=== PATIENT | male | born 1965 | race Caucasian/White ===

== ENCOUNTER 2017-03-18 20:14 | Inpatient (IN) | payer OTHER ==
[~2017-03-18] VITALS: Ht 182.9 cm; Wt 214.4 kg
[~2017-03-18 20:14] MED LIST: ADVAI500I PO; ASPI325T PO; DUONI INH; LEVO.05 PO; LORTA5 PO; METO25 PO; TRAM100T19 PO
[2017-03-18 20:15] VITALS: BP 150/90; PULSE 110; RESP 24; TEMP 98; O2SAT 96
--- NOTE | 2017-03-18 20:36 | PD ---
Physical Exam Time Seen by Provider: 20:34 Narrative 51 y/o male hx asthma here with SOB, cough. He also has venous stasis ulcers, wound culture performed last week grew out pseudomonas. He was sent here by PCP reportedly with the purpose of admission. Vital signs reviewed. Seen at triage desk. Awaiting bed placement. Data Data Last Documented VS Vital Signs Date Time Temp Pulse Resp B/P Pulse Ox O2 Delivery O2 Flow Rate FiO2 03/18/17 20:15 98.0 110 24 150/90 96 Room Air [facility] Medical Record Reviewed: Yes Supervised Visit with BILLY: Wil Boone Mar 18, 2017 20:36
[2017-03-19] VITALS (9 sets, daily range): BP systolic 103–144; BP diastolic 63–80; PULSE 60–124; RESP 16–22; TEMP 97.8–98.7; O2SAT 93–100
[2017-03-19 00:42] LABS: MEAN CORPUSCULAR HGB CONC 28.7 % (32.0-36.0)
[2017-03-19] MEDS ORDERED: RESP: ALBUTEROL 2.5 MG/IPRATROPIUM 0.5 MG NEB (SCH) INH ONE (00:45)
[2017-03-19 01:16] LABS: AUTOMATED NEUTROPHIL # 5.7 TH/MM3 (1.8-7.7); BASOPHIL % 0.6 % (0.0-2.0); EOSINOPHIL # 0.3 TH/MM3 (0-0.4); EOSINOPHIL % 3.1 % (0.0-4.0); HEMATOCRIT 28.5 % (39.0-51.0); HEMO FLAGS DIFF FINAL; LYMPH % 17.1 % (9.0-44.0); LYMPHOCYTE # 1.4 TH/MM3 (1.0-4.8); MEAN CORPUSCULAR HEMOGLOBIN 20.6 PG (27.0-34.0); MONO % 8.7 % (0.0-8.0); NEUT % 70.5 % (16.0-70.0); PLATELET COUNT 314 TH/MM3 (150-450); RED BLOOD COUNT 3.97 MIL/MM3 (4.50-5.90); RED CELL DISTRIBUTION WIDTH 19.4 % (11.6-17.2); WHITE BLOOD COUNT 8.1 TH/MM3 (4.0-11.0)
[2017-03-19 01:23] LABS: BICARBONATE 30.9 MEQ/L (21.0-32.0); POTASSIUM 4.5 MEQ/L (3.5-5.1)
--- NOTE | 2017-03-19 02:12 | RADRPT ---
EXAM DATE/TIME: 03/19/2017 01:51 [place] COMPARISON: CHEST SINGLE AP, June 06, 2016, 21:43. INDICATIONS : History of bronchitis- patient short of breath MEDICAL HISTORY : Hypertension. Gastroesophageal reflux disease. A-fib, Asthma,Thyroid disease SURGICAL HISTORY : Appendectomy. AICD ENCOUNTER: Initial ACUITY: 1 day PAIN SCORE: 8/10 LOCATION: Bilateral chest FINDINGS: The cardiac silhouette is enlarged in transverse diameter. There is right basilar atelectasis versus pneumonia. The left lung is free of acute parenchymal opacity. No pleural effusions are identified. CONCLUSION: 1. Cardiomegaly. 2. Right basilar atelectasis versus pneumonia Angel Browning MD on March 19, 2017 at 2:09 Board Certified Radiologist. This report was verified electronically.
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
[2017-03-19] MEDS ORDERED: PIPERACIL-TAZO 3.375 GM PREMIX 50 ML IV ONE (03:15)
[2017-03-19] MEDS ORDERED: ACETAMINOPHEN/HYDROcodone 325 MG/5 MG TAB PO ONE (03:30)
[2017-03-19] MEDS ORDERED: SODIUM CHLORIDE 0.9% FLUSH 10 ML FLUSH IVF PRN (03:45)
[2017-03-19] MEDS ORDERED: ONDANSETRON HCL 4 MG/2 ML VIAL IV PRN (03:45)
[2017-03-19] MEDS ORDERED: ACETAMINOPHEN 325 MG TAB PO PRN (03:45)
[2017-03-19] MEDS ORDERED: ASPI325T PO (04:16)
[2017-03-19] MEDS ORDERED: VENTAER INH (04:16)
[2017-03-19] MEDS ORDERED: METO25TA3 PO ×2 (04:16)
[2017-03-19] MEDS ORDERED: HYDR-3516 PO (04:16)
[2017-03-19] MEDS ORDERED: ASPI81TA81 (04:16)
[2017-03-19] MEDS ORDERED: ADVA100A INH (04:16)
[2017-03-19] MEDS ORDERED: TRIAM.1%T TOPICAL (04:17)
[2017-03-19] MEDS: SODIUM CHLORIDE 0.9% FLUSH 10 ML FLUSH IV FLUSH SCH ×2 (08:29→20:34)
[2017-03-19] MEDS ORDERED: INFLUENZA VIRUS VACCINE (QUADRIVALENT) 0.5 ML SYR IM ONE (09:15)
[2017-03-19] MEDS ORDERED: ALBUTEROL SULFATE 90 MCG/ACT HFA 8 GM INHALER INH PRN (11:45)
[2017-03-19] MEDS: METOPROLOL TARTRATE 25 MG TAB PO SCH ×2 (12:06→20:34)
[2017-03-19] MEDS: ACETAMINOPHEN/HYDROcodone 325 MG/5 MG TAB PO PRN ×2 (12:06→20:34)
[2017-03-19] MEDS: BUDESONIDE-FORMOTEROL 80/4.5 MCG INHALER INH SCH ×2 (12:40→20:35)
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
--- NOTE | 2017-03-19 18:17 | HHI.HP ---
HPI Service [facility] Hospitalists Primary Care Physician Lizette Bashir MD Admission Diagnosis Infection of Chronic Wounds; Poss R Lung PNA Chief Complaint: LE wound Travel History International Travel<30 Days: No Contact w/Intl Traveler <30 Da: No Traveled to Known Affected Are: No History of Present Illness Pt is a pleasant 51 y/o M with Morbid obesity, chronic anemia, atrial fibrillation, chronic lymphedema, asthma, bilateral nonhealing venous stasis ulcers. Patient states that these chronic b/l, nonhealing venous stasis ulcers have been an ongoing problem for the last 5 years. Patient's wounds have cultured out Pseudomonas in the past, this is mentioned in Vascular Surgery's, Dr. Wagner, consultation note from 07/08/2016. Patient has been following with [facility] wound care clinic, 3 visits documented for 2017. Pt had been recommended to the lymphedema clinic. Patient had previously been recommended to elevate his legs, but apparently has not been compliant with this. Patient had also been recommended for SNF for bed rest, but had declined due to financial considerations. Outpatient wound cultures (03/16/17) grew out Klebsiella pneumoniae and Pseudomonas anginosa. Ultimately patient was referred to the [place] ER and subsequently admitted for further evaluation and treatment of his nonhealing bilateral lower extremity venous stasis ulcers. Patient denies fever or chills. Review of Systems Constitutional: DENIES: Diaphoretic episodes, Fatigue, Fever, Weight gain, Weight loss, Chills, Dizziness, Change in appetite, Night Sweats Endocrine: DENIES: Heat/cold intolerance, Polydipsia, Polyuria, Polyphagia Eyes: DENIES: Blurred vision, Diplopia, Eye inflammation, Eye pain, Vision loss , Photosensitivity, Double Vision Ears, nose, mouth, throat: DENIES: Tinnitus, Hearing loss, Vertigo, Nasal discharge, Oral lesions, Throat pain, Hoarseness, Ear Pain, Running Nose, Epistaxis, Sinus Pain, Toothache, Odynophagia Respiratory: DENIES: Apneas, Cough, Snoring, Wheezing, Hemoptysis, Sputum production, Shortness of breath Cardiovascular: DENIES: Chest pain, Palpitations, Syncope, Dyspnea on Exertion , PND, Lower Extremity Edema, Orthopnea, Claudication Gastrointestinal: DENIES: Abdominal pain, Black stools, Bloody stools, BRB per rectum, Constipation, Diarrhea, GERD, Nausea, Reflux, Vomiting, Difficulty Swallowing, Anorexia, See HPI Genitourinary: DENIES: Urinary frequency, Urinary incontinence, Urgency, Hematuria, Dysuria, Nocturia Musculoskeletal: DENIES: Joint pain, Muscle aches, Stiffness, Joint Swelling, Back pain, Neck pain Integumentary: DENIES: Abnormal pigmentation, Nail changes, Pruritus, Rash Hematologic/lymphatic: DENIES: Bruising, Lymphadenopathy Immunologic/allergic: DENIES: Eczema, Urticaria Neurologic: DENIES: Abnormal gait, Headache, Localized weakness, Paresthesias, Seizures, Speech Problems, Tremor, Poor Balance Psychiatric: DENIES: Anxiety, Confusion, Mood changes, Depression, Hallucinations, Agitation, Suicidal Ideation, Homicidal Ideation, Delusions, History of Bipolar, History of Schizophrenia Past Family Social History Past Medical History 1) bilateral nonhealing lower extremity venous stasis ulcers 2) lower extremity venous stasis 3) morbid obesity 4) atrial fibrillation, chronic 5) asthma 6) h/o gastric ulcer Past Surgical History 05/07/2014-laparoscopy with gram patch repair of gsric ulcer perforation an drainage of multiple intraabdominal abscesssee hosp notes on 05/07/14 Allergies: Uncoded Allergies: Unna boots (Adverse Reaction, Unknown, 03/19/17) Physical Exam Vital Signs Vital Signs Date Time Temp Pulse Resp B/P Pulse Ox O2 Delivery O2 Flow Rate FiO2 03/19/17 16:39 97.8 92 20 103/63 93 03/19/17 15:46 78 03/19/17 12:16 97.9 60 16 107/65 95 03/19/17 12:01 91 03/19/17 09:46 124 03/19/17 08:57 98.0 94 20 116/80 94 03/19/17 04:00 98.7 78 18 144/78 98 03/19/17 00:57 18 03/18/17 20:15 98.0 110 24 150/90 96 Room Air Physical Exam GENERAL: This is a well-nourished, well-developed patient, in no apparent distress. SKIN: No rashes, ecchymoses or lesions. Cool and dry. HEAD: Atraumatic. Normocephalic. No temporal or scalp tenderness. EYES: Pupils equal round and reactive. Extraocular motions intact. No scleral icterus. No injection or drainage. ENT: Nose without bleeding, purulent drainage or septal hematoma. Throat without erythema, tonsillar hypertrophy or exudate. Uvula midline. Airway patent. NECK: Trachea midline. No JVD or lymphadenopathy. Supple, nontender, no meningeal signs. CARDIOVASCULAR: Regular rate and rhythm without murmurs, gallops, or rubs. RESPIRATORY: Clear to auscultation. Breath sounds equal bilaterally. No wheezes , rales, or rhonchi. GASTROINTESTINAL: Abdomen soft, non-tender, nondistended. No hepato-splenomegaly , or palpable masses. No guarding. MUSCULOSKELETAL: Extremities without clubbing, cyanosis, or edema. No joint tenderness, effusion, or edema noted. No calf tenderness. Negative Homans sign bilaterally. NEUROLOGICAL: Awake and alert. Cranial nerves II through XII intact. Motor and sensory grossly within normal limits. Five out of 5 muscle strength in all muscle groups. Normal speech. skin: Bilateral circumferential lower extremity venous stasis ulcers below the level of the knee. Wounds are large but do not appear infected. There is no drainage. There is no erythema. Laboratory Laboratory Tests Test 03/19/17 00:50 White Blood Count 8.1 Red Blood Count 3.97 Hemoglobin 8.2 Hematocrit 28.5 Mean Corpuscular Volume 72.0 Mean Corpuscular Hemoglobin 20.6 Mean Corpuscular Hemoglobin 28.7 Concent Red Cell Distribution Width 19.4 Platelet Count 314 Mean Platelet Volume 8.2 Neutrophils (%) (Auto) 70.5 Lymphocytes (%) (Auto) 17.1 Monocytes (%) (Auto) 8.7 Eosinophils (%) (Auto) 3.1 Basophils (%) (Auto) 0.6 Neutrophils # (Auto) 5.7 Lymphocytes # (Auto) 1.4 Monocytes # (Auto) 0.7 Eosinophils # (Auto) 0.3 Basophils # (Auto) 0.0 CBC Comment DIFF FINAL Differential Comment Sodium Level 140 Potassium Level 4.5 Chloride Level 104 Carbon Dioxide Level 30.9 Anion Gap 5 Blood Urea Nitrogen 22 Creatinine 1.09 Estimat Glomerular Filtration 72 Rate Random Glucose 89 Calcium Level 8.3 Date/Time Procedure Status Source Growth 03/19/17 03:45 Aerobic Blood Culture Received Blood Peripheral Pending 03/19/17 03:45 Anaerobic Blood Culture Received Blood Peripheral Pending 03/19/17 00:50 Gram Stain - Final Resulted Wound Leg 03/19/17 00:50 Wound Culture Resulted Wound Leg Pending Result Diagram: 03/19/17 0050 03/19/17 0050 Septic Shock Reassessment Heart: Regular rate and rhythm Lungs: Clear Skin: Warm Peripheral Pulses: Bounding Right Radial Bounding Left Radial Bounding Right Popliteal Bounding Left Popliteal Bounding Right Dorsalis Pedis Bounding Left Dorsalis Pedis Bounding Right Posterior Tibial Bounding Left Posterior Tibial Capillary Refill: Brisk Assessment and Plan Problem List: (1) Venous stasis ulcers of both lower extremities Status: Chronic Plan: - outpt wound cultures (03/16/17) show pseudomonas - case d/w ID, Dr. Rollins - michael - follow culture results - observe clinical response (2) Anemia Status: Acute Plan: - obtain iron indicies - repeat CBC in AM (3) COPD (chronic obstructive pulmonary disease) Status: Acute Plan: - symbicort - duonebs prn (4) Obesity Status: Chronic Problem Qualifiers (1) Anemia: Qualified Code: D64.9 - Anemia, unspecified type (2) Obesity: Sean Hurtado DO Mar 19, 2017 18:17
[2017-03-19] MEDS: PIPERACIL-TAZO 4.5 GM PREMIX 100 ML IV SCH (18:36)
[2017-03-19 19:53] LABS: LDH SERUM 258 U/L (87-241)
[2017-03-19 19:55] LABS: REVIEW FLAG FINAL
[2017-03-19 19:56] LABS: FERRITIN 14 NG/ML (26-388); TRANSFERRIN IRON PROFILE 352 MG/DL (200-360)
[2017-03-19 21:08] LABS: MEAN CORPUSCULAR HGB CONC 28.9 % (32.0-36.0)
[2017-03-20] VITALS (8 sets, daily range): BP systolic 99–132; BP diastolic 60–89; PULSE 84–93; RESP 18–24; TEMP 97.8–98.5; O2SAT 92–96
[2017-03-20] MEDS: PIPERACIL-TAZO 4.5 GM PREMIX 100 ML IV SCH ×4 (00:18→19:14)
[2017-03-20 06:03] LABS: AUTOMATED NEUTROPHIL # 5.1 TH/MM3 (1.8-7.7); BASOPHIL % 0.5 % (0.0-2.0); EOSINOPHIL # 0.3 TH/MM3 (0-0.4); EOSINOPHIL % 3.3 % (0.0-4.0); HEMATOCRIT 27.1 % (39.0-51.0); HEMO FLAGS DIFF FINAL; LYMPHOCYTE # 1.3 TH/MM3 (1.0-4.8); MEAN CELL VOLUME 71.9 FL (80.0-100.0); MEAN CORPUSCULAR HEMOGLOBIN 20.8 PG (27.0-34.0); MONO % 11.5 % (0.0-8.0); NEUT % 67.7 % (16.0-70.0); PLATELET COUNT 297 TH/MM3 (150-450); RED BLOOD COUNT 3.77 MIL/MM3 (4.50-5.90); RED CELL DISTRIBUTION WIDTH 19.2 % (11.6-17.2); WHITE BLOOD COUNT 7.5 TH/MM3 (4.0-11.0)
[2017-03-20 06:07] LABS: MAGNESIUM 2.2 MG/DL (1.5-2.5); POTASSIUM 4.5 MEQ/L (3.5-5.1)
[2017-03-20] MEDS: ACETAMINOPHEN/HYDROcodone 325 MG/5 MG TAB PO PRN ×2 (07:36→19:14)
[2017-03-20] MEDS: SODIUM CHLORIDE 0.9% FLUSH 10 ML FLUSH IV FLUSH SCH ×2 (09:17→22:40)
[2017-03-20] MEDS: ASPIRIN 325 MG TAB PO SCH (09:17)
[2017-03-20] MEDS: METOPROLOL TARTRATE 25 MG TAB PO SCH ×2 (09:17→22:40)
[2017-03-20] MEDS: BUDESONIDE-FORMOTEROL 80/4.5 MCG INHALER INH SCH ×2 (09:18→21:00)
--- NOTE | 2017-03-20 09:56 | HHI.PR ---
Addendum to Inpatient Note Additional Information fu P wound cultures cont zosyn previously R to fortaz, S cefepime MARY GRACE s not available if wound clx show S to cefepime will dc on cefepime if wound clx shows S to cipro will dc on oral cipro Starla Rollins MD Mar 20, 2017 09:56
--- NOTE | 2017-03-20 18:28 | HHI.PR ---
Subjective Remarks No new complaints. Objective Vitals Vital Signs Date Time Temp Pulse Resp B/P Pulse Ox O2 Delivery O2 Flow Rate FiO2 03/20/17 16:00 97.8 91 24 99/60 92 03/20/17 11:36 98.2 86 20 109/65 94 03/20/17 08:00 97.8 90 20 119/74 94 03/20/17 04:08 84 03/20/17 03:36 98.4 92 20 126/73 95 03/20/17 00:16 84 03/20/17 00:11 98.5 86 18 132/89 92 03/19/17 21:35 16 03/19/17 20:08 98.7 68 22 129/69 100 03/19/17 20:00 93 03/19/17 03/19/17 03/20/17 15:00 23:00 07:00 Intake Total 480 ml 500 ml Balance 480 ml 500 ml Intake Oral 480 ml 300 ml IV Total 200 ml # Voids 1 2 Result Diagram: 03/20/17 0450 03/20/17 0450 Imaging GENERAL: This is a well-nourished, well-developed patient, in no apparent distress. CARDIOVASCULAR: Regular rate and rhythm without murmurs, gallops, or rubs. RESPIRATORY: Clear to auscultation. Breath sounds equal bilaterally. No wheezes , rales, or rhonchi. GASTROINTESTINAL: Abdomen soft, non-tender, nondistended. Normal active bowel sounds MUSCULOSKELETAL: Extremities without clubbing, cyanosis, or edema. NEURO: Alert & Oriented x4 to person, place, time, situation. Moves all ext x4 Ext: b/l venous stasis ulcers without sighs of infection A/P Problem List: (1) Venous stasis ulcers of both lower extremities Status: Chronic Plan: - outpt wound cultures (03/16/17) show pseudomonas - case d/w ID, Dr. Rollins (03/20/17) - zosyn - follow wound culture (03/19/17) --> gram negative rods - anticipate d/c to home 03/21 (2) Anemia Status: Acute Plan: - iron indicies --> low serum iron - start iron upon discharge - f/u with GI outpt (3) COPD (chronic obstructive pulmonary disease) Status: Acute Plan: - symbicort - duonebs prn (4) Obesity Status: Chronic Problem Qualifiers (1) Anemia: Qualified Code: D64.9 - Anemia, unspecified type (2) Obesity: Sean Hurtado DO Mar 20, 2017 18:28
[2017-03-21] MEDS: PIPERACIL-TAZO 4.5 GM PREMIX 100 ML IV SCH ×4 (01:54→19:53)
[2017-03-21 05:29] VITALS: BP 118/67; PULSE 89; RESP 18; TEMP 98.4; O2SAT 97
[2017-03-21] MEDS: RESP: ALBUTEROL 2.5 MG/IPRATROPIUM 0.5 MG NEB (PRN) NEB ×2 (06:19→23:30)
[2017-03-21] MEDS: ACETAMINOPHEN/HYDROcodone 325 MG/5 MG TAB PO PRN ×2 (07:09→19:59)
[2017-03-21 07:25] VITALS: BP 112/69; PULSE 87; RESP 15; TEMP 98.2; O2SAT 94
[2017-03-21] MEDS: ASPIRIN 325 MG TAB PO SCH (09:23)
[2017-03-21] MEDS: SODIUM CHLORIDE 0.9% FLUSH 10 ML FLUSH IV FLUSH SCH ×2 (09:23→21:00)
[2017-03-21] MEDS: METOPROLOL TARTRATE 25 MG TAB PO SCH ×2 (09:23→22:02)
[2017-03-21] MEDS: BUDESONIDE-FORMOTEROL 80/4.5 MCG INHALER INH SCH ×2 (09:24→21:00)
--- NOTE | 2017-03-21 10:36 | HHI.PR ---
Subjective Remarks No new complaints. Objective Vitals Vital Signs Date Time Temp Pulse Resp B/P Pulse Ox O2 Delivery O2 Flow Rate FiO2 03/21/17 07:25 98.2 87 15 112/69 94 03/21/17 05:29 98.4 89 18 118/67 97 03/20/17 22:36 98.2 93 18 132/74 96 03/20/17 20:14 18 03/20/17 16:00 97.8 91 24 99/60 92 03/20/17 11:36 98.2 86 20 109/65 94 Result Diagram: 03/20/17 0450 03/20/17 0450 Imaging GENERAL: This is a well-nourished, well-developed patient, in no apparent distress. CARDIOVASCULAR: Regular rate and rhythm without murmurs, gallops, or rubs. RESPIRATORY: Clear to auscultation. Breath sounds equal bilaterally. No wheezes , rales, or rhonchi. GASTROINTESTINAL: Abdomen soft, non-tender, nondistended. Normal active bowel sounds MUSCULOSKELETAL: Extremities without clubbing, cyanosis, or edema. NEURO: Alert & Oriented x4 to person, place, time, situation. Moves all ext x4 Ext: b/l venous stasis ulcers without sighs of infection A/P Problem List: (1) Venous stasis ulcers of both lower extremities Status: Chronic Plan: - outpt wound cultures (03/16/17) show pseudomonas - case d/w ID, Dr. Rollins (03/20/17) - Case d/w microbiology lab (03/21/17) - (1) pseudomonas, sensitive to zosyn, resistant to levaquin, intermediate to cefepime - (2) Klebsiella, sensitivities should be available 03/22 - (3) MSSA sensitivities should be available 03/22 - continue zosyn for now - Pt would benefit from SNF at the end of this hospitalization for strict bedrest with elevation of his legs - IF he would be compliant - case d/w Dr. Sajan Wright. Pt to f/u with Dr. Pickard outpt. (2) Anemia Status: Acute Plan: - obtain iron indicies - repeat CBC in AM - Pt should have outpt evaluation by GI - start iron 325mg daily (3) COPD (chronic obstructive pulmonary disease) Status: Acute Plan: - symbicort - duonebs prn (4) Obesity Status: Chronic Problem Qualifiers (1) Anemia: Qualified Code: D64.9 - Anemia, unspecified type (2) Obesity: Sean Hurtado DO Mar 21, 2017 10:36 Sean Hurtado DO Mar 21, 2017 10:36
[2017-03-21 11:31] VITALS: BP 105/67; PULSE 97; RESP 16; TEMP 98.4; O2SAT 95
[2017-03-21] MEDS: PANTOPRAZOLE SOD 40 MG DELAYED RELEASE TAB PO SCH (13:51)
[2017-03-21] MEDS: FERROUS SULFATE 325 MG (65 MG ELEMENTAL IRON) TAB PO SCH (13:51)
[2017-03-21 15:07] VITALS: BP 150/78; PULSE 92; RESP 15; TEMP 98.5; O2SAT 94
[2017-03-21 19:52] VITALS: BP 159/78; PULSE 125; RESP 18; TEMP 97.7; O2SAT 97
[2017-03-22] MEDS: PIPERACIL-TAZO 4.5 GM PREMIX 100 ML IV SCH ×4 (01:35→17:41)
[2017-03-22 04:04] VITALS: BP 148/78; PULSE 74; RESP 18; TEMP 98.8; O2SAT 97
[2017-03-22 04:58] VITALS: BP 141/74; PULSE 74; RESP 18; TEMP 98.7; O2SAT 97
[2017-03-22 08:05] VITALS: BP 138/81; PULSE 90; RESP 16; TEMP 98; O2SAT 95
[2017-03-22] MEDS: PANTOPRAZOLE SOD 40 MG DELAYED RELEASE TAB PO SCH (08:22)
[2017-03-22] MEDS: METOPROLOL TARTRATE 25 MG TAB PO SCH ×2 (08:22→22:09)
[2017-03-22] MEDS: FERROUS SULFATE 325 MG (65 MG ELEMENTAL IRON) TAB PO SCH (08:22)
[2017-03-22] MEDS: BUDESONIDE-FORMOTEROL 80/4.5 MCG INHALER INH SCH ×2 (08:22→22:09)
[2017-03-22] MEDS: ASPIRIN 325 MG TAB PO SCH (08:22)
[2017-03-22] MEDS: SODIUM CHLORIDE 0.9% FLUSH 10 ML FLUSH IV FLUSH SCH ×2 (08:23→22:10)
[2017-03-22] MEDS ORDERED: BENZONATATE 100 MG CAP PO ONE (09:15)
[2017-03-22] MEDS ORDERED: BENZONATATE 100 MG CAP PO PRN (09:15)
[2017-03-22] MEDS: RESP: ALBUTEROL 2.5 MG/IPRATROPIUM 0.5 MG NEB (SCH) NEB ×4 (09:15→20:00)
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
[2017-03-22] MEDS ORDERED: LORATADINE 10 MG TAB PO ONE (09:30)
[2017-03-22] MEDS: ACETAMINOPHEN/HYDROcodone 325 MG/5 MG TAB PO PRN ×3 (10:49→22:09)
[2017-03-22 10:53] VITALS: BP 120/75; PULSE 83; RESP 14; TEMP 98; O2SAT 95
[2017-03-22] MEDS ORDERED: RESP: ALBUTEROL 2.5 MG/IPRATROPIUM 0.5 MG NEB (PRN) NEB (12:00)
[2017-03-22 15:30] VITALS: BP 119/69; PULSE 82; RESP 15; TEMP 98.2; O2SAT 95
[2017-03-22 21:12] LABS: MEAN CORPUSCULAR HGB CONC 28.3 % (32.0-36.0)
[2017-03-23] VITALS (8 sets, daily range): BP systolic 109–145; BP diastolic 67–89; PULSE 67–90; RESP 15–18; TEMP 97.8–98.9; O2SAT 94–98
[2017-03-23] MEDS: PIPERACIL-TAZO 4.5 GM PREMIX 100 ML IV SCH ×4 (00:24→19:20)
[2017-03-23 07:21] LABS: AUTOMATED NEUTROPHIL # 4.1 TH/MM3 (1.8-7.7); BASOPHIL % 0.7 % (0.0-2.0); EOSINOPHIL # 0.2 TH/MM3 (0-0.4); EOSINOPHIL % 3.1 % (0.0-4.0); HEMATOCRIT 27.1 % (39.0-51.0); HEMO FLAGS DIFF FINAL; LYMPH % 18.5 % (9.0-44.0); LYMPHOCYTE # 1.1 TH/MM3 (1.0-4.8); MEAN CELL VOLUME 73.2 FL (80.0-100.0); MEAN CORPUSCULAR HEMOGLOBIN 20.7 PG (27.0-34.0); NEUT % 68.7 % (16.0-70.0); PLATELET COUNT 284 TH/MM3 (150-450); RED CELL DISTRIBUTION WIDTH 19.6 % (11.6-17.2)
[2017-03-23] MEDS: RESP: ALBUTEROL 2.5 MG/IPRATROPIUM 0.5 MG NEB (SCH) NEB ×4 (07:26→20:29)
[2017-03-23] MEDS: ACETAMINOPHEN/HYDROcodone 325 MG/5 MG TAB PO PRN ×3 (07:43→19:17)
[2017-03-23 07:46] LABS: BICARBONATE 28.4 MEQ/L (21.0-32.0); MAGNESIUM 2.2 MG/DL (1.5-2.5); POTASSIUM 4.1 MEQ/L (3.5-5.1)
[2017-03-23] MEDS: BUDESONIDE-FORMOTEROL 80/4.5 MCG INHALER INH SCH ×2 (09:00→22:43)
[2017-03-23] MEDS: METOPROLOL TARTRATE 25 MG TAB PO SCH ×2 (10:27→22:42)
[2017-03-23] MEDS: ASPIRIN 325 MG TAB PO SCH (10:27)
[2017-03-23] MEDS: FERROUS SULFATE 325 MG (65 MG ELEMENTAL IRON) TAB PO SCH (10:28)
[2017-03-23] MEDS: LORATADINE 10 MG TAB PO SCH (10:28)
[2017-03-23] MEDS: PANTOPRAZOLE SOD 40 MG DELAYED RELEASE TAB PO SCH (10:28)
--- NOTE | 2017-03-23 10:44 | HHI.PR ---
Subjective Remarks Patient frustrated as he has not been seen by wound care yet. Discussed with him that I reconsulted them yesterday so they have 24 hours to respond. Pt now no longer has [facility] insurance coverage. Will discuss with CM about getting patient assistance for him. Pt had coughing fit last night with some wheezing Objective Vitals Vital Signs Date Time Temp Pulse Resp B/P Pulse Ox O2 Delivery O2 Flow Rate FiO2 03/23/17 08:44 20 03/23/17 07:28 98.0 77 15 120/73 96 03/23/17 00:00 98.0 67 18 128/68 97 03/22/17 15:30 98.2 82 15 119/69 95 03/22/17 10:53 98.0 83 14 120/75 95 03/22/17 03/22/17 03/23/17 15:00 23:00 07:00 Intake Total 100 ml Output Total 625 ml Balance -525 ml IV Total 100 ml Output Urine Total 625 ml Result Diagram: 03/23/17 0555 03/23/17 0555 Other Results Laboratory Tests Test 03/23/17 05:55 White Blood Count 6.0 TH/MM3 Red Blood Count 3.70 MIL/MM3 Hemoglobin 7.7 GM/DL Hematocrit 27.1 % Mean Corpuscular Volume 73.2 FL Mean Corpuscular Hemoglobin 20.7 PG Mean Corpuscular Hemoglobin 28.3 % Concent Red Cell Distribution Width 19.6 % Platelet Count 284 TH/MM3 Mean Platelet Volume 7.9 FL Neutrophils (%) (Auto) 68.7 % Lymphocytes (%) (Auto) 18.5 % Monocytes (%) (Auto) 9.0 % Eosinophils (%) (Auto) 3.1 % Basophils (%) (Auto) 0.7 % Neutrophils # (Auto) 4.1 TH/MM3 Lymphocytes # (Auto) 1.1 TH/MM3 Monocytes # (Auto) 0.5 TH/MM3 Eosinophils # (Auto) 0.2 TH/MM3 Basophils # (Auto) 0.0 TH/MM3 CBC Comment DIFF FINAL Differential Comment Sodium Level 136 MEQ/L Potassium Level 4.1 MEQ/L Chloride Level 101 MEQ/L Carbon Dioxide Level 28.4 MEQ/L Anion Gap 7 MEQ/L Blood Urea Nitrogen 19 MG/DL Creatinine 1.21 MG/DL Estimat Glomerular Filtration 63 ML/MIN Rate Random Glucose 75 MG/DL Calcium Level 8.0 MG/DL Magnesium Level 2.2 MG/DL Imaging Last Impressions Chest X-Ray 03/19/17 0040 Signed Impressions: Service Date/Time: Sunday, March 19, 2017 01:51 - CONCLUSION: 1. Cardiomegaly. 2. Right basilar atelectasis versus pneumonia Angel Browning MD Objective Remarks General: NAD, AAOx3 Chest: CTA Cardiac: Regular Abd: +BS, soft, obese, non-tender, nondistended. Ext: b/l venous stasis ulcers, RLE majority of the circumference of the LE with ulcerated tissue. A/P Problem List: (1) Venous stasis ulcers of both lower extremities Status: Chronic Plan: - Pt with chronic venous stasis ulcers to bilateral LE and has been receiving outpt wound care with [facility] for dressing changes 3 days a week and once monthly seeing [facility] wound care. - outpt wound cultures (03/16/17) show pseudomonas - ID following. - Case d/w microbiology lab (03/21/17) - (1) pseudomonas, sensitive to Zosyn, resistant to Levaquin, intermediate to cefepime - (2) Klebsiella, - (3) MSSA - Await Wound care consultation - continue Zosyn for now - Await ID re-evaluation. - Pt to f/u with Dr. Pickard outpt. - Pt now no longer has [facility] insurance coverage. Will discuss with CM about getting patient assistance for him. (2) Anemia Status: Acute Plan: - Pt noted to be iron deficient - Monitor H/H - Cont. FeSo4 325mg daily - Pt with hx of perforated peptic ulcer, no signs of GIB - PPI - Pt should have outpt evaluation by GI (3) Asthma Status: Chronic Plan: - Cont. Symbicort and Proair PRN - Schedule Duonebs Q4H WA - Claritin - Tessalon pearls PRN - Add Solumedrol 125mg x 1 dose then 60mg Q6H - Add Budesonide nebulizer Q12H (4) Afib Status: Chronic Plan: - Pt is not on any rate controlling medicine and is in NSR - ASA 325mg po daily - Had been on Coumadin previously but had bleeding issues. (5) Obesity Status: Chronic Assessment and Plan Patient examined. Assessment and plan formulated with Fior Edwards PA-C. I agree with the above. pt lost his fhcp. cm working on post hospital resources for wound care. chronic lower ext venous stasis ulcers. polymicrobial on abx per ID. await d/c plans. nebs/solumedrol/mucolytics. pt with bronchospasm/cough/congestion. hx of asthma. Problem Qualifiers (1) Anemia: Qualified Code: D64.9 - Anemia, unspecified type (2) Afib: Qualified Code: I48.0 - Paroxysmal atrial fibrillation (3) Obesity: Fior Edwards Mar 23, 2017 10:43 Eleuterio Quinonez MD Mar 23, 2017 15:24
--- NOTE | 2017-03-23 13:07 | PD.WCN.NOT ---
Wound Consult Description: Bilateral lower legs chronic venous stasis ulcer Communicated with: Pema Gu RN charge and Call placed to Doctor underwood regarding orders Recommendation: Please irrigate wounds to bilateral lower extremities with 30 ml of Normal saline and pat dry.Apply Maxorb (Calcium alginate) over wound beds and cover with ABD pads secure with rolled gauze and elastic wrap change every other day or PRN if saturated or dislodged. Please vocera interior decorator painting for wound deterioration Additional Information: Patient seen in F pod for evaluation of chronic venous stasis ulcers to bilateral lower legs. Removed dressing in place to L leg to reveal a large shallow ulcer. Wound measures 11.4cm x 17cm x ~0.1 cm.Wound margins are irregular. Periwound is noted with maceration between 12 and 3 o'clock, but is other matthews unremarkable. Wound presents with 80% clean red non granulation tissue and ~20% yellow tissue. Wound noted with minimal active serous drainage without odor. Serous drainage noted to old dressing is moderate to heavy. with musty odor. Removed dressings to R lower leg to reveal large shallow venous stasis ulcer. Wound measures 16.5 cm x 30 cm x~ 0.1 cm. Wound margins are irregular.Wound bed noted with ~70% red clean non granulation tissue and ~30% yellow tissue. Wound is noted with minimal active serous drainage that is without odor. Old dressing is noted with musty odor and moderate to heavy drainage. Periwound presents with maceration from 12 to 6 o'clock and scar tissue from 7 to 11 o'clock. Irrigated wounds with 30 ml of normal saline and patted dry.Applied Maxorb ( Calcium Alginate). Covered wound with ABD pads. Secured dressings with rolled gauze and tape.Wound cultures taken 03/19 are positive for PSEUDOMONAS Aeruginosa , KLEBSIELLA PNEUMONIAE, STAPHYLOCOCCUS AUREUS. Patient currently being treated with Piperacillin/ Tazobactam, with infectious disease consult. Patient states, "I was using regular maxorb in home care, I am sensitive to dressings with silver in them." Alina Barboza [facility] Mar 23, 2017 13:07
[2017-03-23] MEDS ORDERED: methylPREDNISolone SOD SUCC 125 MG/2 ML VIAL IV PUSH ONE (15:00)
[2017-03-23] MEDS: SODIUM CHLORIDE 0.9% FLUSH 10 ML FLUSH IV FLUSH SCH ×2 (15:23→22:43)
--- NOTE | 2017-03-23 15:45 | HHI.IDPN ---
Subjective Subjective Remarks co cough with expectoration , wheezinf and fdifficulty breathuing clx noted no fever Antibiotics zosyn Allergies: Uncoded Allergies: Unna boots (Adverse Reaction, Unknown, 03/19/17) Objective . Vital Signs Date Time Temp Pulse Resp B/P Pulse Ox O2 Delivery O2 Flow Rate FiO2 03/23/17 15:39 98.9 90 16 119/67 95 03/23/17 11:23 98.0 81 15 109/73 95 03/23/17 08:44 20 03/23/17 07:28 98.0 77 15 120/73 96 03/23/17 00:00 98.0 67 18 128/68 97 03/22/17 03/22/17 03/23/17 14:59 22:59 06:59 Intake Total 100 ml Output Total 625 ml Balance -525 ml IV Total 100 ml Output Urine Total 625 ml . Laboratory Tests Test 03/23/17 05:55 White Blood Count 6.0 TH/MM3 Red Blood Count 3.70 MIL/MM3 Hemoglobin 7.7 GM/DL Hematocrit 27.1 % Mean Corpuscular Volume 73.2 FL Mean Corpuscular Hemoglobin 20.7 PG Mean Corpuscular Hemoglobin 28.3 % Concent Red Cell Distribution Width 19.6 % Platelet Count 284 TH/MM3 Mean Platelet Volume 7.9 FL Neutrophils (%) (Auto) 68.7 % Lymphocytes (%) (Auto) 18.5 % Monocytes (%) (Auto) 9.0 % Eosinophils (%) (Auto) 3.1 % Basophils (%) (Auto) 0.7 % Neutrophils # (Auto) 4.1 TH/MM3 Lymphocytes # (Auto) 1.1 TH/MM3 Monocytes # (Auto) 0.5 TH/MM3 Eosinophils # (Auto) 0.2 TH/MM3 Basophils # (Auto) 0.0 TH/MM3 CBC Comment DIFF FINAL Differential Comment Laboratory Tests Test 03/23/17 05:55 Sodium Level 136 MEQ/L Potassium Level 4.1 MEQ/L Chloride Level 101 MEQ/L Carbon Dioxide Level 28.4 MEQ/L Anion Gap 7 MEQ/L Blood Urea Nitrogen 19 MG/DL Creatinine 1.21 MG/DL Estimat Glomerular Filtration 63 ML/MIN Rate Random Glucose 75 MG/DL Calcium Level 8.0 MG/DL Magnesium Level 2.2 MG/DL Imaging Last Impressions Chest X-Ray 03/19/17 0040 Signed Impressions: Service Date/Time: Sunday, March 19, 2017 01:51 - CONCLUSION: 1. Cardiomegaly. 2. Right basilar atelectasis versus pneumonia Angel Browning MD Physical Exam CONSTITUTIONAL/GENERAL: This is a morbidly obese niddle aged patient, in no apparent distress. TUBES/LINES/DRAINS: SKIN: No jaundice, rashes, or lesions. Skin temperature appropriate. Not diaphoretic. EYES: Pupils equal and round and reactive. Extraocular motions intact. No scleral icterus. No injection or drainage. Fundi not examined. ENT: Hearing grossly normal. Nose without bleeding or purulent drainage. Oral mucosae without visible erythema, exudates, masses, or lesions. POor dentition CARDIOVASCULAR: Regular rate and rhythm without murmurs, gallops, or rubs. No JVD. Peripheral pulses symmetric. RESPIRATORY/CHEST: Symmetric, unlabored respirations. Clear to auscultation. Breath sounds equally doiminished b/b bilaterally. No wheezes, rales, or rhonchi. GASTROINTESTINAL: Abdomen soft, markedly oebese non-tender, distended. No hepato-splenomegaly, or palpable masses. No guarding. Bowel sounds present. MUSCULOSKELETAL: Extremities without clubbing, cyanosis, Severe BLE edema more prominent of the RLE, tight on the RLE chronic hyperpigmentation wounds are dressed, no erythema around No cellulitis no purulence no odor no lymphangitis . No joint tenderness or effusion noted. No mottling or clubbing. NEUROLOGICAL: Awake and alert. Motor and sensory grossly within normal limits. Follows commands. Clear speech. Moves all extremities. PSYCHIATRIC: No obvious anxiety/depression. no apparent hallucinations or other psychotic thought process. Assessment & Plan Remarks chronic venostasis in the setting s of morbid obesity - those wounds unlikely to heal if pt is non compliant with BLE elevation, weight reduction Superficially infected vs colonised wounds of BLE ? PNA Asthma exacerabtion REC'S:cont zosyn up to 7 days chk sputum clx add azithro Discussed Condition With Starla Whitaker RN, MD Mar 23, 2017 15:45
[2017-03-23] MEDS: guaiFENesin E.R. 600 MG TAB PO SCH ×2 (16:10→22:42)
[2017-03-23] MEDS ORDERED: AZITHROMYCIN 250 MG TAB PO ONE (16:30)
[2017-03-23] MEDS: methylPREDNISolone SOD SUCC 125 MG/2 ML VIAL IV PUSH SCH (18:39)
[2017-03-23] MEDS: RESP: BUDESONIDE 0.5 MG/2 ML NEB NEB SCH (20:00)
[2017-03-24] VITALS (8 sets, daily range): BP systolic 121–150; BP diastolic 60–86; PULSE 76–100; RESP 18; TEMP 97.3–98.7; O2SAT 92–97
[2017-03-24] MEDS: methylPREDNISolone SOD SUCC 125 MG/2 ML VIAL IV PUSH SCH ×5 (00:38→23:25)
[2017-03-24] MEDS: PIPERACIL-TAZO 4.5 GM PREMIX 100 ML IV SCH ×3 (00:38→12:12)
[2017-03-24] MEDS: ACETAMINOPHEN/HYDROcodone 325 MG/5 MG TAB PO PRN ×5 (00:38→23:25)
[2017-03-24] MEDS: RESP: ALBUTEROL 2.5 MG/IPRATROPIUM 0.5 MG NEB (SCH) NEB ×4 (08:08→20:45)
--- NOTE | 2017-03-24 08:31 | HHI.PR ---
Subjective Remarks breathing is better. Objective Vitals heart reg lung improved air entry. less wheeze abd s/nt ext chronic lower ext ulcerations/bandaged. Vital Signs Date Time Temp Pulse Resp B/P Pulse Ox O2 Delivery O2 Flow Rate FiO2 03/24/17 08:11 94 21 03/24/17 04:00 98.7 77 18 150/70 93 03/24/17 00:00 98.1 76 18 135/86 94 03/23/17 21:06 81 03/23/17 20:33 98 03/23/17 20:00 98.3 79 18 145/89 94 03/23/17 17:00 97.8 90 18 130/85 95 03/23/17 16:20 20 03/23/17 15:39 98.9 90 16 119/67 95 03/23/17 11:23 98.0 81 15 109/73 95 03/23/17 03/23/17 03/24/17 14:59 22:59 06:59 # Voids 2 Result Diagram: 03/23/17 0555 03/23/17 0555 Imaging Last Impressions Chest X-Ray 03/19/17 0040 Signed Impressions: Service Date/Time: Sunday, March 19, 2017 01:51 - CONCLUSION: 1. Cardiomegaly. 2. Right basilar atelectasis versus pneumonia Angel Browning MD A/P Problem List: (1) Venous stasis ulcers of both lower extremities Status: Chronic Plan: - Pt with chronic venous stasis ulcers to bilateral LE and has been receiving outpt wound care with [facility] for dressing changes 3 days a week and once monthly seeing [facility] wound care. - outpt wound cultures (03/16/17) show pseudomonas - ID following. - Case d/w microbiology lab (03/21/17) - (1) pseudomonas, sensitive to Zosyn, resistant to Levaquin, intermediate to cefepime - (2) Klebsiella, - (3) MSSA - wound care following - continue Zosyn 7 days rx per ID - Pt to f/u with Dr. Pickard outpt. - Pt now no longer has [facility] insurance coverage. await CM to assist with finding wound care after d/c .....will plan to d/c this pt once appropriate post hospital care arranged. (2) Asthma Status: Acute Plan: asthma exac with bronchitis - Cont. Symbicort and Proair PRN - Schedule Duonebs Q4H WA - Claritin - Tessalon pearls PRN - solumedrol - abx broadened to get atypicals with azithro (3) Anemia Status: Acute Plan: - Pt noted to be iron deficient - Monitor H/H - Cont. FeSo4 325mg daily - venofer infusions. - Pt with hx of perforated peptic ulcer, no signs of GIB - PPI - Pt should have outpt evaluation by GI (4) Afib Status: Chronic Plan: - Pt is not on any rate controlling medicine and is in NSR - ASA 325mg po daily - Had been on Coumadin previously but had bleeding issues. (5) Obesity Status: Chronic Problem Qualifiers (1) Anemia: Qualified Code: D64.9 - Anemia, unspecified type (2) Afib: Qualified Code: I48.0 - Paroxysmal atrial fibrillation (3) Obesity: Eleuterio Quinonez MD Mar 24, 2017 08:31
[2017-03-24] MEDS: PANTOPRAZOLE SOD 40 MG DELAYED RELEASE TAB PO SCH (09:34)
[2017-03-24] MEDS: BUDESONIDE-FORMOTEROL 80/4.5 MCG INHALER INH SCH ×2 (09:34→20:08)
[2017-03-24] MEDS: AZITHROMYCIN 250 MG TAB PO SCH (09:34)
[2017-03-24] MEDS: ASPIRIN 325 MG TAB PO SCH (09:34)
[2017-03-24] MEDS: LORATADINE 10 MG TAB PO SCH (09:34)
[2017-03-24] MEDS: METOPROLOL TARTRATE 25 MG TAB PO SCH ×2 (09:35→20:07)
[2017-03-24] MEDS: guaiFENesin E.R. 600 MG TAB PO SCH ×2 (09:35→20:07)
[2017-03-24] MEDS: FERROUS SULFATE 325 MG (65 MG ELEMENTAL IRON) TAB PO SCH (09:35)
[2017-03-24] MEDS: SODIUM CHLORIDE 0.9% FLUSH 10 ML FLUSH IV FLUSH SCH ×2 (09:35→20:07)
[2017-03-24] MEDS: RESP: BUDESONIDE 0.5 MG/2 ML NEB NEB SCH ×2 (11:05→20:00)
[2017-03-24] MEDS: IRON SUCROSE INJ 100 MG in SODIUM CHLORIDE 0.9% INJ 100 ML IV SCH (12:12)
--- NOTE | 2017-03-24 16:10 | HHI.IDPN ---
Subjective Subjective Remarks co not feeling good endorses cough no fever Antibiotics azithro zosyn Allergies: Uncoded Allergies: Unna boots (Adverse Reaction, Unknown, 03/19/17) Objective . Vital Signs Date Time Temp Pulse Resp B/P Pulse Ox O2 Delivery O2 Flow Rate FiO2 03/24/17 12:00 97.8 100 18 129/78 93 03/24/17 08:11 94 21 03/24/17 08:00 94 03/24/17 08:00 97.3 84 18 121/78 94 03/24/17 04:00 98.7 77 18 150/70 93 03/24/17 00:00 98.1 76 18 135/86 94 03/23/17 21:06 81 03/23/17 20:33 98 03/23/17 20:00 98.3 79 18 145/89 94 03/23/17 17:00 97.8 90 18 130/85 95 03/23/17 16:20 20 03/23/17 03/23/17 03/24/17 15:00 23:00 07:00 # Voids 2 . Laboratory Tests Test 03/23/17 05:55 White Blood Count 6.0 TH/MM3 Red Blood Count 3.70 MIL/MM3 Hemoglobin 7.7 GM/DL Hematocrit 27.1 % Mean Corpuscular Volume 73.2 FL Mean Corpuscular Hemoglobin 20.7 PG Mean Corpuscular Hemoglobin 28.3 % Concent Red Cell Distribution Width 19.6 % Platelet Count 284 TH/MM3 Mean Platelet Volume 7.9 FL Neutrophils (%) (Auto) 68.7 % Lymphocytes (%) (Auto) 18.5 % Monocytes (%) (Auto) 9.0 % Eosinophils (%) (Auto) 3.1 % Basophils (%) (Auto) 0.7 % Neutrophils # (Auto) 4.1 TH/MM3 Lymphocytes # (Auto) 1.1 TH/MM3 Monocytes # (Auto) 0.5 TH/MM3 Eosinophils # (Auto) 0.2 TH/MM3 Basophils # (Auto) 0.0 TH/MM3 CBC Comment DIFF FINAL Differential Comment Laboratory Tests Test 03/23/17 05:55 Sodium Level 136 MEQ/L Potassium Level 4.1 MEQ/L Chloride Level 101 MEQ/L Carbon Dioxide Level 28.4 MEQ/L Anion Gap 7 MEQ/L Blood Urea Nitrogen 19 MG/DL Creatinine 1.21 MG/DL Estimat Glomerular Filtration 63 ML/MIN Rate Random Glucose 75 MG/DL Calcium Level 8.0 MG/DL Magnesium Level 2.2 MG/DL Imaging Last Impressions Chest X-Ray 03/19/17 0040 Signed Impressions: Service Date/Time: Sunday, March 19, 2017 01:51 - CONCLUSION: 1. Cardiomegaly. 2. Right basilar atelectasis versus pneumonia Angel Browning MD Physical Exam CONSTITUTIONAL/GENERAL: This is a morbidly obese middle aged patient, in no apparent distress. Sitting on his bed with the legs down TUBES/LINES/DRAINS: SKIN: No jaundice, rashes, or lesions. Skin temperature appropriate. Not diaphoretic. CARDIOVASCULAR: Regular rate and rhythm without murmurs, gallops, or rubs. No JVD. Peripheral pulses symmetric. RESPIRATORY/CHEST: Symmetric, unlabored respirations. Clear to auscultation. No wheezes, rales, or rhonchi. GASTROINTESTINAL: Abdomen soft, markedly oebese non-tender, distended. MUSCULOSKELETAL: Extremities without clubbing, cyanosis, Severe BLE edema more prominent of the RLE, tight on the RLE stage 3-4+ chronic hyperpigmentation wounds are dressed, no erythema around NEUROLOGICAL: Awake and alert. Motor and sensory grossly within normal limits. PSYCHIATRIC: No obvious anxiety/depression. no apparent hallucinations or other psychotic thought process. Assessment & Plan Remarks chronic venostasis in the setting s of morbid obesity - uncontrolled edema - those wounds unlikely to heal if pt is non compliant with BLE elevation, weight reduction - explained to pt that his wounds will stay colonised and there fore he will have + clx regardless of treatmetn Superficially infected vs colonised wounds of BLE ? PNA Asthma exacerabtion: no active whhezing REC'S: dc zosyn up to 7 days chk sputum clx cont azithro x 5 days pt needs to control his BLE edema and weight reduction; abx courses will not work unless temporarily cub superinfection. The wounds will only heal if edema is controlled which is not currently achieved yet. - I would not recommend to culture clean based wounds with no e/o infection ( purulence, erythema) - edelmira sign off; feel free to reconsult if needed OK to dc from [place] [facility] Discussed Condition With Starla Sloan MD Mar 24, 2017 16:10
[2017-03-25] VITALS (8 sets, daily range): BP systolic 129–140; BP diastolic 70–89; PULSE 72–106; RESP 18–22; TEMP 96.6–98.4; O2SAT 94–97
[2017-03-25] MEDS: methylPREDNISolone SOD SUCC 125 MG/2 ML VIAL IV PUSH SCH ×3 (06:23→17:38)
[2017-03-25] MEDS: ACETAMINOPHEN/HYDROcodone 325 MG/5 MG TAB PO PRN ×2 (06:23→17:41)
[2017-03-25] MEDS: RESP: ALBUTEROL 2.5 MG/IPRATROPIUM 0.5 MG NEB (SCH) NEB ×4 (08:46→19:49)
[2017-03-25] MEDS: RESP: BUDESONIDE 0.5 MG/2 ML NEB NEB SCH ×2 (08:57→19:49)
--- NOTE | 2017-03-25 09:00 | HHI.PR ---
Subjective Remarks breathing better. Objective Vitals heart reg lung improved air entry abd s/nt ext chronic lower ext lymphedema and venous stasis ulcers. wrapped. Vital Signs Date Time Temp Pulse Resp B/P Pulse Ox O2 Delivery O2 Flow Rate FiO2 03/25/17 08:47 95 03/25/17 04:00 98.4 85 18 131/70 97 03/25/17 00:00 98.1 93 18 134/87 96 03/24/17 20:45 96 21 03/24/17 20:00 88 03/24/17 20:00 88 03/24/17 20:00 98.4 95 18 123/65 97 03/24/17 16:00 98.0 99 18 121/60 92 03/24/17 12:00 97.8 100 18 129/78 93 03/24/17 03/24/17 03/25/17 15:00 23:00 07:00 Intake Total 960 ml 720 ml 480 ml Output Total 800 ml 600 ml Balance 960 ml -80 ml -120 ml Intake Oral 960 ml 720 ml 480 ml Output Urine Total 800 ml 600 ml # Voids 4 # Bowel Movements 3 2 1 Result Diagram: 03/23/17 0555 03/23/17 0555 Imaging Last Impressions Chest X-Ray 03/19/17 0040 Signed Impressions: Service Date/Time: Sunday, March 19, 2017 01:51 - CONCLUSION: 1. Cardiomegaly. 2. Right basilar atelectasis versus pneumonia Angel Browning MD A/P Problem List: (1) Venous stasis ulcers of both lower extremities Status: Chronic Plan: - Pt with chronic venous stasis ulcers to bilateral LE and has been receiving outpt wound care with [facility] for dressing changes 3 days a week and once monthly seeing [facility] wound care. - outpt wound cultures (03/16/17) show pseudomonas - ID following. - Case d/w microbiology lab (03/21/17) - (1) pseudomonas, sensitive to Zosyn, resistant to Levaquin, intermediate to cefepime - (2) Klebsiella, - (3) MSSA - wound care following - continue Zosyn 7 days rx per ID - Pt to f/u with Dr. Pickard outpt. - Pt now no longer has [facility] insurance coverage. await CM to assist with finding wound care after d/c .....will plan to d/c this pt once appropriate post hospital care arranged. Trying to contact the [facility]. (2) Asthma Status: Acute Plan: asthma exac with bronchitis..improved - Cont. Symbicort and Proair PRN - Schedule Duonebs Q4H WA - Claritin - Tessalon pearls PRN - solumedrol - abx broadened to get atypicals with azithro (3) Anemia Status: Acute Plan: - Pt noted to be iron deficient - Monitor H/H - Cont. FeSo4 325mg daily - venofer infusions. - Pt with hx of perforated peptic ulcer, no signs of GIB - PPI - Pt should have outpt evaluation by GI (4) Afib Status: Chronic Plan: - Pt is not on any rate controlling medicine and is in NSR - ASA 325mg po daily - Had been on Coumadin previously but had bleeding issues. (5) Obesity Status: Chronic Problem Qualifiers (1) Anemia: Qualified Code: D64.9 - Anemia, unspecified type (2) Afib: Qualified Code: I48.0 - Paroxysmal atrial fibrillation (3) Obesity: Eleuterio Quinonez MD Mar 25, 2017 09:00
[2017-03-25] MEDS: SODIUM CHLORIDE 0.9% FLUSH 10 ML FLUSH IV FLUSH SCH ×2 (09:22→20:49)
[2017-03-25] MEDS: BUDESONIDE-FORMOTEROL 80/4.5 MCG INHALER INH SCH ×2 (09:22→20:49)
[2017-03-25] MEDS: AZITHROMYCIN 250 MG TAB PO SCH (09:22)
[2017-03-25] MEDS: LORATADINE 10 MG TAB PO SCH (09:22)
[2017-03-25] MEDS: ASPIRIN 325 MG TAB PO SCH (09:23)
[2017-03-25] MEDS: guaiFENesin E.R. 600 MG TAB PO SCH ×2 (09:23→20:49)
[2017-03-25] MEDS: FERROUS SULFATE 325 MG (65 MG ELEMENTAL IRON) TAB PO SCH (09:23)
[2017-03-25] MEDS: PANTOPRAZOLE SOD 40 MG DELAYED RELEASE TAB PO SCH (09:25)
[2017-03-25] MEDS: METOPROLOL TARTRATE 25 MG TAB PO SCH ×2 (09:26→20:49)
[2017-03-25] MEDS: IRON SUCROSE INJ 100 MG in SODIUM CHLORIDE 0.9% INJ 100 ML IV SCH (12:16)
[2017-03-26] VITALS: BP 154/85; PULSE 83; RESP 20; TEMP 98.3; O2SAT 96
[2017-03-26] MEDS: methylPREDNISolone SOD SUCC 125 MG/2 ML VIAL IV PUSH SCH ×2 (00:18→06:09)
[2017-03-26] MEDS: ACETAMINOPHEN/HYDROcodone 325 MG/5 MG TAB PO PRN ×4 (00:18→21:33)
[2017-03-26] MEDS ORDERED: ACETAMINOPHEN/HYDROcodone 325 MG/5 MG TAB PO ONE (03:45)
[2017-03-26 04:00] VITALS: BP 140/95; PULSE 88; RESP 20; TEMP 97.5; O2SAT 95
[2017-03-26 08:00] VITALS: BP 163/98; PULSE 78; PULSE 86; RESP 20; TEMP 98.4; O2SAT 93
[2017-03-26] MEDS: guaiFENesin E.R. 600 MG TAB PO SCH ×2 (08:24→21:33)
[2017-03-26] MEDS: LORATADINE 10 MG TAB PO SCH (08:24)
[2017-03-26] MEDS: FERROUS SULFATE 325 MG (65 MG ELEMENTAL IRON) TAB PO SCH (08:24)
[2017-03-26] MEDS: METOPROLOL TARTRATE 25 MG TAB PO SCH ×2 (08:24→21:33)
[2017-03-26] MEDS: PANTOPRAZOLE SOD 40 MG DELAYED RELEASE TAB PO SCH (08:24)
[2017-03-26] MEDS: ASPIRIN 325 MG TAB PO SCH (08:24)
[2017-03-26] MEDS: AZITHROMYCIN 250 MG TAB PO SCH (08:24)
[2017-03-26] MEDS: SODIUM CHLORIDE 0.9% FLUSH 10 ML FLUSH IV FLUSH SCH ×2 (08:25→21:33)
[2017-03-26] MEDS: RESP: BUDESONIDE 0.5 MG/2 ML NEB NEB SCH ×2 (09:26→19:24)
--- NOTE | 2017-03-26 10:26 | HHI.PR ---
Subjective Remarks pt says his asthma is getting better. Objective Vitals heart reg lung good air entry abd s/nt ext lower ext wraps Vital Signs Date Time Temp Pulse Resp B/P Pulse Ox O2 Delivery O2 Flow Rate FiO2 03/26/17 08:00 98.4 86 20 163/98 93 03/26/17 07:08 16 03/26/17 04:00 Room Air 03/26/17 04:00 97.5 88 20 140/95 95 03/26/17 00:00 Room Air 03/26/17 00:00 98.3 83 20 154/85 96 03/25/17 20:05 96.6 72 22 131/79 95 03/25/17 19:54 97 03/25/17 16:00 98.0 106 20 129/75 95 03/25/17 12:00 98.1 83 18 139/89 97 03/25/17 03/25/17 03/26/17 15:00 23:00 07:00 Intake Total 586 ml 320 ml 580 ml Output Total 300 ml Balance 586 ml 320 ml 280 ml Intake Oral 480 ml 320 ml 580 ml IV Total 106 ml Output Urine Total 300 ml # Voids 3 # Bowel Movements 0 1 Result Diagram: 03/23/17 0555 03/23/17 0555 Imaging Last Impressions Chest X-Ray 03/19/17 0040 Signed Impressions: Service Date/Time: Sunday, March 19, 2017 01:51 - CONCLUSION: 1. Cardiomegaly. 2. Right basilar atelectasis versus pneumonia Angel Browning MD A/P Problem List: (1) Venous stasis ulcers of both lower extremities Status: Chronic Plan: - Pt with chronic venous stasis ulcers to bilateral LE and has been receiving outpt wound care with [facility] for dressing changes 3 days a week and once monthly seeing [facility] wound care. - outpt wound cultures (03/16/17) show pseudomonas - ID following. - Case d/w microbiology lab (03/21/17) - (1) pseudomonas, sensitive to Zosyn, resistant to Levaquin, intermediate to cefepime - (2) Klebsiella, - (3) MSSA - wound care following - complete the 7 days course per ID - Pt to f/u with Dr. Pickard outpt. - Pt now no longer has [facility] insurance coverage. await CM to assist with finding wound care after d/c .....will plan to d/c this pt once appropriate post hospital care arranged. CM have given him many options including self pay of doctors choice for wound care 3x per week. He can buy a nebulizer at the pharmacy and his medications are reasonable cost. He will be establishing a new insurance company over the next 30d days and pcp. (2) Asthma Status: Acute Plan: asthma exac with bronchitis..improved - Cont. Symbicort and Proair PRN - Schedule Duonebs Q4H [place] - Claritin - Tessalon pearls PRN - solumedrol to prednisone - abx broadened to get atypicals with azithro (3) Anemia Status: Acute Plan: - Pt noted to be iron deficient - Monitor H/H - Cont. FeSo4 325mg daily - venofer infusions. - Pt with hx of perforated peptic ulcer, no signs of GIB - PPI - f/u with pcp cristin once a new one is obtained. (4) Afib Status: Chronic Plan: - Pt is not on any rate controlling medicine and is in NSR - ASA 325mg po daily - Had been on Coumadin previously but had bleeding issues. (5) Obesity Status: Chronic Problem Qualifiers (1) Anemia: Qualified Code: D64.9 - Anemia, unspecified type (2) Afib: Qualified Code: I48.0 - Paroxysmal atrial fibrillation (3) Obesity: Eleuterio Quinonez MD Mar 26, 2017 10:26
[2017-03-26] MEDS ORDERED: IPRA0.02 NEB (10:31)
[2017-03-26] MEDS ORDERED: PRED10 PO (10:31)
[2017-03-26] MEDS ORDERED: FERR325T20 PO (10:31)
[2017-03-26] MEDS ORDERED: HYDR-3516 PO (10:31)
[2017-03-26] MEDS ORDERED: ALBU.5I NEB (10:31)
[2017-03-26] MEDS ORDERED: guaiFENesin ER PO (10:31)
--- NOTE | 2017-03-26 10:37 | HHI.DCPOC ---
Discharge Care Plan Diagnosis: (1) Venous stasis ulcers of both lower extremities (2) Asthma (3) Microcytic anemia Goals to Promote Your Health * To prevent worsening of your condition and complications * To maintain your health at the optimal level Directions to Meet Your Goals Take your medications as prescribed Follow your dietary instruction Follow activity as directed Keep your appointments as scheduled Take your immunizations and boosters as scheduled If your symptoms worsen call your PCP, if no PCP go to Urgent Care Center or Emergency Room Smoking is Dangerous to Your Health. Avoid second hand smoke Call the 24-hour hour crisis hotline for domestic abuse at Eleuterio Quinonez MD Mar 26, 2017 10:37
--- NOTE | 2017-03-26 10:39 | HHI.FF ---
Face to Face Verification Diagnosis: (1) Asthma (2) Venous stasis ulcers of both lower extremities Home Health Nursing Order: Medical education Signs/symptoms of disease process Wound care and dressing changes Nursing assessment with vital signs Instructions: Seen by [facility] wound care: Here are there reccs: Please irrigate wounds to bilateral lower extremities with 30 ml of Normal saline and pat dry.Apply Maxorb (Calcium alginate) over wound beds and cover with ABD pads secure with rolled gauze and elastic wrap change every other day or PRN if saturated or dislodged. Additional Information: Patient seen in F pod for evaluation of chronic venous stasis ulcers to bilateral lower legs. Removed dressing in place to L leg to reveal a large shallow ulcer. Wound measures 11.4cm x 17cm x ~0.1 cm.Wound margins are irregular. Periwound is noted with maceration between 12 and 3 o'clock, but is other matthews unremarkable. Wound presents with 80% clean red non granulation tissue and ~20% yellow tissue. Wound noted with minimal active serous drainage without odor. Serous drainage noted to old dressing is moderate to heavy. with musty odor. Removed dressings to R lower leg to reveal large shallow venous stasis ulcer. Wound measures 16.5 cm x 30 cm x~ 0.1 cm. Wound margins are irregular.Wound bed noted with ~70% red clean non granulation tissue and ~30% yellow tissue. Wound is noted with minimal active serous drainage that is without odor. Old dressing is noted with musty odor and moderate to heavy drainage. Periwound presents with maceration from 12 to 6 o'clock and scar tissue from 7 to 11 o'clock. Irrigated wounds with 30 ml of normal saline and patted dry.Applied Maxorb ( Calcium Alginate). Covered wound with ABD pads. Secured dressings with rolled gauze and tape.Wound cultures taken 03/19 are positive for PSEUDOMONAS Aeruginosa , KLEBSIELLA PNEUMONIAE, STAPHYLOCOCCUS AUREUS. Patient currently being treated with Piperacillin/ Tazobactam, with infectious disease consult. Patient states, "I was using regular maxorb in home care, I am sensitive to dressings with silver in them." Alina Barboza Mar 23, 2017 13:07 <Electronically signed by Alina Barboza> 03/23/17 1341 I have seen patient Zhang Joseph on 03/26/17. My clinical findings support the need for the requested home health care services because: Deconditioned w/ increased weakness Limited ability to care for self I certify that my clinical findings support that this patient is homebound because: Need for psychosocial assistance Eleuterio Quinonez MD Mar 26, 2017 10:39
[2017-03-26 12:00] VITALS: BP 153/94; PULSE 78; RESP 18; TEMP 98.4; O2SAT 93
[2017-03-26] MEDS: predniSONE 10 MG TAB PO SCH ×2 (12:17→21:33)
[2017-03-26] MEDS: BUDESONIDE-FORMOTEROL 80/4.5 MCG INHALER INH SCH ×2 (12:17→21:32)
[2017-03-26] MEDS: IRON SUCROSE INJ 100 MG in SODIUM CHLORIDE 0.9% INJ 100 ML IV SCH (12:17)
[2017-03-26] MEDS: RESP: ALBUTEROL 2.5 MG/IPRATROPIUM 0.5 MG NEB (SCH) NEB ×3 (13:59→19:24)
[2017-03-26 16:00] VITALS: BP 123/60; PULSE 80; RESP 18; TEMP 98.5; O2SAT 96
[2017-03-26 20:00] VITALS: BP 124/80; PULSE 107; PULSE 91; RESP 18; TEMP 97.3; O2SAT 95
[2017-03-27] VITALS (10 sets, daily range): BP systolic 100–147; BP diastolic 58–89; PULSE 74–97; RESP 18–22; TEMP 97.4–98.9; O2SAT 94–97
[2017-03-27] MEDS: ACETAMINOPHEN/HYDROcodone 325 MG/5 MG TAB PO PRN ×4 (04:03→22:42)
[2017-03-27] MEDS: RESP: BUDESONIDE 0.5 MG/2 ML NEB NEB SCH ×2 (07:54→21:12)
[2017-03-27] MEDS: RESP: ALBUTEROL 2.5 MG/IPRATROPIUM 0.5 MG NEB (SCH) NEB ×4 (07:54→21:12)
[2017-03-27] MEDS: guaiFENesin E.R. 600 MG TAB PO SCH ×2 (09:02→22:42)
[2017-03-27] MEDS: AZITHROMYCIN 250 MG TAB PO SCH (09:02)
[2017-03-27] MEDS: METOPROLOL TARTRATE 25 MG TAB PO SCH ×2 (09:02→22:42)
[2017-03-27] MEDS: PANTOPRAZOLE SOD 40 MG DELAYED RELEASE TAB PO SCH (09:02)
[2017-03-27] MEDS: SODIUM CHLORIDE 0.9% FLUSH 10 ML FLUSH IV FLUSH SCH ×2 (09:02→21:00)
[2017-03-27] MEDS: LORATADINE 10 MG TAB PO SCH (09:02)
[2017-03-27] MEDS: predniSONE 10 MG TAB PO SCH ×2 (09:02→22:42)
[2017-03-27] MEDS: FERROUS SULFATE 325 MG (65 MG ELEMENTAL IRON) TAB PO SCH (09:02)
[2017-03-27] MEDS: ASPIRIN 325 MG TAB PO SCH (09:02)
[2017-03-27] MEDS: BUDESONIDE-FORMOTEROL 80/4.5 MCG INHALER INH SCH ×2 (09:03→22:43)
--- NOTE | 2017-03-27 09:59 | HHI.PR ---
Subjective Remarks pt says he is worried to be discharged until a plan for wound care. He says unable to get plan solidified through dr Viera and that CM mentioned [facility] Objective Vitals nad heart reg lung cta abd s/nt ext lower ext wraps Vital Signs Date Time Temp Pulse Resp B/P Pulse Ox O2 Delivery O2 Flow Rate FiO2 03/27/17 08:00 98.9 92 22 147/78 97 03/27/17 07:59 95 03/27/17 04:00 97.6 84 18 128/70 94 03/27/17 04:00 Room Air 03/27/17 00:00 Room Air 03/27/17 00:00 98.3 74 18 118/72 97 03/26/17 20:00 97.3 91 18 124/80 95 03/26/17 20:00 Room Air 03/26/17 20:00 107 03/26/17 16:00 98.5 80 18 123/60 96 03/26/17 12:00 98.4 78 18 153/94 93 03/26/17 10:00 Room Air 03/26/17 03/26/17 03/27/17 15:00 23:00 07:00 Intake Total 580 ml Output Total 400 ml Balance 580 ml -400 ml Intake Oral 480 ml IV Total 100 ml Output Urine Total 400 ml # Voids 3 Result Diagram: 03/23/17 0555 03/23/17 0555 Imaging Last Impressions Chest X-Ray 03/19/17 0040 Signed Impressions: Service Date/Time: Sunday, March 19, 2017 01:51 - CONCLUSION: 1. Cardiomegaly. 2. Right basilar atelectasis versus pneumonia Angel Browning MD A/P Problem List: (1) Venous stasis ulcers of both lower extremities Status: Chronic Plan: - Pt with chronic venous stasis ulcers to bilateral LE and has been receiving outpt wound care with [facility] for dressing changes 3 days a week and once monthly seeing [facility] wound care. - outpt wound cultures (03/16/17) show pseudomonas - ID following. - Case d/w microbiology lab (03/21/17) - (1) pseudomonas, sensitive to Zosyn, resistant to Levaquin, intermediate to cefepime - (2) Klebsiella, - (3) MSSA - wound care following - complete the 7 days course per ID - Pt to f/u with Dr. Pickard outpt. - Pt now no longer has [facility] insurance coverage. await CM to assist with finding wound care after d/c .....will plan to d/c this pt once appropriate post hospital care arranged. CM have given him many options including self pay of doctors choice for wound care 3x per week. He can buy a nebulizer at the pharmacy and his medications are reasonable cost. He will be establishing a new insurance company over the next 30d days and pcp. Pt has been medically clear for d/c. scripts written. He is working with CM to find a solution for wound care. d/c order written. (2) Asthma Status: Acute Plan: asthma exac with bronchitis..improved - Cont. Symbicort and Proair PRN - Schedule Duonebs Q4H [place] - Claritin - Tessalon pearls PRN - solumedrol to prednisone - abx broadened to get atypicals with azithro (3) Anemia Status: Acute Plan: - Pt noted to be iron deficient - Monitor H/H - Cont. FeSo4 325mg daily - venofer infusions. - Pt with hx of perforated peptic ulcer, no signs of GIB - PPI - f/u with pcp cristin once a new one is obtained. (4) Afib Status: Chronic Plan: - Pt is not on any rate controlling medicine and is in NSR - ASA 325mg po daily - Had been on Coumadin previously but had bleeding issues. (5) Obesity Status: Chronic Problem Qualifiers (1) Anemia: Qualified Code: D64.9 - Anemia, unspecified type (2) Afib: Qualified Code: I48.0 - Paroxysmal atrial fibrillation (3) Obesity: Eleuterio Quinonez MD Mar 27, 2017 09:59
[2017-03-28] VITALS (7 sets, daily range): BP systolic 123–152; BP diastolic 73–102; PULSE 74–103; RESP 18–21; TEMP 97.4–99.6; O2SAT 94–96
[2017-03-28] MEDS: ACETAMINOPHEN/HYDROcodone 325 MG/5 MG TAB PO PRN ×3 (05:30→22:25)
[2017-03-28] MEDS: RESP: BUDESONIDE 0.5 MG/2 ML NEB NEB SCH ×2 (07:49→20:37)
[2017-03-28] MEDS: RESP: ALBUTEROL 2.5 MG/IPRATROPIUM 0.5 MG NEB (SCH) NEB ×4 (07:49→20:37)
[2017-03-28] MEDS: guaiFENesin E.R. 600 MG TAB PO SCH ×2 (09:48→22:24)
[2017-03-28] MEDS: AZITHROMYCIN 250 MG TAB PO SCH (09:48)
[2017-03-28] MEDS: METOPROLOL TARTRATE 25 MG TAB PO SCH ×2 (09:48→22:25)
[2017-03-28] MEDS: ASPIRIN 325 MG TAB PO SCH (09:48)
[2017-03-28] MEDS: PANTOPRAZOLE SOD 40 MG DELAYED RELEASE TAB PO SCH (09:48)
[2017-03-28] MEDS: LORATADINE 10 MG TAB PO SCH (09:48)
[2017-03-28] MEDS: FERROUS SULFATE 325 MG (65 MG ELEMENTAL IRON) TAB PO SCH (09:48)
[2017-03-28] MEDS: predniSONE 10 MG TAB PO SCH ×2 (09:48→22:25)
[2017-03-28] MEDS: BUDESONIDE-FORMOTEROL 80/4.5 MCG INHALER INH SCH ×2 (09:49→22:24)
[2017-03-28] MEDS: SODIUM CHLORIDE 0.9% FLUSH 10 ML FLUSH IV FLUSH SCH ×2 (09:49→22:25)
--- NOTE | 2017-03-28 09:51 | HHI.PR ---
Subjective Remarks still awaiting outpt wound care arrangements Objective Vitals heart reg lung cta abd s/nt ext lower ext wrapped. Vital Signs Date Time Temp Pulse Resp B/P Pulse Ox O2 Delivery O2 Flow Rate FiO2 03/28/17 07:51 95 21 03/28/17 04:00 Room Air 03/28/17 04:00 97.7 74 20 128/86 95 03/28/17 00:53 99.1 74 20 147/101 94 03/28/17 00:53 Room Air 03/27/17 21:14 96 03/27/17 20:06 97 03/27/17 20:00 Room Air 03/27/17 20:00 97.4 82 20 147/83 97 03/27/17 16:00 97.5 93 20 137/89 96 03/27/17 12:00 97.5 76 20 100/58 96 03/27/17 03/27/17 03/28/17 15:00 23:00 07:00 Intake Total 480 ml Balance 480 ml Intake Oral 480 ml # Voids 3 2 1 # Bowel Movements 1 1 0 Imaging Last Impressions Chest X-Ray 03/19/17 0040 Signed Impressions: Service Date/Time: Sunday, March 19, 2017 01:51 - CONCLUSION: 1. Cardiomegaly. 2. Right basilar atelectasis versus pneumonia Angel Bronwing MD A/P Problem List: (1) Venous stasis ulcers of both lower extremities Status: Chronic Plan: - Pt with chronic venous stasis ulcers to bilateral LE and has been receiving outpt wound care with [facility] for dressing changes 3 days a week and once monthly seeing [facility] wound care. - outpt wound cultures (03/16/17) show pseudomonas - ID following. - Case d/w microbiology lab (03/21/17) - (1) pseudomonas, sensitive to Zosyn, resistant to Levaquin, intermediate to cefepime - (2) Klebsiella, - (3) MSSA - wound care following - completed the 7 days course zosyn per ID - Pt to f/u with Dr. Pickard outpt. - Pt now no longer has [facility] insurance coverage. await CM to assist with finding wound care after d/c .....will plan to d/c this pt once appropriate post hospital care arranged. CM have given him many options including self pay of doctors choice for wound care 3x per week. He can buy a nebulizer at the pharmacy and his medications are reasonable cost. He will be establishing a new insurance company over the next 30d days and pcp. Pt has been medically clear for d/c. scripts written. He is working with CM to find a solution for wound care. d/c order written for 03/27 (2) Asthma Status: Acute Plan: asthma exac with bronchitis..improved - Cont. Symbicort and Proair PRN - Schedule Duonebs Q4H [place] - Claritin - Tessalon pearls PRN - solumedrol to prednisone - abx broadened to get atypicals with azithro (3) Anemia Status: Acute Plan: - Pt noted to be iron deficient - Monitor H/H - Cont. FeSo4 325mg daily - venofer infusions. - Pt with hx of perforated peptic ulcer, no signs of GIB - PPI - f/u with pcp cristin once a new one is obtained. (4) Afib Status: Chronic Plan: - Pt is not on any rate controlling medicine and is in NSR - ASA 325mg po daily - Had been on Coumadin previously but had bleeding issues. (5) Obesity Status: Chronic Problem Qualifiers (1) Anemia: Qualified Code: D64.9 - Anemia, unspecified type (2) Afib: Qualified Code: I48.0 - Paroxysmal atrial fibrillation (3) Obesity: Eleuterio Quinonez MD Mar 28, 2017 09:51
[2017-03-28] MEDS: ENOXAPARIN SODIUM 40 MG/0.4 ML SYRINGE SQ SCH (15:01)
[2017-03-29] VITALS: BP 114/76; PULSE 82; RESP 18; TEMP 98.3; O2SAT 97
[2017-03-29] MEDS: ACETAMINOPHEN/HYDROcodone 325 MG/5 MG TAB PO PRN ×2 (02:47→08:47)
[2017-03-29 04:00] VITALS: BP 154/93; PULSE 84; RESP 22; TEMP 98.3; O2SAT 98
[2017-03-29 08:00] VITALS: BP 167/105; PULSE 100; RESP 20; TEMP 97.2; O2SAT 93
[2017-03-29] MEDS: BUDESONIDE-FORMOTEROL 80/4.5 MCG INHALER INH SCH (08:41)
[2017-03-29] MEDS: SODIUM CHLORIDE 0.9% FLUSH 10 ML FLUSH IV FLUSH SCH (08:42)
[2017-03-29] MEDS: ASPIRIN 325 MG TAB PO SCH (08:44)
[2017-03-29] MEDS: predniSONE 10 MG TAB PO SCH (08:44)
[2017-03-29] MEDS: LORATADINE 10 MG TAB PO SCH (08:44)
[2017-03-29] MEDS: FERROUS SULFATE 325 MG (65 MG ELEMENTAL IRON) TAB PO SCH (08:45)
[2017-03-29] MEDS: PANTOPRAZOLE SOD 40 MG DELAYED RELEASE TAB PO SCH (08:46)
[2017-03-29] MEDS: METOPROLOL TARTRATE 25 MG TAB PO SCH (08:46)
[2017-03-29] MEDS: guaiFENesin E.R. 600 MG TAB PO SCH (08:46)
[2017-03-29] MEDS: AZITHROMYCIN 250 MG TAB PO SCH (08:46)
[2017-03-29] MEDS: ENOXAPARIN SODIUM 40 MG/0.4 ML SYRINGE SQ SCH (08:47)
[2017-03-29] MEDS: RESP: BUDESONIDE 0.5 MG/2 ML NEB NEB SCH (08:52)
[2017-03-29] MEDS: RESP: ALBUTEROL 2.5 MG/IPRATROPIUM 0.5 MG NEB (SCH) NEB ×2 (08:52→11:40)
[2017-03-29 08:56] VITALS: O2SAT 97
--- NOTE | 2017-03-29 09:20 | HHI.PR ---
Subjective Remarks no new complaints Objective Vitals heart reg lung cta abd s/nt ext lower ext wraps Vital Signs Date Time Temp Pulse Resp B/P Pulse Ox O2 Delivery O2 Flow Rate FiO2 03/29/17 08:56 97 03/29/17 04:00 98.3 84 22 154/93 98 03/29/17 04:00 Room Air 03/29/17 00:00 Room Air 03/29/17 00:00 98.3 82 18 114/76 97 03/28/17 20:00 97.5 90 20 146/102 96 03/28/17 20:00 103 03/28/17 20:00 Room Air 03/28/17 16:00 Room Air 03/28/17 16:00 97.5 84 18 152/99 96 03/28/17 12:00 97.4 88 21 123/73 95 03/28/17 12:00 Room Air 03/28/17 03/28/17 03/29/17 15:00 23:00 07:00 Intake Total 722 ml 920 ml Output Total 800 ml Balance -78 ml 920 ml Intake Oral 720 ml 920 ml IV Total 2 ml Output Urine Total 800 ml # Voids 3 4 # Bowel Movements 1 1 Imaging Last Impressions Chest X-Ray 03/19/17 0040 Signed Impressions: Service Date/Time: Sunday, March 19, 2017 01:51 - CONCLUSION: 1. Cardiomegaly. 2. Right basilar atelectasis versus pneumonia Angel Browning MD A/P Problem List: (1) Venous stasis ulcers of both lower extremities Status: Chronic Plan: - Pt with chronic venous stasis ulcers to bilateral LE and has been receiving outpt wound care with [facility] for dressing changes 3 days a week and once monthly seeing [facility] wound care. - outpt wound cultures (03/16/17) show pseudomonas - ID following. - Case d/w microbiology lab (03/21/17) - (1) pseudomonas, sensitive to Zosyn, resistant to Levaquin, intermediate to cefepime - (2) Klebsiella, - (3) MSSA - wound care following - completed the 7 days course zosyn per ID - Pt now no longer has [facility] insurance coverage. await CM to assist with finding wound care after d/c .....will plan to d/c this pt once appropriate post hospital care arranged. CM have given him many options including self pay of doctors choice for wound care 3x per week. He can buy a nebulizer at the pharmacy and his medications are reasonable cost. He will be establishing a new insurance company over the next 30d days and pcp. Pt has been medically clear for d/c. scripts written. He is working with CM to find a solution for wound care. d/c order written for 03/27 (2) Asthma Status: Acute Plan: asthma exac with bronchitis..improved - Cont. Symbicort and Proair PRN - Schedule Duonebs Q4H [place] - Claritin - Tessalon pearls PRN - solumedrol to prednisone - abx broadened to get atypicals with azithro (3) Anemia Status: Acute Plan: - Pt noted to be iron deficient - Monitor H/H - Cont. FeSo4 325mg daily - venofer infusions. - Pt with hx of perforated peptic ulcer, no signs of GIB - PPI - f/u with pcp cristin once a new one is obtained. (4) Afib Status: Chronic Plan: - Pt is not on any rate controlling medicine and is in NSR - ASA 325mg po daily - Had been on Coumadin previously but had bleeding issues. (5) Obesity Status: Chronic Problem Qualifiers (1) Anemia: Qualified Code: D64.9 - Anemia, unspecified type (2) Afib: Qualified Code: I48.0 - Paroxysmal atrial fibrillation (3) Obesity: Eleuterio Quinonez MD Mar 29, 2017 09:20
[2017-03-29 10:09] VITALS: PULSE 86
[2017-03-29 12:00] VITALS: BP 148/95; PULSE 85; RESP 20; TEMP 98; O2SAT 96
== END 2017-03-29 17:52 | disposition home health service (06) | DRG 300 ==
LOC: NEPE 20:14 → NEDA 03-19 03:39 → NEPFCDU 03-19 04:45 → OBSVTOIN 03-21 10:23 → N04A 03-23 17:00
PROVIDERS: ADMIT Hospitalist; ATTEND Hospitalist
DX: I83.019 Varicose veins of right lower extremity with ulcer of unspecified site (principal); I83.029 Varicose veins of left lower extremity with ulcer of unspecified site; L97.919 Non-pressure chronic ulcer of unspecified part of right lower leg with unspecified severity; I10 Essential (primary) hypertension; L97.929 Non-pressure chronic ulcer of unspecified part of left lower leg with unspecified severity; E66.01 Morbid (severe) obesity due to excess calories; I48.0 Paroxysmal atrial fibrillation; B96.5 Pseudomonas (aeruginosa) (mallei) (pseudomallei) as the cause of diseases classified elsewhere; I89.0 Lymphedema, not elsewhere classified; I48.2 Chronic atrial fibrillation; D50.9 Iron deficiency anemia, unspecified; Z91.19 Patient's noncompliance with other medical treatment and regimen; Z87.11 Personal history of peptic ulcer disease; J44.9 Chronic obstructive pulmonary disease, unspecified; Z95.810 Presence of automatic (implantable) cardiac defibrillator
CPT/HCPCS: 71010; 76937; 80048; 82728; 83540; 83550; 83615; 83735; 85025; 85044; 86403; 87040; 87070; 87077; 87147; 87186; 87205; 94640; 94664; G0378; J1650; J1756; J2543; J2930; J7512; J7626

== ENCOUNTER 2017-04-19 10:43 | Observation (INO) | payer SELFPAY ==
[~2017-04-19] VITALS: Ht 182.9 cm; Wt 169.8 kg
[~2017-04-19 10:43] MED LIST changes: +ADVA100A INH; -ADVAI500I PO; +ALBU.5I NEB; -DUONI INH; +FERR325T20 PO; +HYDR-3516 PO; +IPRA0.02 NEB; -LEVO.05 PO; -LORTA5 PO; -METO25 PO; +METO25TA3 PO; +PRED10 PO; -TRAM100T19 PO; +VENTAER INH; +guaiFENesin ER PO
[2017-04-19 10:51] VITALS: BP 149/88; PULSE 99; RESP 20; TEMP 98.4; O2SAT 97
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
[2017-04-19] MEDS ORDERED: cefTAZidime INJ 2,000 MG in SODIUM CHLORIDE 0.9% INJ 100 ML IV ONE (12:00)
[2017-04-19 12:16] LABS: AUTOMATED NEUTROPHIL # 5.4 TH/MM3 (1.8-7.7); BASOPHIL # 0.2 TH/MM3 (0-0.2); BASOPHIL % 3.1 % (0.0-2.0); EOSINOPHIL % 0.5 % (0.0-4.0); HEMATOCRIT 29.8 % (39.0-51.0); LYMPH % 10.2 % (9.0-44.0); LYMPHOCYTE # 0.7 TH/MM3 (1.0-4.8); MEAN CELL VOLUME 74.5 FL (80.0-100.0); MEAN CORPUSCULAR HEMOGLOBIN 21.2 PG (27.0-34.0); MONO % 12.6 % (0.0-8.0); NEUT % 73.6 % (16.0-70.0); PLATELET COUNT 542 TH/MM3 (150-450); RED BLOOD COUNT 4.01 MIL/MM3 (4.50-5.90); RED CELL DISTRIBUTION WIDTH 22.8 % (11.6-17.2); WHITE BLOOD COUNT 7.2 TH/MM3 (4.0-11.0)
[2017-04-19 12:25] LABS: HEMO FLAGS DIFF FINAL; MEAN CORPUSCULAR HGB CONC 28.5 % (32.0-36.0)
[2017-04-19 12:31] LABS: POTASSIUM 5.4 MEQ/L (3.5-5.1)
[2017-04-19 12:32] LABS: BICARBONATE 29.3 MEQ/L (21.0-32.0)
[2017-04-19 12:51] LABS: OVALOCYTES 2+ (NORMAL); PLATELET ESTIMATE SMEAR HIGH (NORMAL); PLATELET MORPHOLOGY NORMAL (NORMAL); SCAN/DIFF AUTO DIFF CONFIRMED
[2017-04-19] MEDS ORDERED: ONDANSETRON HCL 4 MG/2 ML VIAL IVP PRN (13:45)
[2017-04-19] MEDS ORDERED: ACETAMINOPHEN 325 MG TAB PO PRN (13:45)
[2017-04-19] MEDS ORDERED: ALBUTEROL SULFATE 90 MCG/ACT HFA 8 GM INHALER INH PRN (13:45)
[2017-04-19] MEDS ORDERED: NALOXONE HCL 0.4 MG/ML AMP IV PRN (13:45)
[2017-04-19] MEDS ORDERED: SODIUM CHLORIDE 0.9% FLUSH 10 ML FLUSH IV FLUSH PRN (13:45)
--- NOTE | 2017-04-19 14:00 | HHI.HP ---
[facility] Physician Lizette Bashir MD Admission Diagnosis leg cellulitis Diagnoses: (1) Cellulitis, leg Diagnosis: Principal (2) Lipodermatosclerosis Diagnosis: Principal (3) Hyperkalemia Diagnosis: Principal Chief Complaint: Pus and odor coming from his wounds Travel History International Travel<30 Days: No Contact w/Intl Traveler <30 Da: No Traveled to Known Affected Are: No History of Present Illness Written by Timothy Maria, acting as scribe for Dr. Kumar on 04/19/17 at 13: 47. 51-year-old male with known history of chronic stasis ulceration to the bilateral lower extremities, atrial fibrillation who presented to hospital because of increased pain, drainage, odor from his wounds. Patient is well- known to the hospital for previous admissions, recent admission approximately one month ago for same problem. At that time patient was followed by [facility] physicians, infectious disease who recommended management. At that time patient had multiple organisms growing from the clean based ulcerations. It was indicated by infectious disease that patient undergo completed treatment of 7 days of Zosyn, no culturing of clean based ulcerations and patient needs to control edema, have weight loss in order for ulcerations to heal and improve. Patient was discharged home and does have home care come by at least twice a week. On Wednesday was last time the patient had wound care done at that time started developing some drainage. Patient states that he thinks he had a fever, however he did not take his temperature. He has some nausea and when he stood up today he got very lightheaded so he came to the hospital for evaluation. Patient no longer has insurance at this time so he is paying out of his pocket for the wound care nurses. The patient believes that he has another Pseudomonas infection because of the green drainage and foul smell. Patient had workup done emergency department, there was no fever, leukocytosis, signs of sepsis at this time. Due to the worsening of his wounds and drainage is recommended by the ER physician the patient be observed in the hospital for further recommendations Review of Systems Constitutional: COMPLAINS OF: Weight gain (70 pounds in 2 months), Dizziness Gastrointestinal: COMPLAINS OF: Nausea Except as stated in HPI: all other systems reviewed are Neg Past Family Social History Past Medical History Chronic atrial fibrillation with rate control Chronic stasis ulcerations of bilateral lower extremities with history of Pseudomonas, Klebsiella, staph Morbid obesity Gastroesophageal reflux Past Surgical History Laparotomy for surgery for Stomach ulcers Appendectomy Reported Medications Reported Meds & Active Scripts Active Prednisone 10 Mg Tab 10 Mg PO DIRECTED 10 Days 30mg po bid x 1 day, 20mg po bid x 3 days, 10mg po bid x 3 days, 10mg po daily 3 days Reported Ventolin Hfa 18 GM Inh (Albuterol Sulfate) 90 Mcg/Act Aer 1 Puff INH Q4H PRN Allergies: Uncoded Allergies: Unna boots (Adverse Reaction, Unknown, 03/19/17) Family History Reviewed and mother is alive, however he does not know father or father's history. No indication of any heart disease, lung disease, diabetes, cancer Social History Patient denies any tobacco, alcohol or illicit drugs Physical Exam Vital Signs Vital Signs Date Time Temp Pulse Resp B/P (MAP) Pulse Ox O2 Delivery O2 Flow Rate FiO2 04/19/17 10:51 98.4 99 20 149/88 (108) 97 Physical Exam GENERAL: This is a well-nourished, well-developed patient, in no apparent distress. SKIN: No rashes, ecchymoses or lesions. Cool and dry. HEAD: Atraumatic. Normocephalic. No temporal or scalp tenderness. EYES: Pupils equal round and reactive. Extraocular motions intact. No scleral icterus. No injection or drainage. ENT: Nose without bleeding, purulent drainage or septal hematoma. Throat without erythema, tonsillar hypertrophy or exudate. Uvula midline. Airway patent. NECK: Trachea midline. No JVD or lymphadenopathy. Supple, nontender, no meningeal signs. CARDIOVASCULAR: Regular rate and rhythm without murmurs, gallops, or rubs. RESPIRATORY: Clear to auscultation. Breath sounds equal bilaterally. No wheezes , rales, or rhonchi. GASTROINTESTINAL: Abdomen soft, non-tender, nondistended. No hepato-splenomegaly , or palpable masses. No guarding. MUSCULOSKELETAL: Extremities without clubbing, cyanosis, or edema. No joint tenderness, effusion, or edema noted. No calf tenderness. Negative Homans sign bilaterally. NEUROLOGICAL: Awake and alert. Cranial nerves II through XII intact. Motor and sensory grossly within normal limits. Five out of 5 muscle strength in all muscle groups. Normal speech. Laboratory Laboratory Tests Test 04/19/17 11:58 White Blood Count 7.2 Red Blood Count 4.01 Hemoglobin 8.5 Hematocrit 29.8 Mean Corpuscular Volume 74.5 Mean Corpuscular Hemoglobin 21.2 Mean Corpuscular Hemoglobin Concent 28.5 Red Cell Distribution Width 22.8 Platelet Count 542 Mean Platelet Volume 7.7 Neutrophils (%) (Auto) 73.6 Lymphocytes (%) (Auto) 10.2 Monocytes (%) (Auto) 12.6 Eosinophils (%) (Auto) 0.5 Basophils (%) (Auto) 3.1 Neutrophils # (Auto) 5.4 Lymphocytes # (Auto) 0.7 Monocytes # (Auto) 0.9 Eosinophils # (Auto) 0.0 Basophils # (Auto) 0.2 CBC Comment DIFF FINAL Differential Comment AUTO DIFF CONFIRMED Platelet Estimate HIGH Platelet Morphology Comment NORMAL Ovalocytes 2+ Blood Urea Nitrogen 20 Creatinine 1.00 Random Glucose 110 Calcium Level 8.4 Sodium Level 141 Potassium Level 5.4 Chloride Level 107 Carbon Dioxide Level 29.3 Anion Gap 5 Estimat Glomerular Filtration Rate 79 Result Diagram: 04/20/1760204/20/17602 Caprini VTE Risk Assessment Caprini VTE Risk Assessment: Mod/High Risk (score >= 2) Caprini Risk Assessment Model Point Value = 1 Point Value = 2 Point Value = 3 Point Value = 5 Age 41-60 Minor surgery BMI > 25 kg/m2 Swollen legs Varicose veins or History of unexplained or recurrent spontaneous Oral contraceptives or hormone replacement Sepsis (< 1 month) Serious lung disease, including pneumonia (< 1 month) Abnormal pulmonary function Acute myocardial infarction Congestive heart failure (< 1 month) History of inflammatory bowel disease Medical patient at bed rest Age 61-74 Arthroscopic surgery Major open surgery (> 45 min) Laparoscopic surgery (> 45 min) Malignancy Confined to bed (> 72 hours) Immobilizing plaster cast Central venous access Age >= 75 History of VTE Family history of VTE Factor V Leiden Prothrombin [id number] Lupus anticoagulant Anticardiolipin antibodies Elevated serum homocysteine Heparin-induced thrombocytopenia Other congenital or acquired thrombophilia Stroke (< 1 month) Elective arthroplasty Hip, pelvis, or leg fracture Acute spinal cord injury (< 1 month) Prophylaxis Regimen Total Risk Factor Score Risk Level Prophylaxis Regimen 0-1 Low Early ambulation 2 Moderate Order ONE of the following: *Sequential Compression Device (SCD) *Heparin 5000 units SQ BID 3-4 Higher Order ONE of the following medications: *Heparin 5000 units SQ TID *Enoxaparin/Lovenox 40 mg SQ daily (WT < 150 kg, CrCl > 30 mL/min) *Enoxaparin/Lovenox 30 mg SQ daily (WT < 150 kg, CrCl > 10-29 mL/min) *Enoxaparin/Lovenox 30 mg SQ BID (WT < 150 kg, CrCl > 30 mL/min) AND/OR *Sequential Compression Device (SCD) 5 or more Highest Order ONE of the following medications: *Heparin 5000 units SQ TID (Preferred with Epidurals) *Enoxaparin/Lovenox 40 mg SQ daily (WT < 150 kg, CrCl > 30 mL/min) *Enoxaparin/Lovenox 30 mg SQ daily (WT < 150 kg, CrCl > 10-29 mL/min) *Enoxaparin/Lovenox 30 mg SQ BID (WT < 150 kg, CrCl > 30 mL/min) AND *Sequential Compression Device (SCD) Assessment and Plan Assessment and Plan Bilateral lower extremity chronic stasis ulcerations with increased drainage and foul smell Consult infectious disease for further recommendations Start Zosyn ER physician ordered wound culture Consult wound care nurse Pain control, patient agreed with Tylenol Lipodermatosclerosis Start chlorhexidine washes Chronic atrial fibrillation, rate controlled Patient is not on any treatment at this time, monitor vital signs Chronic asthma Albuterol inhaler continued Chronic iron deficient anemia/microcytic anemia No further workup needed inpatient, continue outpatient management DVT prevention Subcutaneous Lovenox Medical Decision Making Impression and Plan The exam, history, and the medical decision-making described in the above note were completed with the assistance of maico maria. I reviewed and agree with the findings presented. I attest that I had a [id number] encounter with the patient at the same time, and personally performed and documented my assessment and findings in the medical record. Problem Qualifiers (1) Cellulitis, leg: Qualified Codes: L03.119 - Cellulitis of unspecified part of limb Timothy Maria Apr 19, 2017 14:00 Nohemy Kumar MD Apr 21, 2017 12:55
[2017-04-19] MEDS: ENOXAPARIN SODIUM 40 MG/0.4 ML SYRINGE SQ SCH (14:56)
[2017-04-19] MEDS: PIPERACIL-TAZO 4.5 GM PREMIX 100 ML IV SCH ×2 (14:56→20:55)
[2017-04-19 17:56] VITALS: BP 135/92
[2017-04-19 18:20] VITALS: BP 121/87; PULSE 94; RESP 20; TEMP 97.2; O2SAT 94
[2017-04-19] MEDS ORDERED: ACETAMINOPHEN/HYDROcodone 325 MG/5 MG TAB PO PRN (19:45)
[2017-04-19 20:00] VITALS: BP 104/70; PULSE 75; RESP 22; TEMP 95.7; O2SAT 98
[2017-04-19] MEDS: POLYSACCHARIDE IRON COMPLEX 150 MG CAP PO SCH (20:56)
[2017-04-19] MEDS: SODIUM CHLORIDE 0.9% FLUSH 10 ML FLUSH IV FLUSH SCH (20:57)
[2017-04-20] VITALS: BP 129/80; PULSE 75; RESP 20; TEMP 96.8; O2SAT 92
[2017-04-20] MEDS: PIPERACIL-TAZO 4.5 GM PREMIX 100 ML IV SCH ×3 (05:42→18:32)
[2017-04-20 06:30] LABS: AUTOMATED NEUTROPHIL # 4.1 TH/MM3 (1.8-7.7); BASOPHIL % 0.4 % (0.0-2.0); EOSINOPHIL # 0.3 TH/MM3 (0-0.4); EOSINOPHIL % 4.8 % (0.0-4.0); HEMATOCRIT 30.1 % (39.0-51.0); LYMPHOCYTE # 1.2 TH/MM3 (1.0-4.8); MEAN CELL VOLUME 74.6 FL (80.0-100.0); MEAN CORPUSCULAR HEMOGLOBIN 20.9 PG (27.0-34.0); MONO % 10.8 % (0.0-8.0); PLATELET COUNT 524 TH/MM3 (150-450); RED BLOOD COUNT 4.04 MIL/MM3 (4.50-5.90); RED CELL DISTRIBUTION WIDTH 22.8 % (11.6-17.2); WHITE BLOOD COUNT 6.4 TH/MM3 (4.0-11.0)
[2017-04-20 06:33] LABS: HEMO FLAGS AUTO DIFF
[2017-04-20 06:56] LABS: SCAN/DIFF AUTO DIFF CONFIRMED
[2017-04-20 06:59] LABS: BICARBONATE 28.9 MEQ/L (21.0-32.0)
[2017-04-20 08:00] VITALS: BP 100/68; PULSE 95; RESP 21; TEMP 98.4; O2SAT 92
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
[2017-04-20] MEDS: POLYSACCHARIDE IRON COMPLEX 150 MG CAP PO SCH ×2 (08:38→20:08)
[2017-04-20] MEDS: ACETAMINOPHEN/HYDROcodone 325 MG/5 MG TAB PO PRN ×3 (08:38→20:08)
[2017-04-20] MEDS: SODIUM CHLORIDE 0.9% FLUSH 10 ML FLUSH IV FLUSH SCH ×2 (08:46→20:11)
[2017-04-20] MEDS ORDERED: CHLORHEXIDINE GLUCONATE 4% SOLN 120 ML BTL TOPICAL SCH (09:00)
--- NOTE | 2017-04-20 09:46 | PD.WCN.NOT ---
Wound Consult Description: Bilateral lower leg wounds Communicated with: RAHEL Hadley 3rd floor [facility] and Doctor José Recommendation: Please Cleanse wounds by applying dakin's soaked gauze to bilateral legs and let sit for 10 minutes before removing and pat dry. Apply Maxorb II (calcium alginate) dressing to just over wound beds and secure dressings with ABD pads, rolled gauze and tape. Change dressing every other day. Additional Information: Patient seen on 3rd floor [facility] for evaluation of wound management for legs. Removed elastic wrap in place to BLE with absorbent pads to reveal large shallow ulcers to bilateral lower extremities L worse than R. L leg ulcer presents with ~50% red granulation tissue and ~50% pale thin yellow tissue.Periwound is noted scattered maceration. Wound bed is moist with minimal thin yellow drainage that has a musty sweet odor. Wound measures 13cm x 21 cm x ~0.1cm Cleansed wound with wound cleanser and patted dry and applied Maxorb II ( calcium alginate) dressing just over wound bed. Secured dressing with ABD pads, rolled gauze, and tape. Wound to R lower extremity presents with ~80% red granulation tissue and ~20% pale thin yellow tissue. Periwound is also noted with scattered areas of maceration.Wound is draining minimal yellow thin drainage that has musty sweet odor. Wound measures 18cm x 26 cm x ~0.1cm. Cleansed wound with normal saline and applied Maxorb II (calcium alginate)dressing just over wound bed covered with ABD pads. secured dressing with rolled gauze and tape. Patient seen by wound care previously during last admission for same wounds. Alina Barboza [facility] Apr 20, 2017 09:46
--- NOTE | 2017-04-20 11:27 | HHI.PR ---
Subjective Remarks Patient seen and evaluated today for cellulitis with venous stasis and lipodermatosclerosis. Patient tolerating Zosyn without difficulty. Case discussed with wound care team Objective Vitals Vital Signs Date Time Temp Pulse Resp B/P (MAP) Pulse Ox O2 Delivery O2 Flow Rate FiO2 04/20/17 09:46 18 04/20/17 08:00 98.4 95 21 100/68 (79) 92 04/20/17 00:00 96.8 75 20 129/80 (96) 92 04/19/17 20:00 95.7 75 22 104/70 (81) 98 04/19/17 18:20 97.2 94 20 121/87 (98) 94 04/19/17 17:56 100 20 135/92 (106) 95 I/O 04/19/17 04/19/17 04/19/17 04/20/17 04/20/17 04/20/17 07:00 15:00 23:00 07:00 15:00 23:00 Intake Total 100 ml 520 ml 200 ml Output Total 400 ml 1000 ml Balance 100 ml 120 ml -800 ml Intake Oral 420 ml IV Total 100 ml 100 ml 200 ml Output Urine Total 400 ml 1000 ml # Bowel Movements 0 0 Result Diagram: 04/20/17 0603 04/20/17 0603 Objective Remarks Morbidly obese, multiple hyperpigmented lesions and scab bowden GENERAL: This is a well-nourished, well-developed patient, in no apparent distress. CARDIOVASCULAR: Regular rate and rhythm without murmurs, gallops, or rubs. RESPIRATORY: Clear to auscultation. Breath sounds equal bilaterally. No wheezes , rales, or rhonchi. GASTROINTESTINAL: Large pannus, Abdomen soft, non-tender, nondistended. Normal active bowel sounds MUSCULOSKELETAL: Bilateral extremity wounds, dressed NEURO: Alert & Oriented x4 to person, place, time, situation. Moves all ext x4 A/P Problem List: (1) Cellulitis, leg ICD Code: L03.119 - Cellulitis of unspecified part of limb Status: Acute Plan: Continue IV Zosyn for empiric pseudomonal coverage ID consult appreciated Patient also with ulcerations which will need wound care however patient does not have support financially for this and has recently lost his insurance. We' ll discuss with case management regarding options (2) Lipodermatosclerosis ICD Code: I83.10 - Varicose veins of unspecified lower extremity with inflammation (3) Hyperkalemia ICD Code: E87.5 - Hyperkalemia Status: Resolved Plan: Resolved Discharge Planning Will need wound care and antibiotic plan Problem Qualifiers (1) Cellulitis, leg: Qualified Codes: L03.119 - Cellulitis of unspecified part of limb Nohemy Kumar MD Apr 20, 2017 11:27
[2017-04-20 12:00] VITALS: BP 110/77; PULSE 98; RESP 22; TEMP 96.1; O2SAT 93
--- NOTE | 2017-04-20 13:27 | HHI.FF ---
Face to Face Verification Diagnosis: (1) Venous stasis ulcers of both lower extremities Home Health Nursing Order: Medical education Wound care and dressing changes (Clean wound with normal saline and apply Maxorb II (calcium alginate)dressing just over wound bed covered with ABD pads. secure dressing with rolled gauze and tape.) I have seen patient Zhang Joseph on 04/20/17. My clinical findings support the need for the requested home health care services because: Ltd mobility - disease progression Patient has SOB I certify that my clinical findings support that this patient is homebound because: Unsteady gait/balance Nohemy Kumar MD Apr 20, 2017 13:27
[2017-04-20 16:00] VITALS: BP 116/77; PULSE 107; RESP 22; TEMP 97; O2SAT 98
[2017-04-20] MEDS: ENOXAPARIN SODIUM 40 MG/0.4 ML SYRINGE SQ SCH (18:32)
[2017-04-20 20:00] VITALS: BP 117/90; PULSE 96; RESP 22; TEMP 95.8; O2SAT 94
[2017-04-21] VITALS: BP 96/67; PULSE 83; RESP 20; TEMP 96.2; O2SAT 93
[2017-04-21] MEDS: PIPERACIL-TAZO 4.5 GM PREMIX 100 ML IV SCH ×3 (01:01→12:32)
[2017-04-21] MEDS: ACETAMINOPHEN/HYDROcodone 325 MG/5 MG TAB PO PRN ×3 (02:03→16:20)
[2017-04-21 08:00] VITALS: BP 125/75; PULSE 88; RESP 19; TEMP 96.2; O2SAT 100
[2017-04-21] MEDS: SODIUM CHLORIDE 0.9% FLUSH 10 ML FLUSH IV FLUSH SCH (09:28)
[2017-04-21] MEDS: POLYSACCHARIDE IRON COMPLEX 150 MG CAP PO SCH (09:29)
[2017-04-21] MEDS ORDERED: RESP: ALBUTEROL 2.5 MG/IPRATROPIUM 0.5 MG NEB (PRN) NEB (10:00)
[2017-04-21 12:00] VITALS: BP 119/69; PULSE 93; RESP 19; TEMP 96.7; O2SAT 93
--- NOTE | 2017-04-21 14:30 | HHI.PR ---
Subjective Remarks Bilateral lower extremity ulcers with multiple bacterial findings and cultures. Overall infection appears improved. Arrangements for outpatient wound care services have been made Objective Vitals Vital Signs Date Time Temp Pulse Resp B/P (MAP) Pulse Ox O2 Delivery O2 Flow Rate FiO2 04/21/17 12:00 96.7 93 19 119/69 (86) 93 04/21/17 08:00 96.2 88 19 125/75 (92) 100 04/21/17 00:00 96.2 83 20 96/67 (77) 93 04/20/17 20:00 95.8 96 22 117/90 (99) 94 04/20/17 16:00 97.0 107 22 116/77 (90) 98 I/O 04/20/17 04/20/17 04/20/17 04/21/17 04/21/17 04/21/17 06:59 14:59 22:59 06:59 14:59 22:59 Intake Total 200 ml 1260 ml 100 ml 100 ml Output Total 1000 ml Balance -800 ml 1260 ml 100 ml 100 ml Intake Oral 1150 ml IV Total 200 ml 110 ml 100 ml 100 ml Output Urine Total 1000 ml # Voids 4 # Bowel Movements 0 0 Result Diagram: 04/20/17 0603 04/20/17 0603 Objective Remarks Morbidly obese, multiple hyperpigmented lesions and scab bowden GENERAL: This is a well-nourished, well-developed patient, in no apparent distress. CARDIOVASCULAR: Regular rate and rhythm without murmurs, gallops, or rubs. RESPIRATORY: Clear to auscultation. Breath sounds equal bilaterally. No wheezes , rales, or rhonchi. GASTROINTESTINAL: Large pannus, Abdomen soft, non-tender, nondistended. Normal active bowel sounds MUSCULOSKELETAL: Bilateral extremity wounds, dressed NEURO: Alert & Oriented x4 to person, place, time, situation. Moves all ext x4 A/P Problem List: (1) Cellulitis, leg ICD Code: L03.119 - Cellulitis of unspecified part of limb Status: Acute Plan: Continue IV Zosyn for pseudomonas, cultures also positive for Enterobacter and group B strep ID consult appreciated, discussed with ID team today regarding possibilities for oral antibiotics which will be addressed later Outpatient wound care arranged (2) Lipodermatosclerosis ICD Code: I83.10 - Varicose veins of unspecified lower extremity with inflammation Plan: Secondary to obesity Patient also venous insufficiency and venous stasis ulcers Discharge Planning Discharge home if oral antibiotics are appropriate Problem Qualifiers (1) Cellulitis, leg: Qualified Codes: L03.119 - Cellulitis of unspecified part of limb Nohemy Kumar MD Apr 21, 2017 14:30
[2017-04-21] MEDS ORDERED: ACET1TAB86 PO (14:54)
[2017-04-21] MEDS ORDERED: LEVO750T3 PO (14:54)
[2017-04-21] MEDS ORDERED: NU-IRON PO (14:54)
--- NOTE | 2017-04-21 14:56 | HHI.DS ---
Discharge Summary Admission Date Apr 19, 2017 at 13:31 Discharge Date: Apr 21, 2017 Admitting Diagnosis leg cellulitis (1) Cellulitis, leg ICD Code: L03.119 - Cellulitis of unspecified part of limb Status: Acute (2) Lipodermatosclerosis ICD Code: I83.10 - Varicose veins of unspecified lower extremity with inflammation Procedures Wound care Brief History - From Admission Written by Timothy Arreola, acting as scribe for Dr. Kumar on 04/19/17 at 13: 47. 51-year-old male with known history of chronic stasis ulceration to the bilateral lower extremities, atrial fibrillation who presented to hospital because of increased pain, drainage, odor from his wounds. Patient is well- known to the hospital for previous admissions, recent admission approximately one month ago for same problem. At that time patient was followed by [facility] physicians, infectious disease who recommended management. At that time patient had multiple organisms growing from the clean based ulcerations. It was indicated by infectious disease that patient undergo completed treatment of 7 days of Zosyn, no culturing of clean based ulcerations and patient needs to control edema, have weight loss in order for ulcerations to heal and improve. Patient was discharged home and does have home care come by at least twice a week. On Wednesday was last time the patient had wound care done at that time started developing some drainage. Patient states that he thinks he had a fever, however he did not take his temperature. He has some nausea and when he stood up today he got very lightheaded so he came to the hospital for evaluation. Patient no longer has insurance at this time so he is paying out of his pocket for the wound care nurses. The patient believes that he has another Pseudomonas infection because of the green drainage and foul smell. Patient had workup done emergency department, there was no fever, leukocytosis, signs of sepsis at this time. Due to the worsening of his wounds and drainage is recommended by the ER physician the patient be observed in the hospital for further recommendations CBC/BMP: 04/20/17 0603 04/20/17 0603 Significant Findings Laboratory Tests Test 04/19/17 11:58 04/20/17 06:03 Red Blood Count 4.01 MIL/MM3 (4.50-5.90) 4.04 MIL/MM3 (4.50-5.90) Hemoglobin 8.5 GM/DL (13.0-17.0) 8.4 GM/DL (13.0-17.0) Hematocrit 29.8 % (39.0-51.0) 30.1 % (39.0-51.0) Mean Corpuscular Volume 74.5 FL (80.0-100.0) 74.6 FL (80.0-100.0) Mean Corpuscular Hemoglobin 21.2 PG (27.0-34.0) 20.9 PG (27.0-34.0) Mean Corpuscular Hemoglobin Concent 28.5 % (32.0-36.0) 28.0 % (32.0-36.0) Red Cell Distribution Width 22.8 % (11.6-17.2) 22.8 % (11.6-17.2) Platelet Count 542 TH/MM3 (150-450) 524 TH/MM3 (150-450) Neutrophils (%) (Auto) 73.6 % (16.0-70.0) Monocytes (%) (Auto) 12.6 % (0.0-8.0) 10.8 % (0.0-8.0) Basophils (%) (Auto) 3.1 % (0.0-2.0) Lymphocytes # (Auto) 0.7 TH/MM3 (1.0-4.8) Platelet Estimate HIGH (NORMAL) Ovalocytes 2+ (NORMAL) Blood Urea Nitrogen 20 MG/DL (7-18) 19 MG/DL (7-18) Random Glucose 110 MG/DL (74-106) Calcium Level 8.4 MG/DL (8.5-10.1) 8.0 MG/DL (8.5-10.1) Potassium Level 5.4 MEQ/L (3.5-5.1) Estimat Glomerular Filtration Rate 79 ML/MIN (>89) 87 ML/MIN (>89) Eosinophils (%) (Auto) 4.8 % (0.0-4.0) C-Reactive Protein 2.50 MG/DL (0.00-0.30) PE at Discharge Morbidly obese, multiple hyperpigmented lesions and scab bowden GENERAL: This is a well-nourished, well-developed patient, in no apparent distress. CARDIOVASCULAR: Regular rate and rhythm without murmurs, gallops, or rubs. RESPIRATORY: Clear to auscultation. Breath sounds equal bilaterally. No wheezes , rales, or rhonchi. GASTROINTESTINAL: Large pannus, Abdomen soft, non-tender, nondistended. Normal active bowel sounds MUSCULOSKELETAL: Bilateral extremity wounds, dressed NEURO: Alert & Oriented x4 to person, place, time, situation. Moves all ext x4 Pt update on day of discharge Patient seen today, pain better controlled. No new events overnight. Patient with cultures amenable to oral medications and outpatient wound care range Hospital Course Patient was seen and treated for bilateral venous stasis ulcers with venous insufficiency and lipodermatosclerosis. Cultures returned and antibiotic recommendations made by ID. Patient education was provided as well as information mercury support and outpatient wound care Pt Condition on Discharge: Good Discharge Disposition: Discharge Home Discharge Time: > 30 minutes Discharge Instructions DIET: Follow Instructions for: Heart Healthy Diet Activities you can perform: Regular-No Restrictions New Medications: Levofloxacin (Levofloxacin) 750 Mg Tablet 750 MG PO Q48H for Infection for 10 Days, TAB 0 Refills Acetaminophen (Eq Acetaminophen) 325 Mg Tab 650 MG PO Q4H for pain or fever, #62 TAB Polysaccharide Iron Complex (Poly-Iron 150) 150 Mg Cap 150 MG PO Q12HR for iron, #62 CAP Continued Medications: Albuterol 18 GM Inh (Ventolin Hfa 18 GM Inh) 90 Mcg/Act Aer 1 PUFF INH Q4H PRN for SHORTNESS OF BREATH, #1 INHALER 0 Refills Discontinued Medications: Prednisone (Prednisone) 10 Mg Tab 10 MG PO DIRECTED for asthma for 10 Days, TAB 0 Refills 30mg po bid x 1 day, 20mg po bid x 3 days, 10mg po bid x 3 days, 10mg po daily 3 days Nohemy Kumar MD Apr 21, 2017 14:56
[2017-04-21 16:00] VITALS: BP 118/86; PULSE 95; RESP 19; TEMP 96.2; O2SAT 96
[2017-04-21] MEDS: ENOXAPARIN SODIUM 40 MG/0.4 ML SYRINGE SQ SCH (16:20)
[2017-04-22] MEDS ORDERED: SODIUM HYPOCHLORITE 0.25% 500 ML BTL TOPICAL SCH (09:00)
[2017-05-17] MEDS ORDERED: GENT0.1C TOPICAL (10:24)
== END 2017-04-21 19:47 | disposition home or self-care (01) ==
LOC: PHED 10:43 → INTOOBSV 13:31 → PHEDA 13:31 → PH3B 17:45
PROVIDERS: ADMIT Internal Medicine; ATTEND Internal Medicine
DX: L03.119 Cellulitis of unspecified part of limb (principal); B96.5 Pseudomonas (aeruginosa) (mallei) (pseudomallei) as the cause of diseases classified elsewhere; L97.919 Non-pressure chronic ulcer of unspecified part of right lower leg with unspecified severity; L97.929 Non-pressure chronic ulcer of unspecified part of left lower leg with unspecified severity; I83.009 Varicose veins of unspecified lower extremity with ulcer of unspecified site; I87.2 Venous insufficiency (chronic) (peripheral); I10 Essential (primary) hypertension; E66.9 Obesity, unspecified; D50.9 Iron deficiency anemia, unspecified; I48.2 Chronic atrial fibrillation; E87.5 Hyperkalemia; J45.909 Unspecified asthma, uncomplicated; K21.9 Gastro-esophageal reflux disease without esophagitis
CPT/HCPCS: 80048; 85025; 86140; 86403; 87070; 87077; 87186; 94664; 96365; 96366; 96372; 99285; G0378; J0713; J1650; J2543

== ENCOUNTER 2017-05-10 12:19 | Emergency (ER) | payer OTHER ==
[~2017-05-10] VITALS: Ht 182.9 cm; Wt 199.0 kg
[~2017-05-10 12:19] MED LIST changes: +ACET1TAB86 PO; -ADVA100A INH; -ALBU.5I NEB; -ASPI325T PO; -FERR325T20 PO; -HYDR-3516 PO; -IPRA0.02 NEB; +LEVO750T3 PO; -METO25TA3 PO; +NU-IRON PO; -PRED10 PO; -guaiFENesin ER PO
[2017-05-10] MEDS ORDERED: SODIUM CHLORIDE 0.9% FLUSH 10 ML FLUSH IVF PRN (12:45)
[2017-05-10] MEDS ORDERED: predniSONE 50 MG TAB PO ONE (12:45)
[2017-05-10] MEDS ORDERED: LEVOFLOXACIN 500 MG TAB PO ONE (12:45)
[2017-05-10] MEDS: RESP: ALBUTEROL 2.5 MG/IPRATROPIUM 0.5 MG NEB (SCH) INH (12:48)
[2017-05-10 12:50] VITALS: O2SAT 92
[2017-05-10 12:51] VITALS: BP 94/70; PULSE 92; RESP 20; TEMP 98.9; O2SAT 92
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
[2017-05-10 13:02] VITALS: O2SAT 92
--- NOTE | 2017-05-10 13:55 | RADRPT ---
EXAM DATE/TIME: 05/10/2017 13:46 [facility] COMPARISON: CHEST SINGLE AP, March 19, 2017, 1:51. INDICATIONS : Shortness of breath; Pneumonia 4 weeks ago. MEDICAL HISTORY : Hypertension. Afib. Asthma. Hemophiliaa. SURGICAL HISTORY : Appendectomy. ENCOUNTER: Initial ACUITY: 1 month PAIN SCORE: 0/10 LOCATION: Bilateral chest FINDINGS: Mild elevation the right hemidiaphragm with mild right basilar airspace disease. Cardiac silhouette i s enlarged. Bony thorax is intact. CONCLUSION: 1. cardiomegaly. 2. Minimal residual right lower lobe airspace disease with associated volume loss. Gregg Jha MD on May 10, 2017 at 13:52 Board Certified Radiologist. This report was verified electronically.
[2017-05-10] MEDS ORDERED: RESP: LIDOCAINE HCL 4% PF 5 ML NEB NEB ONE (14:15)
[2017-05-10] MEDS ORDERED: RESP: ALBUTEROL 2.5 MG/IPRATROPIUM 0.5 MG NEB (SCH) NEB ONE (14:15)
[2017-05-10] MEDS ORDERED: LEVA500T20 PO (14:58)
[2017-05-10] MEDS ORDERED: PRED-503 PO (14:58)
[2017-05-17] MEDS ORDERED: GENT0.1C TOPICAL (10:24)
== END 2017-05-10 15:09 | disposition home or self-care (01) ==
LOC: PHEFT 12:19
DX: J45.901 Unspecified asthma with (acute) exacerbation (principal); I87.313 Chronic venous hypertension (idiopathic) with ulcer of bilateral lower extremity; I11.9 Hypertensive heart disease without heart failure; I48.91 Unspecified atrial fibrillation; I51.7 Cardiomegaly; K21.9 Gastro-esophageal reflux disease without esophagitis; Z87.19 Personal history of other diseases of the digestive system
CPT/HCPCS: 71010; 94640; 94664; 99284; J7512

== ENCOUNTER 2017-05-31 02:05 | Inpatient (IN) | payer OTHER ==
[~2017-05-31] VITALS: Ht 182.9 cm; Wt 196.3 kg
[2017-05-31] VITALS (20 sets, daily range): BP systolic 108–168; BP diastolic 63–106; PULSE 83–166; RESP 18–30; TEMP 97.6–98.2; O2SAT 94–100
[~2017-05-31 02:05] MED LIST changes: +GENT0.1C TOPICAL; +LEVA500T20 PO; -LEVO750T3 PO; -NU-IRON PO; +PRED-503 PO
[2017-05-31] MEDS ORDERED: methylPREDNISolone SOD SUCC 125 MG/2 ML VIAL IV PUSH ONE (02:15)
[2017-05-31] MEDS ORDERED: SODIUM CHLORIDE 0.9% FLUSH 5 ML FLUSH IV FLUSH PRN ×2 (02:15)
[2017-05-31] MEDS ORDERED: SODIUM CHLORIDE 0.9% FLUSH 10 ML FLUSH IVF PRN ×2 (02:15→05:30)
[2017-05-31] MEDS ORDERED: DILTIAZEM HCL 25 MG/5 ML VIAL IV ONE ×2 (02:15→03:45)
[2017-05-31] MEDS: RESP: ALBUTEROL 2.5 MG/IPRATROPIUM 0.5 MG NEB (SCH) INH ×5 (02:18→22:14)
[2017-05-31 02:30] LABS: BLOOD GAS BASE EXCESS -0.2 mmol/L (-2-2); BLOOD GAS CARBOXYHEMOGLOBIN 1.9 % (0-4); BLOOD GAS HCO3 26 mmol/L (22-26); BLOOD GAS METHEMOGLOBIN 0.6 % (0-2); BLOOD GAS O2 HGB SATURATION 91 % (90-100); BLOOD GAS PCO2 59 mmHg (38-42); BLOOD GAS PO2 76 mmHG (61-120); BLOOD GAS TOTAL HGB 10.1 G/DL (12.0-16.0); TEMP CORR TO 98.6
[2017-05-31 02:31] LABS: CRITICAL VALUE YES; DRAW SITE LT RADIAL; LITER FLOW 2 L/M; NUMBER OF ARTERIAL PUNCTURES 1; OXYGEN DEVICE NASAL CANNULA; STAT YES; ULNAR PULSE PRESENT
--- NOTE | 2017-05-31 02:38 | RADRPT ---
EXAM DATE/TIME: 05/31/2017 02:26 [facility] COMPARISON: CHEST SINGLE AP, March 19, 2017, 1:51. CHEST SINGLE AP, May 10, 2017, 13:46. INDICATIONS : Shortness of breath MEDICAL HISTORY : Hypertension. A-Fib, asthma, Hemophilia SURGICAL HISTORY : Appendectomy. ENCOUNTER: Initial ACUITY: 1 day PAIN SCORE: 7/10 LOCATION: Bilateral chest FINDINGS: Mild right base consolidation with a small pleural effusion present. Left lung appears clear. Heart s ize stable, upper limits of normal to mildly enlarged. No pneumothorax. CONCLUSION: Mild consolidation and small pleural effusion at the right lung base. Borderline cardiomegaly similar to before. Ganesh Vivar MD on May 31, 2017 at 2:32 Board Certified Radiologist. This report was verified electronically.
[2017-05-31 02:43] LABS: AUTOMATED NEUTROPHIL # 5.9 TH/MM3 (1.8-7.7); BASOPHIL # 0.1 TH/MM3 (0-0.2); BASOPHIL % 0.8 % (0.0-2.0); EOSINOPHIL # 0.1 TH/MM3 (0-0.4); EOSINOPHIL % 1.1 % (0.0-4.0); HEMATOCRIT 37.9 % (39.0-51.0); HEMO FLAGS DIFF FINAL; MEAN CELL VOLUME 77.5 FL (80.0-100.0); MEAN CORPUSCULAR HEMOGLOBIN 22.4 PG (27.0-34.0); MEAN CORPUSCULAR HGB CONC 28.9 % (32.0-36.0); MONO % 14.5 % (0.0-8.0); NEUT % 71.6 % (16.0-70.0); PLATELET COUNT 354 TH/MM3 (150-450); RED CELL DISTRIBUTION WIDTH 20.9 % (11.6-17.2); WHITE BLOOD COUNT 8.2 TH/MM3 (4.0-11.0)
[2017-05-31 02:57] LABS: APTT (PATIENT) 30.9 SEC (24.3-30.1); INTERNATIONAL NORMALIZED RATIO 1.4 RATIO; PROTHROMBIN TIME - PATIENT 16.1 SEC (9.8-11.6)
[2017-05-31 02:59] LABS: BICARBONATE 27.9 MEQ/L (21.0-32.0); MAGNESIUM 1.8 MG/DL (1.5-2.5); POTASSIUM 4.7 MEQ/L (3.5-5.1)
[2017-05-31] MEDS ORDERED: AZITHROMYCIN INJ 500 MG in SODIUM CHLOR 0.9% 250 ML INJ 250 ML IV ONE (03:00)
[2017-05-31] MEDS ORDERED: cefTRIAXone INJ 1,000 MG in SODIUM CHLORIDE 0.9% INJ 100 ML IV ONE (03:00)
[2017-05-31] MEDS: DILTIAZEM INJ 125 MG in SODIUM CHLORIDE 0.9% INJ 100 ML IV PRN ×2 (03:23→12:42)
[2017-05-31] MEDS ORDERED: FUROSEMIDE 40 MG/4 ML VIAL IV PUSH ONE (04:30)
[2017-05-31] MEDS ORDERED: RESP: ALBUTEROL 2.5 MG/IPRATROPIUM 0.5 MG NEB (SCH) NEB ONE ×2 (04:30→04:45)
[2017-05-31 04:44] LABS: BLOOD GAS BASE EXCESS -0.2 mmol/L (-2-2); BLOOD GAS CARBOXYHEMOGLOBIN 1.7 % (0-4); BLOOD GAS HCO3 27 mmol/L (22-26); BLOOD GAS METHEMOGLOBIN 0.7 % (0-2); BLOOD GAS O2 HGB SATURATION 87 % (90-100); BLOOD GAS OXYGEN CONTENT 12.5 Vol % (12.0-20.0); BLOOD GAS PCO2 74 mmHg (38-42); BLOOD GAS PO2 71 mmHG (61-120); BLOOD GAS TOTAL HGB 10.2 G/DL (12.0-16.0); CRITICAL VALUE YES; DRAW SITE LT RADIAL; LITER FLOW 2 L/M; NUMBER OF ARTERIAL PUNCTURES 1; OXYGEN DEVICE NASAL CANNULA; STAT YES; TEMP CORR TO 98.6; ULNAR PULSE PRESENT
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
[2017-05-31] MEDS ORDERED: LACTULOSE SYRUP 20 GM/30 ML CUP PO PRN (05:15)
[2017-05-31] MEDS ORDERED: ONDANSETRON HCL 4 MG/2 ML VIAL IV PUSH PRN (05:15)
[2017-05-31] MEDS ORDERED: SENNOSIDES 8.6 MG TAB PO PRN (05:15)
[2017-05-31] MEDS ORDERED: MISCELLANEOUS NURSING INFORMATION XX SCH (05:15)
[2017-05-31] MEDS ORDERED: SODIUM CHLORIDE 0.9% FLUSH 10 ML FLUSH IV FLUSH PRN (05:15)
[2017-05-31] MEDS ORDERED: ACETAMINOPHEN 325 MG TAB PO PRN (05:15)
[2017-05-31] MEDS ORDERED: BISACODYL 10 MG SUPP RECTAL PRN (05:15)
[2017-05-31] MEDS ORDERED: MAGNESIUM HYDROXIDE SUSP 30 ML CUP PO PRN (05:15)
[2017-05-31] MEDS ORDERED: MORPHINE SULFATE 4 MG/ML INJ IV PUSH PRN (05:15)
[2017-05-31] MEDS ORDERED: ZOLPIDEM TARTRATE 5 MG TAB PO PRN (05:15)
[2017-05-31] MEDS ORDERED: RESP: ALBUTEROL 2.5 MG/IPRATROPIUM 0.5 MG NEB (PRN) INH (05:15)
[2017-05-31] MEDS ORDERED: CHLORHEXIDINE GLUCONATE 2 % 1 PACK (2 CLOTHS) TOP PRN (05:15)
--- NOTE | 2017-05-31 05:19 | HHI.HP ---
HPI Service Critical Care Medicine Primary Care Physician No Primary Care Physician Admission Diagnosis Diagnosis: Travel History International Travel<30 Days: No Contact w/Intl Traveler <30 Da: No Traveled to Known Affected Are: No History of Present Illness 51-year-old male presents with progressive worsening shortness of breath over the past few days. Patient has history of asthma and COPD as well as history of atrial fibrillation patient states he is followed for chronic venous stasis ulcers and has been going to wound care but has not been able to see wound care doctor for the past 7-10 days. Patient's had no fever and chills. Patient's had increasing cough and wheezing. Patient presents by EMS reportedly O2 saturations were in the 80s and heart rate was 160s. He states that since he has not been going to wound care that he's had increasing swelling and drainage from his legs and thinks that that may have precipitated his shortness of breath. Review of Systems ROS Unobtainable, patient in respiratory distress Past Family Social History Allergies: Uncoded Allergies: Unna boots (Adverse Reaction, Unknown, 03/19/17) Past Medical History Chronic atrial fibrillation with rate control Chronic stasis ulcerations of bilateral lower extremities with history of Pseudomonas, Klebsiella, staph Morbid obesity Gastroesophageal reflux Past Surgical History Laparotomy for surgery for Stomach ulcers Appendectomy Reported Medications Reported Meds & Active Scripts Active Gentamicin Topical 0.1% Cream 1 Applic TOPICAL BID Apply to affected area(s) Levaquin (Levofloxacin) 500 Mg Tablet 500 Mg PO DAILY 7 Days Deltasone (Prednisone) 20 Mg Tab 40 Mg PO DAILY 4 Days Eq Acetaminophen (Acetaminophen) 325 Mg Tab 650 Mg PO Q4H Reported Ventolin Hfa 18 GM Inh (Albuterol Sulfate) 90 Mcg/Act Aer 1 Puff INH Q4H PRN Active Ordered Medications Current Medications Medications (Trade) Dose Ordered Sig/Candace Route PRN Reason Start Time Stop Time Status Last Admin Dose Admin Sodium Chloride (NS Flush) 2 ml UNSCH PRN IVF FLUSH AFTER USING IV ACCESS 05/31/17 02:15 Diltiazem HCl 125 mg/Sodium Chloride 125 ml @ 5 mls/hr TITRATE PRN IV tachycardia 05/31/17 02:15 05/31/17 03:23 IV Flush (NS Flush) 2 ml UNSCH PRN IV FLUSH FLUSH AFTER USING IV ACCESS 05/31/17 02:15 IV Flush (NS Flush) 2 ml UNSCH PRN IV FLUSH FLUSH AFTER USING IV ACCESS 05/31/17 02:15 Gentamicin Sulfate (Gentamicin 0.1% Cream) 1 applic BID TOPICAL 05/31/17 09:00 Sodium Chloride (NS Flush) 2 ml UNSCH PRN IV FLUSH FLUSH AFTER USING IV ACCESS 05/31/17 05:15 UNV Sodium Chloride (NS Flush) 2 ml BID IV FLUSH 05/31/17 09:00 UNV Albuterol/ Ipratropium (Duoneb Neb) 1 ampule Q4HR NEB INH 05/31/17 08:00 UNV Albuterol/ Ipratropium (Duoneb Neb) 1 ampule Q2HR NEB PRN INH WHEEZING 05/31/17 05:15 UNV Miscellaneous Information 1 [id number] XX 05/31/17 05:15 UNV Family History Reviewed and mother is alive, however he does not know father or father's history. No indication of any heart disease, lung disease, diabetes, cancer Social History Patient denies any tobacco, alcohol or illicit drugs Physical Exam Vital Signs Vital Signs Date Time Temp Pulse Resp B/P (MAP) Pulse Ox O2 Delivery O2 Flow Rate FiO2 05/31/17 04:50 95 35 05/31/17 04:21 94 Nasal Cannula 3.00 05/31/17 04:18 Nasal Cannula 3.00 05/31/17 04:18 Nasal Cannula 3.00 05/31/17 03:23 112 140/106 05/31/17 03:21 114 140/106 (117) 98 3.00 05/31/17 02:15 95 Nasal Cannula 2.00 05/31/17 02:14 166 05/31/17 02:12 132 05/31/17 02:08 165 139/90 (106) 98 Physical Exam GENERAL: Morbidly obese male in respiratory distress on facemask BiPAP. SKIN: Warm and dry. HEAD: Normocephalic. EYES: No scleral icterus. No injection or drainage. NECK: Supple, trachea midline. No JVD or lymphadenopathy. CARDIOVASCULAR: Regular rate and rhythm without murmurs, gallops, or rubs. RESPIRATORY: Breath sounds equal bilaterally. No accessory muscle use. GASTROINTESTINAL: Abdomen soft, non-tender, nondistended. MUSCULOSKELETAL: No cyanosis, or edema. BACK: Nontender without obvious deformity. NEURO EXAM: GCS: M 6 V T E 4 Mental Status: The patient is alert and following, on facemask BiPAP Cranial Nerves: Pupils are round, reactive to light. Reflexes: Biceps, patellar, and Achilles are 2/4 bilaterally. No clonus. Laboratory Laboratory Tests Test 05/31/17 02:06 05/31/17 02:26 05/31/17 04:31 Blood Gas Puncture Site LT RADIAL LT RADIAL Blood Gas Patient Temperature 98.6 98.6 Blood Gas HCO3 26 27 Blood Gas Base Excess -0.2 -0.2 Blood Gas Oxygen Saturation 91 87 Arterial Blood pH 7.27 7.19 Arterial Blood Partial Pressure CO2 59 74 Arterial Blood Partial Pressure O2 76 71 Arterial Blood Oxygen Content 13.0 12.5 Arterial Blood Carboxyhemoglobin 1.9 1.7 Arterial Blood Methemoglobin 0.6 0.7 Blood Gas Hemoglobin 10.1 10.2 Oxygen Delivery Device NASAL CANNULA NASAL CANNULA Blood Gas Liter Flow 2 2 White Blood Count 8.2 Red Blood Count 4.90 Hemoglobin 11.0 Hematocrit 37.9 Mean Corpuscular Volume 77.5 Mean Corpuscular Hemoglobin 22.4 Mean Corpuscular Hemoglobin Concent 28.9 Red Cell Distribution Width 20.9 Platelet Count 354 Mean Platelet Volume 8.1 Neutrophils (%) (Auto) 71.6 Lymphocytes (%) (Auto) 12.0 Monocytes (%) (Auto) 14.5 Eosinophils (%) (Auto) 1.1 Basophils (%) (Auto) 0.8 Neutrophils # (Auto) 5.9 Lymphocytes # (Auto) 1.0 Monocytes # (Auto) 1.2 Eosinophils # (Auto) 0.1 Basophils # (Auto) 0.1 CBC Comment DIFF FINAL Differential Comment Prothrombin Time 16.1 Prothromb Time International Ratio 1.4 Activated Partial Thromboplast Time 30.9 Blood Urea Nitrogen 20 Creatinine 1.22 Random Glucose 91 Calcium Level 8.0 Magnesium Level 1.8 Sodium Level 137 Potassium Level 4.7 Chloride Level 103 Carbon Dioxide Level 27.9 Anion Gap 6 Estimat Glomerular Filtration Rate 63 Lactic Acid Level 2.4 Total Creatine Kinase 67 Troponin I 0.02 B-Type Natriuretic Peptide 569 Date/Time Source Procedure Growth Status 05/31/17 02:26 Blood Peripheral Aerobic Blood Culture Pending Received 05/31/17 02:26 Blood Peripheral Anaerobic Blood Culture Pending Received Result Diagram: 10/2/17 0226 10/2/17 0226 Caprini VTE Risk Assessment Caprini VTE Risk Assessment: Mod/High Risk (score >= 2) Caprini Risk Assessment Model Point Value = 1 Point Value = 2 Point Value = 3 Point Value = 5 Age 41-60 Minor surgery BMI > 25 kg/m2 Swollen legs Varicose veins or History of unexplained or recurrent spontaneous Oral contraceptives or hormone replacement Sepsis (< 1 month) Serious lung disease, including pneumonia (< 1 month) Abnormal pulmonary function Acute myocardial infarction Congestive heart failure (< 1 month) History of inflammatory bowel disease Medical patient at bed rest Age 61-74 Arthroscopic surgery Major open surgery (> 45 min) Laparoscopic surgery (> 45 min) Malignancy Confined to bed (> 72 hours) Immobilizing plaster cast Central venous access Age >= 75 History of VTE Family history of VTE Factor V Leiden Prothrombin [id number] Lupus anticoagulant Anticardiolipin antibodies Elevated serum homocysteine Heparin-induced thrombocytopenia Other congenital or acquired thrombophilia Stroke (< 1 month) Elective arthroplasty Hip, pelvis, or leg fracture Acute spinal cord injury (< 1 month) Prophylaxis Regimen Total Risk Factor Score Risk Level Prophylaxis Regimen 0-1 Low Early ambulation 2 Moderate Order ONE of the following: *Sequential Compression Device (SCD) *Heparin 5000 units SQ BID 3-4 Higher Order ONE of the following medications: *Heparin 5000 units SQ TID *Enoxaparin/Lovenox 40 mg SQ daily (WT < 150 kg, CrCl > 30 mL/min) *Enoxaparin/Lovenox 30 mg SQ daily (WT < 150 kg, CrCl > 10-29 mL/min) *Enoxaparin/Lovenox 30 mg SQ BID (WT < 150 kg, CrCl > 30 mL/min) AND/OR *Sequential Compression Device (SCD) 5 or more Highest Order ONE of the following medications: *Heparin 5000 units SQ TID (Preferred with Epidurals) *Enoxaparin/Lovenox 40 mg SQ daily (WT < 150 kg, CrCl > 30 mL/min) *Enoxaparin/Lovenox 30 mg SQ daily (WT < 150 kg, CrCl > 10-29 mL/min) *Enoxaparin/Lovenox 30 mg SQ BID (WT < 150 kg, CrCl > 30 mL/min) AND *Sequential Compression Device (SCD) Assessment and Plan Assessment and Plan Respiratory failure - COPD exacerbation - Broad-spectrum antibiotic - IV steroids - DuoNeb scheduled and when necessary - BiPAP - Repeat ABG and CXR a.m. Chronic atrial fibrillation - rate control - Telemetry Chronic stasis ulcerations of bilateral lower extremities - history of Pseudomonas, Klebsiella, staph - Wound care consult Morbid obesity - Weight loss counseling Gastroesophageal reflux - IV Pepcid DVT GI prophylaxis - Lovenox - Pepcid Critical Care: The total critical care time was 35 minutes. Time to perform other separately billable procedures was not included in the critical care time. Misael Shepard MD May 31, 2017 05:19
[2017-05-31] MEDS ORDERED: CEFEPIME INJ 2,000 MG in SODIUM CHLORIDE 0.9% INJ 100 ML IV SCH (06:00)
[2017-05-31] MEDS: ENOXAPARIN SODIUM 40 MG/0.4 ML SYRINGE SQ SCH (06:07)
[2017-05-31] MEDS ORDERED: SODIUM CHLORIDE 0.9% FLUSH 10 ML FLUSH IV FLUSH SCH (09:00)
[2017-05-31] MEDS: GENTAMICIN SULFATE 0.1% CREAM 15 GM TOPICAL SCH ×2 (09:00→21:00)
[2017-05-31] MEDS: DOCUSATE SODIUM 50 MG/SENNA 8.6 MG TAB PO SCH ×2 (09:00→21:00)
[2017-05-31] MEDS: SODIUM CHLORIDE 0.9% FLUSH 10 ML FLUSH IV FLUSH SCH ×2 (09:09→21:00)
[2017-05-31] MEDS: methylPREDNISolone SOD SUCC 40 MG/1 ML VIAL IV PUSH SCH ×2 (09:09→17:19)
[2017-05-31] MEDS: FAMOTIDINE 20 MG/2 ML VIAL IV PUSH SCH ×2 (09:10→21:00)
[2017-05-31] MEDS: CEFEPIME INJ 2,000 MG in SODIUM CHLORIDE 0.9% INJ 100 ML IV SCH (17:00)
--- NOTE | 2017-05-31 19:24 | EKG ---
Date Performed: 05/31/2017 Time Performed: 02:07:22 PTAGE: 51 years EKG: ATRIAL FIBRILLATION WITH RAPID VENTRICULAR RESPONSE LOW QRS VOLTAGE ABNORMAL ECG NO PREVIOUS TRACING DOCTOR: Johny Maier Interpretating Date/Time 05/31/2017 19:22:08
[2017-05-31 19:44] LABS: BLOOD GAS BASE EXCESS -0.9 mmol/L (-2-2); BLOOD GAS CARBOXYHEMOGLOBIN 1.8 % (0-4); BLOOD GAS HCO3 27 mmol/L (22-26); BLOOD GAS O2 HGB SATURATION 89 % (90-100); BLOOD GAS PCO2 81 mmHg (38-42); BLOOD GAS PO2 77 mmHg (61-120); BLOOD GAS TOTAL HGB 9.4 G/DL (12.0-16.0); TEMP CORR TO 98.6
[2017-05-31 19:47] LABS: CRITICAL VALUE YES
[2017-05-31 19:48] LABS: DRAW SITE RT RADIAL; NUMBER OF ARTERIAL PUNCTURES 1; OXYGEN DEVICE BiPAP; STAT NO; ULNAR PULSE PRESENT
[2017-05-31] MEDS ORDERED: FUROSEMIDE 100 MG/10 ML VIAL IV PUSH ONE (20:00)
[2017-05-31] MEDS: DILTIAZEM HCL 60 MG TAB PO SCH (21:46)
[2017-06-01] VITALS (19 sets, daily range): BP systolic 97–127; BP diastolic 59–83; PULSE 45–98; RESP 24–30; TEMP 93–98.7; O2SAT 93–100
[2017-06-01] MEDS: RESP: ALBUTEROL 2.5 MG/IPRATROPIUM 0.5 MG NEB (SCH) INH ×7 (00:11→23:36)
[2017-06-01] MEDS: methylPREDNISolone SOD SUCC 40 MG/1 ML VIAL IV PUSH SCH ×4 (00:23→23:30)
[2017-06-01] MEDS: CEFEPIME INJ 2,000 MG in SODIUM CHLORIDE 0.9% INJ 100 ML IV SCH ×3 (00:24→17:17)
[2017-06-01] MEDS ORDERED: MIDAZOLAM HCL 5 MG/ML VIAL (1 ML) ONE (01:16)
[2017-06-01] MEDS ORDERED: PROPOFOL 500 MG/50 ML INJ 50 ML ONE (01:16)
[2017-06-01] MEDS ORDERED: SUCCINYLCHOLINE CHLORIDE 200 MG/10 ML VIAL ONE (01:17)
--- NOTE | 2017-06-01 01:37 | PD.PROCEDR ---
Procedure Note Procedure Endotracheal Intubation A time-out was completed verifying correct patient, procedure, site, positioning , and special equipment if applicable. The patient was placed in a flat position. Sedation was obtained using Etomidate 20mg. The patient was easily ventilated using an ambu bag. The [employer]/ MAC 4 BLADE was used and inserted into the oropharynx at which time there was a Grade 1 view of the vocal cords. A 8-macedonian endotracheal tube was inserted and visualized going through the vocal cords. The stylette was removed. Colorimetric change was visualized on the CO2 meter. Breath sounds were heard in both lung bethea equally. The endotracheal tube was placed at 23 cm, measured at the teeth. A chest x-ray was ordered to assess for pneumothorax and verify endotrachealtube placement. Estimated Blood Loss: 0 The patient tolerated the procedure well and there were no complications. Misael Shepard MD Jun 01, 2017 01:37
[2017-06-01] MEDS: PROPOFOL 1000 MG/100 ML INJ 100 ML IV PRN ×12 (02:18→23:30)
[2017-06-01] MEDS ORDERED: MIDAZOLAM HCL 2 MG/2 ML VIAL IV ONE (03:00)
[2017-06-01] MEDS ORDERED: SUCCINYLCHOLINE CHLORIDE 100 MG/5 ML SYRINGE IV PUSH ONE (03:00)
[2017-06-01] MEDS ORDERED: fentaNYL CITRATE 250 MCG/5 ML AMP IV PUSH ONE (03:00)
[2017-06-01] MEDS: CHLORHEXIDINE GLUCONATE 2 % 1 PACK (2 CLOTHS) TOP SCH (03:45)
[2017-06-01 03:46] LABS: BLOOD GAS CARBOXYHEMOGLOBIN 1.7 % (0-4); BLOOD GAS HCO3 27 mmol/L (22-26); BLOOD GAS METHEMOGLOBIN 0.9 % (0-2); BLOOD GAS O2 HGB SATURATION 92 % (90-100); BLOOD GAS OXYGEN CONTENT 11.6 Vol % (12.0-20.0); BLOOD GAS PCO2 78 mmHg (38-42); BLOOD GAS PO2 84 mmHg (61-120); BLOOD GAS TOTAL HGB 8.9 G/DL (12.0-16.0); TEMP CORR TO 98.6
[2017-06-01 03:47] LABS: CRITICAL VALUE YES; DRAW SITE RT RADIAL; FIO2 50 %; NUMBER OF ARTERIAL PUNCTURES 1; OXYGEN DEVICE VENTILATOR
[2017-06-01 03:48] LABS: STAT YES; ULNAR PULSE PRESENT
--- NOTE | 2017-06-01 04:07 | RADRPT ---
EXAM DATE/TIME: 06/01/2017 03:12 [facility] COMPARISON: CHEST SINGLE AP, May 31, 2017, 2:26. INDICATIONS : Post intubation. MEDICAL HISTORY : Hypertension. A-Fib, asthma, Hemophilia. SURGICAL HISTORY : Appendectomy. ENCOUNTER: Subsequent ACUITY: 2 days PAIN SCORE: Non-responsive. LOCATION: Bilateral chest FINDINGS: Basilar consolidation with small pleural effusion and volume loss again noted on the right. There is mild consolidation developing left lung base. Mild cardiomegaly again noted, not significantly changed. Patient is now intubated. Endotracheal tube tip is approximately 1.7 cm above the sukhdev. There is a nasogastric tube that courses into the stomach. CONCLUSION: 1. Endotracheal tube tip is approximately 1.7 cm above the sukhdev. 2. Mild left base consolidation developing. 3. Right base consolidation and small pleural effusion with volume loss not significantly changed. Ganesh Vivar MD on June 01, 2017 at 4:04 Board Certified Radiologist. This report was verified electronically.
[2017-06-01] MEDS: AZITHROMYCIN INJ 500 MG in SODIUM CHLOR 0.9% 250 ML INJ 250 ML IV SCH (05:16)
[2017-06-01] MEDS: ENOXAPARIN SODIUM 40 MG/0.4 ML SYRINGE SQ SCH (05:34)
[2017-06-01] MEDS: DILTIAZEM HCL 60 MG TAB PO SCH ×5 (05:35→23:31)
[2017-06-01 06:27] LABS: BLOOD GAS BASE EXCESS -1.1 mmol/L (-2-2); BLOOD GAS CARBOXYHEMOGLOBIN 1.7 % (0-4); BLOOD GAS HCO3 24 mmol/L (22-26); BLOOD GAS METHEMOGLOBIN 0.9 % (0-2); BLOOD GAS O2 HGB SATURATION 96 % (90-100); BLOOD GAS OXYGEN CONTENT 12.6 Vol % (12.0-20.0); BLOOD GAS PCO2 45 mmHg (38-42); BLOOD GAS PO2 107 mmHg (61-120); BLOOD GAS TOTAL HGB 9.2 G/DL (12.0-16.0); CRITICAL VALUE NO; TEMP CORR TO 98.6
[2017-06-01 06:28] LABS: OXYGEN DEVICE VENTILATOR; VENT SETTINGS PC/AC
[2017-06-01 06:28] LABS: INTERNATIONAL NORMALIZED RATIO 1.5 RATIO; PROTHROMBIN TIME - PATIENT 16.6 SEC (9.8-11.6)
[2017-06-01 06:29] LABS: DRAW SITE RT RADIAL; FIO2 50 %; NUMBER OF ARTERIAL PUNCTURES 1; STAT NO; ULNAR PULSE PRESENT
[2017-06-01 06:55] LABS: ALKALINE PHOSPHATASE 122 U/L (45-117); ALT (GPT) 85 U/L (12-78); ANION GAP 11 MEQ/L (5-15); AST (GOT) 91 U/L (15-37); BICARBONATE 22.9 MEQ/L (21.0-32.0); BLOOD UREA NITROGEN 24 MG/DL (7-18); CHLORIDE 103 MEQ/L (98-107); GLOMERULAR FILTRATION RATE 44 ML/MIN (>89); MAGNESIUM 1.6 MG/DL (1.5-2.5); POTASSIUM 4.7 MEQ/L (3.5-5.1); SODIUM (NA) 137 MEQ/L (136-145); TOTAL BILIRUBIN ADULT 1.1 MG/DL (0.2-1.0)
[2017-06-01 07:16] LABS: AUTOMATED NEUTROPHIL # 7.5 TH/MM3 (1.8-7.7); BASOPHIL % 0.2 % (0.0-2.0); HEMATOCRIT 34.4 % (39.0-51.0); HEMO FLAGS DIFF FINAL; LYMPH % 8.4 % (9.0-44.0); LYMPHOCYTE # 0.8 TH/MM3 (1.0-4.8); MEAN CELL VOLUME 78.7 FL (80.0-100.0); MEAN CORPUSCULAR HEMOGLOBIN 22.3 PG (27.0-34.0); MONO % 10.1 % (0.0-8.0); NEUT % 81.3 % (16.0-70.0); PLATELET COUNT 259 TH/MM3 (150-450); RED BLOOD COUNT 4.37 MIL/MM3 (4.50-5.90); RED CELL DISTRIBUTION WIDTH 20.8 % (11.6-17.2); WHITE BLOOD COUNT 9.3 TH/MM3 (4.0-11.0)
[2017-06-01 07:17] LABS: MEAN CORPUSCULAR HGB CONC 28.3 % (32.0-36.0)
[2017-06-01] MEDS: SODIUM CHLORIDE 0.9% FLUSH 10 ML FLUSH IV FLUSH SCH ×2 (08:01→21:00)
[2017-06-01] MEDS: GENTAMICIN SULFATE 0.1% CREAM 15 GM TOPICAL SCH ×2 (09:00→21:00)
[2017-06-01] MEDS: FAMOTIDINE 20 MG/2 ML VIAL IV PUSH SCH ×2 (09:23→20:27)
[2017-06-01] MEDS: DOCUSATE SODIUM 50 MG/SENNA 8.6 MG TAB PO SCH ×2 (09:24→20:28)
--- NOTE | 2017-06-01 12:18 | PD.WCN.NOT ---
Wound Consult Description: Received consult for wound management of Leg from Doctor Misael Shepard Communicated with: RAHEL Solis [facility] Recommendation: Please soak wounds to bilateral lower extremities in 1/4 strength dakin's solution for 10 minutes and pat dry before applying Maxorb II (Calcium Alginate ) dressings over wound bed, Cover with ABD pads. Secure dressings with rolled gauze, tape, and Elastic wrap. Change dressings daily. Additional Information: Patient seen on 3 [facility] for evaluation of leg wound management. Patricia BLAIR at bedside for assistance. Doctor Hawk present also for assistance. Patient is know to wound care both inpatient and outpatient for bilateral leg wounds. Patient is an obese man with chronic venous stasis disease , who was admitted to the hospital in respiratory distress and he is now intubated.Removed rolled gauze, ABD pads, Xeroform gauze dressing in place to reveal bilateral lower leg venous stasis ulcers. R leg wound presents as a shallow full thickness ulcer. Wound bed is noted with ~50% pink tissue ~50% yellow tissue. Small Islands of epithelialization can be seen scattered throughout wound bed. Wound drainage is moderate and yellow with foul odor. Wound margins are poorly defined and uneven. Wound wraps around the entire R lower leg.Wound measures 18.3cm x ~30cmx ~0.1cm L leg wound also presents as a shallow full thickness ulcer. Wound is smaller than the wound on R leg measuring 15.2cm x 19cm x~0.1cm. Wound bed is noted with ~60% pink tissue and ~40% yellow tissue. Wound also has moderate yellow drainage with foul odor. Wound margins are uneven. Bilateral lower legs also present with hard non pitting edema and hemosiderin staining. Cleansed bilateral lower extremity wounds with wound cleanser and oat dry before applying Maxorb II (Calcium alginate) dressings over wound beds. Secured dressings with ABD pads, rolled gauze, tape and Elastic wrap. Alina Barboza [facility] Jun 01, 2017 12:18
[2017-06-01 16:39] LABS: BLOOD GAS BASE EXCESS 0.2 mmol/L (-2-2); BLOOD GAS CARBOXYHEMOGLOBIN 1.7 % (0-4); BLOOD GAS HCO3 25 mmol/L (22-26); BLOOD GAS METHEMOGLOBIN 1.1 % (0-2); BLOOD GAS O2 HGB SATURATION 93 % (90-100); BLOOD GAS OXYGEN CONTENT 11.5 Vol % (12.0-20.0); BLOOD GAS PCO2 46 mmHg (38-42); BLOOD GAS PO2 81 mmHg (61-120); BLOOD GAS TOTAL HGB 8.8 G/DL (12.0-16.0); TEMP CORR TO 98.6
[2017-06-01 16:40] LABS: CRITICAL VALUE NO; DRAW SITE ALINE; FIO2 50 %; OXYGEN DEVICE VENT; STAT NO
[2017-06-01] MEDS ORDERED: Vancomycin Consult Pharmacy 1 EA OTHER SCH (16:45)
--- NOTE | 2017-06-01 16:52 | HHI.CCPN ---
Subjective Remarks/Hospital Course Hospital Course: 51-year-old male presents with progressive worsening shortness of breath over the past few days. Patient has history of asthma and COPD as well as history of atrial fibrillation patient states he is followed for chronic venous stasis ulcers and has been going to wound care but has not been able to see wound care doctor for the past 7-10 days. Patient's had no fever and chills. Patient's had increasing cough and wheezing. Patient presents by EMS reportedly O2 saturations were in the 80s and heart rate was 160s. He states that since he has not been going to wound care that he's had increasing swelling and drainage from his legs and thinks that that may have precipitated his shortness of breath. Subjective: 06/01: decompensated overnight and intubated for persistent hypercarbia and respiratory distress. Cr uptrending. BNP elevated, but poor diuresis with high dose iv lasix. unclear to what degree CHF is contributing to his hypoxemia and shock. Lactate also rising, up to 2.8. Objective Vital Signs Date Time Temp Pulse Resp B/P (MAP) Pulse Ox O2 Delivery O2 Flow Rate FiO2 06/01/17 16:11 93 50 06/01/17 14:00 65 06/01/17 12:00 98.2 24 127/83 (98) 06/01/17 07:00 Mechanical Ventilator 05/31/17 16:00 3.00 Intake and Output 06/01/17 06/01/17 06/02/17 08:00 16:00 00:00 Intake Total 820 ml 500 ml Output Total 575 ml Balance 245 ml 500 ml Result Diagram: 06/01/17 0513 06/01/17 0600 Other Results Microbiology Date/Time Source Procedure Growth Status 05/31/17 06:21 Urine Catheterized Urine Legionella Antigen - Final PRESUMPTIVE NEGATIVE FOR LEGIONELLA P... Complete 05/31/17 06:21 Urine Catheterized Urine Streptococcus pneumoniae Antigen (M - Final PRESUMPTIVE NEGATIVE FOR STREPTOCOCCU... Complete Laboratory Tests Test 05/31/17 19:20 06/01/17 03:09 06/01/17 06:07 Blood Gas Puncture Site RT RADIAL RT RADIAL RT RADIAL Blood Gas Patient Temperature 98.6 98.6 98.6 Blood Gas HCO3 27 mmol/L (22-26) 27 mmol/L (22-26) 24 mmol/L (22-26) Blood Gas Base Excess -0.9 mmol/L (-2-2) -1.0 mmol/L (-2-2) -1.1 mmol/L (-2-2) Blood Gas Oxygen Saturation 89 % (90-100) 92 % (90-100) 96 % (90-100) Arterial Blood pH 7.15 (7.380-7.420) 7.16 (7.380-7.420) 7.34 (7.380-7.420) Arterial Blood Partial Pressure CO2 81 mmHg (38-42) 78 mmHg (38-42) 45 mmHg (38-42) Arterial Blood Partial Pressure O2 77 mmHg (61-120) 84 mmHg (61-120) 107 mmHg (61-120) Arterial Blood Oxygen Content 12.0 Vol % (12.0-20.0) 11.6 Vol % (12.0-20.0) 12.6 Vol % (12.0-20.0) Arterial Blood Carboxyhemoglobin 1.8 % (0-4) 1.7 % (0-4) 1.7 % (0-4) Arterial Blood Methemoglobin 1.0 % (0-2) 0.9 % (0-2) 0.9 % (0-2) Blood Gas Hemoglobin 9.4 G/DL (12.0-16.0) 8.9 G/DL (12.0-16.0) 9.2 G/DL (12.0-16.0) Oxygen Delivery Device BiPAP VENTILATOR VENTILATOR Blood Gas Inspired Oxygen 50 % 50 % Blood Gas Ventilator Setting PC/AC Objective Remarks GENERAL: Super morbidly obese male, lying in bed, intubated, sedated, critically ill HEENT: Normocephalic. Atraumatic. Pupils equal, round, reactive, conjugate. Mucous membranes are moist NECK: Trachea is midline. Large neck circumference and obesity prevents accurate assessment of JVD CHEST: Very distant breath sounds. FiO2 50%. Equal chest rise. CARDIOVASCULAR: Normal rate, irregularly irregular rhythm. A. fib by telemetry ABDOMEN: Morbidly obese, Soft, nontender, nondistended. No guarding. MUSCULOSKELETAL: Pulses 2+. Chronic venous stasis changes of the lower extremities with bilateral weeping and oozing. NEUROLOGICAL: RASS -2. Weakly follows commands. Withdraws to pain. A/P Assessment and Plan Assessment: 51yM with super morbid obesity, obesity hypoventilation syndrome, COPD, CHF, unknown type but likely with preserved EF, who has worsening acute hypoxic and hypercarbic respiratory failure requiring intubation and mechanical ventilation. He has associated end-organ dysfunction and shock with poor oxygen delivery and lactic acidosis. Again, rising Cr is concerning, although he has remained afebrile. will send procalcitonin and recheck BNP. will attempt to obtain TTE, although in the past, his morbid obesity has been a barrier to obtaining clinically useful TTE images. Remains critically ill and worse today than yesterday. will place arterial line and attach pulse contour analysis to help guide volume management. Acute hypoxic and hypercarbic Respiratory failure COPD exacerbation CHF Exacerbation, unknown type Obesity Hypoventilation syndrome Possible Community Acquired Pneumonia - Broad-spectrum antibiotic - will add vancomycin empirically - f/u cultures - send procalcitonin - repeat BNP - IV steroids - DuoNeb scheduled and when necessary - flowtrack - continue forced diuresis. - 2d echo Lactic Acidosis - likely secondary to poor oxygen delivery - trend - unlikely to be sepsis, no fever. see above discussion. Chronic atrial fibrillation - diltiazem 60 mg po q6h - d/c dilt drip - Telemetry - CHADSVaSC score 4, unclear why he is not anticoagulated at home. will start therapeutic lovenox. Chronic stasis ulcerations of bilateral lower extremities - history of Pseudomonas, Klebsiella, staph - Wound care consult Morbid obesity - Weight loss counseling Gastroesophageal reflux - IV Pepcid DVT GI prophylaxis - therapeutic Lovenox - Pepcid Critical Care: The total critical care time was 62 minutes. Time to perform other separately billable procedures was not included in the critical care time. Len Molina MD Jun 01, 2017 16:52
[2017-06-01] MEDS: fentaNYL DRIP 250 ML IV PRN (17:18)
[2017-06-01] MEDS ORDERED: VANCOMYCIN INJ 1,500 MG in SODIUM CHLORID 0.9% 500 ML INJ 500 ML IV ONE (18:00)
--- NOTE | 2017-06-01 18:28 | PD.PROCEDR ---
Procedure Note Procedure Procedure: Arterial Line Placement Right radial art line Diagnosis: COPD exacerbation Indications: Need for serial arterial blood gas sampling and pulse contour analysis Consent: Emergent Description of the Procedure: The right wrist was prepped and draped sterilely. 1% lidocaine was used for local anesthesia. The pulse was located and a needle was advanced into the artery. A 20 gauge, 12 cm catheter was advanced into the artery using a modified Seldinger technique. The catheter was sutured to the skin and a sterile dressing was applied. The catheter was connected to a pressure transducer and an arterial waveform was noted. There were no immediate complications noted. There was minimal EBL. I personally performed the procedure. Len Molina MD Jun 01, 2017 18:28
[2017-06-01] MEDS: ENOXAPARIN SODIUM 100 MG/ML SYRINGE SQ SCH (19:24)
[2017-06-02] VITALS (20 sets, daily range): BP systolic 92–97; BP diastolic 51–61; PULSE 66–99; RESP 16–24; TEMP 94.1–97.1; O2SAT 77–100
[2017-06-02] MEDS: CEFEPIME INJ 2,000 MG in SODIUM CHLORIDE 0.9% INJ 100 ML IV SCH ×3 (00:06→16:57)
[2017-06-02] MEDS ORDERED: ALBUMIN HUMAN 5% 25 GM/500 ML BOTTLE IV ONE (01:45)
[2017-06-02] MEDS ORDERED: fentaNYL DRIP 250 ML IV PRN (01:45)
[2017-06-02] MEDS ORDERED: SODIUM CHLOR 0.9% 1000 ML INJ 1,000 ML IV ONE ×3 (01:45)
[2017-06-02] MEDS ORDERED: MIDAZOLAM HCL 5 MG/ML VIAL (1 ML) ONE (02:50)
[2017-06-02] MEDS ORDERED: MIDAZOLAM HCL 2 MG/2 ML VIAL IV ONE (03:00)
--- NOTE | 2017-06-02 03:34 | PD.PROCEDR ---
Procedure Note Procedure Centerline placement A time-out was completed verifying correct patient, procedure, site, positioning , and special equipment if applicable. The patient was placed in a dependent position appropriate for central line placement based on the vein to be cannulated. The patients right neck was prepped and draped in sterile fashion. 1% Lidocaine was used to anesthetize the surrounding skin area. A triple lumen 9 -[place] Cordis catheter was introduced into the the internal jugular vein using the Seldinger technique and under ultrasound guidance. The catheter was threaded smoothly over the guide wire and appropriate blood return was obtained. Each lumen of the catheter was evacuated of air and flushed with sterile saline. The catheter was then sutured in place to the skin and a sterile dressing applied. Perfusion to the extremity distal to the point of catheter insertion was checked and found to be adequate. Estimated Blood Loss: 1ml The patient tolerated the procedure well and there were no complications. Misael Shepard MD Jun 02, 2017 03:34
[2017-06-02] MEDS ORDERED: DOPamine INJ PREMIX 500 ML IV PRN (03:45)
[2017-06-02] MEDS ORDERED: TERBUTALINE INJ 1 MG/ML AMP SQ PRN (03:45)
[2017-06-02] MEDS: CHLORHEXIDINE GLUCONATE 2 % 1 PACK (2 CLOTHS) TOP SCH (04:00)
[2017-06-02] MEDS: RESP: ALBUTEROL 2.5 MG/IPRATROPIUM 0.5 MG NEB (SCH) INH ×5 (04:19→19:58)
[2017-06-02] MEDS: PROPOFOL 1000 MG/100 ML INJ 100 ML IV PRN (05:29)
[2017-06-02] MEDS: AZITHROMYCIN INJ 500 MG in SODIUM CHLOR 0.9% 250 ML INJ 250 ML IV SCH (05:30)
[2017-06-02] MEDS: ENOXAPARIN SODIUM 100 MG/ML SYRINGE SQ SCH (05:31)
[2017-06-02] MEDS: MIDAZOLAM 100 MG/100 ML INJ 100 ML IV PRN ×3 (05:31→19:50)
--- NOTE | 2017-06-02 05:33 | RADRPT ---
EXAM DATE/TIME: 06/02/2017 03:39 [facility] COMPARISON: CHEST SINGLE AP, June 01, 2017, 3:12. INDICATIONS : Post central line placement. MEDICAL HISTORY : Hypertension. A-Fib, asthma, Hemophilia SURGICAL HISTORY : Appendectomy. ENCOUNTER: Subsequent ACUITY: 1 day PAIN SCORE: Non-responsive. LOCATION: Bilateral chest FINDINGS: Bilateral consolidation and small effusions not significantly changed. Mild to moderate cardiomegaly also stable. No pneumothorax. Endotracheal tube tip similar to yesterday, about 1.8 cm above the sukhdev. Nasogastric tube courses i nto the stomach. Right internal jugular central venous catheter now present, tip in the superior vena cava. CONCLUSION: No right IJ central venous catheter with tip in the superior vena cava. No pneumothorax or other acut e complication demonstrated. No significant change bibasilar consolidation and small effusions.. Ganesh Vivar MD on June 02, 2017 at 5:30 Board Certified Radiologist. This report was verified electronically.
[2017-06-02 05:41] LABS: HEMATOCRIT 28.9 % (39.0-51.0); MEAN CELL VOLUME 74.8 FL (80.0-100.0); MEAN CORPUSCULAR HEMOGLOBIN 21.7 PG (27.0-34.0); PLATELET COUNT 265 TH/MM3 (150-450); RED BLOOD COUNT 3.87 MIL/MM3 (4.50-5.90); RED CELL DISTRIBUTION WIDTH 20.4 % (11.6-17.2); REVIEW FLAG FINAL; WHITE BLOOD COUNT 8.4 TH/MM3 (4.0-11.0)
[2017-06-02 05:56] LABS: BICARBONATE 25.9 MEQ/L (21.0-32.0); POTASSIUM 4.2 MEQ/L (3.5-5.1)
[2017-06-02] MEDS: DILTIAZEM HCL 60 MG TAB PO SCH (06:00)
[2017-06-02] MEDS ORDERED: VANCOMYCIN INJ 1,800 MG in SODIUM CHLORID 0.9% 500 ML INJ 500 ML IV SCH (06:00)
[2017-06-02 07:30] LABS: BLOOD GAS BASE EXCESS -2.4 mmol/L (-2-2); BLOOD GAS CARBOXYHEMOGLOBIN 0.9 % (0-4); BLOOD GAS HCO3 26 mmol/L (22-26); BLOOD GAS METHEMOGLOBIN 0.9 % (0-2); BLOOD GAS O2 HGB SATURATION 90 % (90-100); BLOOD GAS OXYGEN CONTENT 12.2 Vol % (12.0-20.0); BLOOD GAS PCO2 79 mmHg (38-42); BLOOD GAS PO2 89 mmHg (61-120); BLOOD GAS TOTAL HGB 9.5 G/DL (12.0-16.0); CRITICAL VALUE YES; OXYGEN DEVICE VENTILATOR; TEMP CORR TO 98.6
[2017-06-02 07:31] LABS: DRAW SITE ART LINE; FIO2 95 %; STAT YES; VENT SETTINGS SEE COMMENTS
[2017-06-02] MEDS ORDERED: ROCURONIUM INJ 50 MG/5 ML VIAL ONE ×2 (07:36→17:58)
[2017-06-02] MEDS: fentaNYL DRIP 250 ML IV PRN ×2 (08:03→17:07)
[2017-06-02] MEDS ORDERED: AMIODARONE INJ 150 MG in DEXTROSE 5% IN WATER 100ML INJ 100 ML IV ONE ×2 (08:09)
[2017-06-02] MEDS ORDERED: methylPREDNISolone SOD SUCC 125 MG/2 ML VIAL IV ONE (08:15)
[2017-06-02] MEDS ORDERED: PROPOFOL 1000 MG/100 ML INJ 100 ML IV PRN (08:30)
--- NOTE | 2017-06-02 08:31 | HHI.CCPN ---
Subjective Remarks/Hospital Course Hospital Course: 51-year-old male presents with progressive worsening shortness of breath over the past few days. Patient has history of asthma and COPD as well as history of atrial fibrillation patient states he is followed for chronic venous stasis ulcers and has been going to wound care but has not been able to see wound care doctor for the past 7-10 days. Patient's had no fever and chills. Patient's had increasing cough and wheezing. Patient presents by EMS reportedly O2 saturations were in the 80s and heart rate was 160s. He states that since he has not been going to wound care that he's had increasing swelling and drainage from his legs and thinks that that may have precipitated his shortness of breath. Subjective: 06/01: decompensated overnight and intubated for persistent hypercarbia and respiratory distress. Cr uptrending. BNP elevated, but poor diuresis with high dose iv lasix. unclear to what degree CHF is contributing to his hypoxemia and shock. Lactate also rising, up to 2.8. 06/02: Remains intubated sedated critically ill. Hypotensive, asynchronous with the ventilator. Hypoxemic FiO2 up to 95%. ABG shows pH of 7.14 PCO2 of 79 PO2 89 on 95% FiO2. I have given him rocuronium 50 mg IV 1 for ventilator synchrony, increased inspiratory pressure to 32 and reduced respiratory rate to 20. Start Levophed, hold Cardizem, start amiodarone gtt Objective Vital Signs Date Time Temp Pulse Resp B/P (MAP) Pulse Ox O2 Delivery O2 Flow Rate FiO2 06/02/17 06:00 97/61 (73) 06/02/17 06:00 90 06/02/17 04:19 92 95 06/02/17 04:00 97.1 24 06/01/17 19:00 Mechanical Ventilator 05/31/17 16:00 3.00 Intake and Output 06/02/17 06/02/17 06/03/17 08:00 16:00 00:00 Intake Total 1293 ml Output Total 500 ml Balance 793 ml Result Diagram: 06/02/17 0520 06/02/17 0520 Other Results Microbiology Date/Time Source Procedure Growth Status 05/31/17 06:21 Urine Catheterized Urine Legionella Antigen - Final PRESUMPTIVE NEGATIVE FOR LEGIONELLA P... Complete 05/31/17 06:21 Urine Catheterized Urine Streptococcus pneumoniae Antigen (M - Final PRESUMPTIVE NEGATIVE FOR STREPTOCOCCU... Complete Laboratory Tests Test 06/01/17 16:25 06/02/17 07:20 Blood Gas Puncture Site LEONIDAS ART LINE Blood Gas Patient Temperature 98.6 98.6 Blood Gas HCO3 25 mmol/L (22-26) 26 mmol/L (22-26) Blood Gas Base Excess 0.2 mmol/L (-2-2) -2.4 mmol/L (-2-2) Blood Gas Oxygen Saturation 93 % (90-100) 90 % (90-100) Arterial Blood pH 7.36 (7.380-7.420) 7.14 (7.380-7.420) Arterial Blood Partial Pressure CO2 46 mmHg (38-42) 79 mmHg (38-42) Arterial Blood Partial Pressure O2 81 mmHg (61-120) 89 mmHg (61-120) Arterial Blood Oxygen Content 11.5 Vol % (12.0-20.0) 12.2 Vol % (12.0-20.0) Arterial Blood Carboxyhemoglobin 1.7 % (0-4) 0.9 % (0-4) Arterial Blood Methemoglobin 1.1 % (0-2) 0.9 % (0-2) Blood Gas Hemoglobin 8.8 G/DL (12.0-16.0) 9.5 G/DL (12.0-16.0) Oxygen Delivery Device VENT VENTILATOR Blood Gas Ventilator Setting PCAC/24/30/5/50 SEE COMMENTS Blood Gas Inspired Oxygen 50 % 95 % Objective Remarks GENERAL: Super morbidly obese male, lying in bed, intubated, sedated, critically ill, asynchronous with the ventilator HEENT: Normocephalic. Atraumatic. Pupils equal, round, reactive, conjugate. Mucous membranes are moist NECK: Trachea is midline. Large neck circumference and obesity prevents accurate assessment of JVD CHEST: Very distant breath sounds. FiO2 100%. Equal chest rise. PC/AC RR 20/ Pinsp32/PEEP 10 CARDIOVASCULAR: Tachycardic rate, irregularly irregular rhythm. A. fib by telemetry ABDOMEN: Morbidly obese, Soft, nontender, nondistended. No guarding. MUSCULOSKELETAL: Pulses 2+. Chronic venous stasis changes of the lower extremities with bilateral weeping and oozing. NEUROLOGICAL: RASS -2. Weakly follows commands. Withdraws to pain. A/P Assessment and Plan Assessment: 51yM with super morbid obesity, obesity hypoventilation syndrome, COPD, CHF, unknown type but likely with preserved EF, who has worsening acute hypoxic and hypercarbic respiratory failure requiring intubation and mechanical ventilation. He has associated end-organ dysfunction and shock with poor oxygen delivery and lactic acidosis Rising Cr is concerning, obtain TTE, although in the past, his morbid obesity has been a barrier to obtaining clinically useful TTE images. Remains critically ill and worse today than yesterday. will place arterial line and attach pulse contour analysis to help guide volume management. ASSESSMENT: Acute hypoxic and hypercarbic Respiratory failure COPD exacerbation Probable CHF Possible Community Acquired Pneumonia Shock, septic Hypothermia Transaminitis Obesity Hypoventilation syndrome Chronic stasis ulcerations of bilateral lower extremities Super morbid obesity PLAN: NEURO: - Currently on Versed and fentanyl for sedation and ventilator synchrony, add propofol - Rocuronium when necessary for ventilator synchrony - No sedation vacation until hypoxia hypercarbia improved - RASS -3 RESP: - PC/AC PC/AC RR 20/ Pinsp32/PEEP 10 - No spontaneous breathing trials due to severe hypoxemia and hypercarbia - DuoNeb every 4 hours scheduled and when necessary, ventilator bundle - Increase IV Solu Medrol to 80 every 8 hours - Continue broad-spectrum antibiotics vancomycin cefepime and azithromycin - Follow-up on sputum culture, send Legionella and pneumococcal antigen CV: - Discontinue Cardizem by mouth due to hypotension, start amiodarone 150 mg bolus and gtt. - 2-D echo pending, start Levophed to maintain map above 65. - Repeat lactic acid trend if high - Shock appears to be to be septic and cannot rule out cardiogenic. 2-D echo pending - Flow Trac monitoring - DC therapeutic Lovenox, start IV heparin after 12 hours - Shock most likely septic cannot rule out cardiogenic GI: - Hold tube feeds keep nothing by mouth, IV famotidine - Elevated liver enzymes most likely from hypotension - history of Pseudomonas, Klebsiella, staph infection of LE - Wound care consult : - Monitor renal function closely. Brito catheter. - Continue with careful fluid resuscitation due to sepsis - Urine output 500 mL in the last 24 hours ID: - IV vancomycin, cefepime and azithromycin - Follow-up on blood urine and sputum culture - Urine for pneumococcal and Legionella antigen sent HEME: - Monitor CBC, CMP, coags - Discontinue Lovenox, continue IV heparin ENDO: - Careful electrolyte replacement PROPH: - IV heparin, IV Pepcid LINES: - Right IJ central line and right radial arterial CC time 85 min Patient is severely critically ill took a turn for the worse overnight or early severely hypoxemic on 100% oxygen, severely hypercarbic PCO2 of 18 on high vent settings. Multiple ventilator adjustments made steroids increased neuromuscularly paralyzed. Repeat ABG pending. Also Cardizem discontinued amiodarone infusion, december along with full anticoagulation Bradley Andersen MD Jun 02, 2017 08:31
[2017-06-02 08:50] LABS: BLOOD GAS BASE EXCESS -2.7 mmol/L (-2-2); BLOOD GAS CARBOXYHEMOGLOBIN 1.4 % (0-4); BLOOD GAS HCO3 23 mmol/L (22-26); BLOOD GAS METHEMOGLOBIN 0.5 % (0-2); BLOOD GAS O2 HGB SATURATION 93 % (90-100); BLOOD GAS OXYGEN CONTENT 11.7 Vol % (12.0-20.0); BLOOD GAS PCO2 48 mmHg (38-42); BLOOD GAS PO2 82 mmHG (61-120); BLOOD GAS TOTAL HGB 8.9 G/DL (12.0-16.0); CRITICAL VALUE NO; OXYGEN DEVICE VENTILATOR; TEMP CORR TO 98.6
[2017-06-02 08:51] LABS: DRAW SITE ART LINE; FIO2 100 %; STAT NO
[2017-06-02] MEDS: GENTAMICIN SULFATE 0.1% CREAM 15 GM TOPICAL SCH ×2 (09:00→21:00)
[2017-06-02] MEDS: SODIUM CHLORIDE 0.9% FLUSH 10 ML FLUSH IV FLUSH SCH ×2 (09:00→19:52)
[2017-06-02] MEDS: FAMOTIDINE 20 MG/2 ML VIAL IV PUSH SCH ×2 (09:27→19:51)
[2017-06-02] MEDS: DOCUSATE SODIUM 50 MG/SENNA 8.6 MG TAB PO SCH ×2 (09:27→19:51)
[2017-06-02] MEDS ORDERED: INFLUENZA VIRUS VACCINE (QUADRIVALENT) 0.5 ML SYR IM ONE (10:00)
[2017-06-02] MEDS ORDERED: PNEUMOCOCCAL POLYVALENT INJ 25 MCG/0.5 ML SYR IM ONE (10:00)
[2017-06-02] MEDS: AMIODARONE INJ 450 MG in DEXTROSE 5% IN WATE(EXCEL) INJ 241 ML IV SCH ×4 (10:20→15:50)
[2017-06-02 12:11] LABS: APTT (PATIENT) 34.8 SEC (24.3-30.1); INTERNATIONAL NORMALIZED RATIO 1.3 RATIO; PROTHROMBIN TIME - PATIENT 14.5 SEC (9.8-11.6)
[2017-06-02 12:14] LABS: BLOOD GAS VENOUS BASE EXCESS 0.6 mmol/L (-2-2); BLOOD GAS VENOUS HCO3 25 mmol/L (22-26); BLOOD GAS VENOUS O2 CONTENT 6.8 Vol % (9.0-17.0); BLOOD GAS VENOUS O2 HGB SAT 57 % (70-76); BLOOD GAS VENOUS PCO2 43 mmHg (44-48); BLOOD GAS VENOUS PO2 34 mmHg (35-40); BLOOD GAS VENOUS pH 7.39 (7.360-7.400); CRITICAL VALUE NO; FIO2 70 %; OXYGEN DEVICE VENTILATOR; TEMP CORR TO 36
[2017-06-02 12:15] LABS: DRAW SITE CVP; STAT NO
[2017-06-02 12:16] LABS: VENT SETTINGS SEE COMMENTS
[2017-06-02] MEDS: methylPREDNISolone SOD SUCC 125 MG/2 ML VIAL IV PUSH SCH ×2 (14:57→23:13)
--- NOTE | 2017-06-02 15:21 | ECHRPT ---
Indication: Heart failure, unspecified CONCLUSIONS The left ventricular systolic function is moderately reduced with an estimated ejection fraction in the range of 35-40%. Wall thickness is measured at the upper limits of normal. Normal left ventricular size. Aortic sclerosis. Mild mitral valve regurgitation. There is moderate tricuspid valve regurgitation. The estimated pulmonary arterial pressure is 39 mmHg. BP: 97 / 61 HR: 90 Rhythm: Sinus MEASUREMENTS (Male / Female) Normal Values Technical Quality:Fair 2D ECHO LV Diastolic Diameter PLAX 5.4 cm 4.2 - 5.9 / 3.9 - 5.3 cm LV Systolic Diameter PLAX 4.6 cm IVS Diastolic Thickness 1.1 cm 0.6 - 1.0 / 0.6 - 0.9 cm LVPW Diastolic Thickness 1.2 cm 0.6 - 1.0 / 0.6 - 0.9 cm LV Relative Wall Thickness 0.4 LVOT Diameter 2.5 cm M-MODE Aortic Root Diameter MM 3.8 cm LA Systolic Diameter MM 4.7 cm LA Ao Ratio MM 1.2 AV Cusp Separation MM 3.3 cm DOPPLER AV Peak Velocity 128.0 cm/s AV Peak Gradient 6.6 mmHg LVOT Peak Velocity 78.0 cm/s LVOT Peak Gradient 2.4 mmHg AV Area Cont Eq pk 3.0 cm MR Peak Velocity 366.0 cm/s MR Peak Gradient 53.6 mmHg TR Peak Velocity 269.0 cm/s TR Peak Gradient 28.9 mmHg Right Atrial Pressure 10.0 mmHg Pulmonary Artery Systolic Pressu 38.9 mmHg Right Ventricular Systolic Press 38.9 mmHg FINDINGS LEFT VENTRICLE The left ventricular systolic function is moderately reduced with an estimated ejection fraction in the range of 35-40%. Wall thickness is measured at the upper limits of normal. Normal left ventricular size. RIGHT VENTRICLE Normal right ventricular size and systolic function. LEFT ATRIUM The left atrial size is normal. RIGHT ATRIUM The right atrial size is normal. ATRIAL SEPTUM Normal atrial septal thickness without atrial level shunting by limited color doppler interrogation. AORTA The aortic root and proximal ascending aorta are normal in size on limited imaging. MITRAL VALVE Mild mitral valve regurgitation. AORTIC VALVE Trileaflet aortic valve. No aortic valve stenosis or regurgitation. TRICUSPID VALVE There is moderate tricuspid valve regurgitation. The estimated pulmonary arterial pressure is 39 mmHg. PULMONARY VALVE No pulmonary valve regurgitation or stenosis. VESSELS The inferior vena cava is normal in size. PERICARDIUM No pericardial effusion. Valorie Ni MD, FACC (Electronically Signed) Final Date:02 June 2017 15:19
[2017-06-02] MEDS: MILRINONE INJ 20 MG in SODIUM CHLORIDE 0.9% INJ 80 ML IV SCH ×2 (16:00→22:07)
[2017-06-02] MEDS: SODIUM HYPOCHLORITE 0.25% 500 ML BTL EXTERNAL SCH (16:56)
[2017-06-02 17:05] LABS: BLOOD GAS BASE EXCESS -0.6 mmol/L (-2-2); BLOOD GAS CARBOXYHEMOGLOBIN 1.4 % (0-4); BLOOD GAS HCO3 25 mmol/L (22-26); BLOOD GAS O2 HGB SATURATION 88 % (90-100); BLOOD GAS OXYGEN CONTENT 10.7 Vol % (12.0-20.0); BLOOD GAS PCO2 48 mmHg (38-42); BLOOD GAS PO2 70 mmHg (61-120); BLOOD GAS TOTAL HGB 8.5 G/DL (12.0-16.0); TEMP CORR TO 98.6
[2017-06-02 17:06] LABS: CRITICAL VALUE YES; OXYGEN DEVICE VENTILATOR
[2017-06-02 17:07] LABS: DRAW SITE ART LINE; FIO2 60 %; STAT NO
[2017-06-02] MEDS: HEPARIN-D5W 25,000 U/250 ML 250 ML IV PRN (20:00)
[2017-06-02] MEDS: NOREPINEPHRINE 4 MG/D5W 250 ML IV PRN (23:00)
[2017-06-03] VITALS (17 sets, daily range): BP systolic 92–124; BP diastolic 48–59; PULSE 71–144; RESP 16; TEMP 97.3–97.9; O2SAT 90–100
[2017-06-03] MEDS: RESP: ALBUTEROL 2.5 MG/IPRATROPIUM 0.5 MG NEB (SCH) INH ×7 (00:01→23:45)
[2017-06-03] MEDS: fentaNYL DRIP 250 ML IV PRN ×3 (00:39→15:10)
[2017-06-03] MEDS: CEFEPIME INJ 2,000 MG in SODIUM CHLORIDE 0.9% INJ 100 ML IV SCH ×3 (00:40→20:50)
[2017-06-03 02:33] LABS: APTT (PATIENT) 66.2 SEC (24.3-30.1)
[2017-06-03 03:00] LABS: BLOOD GAS BASE EXCESS -3.8 mmol/L (-2-2); BLOOD GAS CARBOXYHEMOGLOBIN 0.9 % (0-4); BLOOD GAS HCO3 25 mmol/L (22-26); BLOOD GAS METHEMOGLOBIN 1.1 % (0-2); BLOOD GAS O2 HGB SATURATION 87 % (90-100); BLOOD GAS OXYGEN CONTENT 11.4 Vol % (12.0-20.0); BLOOD GAS PCO2 92 mmHg (38-42); BLOOD GAS PO2 79 mmHg (61-120); BLOOD GAS TOTAL HGB 9.2 G/DL (12.0-16.0); CRITICAL VALUE YES; OXYGEN DEVICE VENTILATOR; TEMP CORR TO 98.6
[2017-06-03 03:02] LABS: DRAW SITE ALINE; FIO2 100 %; STAT NO
[2017-06-03] MEDS: CHLORHEXIDINE GLUCONATE 2 % 1 PACK (2 CLOTHS) TOP SCH (04:00)
[2017-06-03] MEDS: MILRINONE INJ 20 MG in SODIUM CHLORIDE 0.9% INJ 80 ML IV SCH ×4 (04:01→17:20)
[2017-06-03] MEDS: AZITHROMYCIN INJ 500 MG in SODIUM CHLOR 0.9% 250 ML INJ 250 ML IV SCH (04:15)
[2017-06-03] MEDS: AMIODARONE INJ 450 MG in DEXTROSE 5% IN WATE(EXCEL) INJ 241 ML IV SCH ×8 (04:41→21:54)
[2017-06-03 04:58] LABS: ANION GAP 6 MEQ/L (5-15); BICARBONATE 27.7 MEQ/L (21.0-32.0); BLOOD UREA NITROGEN 39 MG/DL (7-18); CHLORIDE 99 MEQ/L (98-107); POTASSIUM 4.8 MEQ/L (3.5-5.1); SODIUM (NA) 133 MEQ/L (136-145)
[2017-06-03 04:59] LABS: AST (GOT) 68 U/L (15-37); GLOMERULAR FILTRATION RATE 27 ML/MIN (>89)
[2017-06-03 05:02] LABS: ALKALINE PHOSPHATASE 121 U/L (45-117); ALT (GPT) 91 U/L (12-78); TOTAL BILIRUBIN ADULT 1.3 MG/DL (0.2-1.0)
[2017-06-03 05:03] LABS: AUTOMATED NEUTROPHIL # 14.2 TH/MM3 (1.8-7.7); BASOPHIL % 0.2 % (0.0-2.0); HEMATOCRIT 30.6 % (39.0-51.0); LYMPH % 1.7 % (9.0-44.0); LYMPHOCYTE # 0.3 TH/MM3 (1.0-4.8); MEAN CELL VOLUME 76.1 FL (80.0-100.0); MEAN CORPUSCULAR HEMOGLOBIN 21.7 PG (27.0-34.0); MONO % 5.9 % (0.0-8.0); NEUT % 92.2 % (16.0-70.0); PLATELET COUNT 305 TH/MM3 (150-450); RED BLOOD COUNT 4.03 MIL/MM3 (4.50-5.90); RED CELL DISTRIBUTION WIDTH 20.5 % (11.6-17.2); WHITE BLOOD COUNT 15.4 TH/MM3 (4.0-11.0)
[2017-06-03] MEDS: VANCOMYCIN INJ 2,000 MG in SODIUM CHLORID 0.9% 500 ML INJ 500 ML IV SCH (05:07)
[2017-06-03] MEDS: NOREPINEPHRINE 4 MG/D5W 250 ML IV PRN ×3 (05:08→15:10)
[2017-06-03 05:21] LABS: HEMO FLAGS AUTO DIFF; MEAN CORPUSCULAR HGB CONC 28.5 % (32.0-36.0)
[2017-06-03] MEDS ORDERED: PHARMACY ORDERED LAB ONE (05:45)
[2017-06-03] MEDS ORDERED: VASOPRESSIN 40 U/D5W 100 ML Titrate, Post Cardiac Surgery IV PRN ×2 (06:15)
--- NOTE | 2017-06-03 06:38 | RADRPT ---
EXAM DATE/TIME: 06/03/2017 05:17 [facility] COMPARISON: CHEST SINGLE AP, June 02, 2017, 3:39. INDICATIONS : Shortness of breath MEDICAL HISTORY : Hypertension. A-Fib, asthma, Hemophilia SURGICAL HISTORY : Appendectomy. ENCOUNTER: Subsequent ACUITY: 2 days PAIN SCORE: Non-responsive. LOCATION: Bilateral chest FINDINGS: Worsening consolidation and [id number] pleural effusion with some lateral loculation seen on t he right. There is retrocardiac consolidation on the left that is not significantly changed. Mild to moderate cardiomegaly unchanged. Endotracheal tube tip is approximately 2.8 cm above the sukhdev. Nasogastric tube courses into the sto mach. There is a right internal jugular central venous catheter are again seen, tip at atriocaval demar ction. CONCLUSION: Consolidation and effusion on the right modestly worse. No significant change left base consolidation . Ganesh Vivar MD on June 03, 2017 at 6:36 Board Certified Radiologist. This report was verified electronically.
[2017-06-03] MEDS ORDERED: BUMETANIDE INJ 1 MG/4 ML VIAL IV PUSH STA (06:47)
[2017-06-03] MEDS: BUMETANIDE INJ 100 ML IV SCH (06:47)
[2017-06-03] MEDS ORDERED: ALBUMIN HUMAN 25% 25 GM/100 ML BAGP IV ONE (07:00)
--- NOTE | 2017-06-03 07:28 | HHI.CCPN ---
Subjective Remarks/Hospital Course Hospital Course: 51-year-old male presents with progressive worsening shortness of breath over the past few days. Patient has history of asthma and COPD as well as history of atrial fibrillation patient states he is followed for chronic venous stasis ulcers and has been going to wound care but has not been able to see wound care doctor for the past 7-10 days. Patient's had no fever and chills. Patient's had increasing cough and wheezing. Patient presents by EMS reportedly O2 saturations were in the 80s and heart rate was 160s. He states that since he has not been going to wound care that he's had increasing swelling and drainage from his legs and thinks that that may have precipitated his shortness of breath. Subjective: 06/01: decompensated overnight and intubated for persistent hypercarbia and respiratory distress. Cr uptrending. BNP elevated, but poor diuresis with high dose iv lasix. unclear to what degree CHF is contributing to his hypoxemia and shock. Lactate also rising, up to 2.8. 06/02: Remains intubated sedated critically ill. Hypotensive, asynchronous with the ventilator. Hypoxemic FiO2 up to 95%. ABG shows pH of 7.14 PCO2 of 79 PO2 89 on 95% FiO2. I have given him rocuronium 50 mg IV 1 for ventilator synchrony, increased inspiratory pressure to 32 and reduced respiratory rate to 20. Start Levophed, hold Cardizem, start amiodarone gtt 06/03: Remains severely ill very critical and uric creatinine 2.5. Anuric now. Currently on Levophed at 17 mcg/m, milrinone at 0.3 g per KG per min. Did not tolerate APRV ABG, pH 7.07, pCO2 92. UO 350 ml in 24 hours but anuric for last 10 hours.2D Echo EF 35-40%. Continue vancomycin, cefepime and azithromycin. Flagyl added for anaerobic coverage Objective Vital Signs Date Time Temp Pulse Resp B/P (MAP) Pulse Ox O2 Delivery O2 Flow Rate FiO2 06/03/17 06:00 128 06/03/17 05:08 100/57 06/03/17 04:05 95 100 06/03/17 04:00 97.9 16 06/02/17 19:00 Mechanical Ventilator 05/31/17 16:00 3.00 Intake and Output 1006/03/17 06/04/17 08:00 16:00 00:00 Intake Total 1699 ml Output Total 150 ml Balance 1549 ml Result Diagram: 06/03/17 0415 06/03/17 0415 Other Results Laboratory Tests Test 06/02/17 07:20 06/02/17 08:30 06/02/17 12:03 06/02/17 16:55 Blood Gas Puncture Site ART LINE ART LINE CVP ART LINE Blood Gas Patient Temperature 98.6 98.6 36 98.6 Blood Gas HCO3 26 mmol/L (22-26) 23 mmol/L (22-26) 25 mmol/L (22-26) Blood Gas Base Excess -2.4 mmol/L (-2-2) -2.7 mmol/L (-2-2) -0.6 mmol/L (-2-2) Blood Gas Oxygen Saturation 90 % (90-100) 93 % (90-100) 88 % (90-100) Arterial Blood pH 7.14 (7.380-7.420) 7.30 (7.380-7.420) 7.33 (7.380-7.420) Arterial Blood Partial Pressure CO2 79 mmHg (38-42) 48 mmHg (38-42) 48 mmHg (38-42) Arterial Blood Partial Pressure O2 89 mmHg (61-120) 82 mmHG (61-120) 70 mmHg (61-120) Arterial Blood Oxygen Content 12.2 Vol % (12.0-20.0) 11.7 Vol % (12.0-20.0) 10.7 Vol % (12.0-20.0) Arterial Blood Carboxyhemoglobin 0.9 % (0-4) 1.4 % (0-4) 1.4 % (0-4) Arterial Blood Methemoglobin 0.9 % (0-2) 0.5 % (0-2) 1.0 % (0-2) Blood Gas Hemoglobin 9.5 G/DL (12.0-16.0) 8.9 G/DL (12.0-16.0) 8.5 G/DL (12.0-16.0) Oxygen Delivery Device VENTILATOR VENTILATOR VENTILATOR VENTILATOR Blood Gas Ventilator Setting SEE COMMENTS SEE COMMENTS SEE COMMENT Blood Gas Inspired Oxygen 95 % 100 % 70 % 60 % Venous Blood pH 7.39 (7.360-7.400) Venous Blood Partial Pressure CO2 43 mmHg (44-48) Venous Blood Partial Pressure O2 34 mmHg (35-40) Venous Blood HCO3 25 mmol/L (22-26) Venous Blood Oxygen Saturation 57 % (70-76) Venous Blood Oxygen Content 6.8 Vol % (9.0-17.0) Venous Blood Base Excess 0.6 mmol/L (-2-2) Test 06/03/17 02:45 Blood Gas Puncture Site LEONIDAS Blood Gas Patient Temperature 98.6 Blood Gas HCO3 25 mmol/L (22-26) Blood Gas Base Excess -3.8 mmol/L (-2-2) Blood Gas Oxygen Saturation 87 % (90-100) Arterial Blood pH 7.07 (7.380-7.420) Arterial Blood Partial Pressure CO2 92 mmHg (38-42) Arterial Blood Partial Pressure O2 79 mmHg (61-120) Arterial Blood Oxygen Content 11.4 Vol % (12.0-20.0) Arterial Blood Carboxyhemoglobin 0.9 % (0-4) Arterial Blood Methemoglobin 1.1 % (0-2) Blood Gas Hemoglobin 9.2 G/DL (12.0-16.0) Oxygen Delivery Device VENTILATOR Blood Gas Ventilator Setting SEE COMMENT Blood Gas Inspired Oxygen 100 % Objective Remarks GENERAL: Super morbidly obese male, lying in bed, intubated, sedated, critically ill, HEENT: Normocephalic. Atraumatic. Pupils equal, round, reactive. Orotracheally intubated NECK: Trachea is midline. Large neck circumference and obesity prevents accurate assessment of JVD CHEST: Very distant breath sounds, but able to see chest rise. FiO2 100%. Equal chest rise. PC/AC RR 16/ Pinsp40/PEEP 14 CARDIOVASCULAR: Tachycardic rate, irregularly irregular rhythm. A. fib by telemetry. Hypotensive on Levophed at 17 mcg/min ABDOMEN: Morbidly obese, Soft, nontender, nondistended. No guarding. MUSCULOSKELETAL: Pulses 2+. Chronic venous stasis changes of the lower extremities with bilateral weeping and oozing. NEUROLOGICAL: Heavily sedated for ventilator synchrony. Intermittent neuromuscular paralysis limits exam. A/P Assessment and Plan Assessment: 51yM with super morbid obesity, obesity hypoventilation syndrome, COPD, CHF, unknown type(EF on echo 06/02 is 35-40%), who has worsening acute hypoxic and hypercarbic respiratory failure requiring intubation and mechanical ventilation. He has associated end-organ dysfunction and shock with poor oxygen delivery and lactic acidosis Rising Cr and anuria is concerning. Remains critically ill and worse today than yesterday. Predicted mortality >50% ASSESSMENT: Acute hypoxic and hypercarbic Respiratory failure Congestive heart failure, systolic Septic shock COPD exacerbation Probable CHF Possible Community Acquired Pneumonia Hypothermia ARDS Acute kidney failure/anuria Transaminitis Obesity Hypoventilation syndrome Chronic stasis ulcerations of bilateral lower extremities Super morbid obesity PLAN: NEURO: - Currently on Versed and fentanyl for sedation and ventilator synchrony, - Rocuronium when necessary for ventilator synchrony - No sedation vacation until hypoxia hypercarbia improved - RASS -3 RESP: - PC/AC PC/AC RR 20/ Pinsp40/PEEP 14 - No spontaneous breathing trials due to severe hypoxemia and hypercarbia - DuoNeb every 4 hours scheduled and when necessary, ventilator bundle - IV Solu Medrol to 80 every 8 hours - Continue broad-spectrum antibiotics vancomycin cefepime Flagyl and azithromycin - Follow-up on sputum culture. Negative Legionella and pneumococcal antigen - Patient is close to 500 lbs and cannot be proned - Start Flolan due to severe hypoxemia/probable ARDS 06/03 CV: - Continue amiodarone infusion and IV heparin - Continue Levophed and vasopressin as needed to keep map above 65, currently on Levophed at 70 mcg/m - 2-D echo pending, start Levophed to maintain map above 65. - Discontinue milrinone acid is worsening hypotension - 2-D echo with 35-40% ejection fraction, mild MR and moderate TR - IV bumex 3 mg x1 and gtt, IV albumin. Attempt diuresis to dry weight - Flow Trac monitoring - Shock septic and cardiogenic GI: - Continue trickle feeds, IV famotidine - Elevated liver enzymes most likely from hypotension/shock : - Monitor renal function closely. Brito catheter. - Nephrology consulted for acute kidney failure, anuria - IV Bumex and IV albumin as above ID: - IV vancomycin, cefepime, Flagyl and azithromycin - Follow-up on blood urine and sputum culture - Urine for pneumococcal and Legionella antigen sent - history of Pseudomonas, Klebsiella, staph infection of LE per prev notes - Wound care consulted, ID consulted today HEME: - Monitor CBC, CMP, coags - Continue IV heparin ENDO: - Careful electrolyte replacement PROPH: - IV heparin, IV Pepcid LINES: - Right IJ central line and right radial arterial CC time 83 min Patient is severely critically ill his condition has further worsened severely hypoxemic on 100% oxygen, severely hypercarbic PCO2 of 92 on high vent settings. Multiple ventilator adjustments made steroids increased neuromuscularly paralyzed. Increasing pressor requirement now anuric. High predicted mortality Bradley Andersen MD Jun 03, 2017 07:28
[2017-06-03 07:56] LABS: BLOOD GAS BASE EXCESS -3.2 mmol/L (-2-2); BLOOD GAS CARBOXYHEMOGLOBIN 1.5 % (0-4); BLOOD GAS HCO3 22 mmol/L (22-26); BLOOD GAS O2 HGB SATURATION 95 % (90-100); BLOOD GAS OXYGEN CONTENT 11.3 Vol % (12.0-20.0); BLOOD GAS PCO2 48 mmHg (38-42); BLOOD GAS PO2 101 mmHg (61-120); BLOOD GAS TOTAL HGB 8.3 G/DL (12.0-16.0); TEMP CORR TO 98.6
[2017-06-03 07:57] LABS: DRAW SITE ART LINE; FIO2 100 %; OXYGEN DEVICE VENTILATOR; STAT NO; VENT SETTINGS PC/AC
[2017-06-03 07:59] LABS: CRITICAL VALUE YES
[2017-06-03 08:39] LABS: BANDS 3 % (0-6); CORRECTED NUCLEATED RBC 3 /100 WBC (0-0); METAMYELOCYTES 1 % (0-1); MYELOCYTES 1 % (0-0); NEUTROPHIL # MANUAL DIFF 14.5 TH/MM3 (1.8-7.7); OVALOCYTES 1+ (NORMAL); PLATELET ESTIMATE SMEAR NORMAL (NORMAL); PLATELET MORPHOLOGY NORMAL (NORMAL); POLYS (SEG NEUTROPHILS) 89 % (16-70); SCAN/DIFF FINAL DIFF MANUAL; WBC DIFF SAMPLE 100
[2017-06-03] MEDS: GENTAMICIN SULFATE 0.1% CREAM 15 GM TOPICAL SCH ×2 (09:00→21:00)
[2017-06-03] MEDS: SODIUM CHLORIDE 0.9% FLUSH 10 ML FLUSH IV FLUSH SCH ×2 (09:00→20:51)
[2017-06-03 09:10] LABS: APTT (PATIENT) 75.2 SEC (24.3-30.1)
[2017-06-03] MEDS: HEPARIN-D5W 25,000 U/250 ML 250 ML IV PRN ×2 (09:33→16:10)
[2017-06-03] MEDS: methylPREDNISolone SOD SUCC 125 MG/2 ML VIAL IV PUSH SCH ×2 (09:47→15:10)
[2017-06-03] MEDS: DOCUSATE SODIUM 50 MG/SENNA 8.6 MG TAB PO SCH ×2 (09:48→20:51)
[2017-06-03] MEDS: metroNIDAZOLE 500 MG INJ 100 ML IV SCH ×2 (09:48→15:11)
[2017-06-03] MEDS: FAMOTIDINE 20 MG/2 ML VIAL IV PUSH SCH ×2 (09:49→20:50)
[2017-06-03] MEDS ORDERED: ROCURONIUM INJ 50 MG/5 ML VIAL ONE (12:11)
[2017-06-03] MEDS: SODIUM HYPOCHLORITE 0.25% 500 ML BTL EXTERNAL SCH (12:28)
[2017-06-03] MEDS: EPOPROSTENOL NEB SOLUTION 50 NG/KG/MIN 100 ML NEB SCH ×4 (13:00→21:14)
--- NOTE | 2017-06-03 14:07 | PD.ID.CON ---
History of Present Illness Service ID Consult Requested By Dr Andersen Reason for Consult probable sepsis, septic shock Primary Care Physician No Primary Care Physician Diagnoses: History of Present Illness 51 yo morbidly obese male with h/o asthma, COPD, atrial fibrillation patient and BLE chronic venous stasis ulcers He presented with progressive shortness of breath over the past few days with increasing cough and wheezing. Patient presents by EMS reportedly O2 saturations were in the 80s and heart rate was 160s. He was intubated and placed on [facility] [place] ventilation CXR with b/b consolidations Not much secretions He was very hypothermic yday with T min 93F WBC went up today to 15 K He presened with elevated lactic acid (up to 2.8) which imporved Pt is on pressors Pt went into oliguric renal faiilre, but UOP improved with Bumex gtt Review of Systems ROS Limitations: Clinical Condition, Intubated, Altered Mental Status, Unresponsive Past Family Social History Allergies: Uncoded Allergies: Unna boots (Adverse Reaction, Unknown, 03/19/17) Past Medical History Chronic atrial fibrillation with rate control Chronic stasis ulcerations of bilateral lower extremities with history of Pseudomonas, Klebsiella, staph Morbid obesity Gastroesophageal reflux Past Surgical History Laparotomy for surgery for Stomach ulcers Appendectomy Active Ordered Medications Medications where reviewed in EMR Antibiotics Include: azithro flagyl cefepime vancomycin Family History Reviewed and mother is alive, however he does not know father or father's history. No indication of any heart disease, lung disease, diabetes, cancer Social History No tobacco, alcohol or illicit drugs Physical Exam Vital Signs Vital Signs Date Time Temp Pulse Resp B/P (MAP) Pulse Ox O2 Delivery O2 Flow Rate FiO2 06/03/17 13:01 100 100 06/03/17 10:00 84 06/03/17 09:47 97 135/67 06/03/17 08:00 100 06/03/17 08:00 99 06/03/17 07:33 98 100 06/03/17 06:00 128 06/03/17 05:08 114 100/57 06/03/17 04:41 137 98/57 06/03/17 04:05 95 100 06/03/17 04:01 123 105/58 06/03/17 04:00 144 06/03/17 04:00 100 06/03/17 04:00 97.9 144 16 105/58 (74) 94 06/03/17 02:00 120 06/03/17 00:00 123 06/03/17 00:00 90 06/03/17 00:00 97.3 123 16 92/48 (63) 90 06/02/17 23:00 112 97/55 06/02/17 22:07 92 113/68 06/02/17 22:00 99 06/02/17 20:00 90 06/02/17 20:00 76 06/02/17 20:00 95.7 76 16 93/51 (65) 100 06/02/17 19:59 100 90 06/02/17 19:00 100 Mechanical Ventilator 90 06/02/17 18:25 98 100 06/02/17 18:00 79 06/02/17 17:50 77 100 06/02/17 16:55 92 60 06/02/17 16:00 71 06/02/17 16:00 84 147/86 06/02/17 16:00 60 06/02/17 15:50 63 109/83 06/02/17 15:20 97 60 06/02/17 14:00 76 Physical Exam CONSTITUTIONAL/GENERAL: This is a morbidly obese patient, in no apparent distress. TUBES/LINES/DRAINS: SKIN: No jaundice, rashes, or lesions. Skin temperature appropriate. Not diaphoretic. HEAD: Atraumatic. Normocephalic. EYES: Pupils equal and round and reactive. Extraocular motions intact. No scleral icterus. No injection or drainage. Fundi not examined. ENT: Hearing not tested . Nose without bleeding or purulent drainage.Orally intubated NECK: Trachea midline. Supple, nontender. CARDIOVASCULAR: Regular rate and rhythm without murmurs, gallops, or rubs. No JVD. Peripheral pulses symmetric. RESPIRATORY/CHEST: Symmetric, unlabored respirations. Breath sounds equally diminished bilaterally. Few scattered wheezes, GASTROINTESTINAL: Abdomen soft, non-tender, quite distended. No hepato- splenomegaly, or palpable masses. No guarding. Bowel sounds present. GENITOURINARY: Without palpable bladder distension. Brito catheter in place. MUSCULOSKELETAL: Extremities without clubbing, cyanosis, + chronic appearing edema BLE with areas of hyperpigmeinatioj Clean b/l canseco venostasis ulcers with odorles mild serosarou dc on dressing . No joint tenderness or effusion noted. No calf tenderness. No mottling or clubbing. LYMPHATICS: No palpable cervical or supraclavicular adenopathy. NEUROLOGICAL: Sedated. Umnresponsive PSYCHIATRIC: unable to assess Laboratory Laboratory Tests Test 06/02/17 16:55 06/03/17 02:10 06/03/17 02:45 06/03/17 04:15 Blood Gas Puncture Site ART LINE LEONIDAS Blood Gas Patient Temperature 98.6 98.6 Blood Gas HCO3 25 25 Blood Gas Base Excess -0.6 -3.8 Blood Gas Oxygen Saturation 88 87 Arterial Blood pH 7.33 7.07 Arterial Blood Partial Pressure CO2 48 92 Arterial Blood Partial Pressure O2 70 79 Arterial Blood Oxygen Content 10.7 11.4 Arterial Blood Carboxyhemoglobin 1.4 0.9 Arterial Blood Methemoglobin 1.0 1.1 Blood Gas Hemoglobin 8.5 9.2 Oxygen Delivery Device VENTILATOR VENTILATOR Blood Gas Ventilator Setting SEE COMMENT SEE COMMENT Blood Gas Inspired Oxygen 60 100 Activated Partial Thromboplast Time 66.2 White Blood Count 15.4 Red Blood Count 4.03 Hemoglobin 8.7 Hematocrit 30.6 Mean Corpuscular Volume 76.1 Mean Corpuscular Hemoglobin 21.7 Mean Corpuscular Hemoglobin Concent 28.5 Red Cell Distribution Width 20.5 Platelet Count 305 Mean Platelet Volume 8.2 Neutrophils (%) (Auto) 92.2 Lymphocytes (%) (Auto) 1.7 Monocytes (%) (Auto) 5.9 Eosinophils (%) (Auto) 0.0 Basophils (%) (Auto) 0.2 Neutrophils # (Auto) 14.2 Lymphocytes # (Auto) 0.3 Monocytes # (Auto) 0.9 Eosinophils # (Auto) 0.0 Basophils # (Auto) 0.0 CBC Comment AUTO DIFF Differential Total Cells Counted 100 Neutrophils % (Manual) 89 Band Neutrophils % 3 Lymphocytes % 2 Monocytes % 4 Neutrophils # (Manual) 14.5 Metamyelocytes 1 Myelocytes 1 Nucleated Red Blood Cells 3 Differential Comment FINAL DIFF MANUAL Platelet Estimate NORMAL Platelet Morphology Comment NORMAL Ovalocytes 1+ Blood Urea Nitrogen 39 Creatinine 2.55 Random Glucose 188 Total Protein 7.1 Albumin 3.4 Calcium Level 8.2 Alkaline Phosphatase 121 Aspartate Amino Transf (AST/SGOT) 68 Alanine Aminotransferase (ALT/SGPT) 91 Total Bilirubin 1.3 Sodium Level 133 Potassium Level 4.8 Chloride Level 99 Carbon Dioxide Level 27.7 Anion Gap 6 Estimat Glomerular Filtration Rate 27 Test 06/03/17 07:39 06/03/17 08:00 Blood Gas Puncture Site ART LINE Blood Gas Patient Temperature 98.6 Blood Gas HCO3 22 Blood Gas Base Excess -3.2 Blood Gas Oxygen Saturation 95 Arterial Blood pH 7.29 Arterial Blood Partial Pressure CO2 48 Arterial Blood Partial Pressure O2 101 Arterial Blood Oxygen Content 11.3 Arterial Blood Carboxyhemoglobin 1.5 Arterial Blood Methemoglobin 1.0 Blood Gas Hemoglobin 8.3 Oxygen Delivery Device VENTILATOR Blood Gas Ventilator Setting PC/AC Blood Gas Inspired Oxygen 100 Activated Partial Thromboplast Time 75.2 Date/Time Source Procedure Growth Status 05/31/17 02:26 Blood Peripheral Aerobic Blood Culture - Preliminary Staph Sp Coagulase Negative Resulted 05/31/17 02:26 Blood Peripheral Anaerobic Blood Culture - Preliminary NO GROWTH IN 3 DAYS Resulted 06/01/17 21:24 Sputum Expectorated Sputum Gram Stain - Final Complete 06/01/17 21:24 Sputum Expectorated Sputum Sputum Culture - Final HEAVY GROWTH NORMAL RESPIRATORY COLTON Complete 05/31/17 06:21 Urine Catheterized Urine Legionella Antigen - Final PRESUMPTIVE NEGATIVE FOR LEGIONELLA P... Complete 05/31/17 06:21 Urine Catheterized Urine Streptococcus pneumoniae Antigen (M - Final PRESUMPTIVE NEGATIVE FOR STREPTOCOCCU... Complete Result Diagram: 06/03/1741406/03/17414 Imaging Last Impressions Chest X-Ray 06/03/17 06 Signed Impressions: Service Date/Time: May 05:17 - CONCLUSION: Consolidation and effusion on the right modestly worse. No significant change left base consolidation. Ganesh Vivar MD Assessment and Plan Assessment and Plan Sepsis (hypothermia, hypotension, lactic acidemia) b/l PNA Acute VDRF Morbid obesity CHF Low grade coag ne saph bacteremia - doubt clin significance - cont broad spectrum abx P sputum, blood clx - UA/C+S if indicated Discussed Condition With Starla Harrison RN, MD Jun 03, 2017 14:07
[2017-06-03 15:55] LABS: APTT (PATIENT) 70.6 SEC (24.3-30.1)
[2017-06-03] MEDS ORDERED: POTASSIUM CHLORIDE 25 MEQ EFFERVESCENT TAB PO ONE (17:30)
[2017-06-03 18:46] LABS: ALKALINE PHOSPHATASE 106 U/L (45-117); ALT (GPT) 82 U/L (12-78); ANION GAP 10 MEQ/L (5-15); AST (GOT) 47 U/L (15-37); BICARBONATE 27.3 MEQ/L (21.0-32.0); BLOOD UREA NITROGEN 44 MG/DL (7-18); CHLORIDE 99 MEQ/L (98-107); GLOMERULAR FILTRATION RATE 27 ML/MIN (>89); MAGNESIUM 1.9 MG/DL (1.5-2.5); POTASSIUM 3.6 MEQ/L (3.5-5.1); SODIUM (NA) 136 MEQ/L (136-145); TOTAL BILIRUBIN ADULT 1.4 MG/DL (0.2-1.0)
[2017-06-03] MEDS: ALBUMIN HUMAN 25% 25 GM/100 ML BAGP IV SCH (18:47)
[2017-06-03] MEDS: POTASSIUM CHLORIDE 25 MEQ EFFERVESCENT TAB PO SCH (20:51)
[2017-06-03 22:14] LABS: BACTERIA, URINE RARE /hpf; BLOOD, URINE NEG (NEG); COMMENT (UR) CATH-CULTURE IND; CULTURE IF INDICATED CATH CULTURE IND; GLUCOSE,URINE NEG (NEG); KETONE, URINE NEG (NEG); MUCUS URINE FEW /lpf (OCC); NITRITE,URINE NEG (NEG); URINE COLOR COLORLESS (YELLW/STRAW)
--- NOTE | 2017-06-03 23:29 | RADRPT ---
EXAM DATE/TIME: 06/03/2017 22:35 [facility] COMPARISON: No previous studies available for comparison. INDICATIONS : Increased BUN and Creatinine. MEDICAL HISTORY : Hypertension. Ulcers. Asthma. Atrial fibrillation. COPD. Morbidly obese. SURGICAL HISTORY : Appendectomy. Stomach ulcer repair. ENCOUNTER: Initial ACUITY: 1 day PAIN SCORE: Nonresponsive. LOCATION: Bilateral flank MEASUREMENTS: FINDINGS: RIGHT KIDNEY: The patient's body habitus prevents visualization of the kidney. LEFT KIDNEY: The patient's body habitus prevents visualization of the kidney. BLADDER: Urinary bladder is decompressed and not seen. CONCLUSION: 1. The patient's body habitus prevents visualization of the kidneys. Bret Rodriguez Jr., MD on June 03, 2017 at 23:26 Board Certified Radiologist. This report was verified electronically.
[2017-06-04] VITALS (20 sets, daily range): BP systolic 78–144; BP diastolic 34–80; PULSE 70–91; RESP 16–18; TEMP 97.3–97.7; O2SAT 34–99
[2017-06-04] MEDS: CISATRACURIUM INJ 100 MG in SODIUM CHLOR 0.9% 250 ML INJ 250 ML IV PRN ×5 (00:10→23:20)
[2017-06-04] MEDS: methylPREDNISolone SOD SUCC 125 MG/2 ML VIAL IV PUSH SCH ×3 (00:27→15:57)
[2017-06-04] MEDS: metroNIDAZOLE 500 MG INJ 100 ML IV SCH ×3 (00:27→15:57)
[2017-06-04] MEDS: fentaNYL DRIP 250 ML IV PRN ×2 (01:31→15:57)
[2017-06-04] MEDS: BUMETANIDE INJ 100 ML IV SCH ×2 (02:55→07:26)
[2017-06-04] MEDS: CHLORHEXIDINE GLUCONATE 2 % 1 PACK (2 CLOTHS) TOP SCH (03:05)
[2017-06-04] MEDS: RESP: ALBUTEROL 2.5 MG/IPRATROPIUM 0.5 MG NEB (SCH) INH ×6 (03:42→23:08)
[2017-06-04 04:06] LABS: HEMATOCRIT 27.3 % (39.0-51.0); MEAN CELL VOLUME 73.6 FL (80.0-100.0); MEAN CORPUSCULAR HEMOGLOBIN 21.8 PG (27.0-34.0); PLATELET COUNT 216 TH/MM3 (150-450); RED BLOOD COUNT 3.71 MIL/MM3 (4.50-5.90); RED CELL DISTRIBUTION WIDTH 20.5 % (11.6-17.2); REVIEW FLAG FINAL; WHITE BLOOD COUNT 11.2 TH/MM3 (4.0-11.0)
[2017-06-04 04:14] LABS: MEAN CORPUSCULAR HGB CONC 29.7 % (32.0-36.0)
[2017-06-04 04:26] LABS: BICARBONATE 28.6 MEQ/L (21.0-32.0); POTASSIUM 3.4 MEQ/L (3.5-5.1)
[2017-06-04] MEDS: MIDAZOLAM 100 MG/100 ML INJ 100 ML IV PRN ×2 (04:32→21:17)
[2017-06-04] MEDS: EPOPROSTENOL NEB SOLUTION 50 NG/KG/MIN 100 ML NEB SCH ×6 (05:00→20:07)
[2017-06-04] MEDS: AZITHROMYCIN INJ 500 MG in SODIUM CHLOR 0.9% 250 ML INJ 250 ML IV SCH (05:06)
[2017-06-04] MEDS: AMIODARONE INJ 450 MG in DEXTROSE 5% IN WATE(EXCEL) INJ 241 ML IV SCH ×6 (05:13→20:27)
[2017-06-04] MEDS: ALBUMIN HUMAN 25% 25 GM/100 ML BAGP IV SCH ×2 (05:13→18:26)
[2017-06-04] MEDS: VANCOMYCIN INJ 2,000 MG in SODIUM CHLORID 0.9% 500 ML INJ 500 ML IV SCH (05:16)
[2017-06-04] MEDS ORDERED: PHARMACY ORDERED LAB ONE (05:45)
[2017-06-04] MEDS: NOREPINEPHRINE 4 MG/D5W 250 ML IV PRN (06:27)
--- NOTE | 2017-06-04 07:20 | HHI.CCPN ---
Subjective Remarks/Hospital Course Hospital Course: 51-year-old male presents with progressive worsening shortness of breath over the past few days. Patient has history of asthma and COPD as well as history of atrial fibrillation patient states he is followed for chronic venous stasis ulcers and has been going to wound care but has not been able to see wound care doctor for the past 7-10 days. Patient's had no fever and chills. Patient's had increasing cough and wheezing. Patient presents by EMS reportedly O2 saturations were in the 80s and heart rate was 160s. He states that since he has not been going to wound care that he's had increasing swelling and drainage from his legs and thinks that that may have precipitated his shortness of breath. Subjective: 06/01: decompensated overnight and intubated for persistent hypercarbia and respiratory distress. Cr uptrending. BNP elevated, but poor diuresis with high dose iv lasix. unclear to what degree CHF is contributing to his hypoxemia and shock. Lactate also rising, up to 2.8. 06/02: Remains intubated sedated critically ill. Hypotensive, asynchronous with the ventilator. Hypoxemic FiO2 up to 95%. ABG shows pH of 7.14 PCO2 of 79 PO2 89 on 95% FiO2. I have given him rocuronium 50 mg IV 1 for ventilator synchrony, increased inspiratory pressure to 32 and reduced respiratory rate to 20. Start Levophed, hold Cardizem, start amiodarone gtt 06/03: Remains severely ill very critical and uric creatinine 2.5. Anuric now. Currently on Levophed at 17 mcg/m, milrinone at 0.3 g per KG per min. Did not tolerate APRV ABG, pH 7.07, pCO2 92. UO 350 ml in 24 hours but anuric for last 10 hours.2D Echo EF 35-40%. Continue vancomycin, cefepime and azithromycin. Flagyl added for anaerobic coverage 06/04: Remains critically ill but stable to slightly improved. Levophed now weaned down to 2 mcg/m from 17. UO on Bumex gtt 12.5L in 24 hours. Fio2 at 70% with PEEP 14 to maintain oxygen saturation above 90%. Remains on Nimbex infusion Objective Vital Signs Date Time Temp Pulse Resp B/P (MAP) Pulse Ox O2 Delivery O2 Flow Rate FiO2 06/04/17 06:27 84 105/55 06/04/17 04:28 97 70 06/04/17 04:00 97.3 16 06/02/17 19:00 Mechanical Ventilator 05/31/17 16:00 3.00 Intake and Output 06/04/17 06/04/17 06/05/17 08:00 16:00 00:00 Intake Total 3112 ml Output Total 4800 ml Balance -1688 ml Result Diagram: 06/04/17 0350 06/04/17 0350 Other Results Microbiology Date/Time Source Procedure Growth Status 06/01/17 21:24 Sputum Expectorated Sputum Gram Stain - Final Complete 06/01/17 21:24 Sputum Expectorated Sputum Sputum Culture - Final HEAVY GROWTH NORMAL RESPIRATORY COLTON Complete Laboratory Tests Test 06/03/17 07:39 Blood Gas Puncture Site ART LINE Blood Gas Patient Temperature 98.6 Blood Gas HCO3 22 mmol/L (22-26) Blood Gas Base Excess -3.2 mmol/L (-2-2) Blood Gas Oxygen Saturation 95 % (90-100) Arterial Blood pH 7.29 (7.380-7.420) Arterial Blood Partial Pressure CO2 48 mmHg (38-42) Arterial Blood Partial Pressure O2 101 mmHg (61-120) Arterial Blood Oxygen Content 11.3 Vol % (12.0-20.0) Arterial Blood Carboxyhemoglobin 1.5 % (0-4) Arterial Blood Methemoglobin 1.0 % (0-2) Blood Gas Hemoglobin 8.3 G/DL (12.0-16.0) Oxygen Delivery Device VENTILATOR Blood Gas Ventilator Setting PC/AC Blood Gas Inspired Oxygen 100 % Objective Remarks GENERAL: Super morbidly obese male, lying in bed, intubated, sedated, critically ill, HEENT: Normocephalic. Atraumatic. Pupils equal, round, reactive. Orotracheally intubated NECK: Trachea is midline. Large neck circumference and obesity prevents accurate assessment of JVD CHEST: Distant breath sounds but improving, able to see chest rise. FiO2 70%. Equal chest rise. PC/AC RR 16/ Pinsp28/PEEP 12 CARDIOVASCULAR: Tachycardic rate, irregularly irregular rhythm. A. fib by telemetry. Hypotensive on Levophed at 2 mcg/min ABDOMEN: Morbidly obese, Soft, nontender, nondistended. No guarding. MUSCULOSKELETAL: Pulses 2+. Chronic venous stasis changes of the lower extremities with bilateral weeping and oozing. NEUROLOGICAL: Heavily sedated, paralyzed for ventilator synchrony. A/P Assessment and Plan Assessment: 51yM with super morbid obesity, obesity hypoventilation syndrome, COPD, CHF, unknown type(EF on echo 06/02 is 35-40%), who has worsening acute hypoxic and hypercarbic respiratory failure requiring intubation and mechanical ventilation. He has associated end-organ dysfunction and shock with poor oxygen delivery and lactic acidosis Rising Cr and anuria is concerning. Remains critically ill and worse today than yesterday. Predicted mortality >50% ASSESSMENT: Acute hypoxic and hypercarbic Respiratory failure Congestive heart failure, systolic Septic shock Severe Asthma/COPD exacerbation Probable CHF Possible Community Acquired Pneumonia Hypothermia ARDS Acute kidney failure/anuria Transaminitis Obesity Hypoventilation syndrome Chronic stasis ulcerations of bilateral lower extremities Super morbid obesity PLAN: NEURO: - Currently on Versed and fentanyl for sedation and ventilator synchrony, - Nimbex gtt started 06/03/17. DC 06/05/17 - No sedation vacation until hypoxia hypercarbia improved RESP: - PC/AC RR 16/ Pinsp28/PEEP 12 - No spontaneous breathing trials due to severe hypoxemia and hypercarbia, neuromuscular paralysis - DuoNeb every 4 hours scheduled and when necessary, ventilator bundle - IV Solu Medrol to 80 every 8 hours - Continue broad-spectrum antibiotics vancomycin cefepime Flagyl and DC azithromycin 06/05 - Follow-up on sputum culture. Negative Legionella and pneumococcal antigen - Patient is close to 500 lbs and cannot be proned - Started Flolan due to severe hypoxemia/probable ARDS 06/03 CV: - Continue amiodarone infusion and IV heparin - Continue Levophed to keep map above 65, currently on Levophed at 2 mcg/m - Discontinued milrinone 06/03 due to worsening hypotension - 2-D echo with 35-40% ejection fraction, mild MR and moderate TR - IV Bumex 1 mg per hour gtt started 06/03/17, with IV albumin with 12.5 L UO in 24 hours. Reduce Bumex to 0.5 mg/h 06/05 - Shock septic and cardiogenic GI: - Continue trickle feeds, IV famotidine - Elevated liver enzymes most likely from hypotension/shock : - Monitor renal function closely. Brito catheter. - Nephrology consulted for acute kidney failure, anuria - IV Bumex and IV albumin as above. Creatinine remained stable ID: - IV vancomycin, cefepime, Flagyl and DC azithromycin 06/05/17 - Follow-up on blood urine and sputum culture - Urine for pneumococcal and Legionella antigen sent - history of Pseudomonas, Klebsiella, staph infection of LE per prev notes - Wound care consulted, ID consulted -Dr. Rollins HEME: - Monitor CBC, CMP, coags - Continue IV heparin ENDO: - Careful electrolyte replacement PROPH: - IV heparin, IV Pepcid LINES: - Right IJ central line and right radial arterial CC time 43 min Patient is severely critically severely hypoxemic on 70% oxygen, severely hypercarbic on high vent settings. Multiple ventilator adjustments made, neuromuscularly paralyzed. Bradley Andersen MD Jun 04, 2017 07:20
[2017-06-04] MEDS: SODIUM HYPOCHLORITE 0.25% 500 ML BTL EXTERNAL SCH (07:26)
--- NOTE | 2017-06-04 08:14 | RADRPT ---
EXAM DATE/TIME: 06/04/2017 07:26 [facility] COMPARISON: CHEST SINGLE AP, June 03, 2017, 5:17. INDICATIONS : Shortness of breath. MEDICAL HISTORY : Hypertension. A-Fib, Asthma, Hemophilia. SURGICAL HISTORY : Appendectomy. ENCOUNTER: Subsequent ACUITY: 4 - 6 days PAIN SCORE: Non-responsive. LOCATION: Bilateral chest FINDINGS: A single view of the chest demonstrates cardiomegaly with bilateral basilar densities. Small moderate right pleural effusion again seen. Endotracheal tube, nasogastric and right jugular central line are stable in position. Osseous structures are intact. CONCLUSION: Stable chest with bibasilar consolidation and right pleural effusion. Samuel Melendrez MD on June 04, 2017 at 8:11 Board Certified Radiologist. This report was verified electronically.
[2017-06-04] MEDS: FAMOTIDINE 20 MG/2 ML VIAL IV PUSH SCH ×2 (08:40→21:05)
[2017-06-04] MEDS: CEFEPIME INJ 2,000 MG in SODIUM CHLORIDE 0.9% INJ 100 ML IV SCH ×2 (08:40→21:05)
[2017-06-04] MEDS: DOCUSATE SODIUM 50 MG/SENNA 8.6 MG TAB PO SCH ×2 (08:40→21:05)
[2017-06-04] MEDS: POTASSIUM CHLORIDE 25 MEQ EFFERVESCENT TAB PO SCH ×2 (08:40→21:05)
[2017-06-04] MEDS: SODIUM CHLORIDE 0.9% FLUSH 10 ML FLUSH IV FLUSH SCH ×2 (08:40→21:00)
[2017-06-04] MEDS: GENTAMICIN SULFATE 0.1% CREAM 15 GM TOPICAL SCH ×2 (08:41→21:06)
--- NOTE | 2017-06-04 09:36 | MB ---
cc: LARS ABDUL MD DATE OF CONSULTATION 06/03/17 REASON FOR CONSULTATION Acute kidney injury with elevated BUN and creatinine. HISTORY OF PRESENT ILLNESS This is a 51-year-old male with past medical history of diabetes mellitus, morbid obesity, chronic obstructive pulmonary disease, bronchial asthma, gastroesophageal reflux disease, atrial fibrillation, history of stasis ulcer of the leg with chronic edema. He was admitted to the hospital with progressive worsening shortness of breath. I was called to see the patient because of elevated BUN and creatinine. The patient has creatinine of 1.2 on admission which has been gradually getting worse and now it is 2.5. The patient also has decreased urine output. The patient developed respiratory failure and intubated and also has hypotension and started on pressors, seen by infectious disease who developed Staphylococcus epidermidis and blood culture and currently on cefepime along with azithromycin and vancomycin. The patient had decreased urine output and started on Bumex infusion and since he was started on Bumex infusion started passing more urine. PAST MEDICAL HISTORY Bronchial asthma, chronic obstructive pulmonary disease, morbid obesity, chronic edema of the leg with stasis ulcer, atrial fibrillation, gastroesophageal reflux disease. PAST SURGICAL HISTORY Laparotomy for stomach ulcer, appendicectomy. REVIEW OF SYSTEMS The review of systems can not be taken since the patient is intubated and sedated and paralyzed. SOCIAL HISTORY There is no history of smoking or alcoholism. FAMILY HISTORY Negative for diabetes or heart disease. ALLERGIES NO KNOWN DRUG ALLERGIES. MEDICATIONS Currently the patient is on the following medications: 1. Bumex infusion. 2. Amiodarone infusion. 3. Albumin 25 grams q. 12 hours. 4. Cefepime 2 grams q. 12 hour. 5. Famotidine 10 milligrams 12 hours. 6. K-Lyte 25 milliequivalents q. 12 hours. 7. Azithromycin 500 milligrams q. 24 hours. 8. Vancomycin 2 grams q. 24 hour. 9. Methylprednisone 80 milligrams q. 8 hours. 10. Metronidazole 500 milligrams q. 8 hours. 11. Epoprostenol nebulizer. 12. Tylenol. 13. Zofran. 14. . 15. Norepinephrine. 16. Vasopressin as needed. PHYSICAL EXAMINATION GENERAL: The patient is intubated, sedated and paralyzed. VITAL SIGNS: Last blood pressure is 124/59, temperature is 97.9, oxygen saturation on FIO2 of 75% is 99%. HEENT: Pupils are mid constricted. Nonicteric sclera, conjunctiva pale. NECK: Supple. JVD is slightly elevated. LUNGS: The patient has bilateral decreased air entry with scattered wheezing and basilar rales. HEART: S1-S2. Regular rhythm. ABDOMEN: Obese, soft lax. There are some bowden on the skin on the abdominal wall discoloration, looks like multiple small chronic ulceration. EXTREMITIES: Legs, he has bilateral 2+ edema associated with lymphedema. INVESTIGATION WBC count is 15.4, hemoglobin 8.7, platelet count 305, neutrophils 92.2%, sodium 136, potassium 3.6, chloride 99, bicarb 27.3, BUN 44, creatinine 2.5, glucose 216, calcium 8.0, total bilirubin is 1.4, AST is 47, ALT is 82, alkaline phosphatase 106, total protein 7.0, albumin is 3.3. PTT is 70.6. Blood culture showing staph epidermidis. IMAGING STUDIES The patient has chest x-ray done which shows consolidation and effusion in the right. ASSESSMENT/PLAN 1. Acute kidney injury. 2. Respiratory failure. 3. Pneumonia. 4. Sepsis. 5. Septic shock with hypotension. 6. Morbid obesity. 7. Leg ulcers. 8. Anemia. 9. Elevated liver enzymes. The patient has acute kidney injury, most likely this is related to hypotension and ATN. There is a possibility of interstitial nephritis. I will check the urinalysis and get the urine sodium osmolality and urine for eosinophil. Agree with continuing the Bumex infusion. Follow the urine output and BUN and creatinine. Get the ultrasound of the kidneys. Avoid nephrotoxins, especially will follow the vancomycin level. Thank you for the consultation and I will follow the patient while he is in the hospital and further recommendations will be made in the due course. MD CHUY Valdez/LO /9:13 PM /9:24 AM KEIKO
[2017-06-04 11:04] LABS: BLOOD GAS BASE EXCESS 2.1 mmol/L (-2-2); BLOOD GAS CARBOXYHEMOGLOBIN 1.4 % (0-4); BLOOD GAS HCO3 29 mmol/L (22-26); BLOOD GAS O2 HGB SATURATION 88 % (90-100); BLOOD GAS OXYGEN CONTENT 10.2 Vol % (12.0-20.0); BLOOD GAS PCO2 65 mmHg (38-42); BLOOD GAS PO2 72 mmHg (61-120); BLOOD GAS TOTAL HGB 8.2 G/DL (12.0-16.0); TEMP CORR TO 98.6
[2017-06-04 11:06] LABS: CRITICAL VALUE YES; OXYGEN DEVICE VENTILATOR
[2017-06-04 11:07] LABS: DRAW SITE ART LINE; FIO2 100 %; STAT NO
[2017-06-04 11:38] LABS: BLOOD GAS BASE EXCESS 5.6 mmol/L (-2-2); BLOOD GAS CARBOXYHEMOGLOBIN 1.6 % (0-4); BLOOD GAS HCO3 29 mmol/L (22-26); BLOOD GAS O2 HGB SATURATION 97 % (90-100); BLOOD GAS OXYGEN CONTENT 11.7 Vol % (12.0-20.0); BLOOD GAS PCO2 41 mmHg (38-42); BLOOD GAS PO2 131 mmHg (61-120); BLOOD GAS TOTAL HGB 8.4 G/DL (12.0-16.0); CRITICAL VALUE NO; OXYGEN DEVICE VENTILATOR; TEMP CORR TO 98.6
[2017-06-04 11:40] LABS: DRAW SITE ART LINE; FIO2 100 %; STAT NO; VENT SETTINGS PC/AC
--- NOTE | 2017-06-04 12:06 | HHI.NPPN ---
Subjective History of Present Illness 51-year-old male with past medical history of diabetes mellitus, morbid obesity, chronic obstructive pulmonary disease, bronchial asthma, gastroesophageal reflux disease, atrial fibrillation, history of stasis ulcer of the leg with chronic edema. He was admitted to the hospital with progressive worsening shortness of breath. I was called to see the patient because of elevated BUN and creatinine. The patient has creatinine of 1.2 on admission which has been gradually getting worse. Additional Remarks Patient is intubated and sedated, remain on the vent. and on pressors. Objective Data Data 06/04/17 06/05/17 19:00 07:00 Intake Total 1075 ml Balance 1075 ml IV Total 1075 ml Vital Signs Date Time Temp Pulse Resp B/P (MAP) Pulse Ox O2 Delivery O2 Flow Rate FiO2 06/04/17 11:45 99 90 06/04/17 11:30 90 06/04/17 11:04 99 100 06/04/17 10:15 88 132/72 06/04/17 10:00 91 06/04/17 10:00 92 140/71 06/04/17 09:45 92 152/63 06/04/17 08:45 88 83/49 06/04/17 08:40 91 100 06/04/17 08:30 100 06/04/17 08:30 90 82/38 06/04/17 08:15 92 92/44 06/04/17 08:02 83 100 06/04/17 08:00 84 06/04/17 08:00 60 06/04/17 08:00 90 82/38 06/04/17 08:00 97.5 90 16 78/34 (49) 99 06/04/17 06:27 84 105/55 06/04/17 06:00 78 06/04/17 04:28 97 70 06/04/17 04:00 73 06/04/17 04:00 70 06/04/17 04:00 97.3 73 16 121/60 (80) 97 06/04/17 02:00 79 06/04/17 01:15 34 70 06/04/17 00:57 70 06/04/17 00:30 82 118/57 06/04/17 00:00 75 06/04/17 00:00 97.3 75 16 126/63 (84) 99 06/04/17 00:00 75 06/03/17 22:00 71 06/03/17 21:13 80 116/55 06/03/17 20:06 99 75 06/03/17 20:00 75 06/03/17 20:00 97.3 87 16 124/59 (80) 100 06/03/17 20:00 87 06/03/17 20:00 87 124/59 06/03/17 19:43 84 127/55 06/03/17 18:00 82 06/03/17 16:00 90 06/03/17 16:00 98 06/03/17 15:56 100 90 06/03/17 15:10 97 138/60 06/03/17 14:00 85 06/03/17 13:01 100 100 -: 06/04/17 0350 06/04/17 0350 Microbiology 06/03/17 Urine Culture, Received Pending Physical Exam General Appearance Remarks Intubated and sedated. Eyes Eye Exam: Pupils Equal Throat Throat Exam: Oral Mucosa Delevan & Moist Neck Neck Exam: Neck Supple Pulmonary Resp Exam: Rhonchi, Decreased Bases, Diminished Breath Sounds, Poor Inspiratory Effort Cardiology CV Exam: Regular, Normal Sinus Rhythm Gastrointestinal/Abdomen GI Exam: Soft, Non-Tender, Bowel Sounds Present, Distended Extremeties Extremities Exam: Moderate Edema, Pitting Edema, Dependent Edema Neurologic Neuro Exam: Unresponsive, Sedated Assessment/Plan Assessment Summary: JASBIR/Acute Renal Failure, Fluid/Volume Overload Problem List: (1) Congestive heart failure (CHF) ICD Codes: I50.9 - Heart failure, unspecified (2) Acute renal injury ICD Codes: N17.9 - Acute kidney failure, unspecified (3) Acute respiratory acidosis ICD Codes: E87.2 - Acidosis Status: Acute (4) Cellulitis ICD Codes: L03.90 - Cellulitis, unspecified Status: Acute (5) COPD (chronic obstructive pulmonary disease) ICD Codes: J44.9 - Chronic obstructive pulmonary disease, unspecified Status: Acute (6) Anemia ICD Codes: D64.9 - Anemia Status: Acute (7) Obesity ICD Codes: E66.9 - Obesity, unspecified Status: Chronic (8) Afib ICD Codes: I48.91 - Unspecified atrial fibrillation Status: Chronic Plan Patient has low BP, on pressors. Develop JASBIR. Urine Na. was high and Eosinophils negative. Most likely has ATN causing JASBIR. Has been on 100 % Fio2. BP is now better. Urine out put was almost 12 liters in 24 hrs. Bumex decreased now to 0.5 mg per hr. BUN and Creatinine remain almost same. Continue Bumex, avoid Nephrotoxins. Problem Qualifiers (1) COPD (chronic obstructive pulmonary disease): Qualified Codes: J44.1 - Chronic obstructive pulmonary disease with (acute) exacerbation Goldie Hernandez MD Jun 04, 2017 12:06
[2017-06-04] MEDS: SODIUM CHLOR 0.9% 1000 ML INJ 1,000 ML IV SCH (13:00)
[2017-06-04] MEDS: HEPARIN-D5W 25,000 U/250 ML 250 ML IV PRN (16:11)
--- NOTE | 2017-06-04 16:35 | HHI.PR ---
Addendum to Inpatient Note Additional Information Seen around 16oo full note to follow On low dose pressors High O2 requirement s up to 100% No BM UOP Starla Ramirez RN, MD Jun 04, 2017 16:35
[2017-06-04 17:01] LABS: BLOOD GAS BASE EXCESS 8.3 mmol/L (-2-2); BLOOD GAS CARBOXYHEMOGLOBIN 1.6 % (0-4); BLOOD GAS HCO3 32 mmol/L (22-26); BLOOD GAS METHEMOGLOBIN 0.9 % (0-2); BLOOD GAS O2 HGB SATURATION 93 % (90-100); BLOOD GAS PCO2 45 mmHg (38-42); BLOOD GAS PO2 73 mmHg (61-120); BLOOD GAS TOTAL HGB 8.4 G/DL (12.0-16.0); CRITICAL VALUE NO; OXYGEN DEVICE VENTILATOR; TEMP CORR TO 98.6
[2017-06-04 17:02] LABS: DRAW SITE ART LINE; FIO2 65 %; STAT NO; VENT SETTINGS PC/AC
[2017-06-04 17:14] LABS: APTT (PATIENT) 31.7 SEC (24.3-30.1)
[2017-06-04 17:52] LABS: ALKALINE PHOSPHATASE 99 U/L (45-117); ALT (GPT) 62 U/L (12-78); ANION GAP 8 MEQ/L (5-15); AST (GOT) 23 U/L (15-37); BLOOD UREA NITROGEN 52 MG/DL (7-18); CHLORIDE 98 MEQ/L (98-107); GLOMERULAR FILTRATION RATE 30 ML/MIN (>89); SODIUM (NA) 139 MEQ/L (136-145); TOTAL BILIRUBIN ADULT 1.3 MG/DL (0.2-1.0)
[2017-06-04 17:55] LABS: POTASSIUM 2.9 MEQ/L (3.5-5.1)
[2017-06-04] MEDS ORDERED: POTASSIUM CHLORIDE 20 MEQ CONTROLLED RELEASE TAB PO SCH (18:15)
[2017-06-04] MEDS: POTASSIUM CHLOR 40 MEQ PREMIX 100 ML IV SCH (18:26)
[2017-06-04] MEDS ORDERED: POTASSIUM CHLOR 20 MEQ PREMIX 100 ML IV SCH (19:00)
--- NOTE | 2017-06-04 23:20 | HHI.IDPN ---
Subjective Subjective Remarks delayed entry Seen around 16oo Pt remains on low dose pressors High O2 requirement s up to 100% afebrile No BM UOP good dw Starla Sloan MD Jun 04, 2017 16:35 Antibiotics vanco - on hold azithro cefepime Allergies: Uncoded Allergies: Unna boots (Adverse Reaction, Unknown, 03/19/17) Objective . Vital Signs Date Time Temp Pulse Resp B/P (MAP) Pulse Ox O2 Delivery O2 Flow Rate FiO2 06/04/17 20:20 97 60 06/04/17 20:00 73 06/04/17 20:00 60 06/04/17 20:00 97.7 73 18 121/65 (83) 96 06/04/17 18:00 70 06/04/17 17:16 60 06/04/17 16:00 73 06/04/17 16:00 97.7 70 16 108/60 (76) 98 06/04/17 16:00 65 06/04/17 15:42 95 65 06/04/17 14:00 73 06/04/17 13:19 82 115/71 06/04/17 12:31 85 121/61 06/04/17 12:00 90 06/04/17 12:00 97.3 80 16 144/80 (101) 98 06/04/17 12:00 75 06/04/17 11:45 99 90 06/04/17 11:30 79 148/72 06/04/17 11:30 90 06/04/17 11:04 99 100 06/04/17 10:15 88 132/72 06/04/17 10:00 91 06/04/17 10:00 92 140/71 06/04/17 09:45 92 152/63 06/04/17 08:45 88 83/49 06/04/17 08:40 91 100 06/04/17 08:30 100 06/04/17 08:30 90 82/38 06/04/17 08:15 92 92/44 06/04/17 08:02 83 100 06/04/17 08:00 84 06/04/17 08:00 60 06/04/17 08:00 90 82/38 06/04/17 08:00 97.5 90 16 78/34 (49) 99 06/04/17 06:27 84 105/55 06/04/17 06:00 78 06/04/17 04:28 97 70 06/04/17 04:00 73 06/04/17 04:00 70 06/04/17 04:00 97.3 73 16 121/60 (80) 97 06/04/17 02:00 79 06/04/17 01:15 34 70 06/04/17 00:57 70 06/04/17 00:30 82 118/57 06/04/17 00:00 75 06/04/17 00:00 97.3 75 16 126/63 (84) 99 06/04/17 00:00 75 06/04/17 06/04/17 06/05/17 15:00 23:00 07:00 Intake Total 1168 ml 1838 ml Output Total 7500 ml 7500 ml Balance -6332 ml -5662 ml IV Total 1168 ml 1598 ml Tube Feeding 240 ml Output Urine Total 7500 ml 7500 ml . Laboratory Tests Test 06/03/17 04:15 06/04/17 03:50 White Blood Count 15.4 TH/MM3 11.2 TH/MM3 Red Blood Count 4.03 MIL/MM3 3.71 MIL/MM3 Hemoglobin 8.7 GM/DL 8.1 GM/DL Hematocrit 30.6 % 27.3 % Mean Corpuscular Volume 76.1 FL 73.6 FL Mean Corpuscular Hemoglobin 21.7 PG 21.8 PG Mean Corpuscular Hemoglobin Concent 28.5 % 29.7 % Red Cell Distribution Width 20.5 % 20.5 % Platelet Count 305 TH/MM3 216 TH/MM3 Mean Platelet Volume 8.2 FL 8.6 FL Neutrophils (%) (Auto) 92.2 % Lymphocytes (%) (Auto) 1.7 % Monocytes (%) (Auto) 5.9 % Eosinophils (%) (Auto) 0.0 % Basophils (%) (Auto) 0.2 % Neutrophils # (Auto) 14.2 TH/MM3 Lymphocytes # (Auto) 0.3 TH/MM3 Monocytes # (Auto) 0.9 TH/MM3 Eosinophils # (Auto) 0.0 TH/MM3 Basophils # (Auto) 0.0 TH/MM3 CBC Comment AUTO DIFF Differential Total Cells Counted 100 Neutrophils % (Manual) 89 % Band Neutrophils % 3 % Lymphocytes % 2 % Monocytes % 4 % Neutrophils # (Manual) 14.5 TH/MM3 Metamyelocytes 1 % Myelocytes 1 % Nucleated Red Blood Cells 3 /100 WBC Differential Comment FINAL DIFF MANUAL Platelet Estimate NORMAL Platelet Morphology Comment NORMAL Ovalocytes 1+ Laboratory Tests Test 06/03/17 04:15 06/03/17 18:00 06/04/17 03:50 06/04/17 17:06 Blood Urea Nitrogen 39 MG/DL 44 MG/DL 49 MG/DL 52 MG/DL Creatinine 2.55 MG/DL 2.57 MG/DL 2.51 MG/DL 2.32 MG/DL Random Glucose 188 MG/DL 216 MG/DL 183 MG/DL 205 MG/DL Total Protein 7.1 GM/DL 7.0 GM/DL 6.9 GM/DL Albumin 3.4 GM/DL 3.3 GM/DL 3.4 GM/DL Calcium Level 8.2 MG/DL 8.0 MG/DL 7.8 MG/DL 7.8 MG/DL Alkaline Phosphatase 121 U/L 106 U/L 99 U/L Aspartate Amino Transf (AST/SGOT) 68 U/L 47 U/L 23 U/L Alanine Aminotransferase (ALT/SGPT) 91 U/L 82 U/L 62 U/L Total Bilirubin 1.3 MG/DL 1.4 MG/DL 1.3 MG/DL Sodium Level 133 MEQ/L 136 MEQ/L 138 MEQ/L 139 MEQ/L Potassium Level 4.8 MEQ/L 3.6 MEQ/L 3.4 MEQ/L 2.9 MEQ/L Chloride Level 99 MEQ/L 99 MEQ/L 100 MEQ/L 98 MEQ/L Carbon Dioxide Level 27.7 MEQ/L 27.3 MEQ/L 28.6 MEQ/L 33.0 MEQ/L Anion Gap 6 MEQ/L 10 MEQ/L 9 MEQ/L 8 MEQ/L Estimat Glomerular Filtration Rate 27 ML/MIN 27 ML/MIN 27 ML/MIN 30 ML/MIN Magnesium Level 1.9 MG/DL Microbiology Date/Time Source Procedure Growth Status 06/03/17 21:54 Urine Catheterized Urine Urine Culture - Preliminary NO GROWTH IN 24 HOURS. Resulted Imaging Last Impressions Chest X-Ray 06/04/17 0000 Signed Impressions: Service Date/Time: Sunday, June 04, 2017 07:26 - CONCLUSION: Stable chest with bibasilar consolidation and right pleural effusion. Samuel Melendrez MD Renal Ultrasound 06/03/17 0000 Signed Impressions: Service Date/Time: May 22:35 - CONCLUSION: 1. The patient's body habitus prevents visualization of the kidneys. Bret Rodriguez Jr., MD Physical Exam CONSTITUTIONAL/GENERAL: This is a morbidly obese patient, in no apparent distress. TUBES/LINES/DRAINS: SKIN: No jaundice, rashes, or lesions. EYES: Pupils equal and round and reactive. Extraocular motions intact. No scleral icterus. No injection or drainage. Fundi not examined. ENT: Hearing not tested . Nose without bleeding or purulent drainage.Orally intubated N CARDIOVASCULAR: iregular tachycardia, RVR Afib on monitor no murmurs, gallops, or rubs. No JVD. Peripheral pulses symmetric. RESPIRATORY/CHEST: Symmetric, unlabored respirations. Breath sounds equally diminished bilaterally. Few scattered wheezes, GASTROINTESTINAL: Abdomen soft, non-tender, quite distended. No hepato- splenomegaly, or palpable masses. No guarding. Bowel sounds present. GENITOURINARY: Without palpable bladder distension. Brito catheter in place with clear yellow urine MUSCULOSKELETAL: Extremities without clubbing, cyanosis, + chronic appearing edema BLE with areas of hyperpigmeinatioj Prominent edema NEUROLOGICAL: Sedated. Umnresponsive PSYCHIATRIC: unable to assess Assessment & Plan Remarks Sepsis (hypothermia, hypotension, lactic acidemia) - clx remain negative - UA unremaekable b/l PNA Acute VDRF Morbid obesity CHF Low grade coag ne saph bacteremia - doubt clin significance - cont broad spectrum abx P sputum, blood clx dw Starla Sloan MD Jun 04, 2017 23:20
[2017-06-04 23:21] LABS: APTT (PATIENT) 47.6 SEC (24.3-30.1)
[2017-06-05] VITALS (18 sets, daily range): BP systolic 118–134; BP diastolic 60–67; PULSE 57–82; RESP 16–18; TEMP 97.5–97.9; O2SAT 88–96
[2017-06-05] MEDS: methylPREDNISolone SOD SUCC 125 MG/2 ML VIAL IV PUSH SCH ×4 (00:03→23:01)
[2017-06-05] MEDS: metroNIDAZOLE 500 MG INJ 100 ML IV SCH ×4 (00:03→23:01)
[2017-06-05] MEDS: AMIODARONE INJ 450 MG in DEXTROSE 5% IN WATE(EXCEL) INJ 241 ML IV SCH ×6 (01:23→15:48)
--- NOTE | 2017-06-05 03:34 | RADRPT ---
EXAM DATE/TIME: 06/05/2017 02:27 [facility] COMPARISON: CHEST SINGLE AP, June 04, 2017, 7:26. INDICATIONS : Evaluate COPD, Respiratory failure MEDICAL HISTORY : Hypertension. A-fib, Hemophilia, Asthma SURGICAL HISTORY : Appendectomy. ENCOUNTER: Subsequent ACUITY: 1 week PAIN SCORE: Non-responsive. LOCATION: Bilateral chest FINDINGS: 2 portable frontal views of the chest are limited by the patient's body habitus. Bilateral pleural ef fusions and bibasilar pulmonary infiltrates are unchanged. Heart is mildly enlarged. Endotracheal tub e with the tip approximately 2 cm from the sukhdev. Nasogastric tube with the tip coursing off the inf erior margin of the film. CONCLUSION: Unchanged bilateral pleural effusions and bilateral pulmonary infiltrates. Bret Rodriguez Jr., MD on June 05, 2017 at 3:31 Board Certified Radiologist. This report was verified electronically.
[2017-06-05] MEDS: RESP: ALBUTEROL 2.5 MG/IPRATROPIUM 0.5 MG NEB (SCH) INH ×5 (03:40→20:12)
[2017-06-05] MEDS: fentaNYL DRIP 250 ML IV PRN ×2 (03:57→15:14)
[2017-06-05] MEDS: CHLORHEXIDINE GLUCONATE 2 % 1 PACK (2 CLOTHS) TOP SCH (04:00)
[2017-06-05] MEDS: CISATRACURIUM INJ 100 MG in SODIUM CHLOR 0.9% 250 ML INJ 250 ML IV PRN ×6 (04:13→22:37)
[2017-06-05 04:20] LABS: AUTOMATED NEUTROPHIL # 9.9 TH/MM3 (1.8-7.7); BASOPHIL % 0.1 % (0.0-2.0); HEMATOCRIT 28.2 % (39.0-51.0); LYMPH % 3.3 % (9.0-44.0); LYMPHOCYTE # 0.4 TH/MM3 (1.0-4.8); MEAN CELL VOLUME 72.7 FL (80.0-100.0); MEAN CORPUSCULAR HEMOGLOBIN 21.8 PG (27.0-34.0); MONO % 4.7 % (0.0-8.0); NEUT % 91.9 % (16.0-70.0); PLATELET COUNT 206 TH/MM3 (150-450); RED BLOOD COUNT 3.88 MIL/MM3 (4.50-5.90); RED CELL DISTRIBUTION WIDTH 20.6 % (11.6-17.2); WHITE BLOOD COUNT 10.7 TH/MM3 (4.0-11.0)
[2017-06-05 04:49] LABS: ANION GAP 7 MEQ/L (5-15); BICARBONATE 35.6 MEQ/L (21.0-32.0); BLOOD UREA NITROGEN 57 MG/DL (7-18); CHLORIDE 96 MEQ/L (98-107); GLOMERULAR FILTRATION RATE 33 ML/MIN (>89); HEMO FLAGS AUTO DIFF; MEAN CORPUSCULAR HGB CONC 29.9 % (32.0-36.0); SODIUM (NA) 139 MEQ/L (136-145)
[2017-06-05] MEDS: EPOPROSTENOL NEB SOLUTION 50 NG/KG/MIN 100 ML NEB SCH ×6 (05:00→20:09)
[2017-06-05 05:25] LABS: POTASSIUM 2.8 MEQ/L (3.5-5.1)
[2017-06-05] MEDS: MIDAZOLAM 100 MG/100 ML INJ 100 ML IV PRN ×2 (05:32→15:14)
[2017-06-05] MEDS: ALBUMIN HUMAN 25% 25 GM/100 ML BAGP IV SCH ×2 (05:32→17:29)
[2017-06-05 05:54] LABS: BLOOD GAS BASE EXCESS 11.7 mmol/L (-2-2); BLOOD GAS CARBOXYHEMOGLOBIN 1.8 % (0-4); BLOOD GAS HCO3 35 mmol/L (22-26); BLOOD GAS O2 HGB SATURATION 88 % (90-100); BLOOD GAS OXYGEN CONTENT 10.4 Vol % (12.0-20.0); BLOOD GAS PCO2 41 mmHg (38-42); BLOOD GAS PO2 56 mmHg (61-120); BLOOD GAS TOTAL HGB 8.4 G/DL (12.0-16.0); TEMP CORR TO 98.6
[2017-06-05 05:56] LABS: CRITICAL VALUE YES; FIO2 60 %; OXYGEN DEVICE VENTILATOR; VENT SETTINGS PC/AC
[2017-06-05 05:57] LABS: DRAW SITE LT RADIAL; NUMBER OF ARTERIAL PUNCTURES 1; STAT NO; ULNAR PULSE PRESENT
--- NOTE | 2017-06-05 07:05 | HHI.CCPN ---
Subjective Remarks/Hospital Course Hospital Course: 51-year-old male presents with progressive worsening shortness of breath over the past few days. Patient has history of asthma and COPD as well as history of atrial fibrillation patient states he is followed for chronic venous stasis ulcers and has been going to wound care but has not been able to see wound care doctor for the past 7-10 days. Patient's had no fever and chills. Patient's had increasing cough and wheezing. Patient presents by EMS reportedly O2 saturations were in the 80s and heart rate was 160s. He states that since he has not been going to wound care that he's had increasing swelling and drainage from his legs and thinks that that may have precipitated his shortness of breath. Subjective: 06/01: decompensated overnight and intubated for persistent hypercarbia and respiratory distress. Cr uptrending. BNP elevated, but poor diuresis with high dose iv lasix. unclear to what degree CHF is contributing to his hypoxemia and shock. Lactate also rising, up to 2.8. 06/02: Remains intubated sedated critically ill. Hypotensive, asynchronous with the ventilator. Hypoxemic FiO2 up to 95%. ABG shows pH of 7.14 PCO2 of 79 PO2 89 on 95% FiO2. I have given him rocuronium 50 mg IV 1 for ventilator synchrony, increased inspiratory pressure to 32 and reduced respiratory rate to 20. Start Levophed, hold Cardizem, start amiodarone gtt 06/03: Remains severely ill very critical and uric creatinine 2.5. Anuric now. Currently on Levophed at 17 mcg/m, milrinone at 0.3 g per KG per min. Did not tolerate APRV ABG, pH 7.07, pCO2 92. UO 350 ml in 24 hours but anuric for last 10 hours.2D Echo EF 35-40%. Continue vancomycin, cefepime and azithromycin. Flagyl added for anaerobic coverage 06/04: Remains critically ill but stable to slightly improved. Levophed now weaned down to 2 mcg/m from 17. UO on Bumex gtt 12.5L in 24 hours. Fio2 at 70% with PEEP 14 to maintain oxygen saturation above 90%. Remains on Nimbex infusion 06/05: Continued good response to diuretics. Renal function remains acceptable. Objective Vital Signs Date Time Temp Pulse Resp B/P (MAP) Pulse Ox O2 Delivery O2 Flow Rate FiO2 06/05/17 06:00 66 06/05/17 05:02 91 60 06/05/17 04:00 97.7 18 118/61 (80) 06/02/17 19:00 Mechanical Ventilator Intake and Output 06/05/17 06/05/17 06/06/17 08:00 16:00 00:00 Intake Total 2080 ml Output Total 3100 ml Balance -1020 ml Result Diagram: 06/05/17 0400 06/05/17 0400 Other Results Laboratory Tests Test 06/04/17 08:03 06/04/17 11:20 06/04/17 16:38 06/05/17 05:39 Blood Gas Puncture Site ART LINE ART LINE ART LINE LT RADIAL Blood Gas Patient Temperature 98.6 98.6 98.6 98.6 Blood Gas HCO3 29 mmol/L (22-26) 29 mmol/L (22-26) 32 mmol/L (22-26) 35 mmol/L (22-26) Blood Gas Base Excess 2.1 mmol/L (-2-2) 5.6 mmol/L (-2-2) 8.3 mmol/L (-2-2) 11.7 mmol/L (-2-2) Blood Gas Oxygen Saturation 88 % (90-100) 97 % (90-100) 93 % (90-100) 88 % ( 90-100) Arterial Blood pH 7.26 (7.380-7.420) 7.47 (7.380-7.420) 7.47 (7.380-7.420) 7.55 (7.380-7.420) Arterial Blood Partial Pressure CO2 65 mmHg (38-42) 41 mmHg (38-42) 45 mmHg (38-42) 41 mmHg (38-42) Arterial Blood Partial Pressure O2 72 mmHg (61-120) 131 mmHg (61-120) 73 mmHg (61-120) 56 mmHg (61-120) Arterial Blood Oxygen Content 10.2 Vol % (12.0-20.0) 11.7 Vol % (12.0-20.0) 11.0 Vol % (12.0-20.0) 10.4 Vol % (12.0-20.0) Arterial Blood Carboxyhemoglobin 1.4 % (0-4) 1.6 % (0-4) 1.6 % (0-4) 1.8 % (0-4) Arterial Blood Methemoglobin 1.0 % (0-2) 1.0 % (0-2) 0.9 % (0-2) 1.0 % (0-2) Blood Gas Hemoglobin 8.2 G/DL (12.0-16.0) 8.4 G/DL (12.0-16.0) 8.4 G/DL (12.0-16.0) 8.4 G/DL (12.0-16.0) Oxygen Delivery Device VENTILATOR VENTILATOR VENTILATOR VENTILATOR Blood Gas Ventilator Setting PC/AC PC/AC PC/AC Blood Gas Inspired Oxygen 100 % 100 % 65 % 60 % Objective Remarks GENERAL: Super morbidly obese male, lying in bed, intubated, sedated, critically ill, HEENT: Normocephalic. Atraumatic. Pupils equal, round, reactive. NECK: Trachea is midline. Orally intubated. CHEST: Distant breath sounds, able to see chest rise. FiO2 60%. Equal chest rise. PC/AC RR 16/ Pinsp24/PEEP 12 CARDIOVASCULAR: Tachycardic rate, irregularly irregular rhythm. A. fib by telemetry. ABDOMEN: Morbidly obese, Soft, nontender, nondistended. No guarding. BS active. MUSCULOSKELETAL: Pulses 2+. Chronic venous stasis changes of the lower extremities with bilateral weeping and oozing. NEUROLOGICAL: Heavily sedated, paralyzed for ventilator synchrony. A/P Assessment and Plan Assessment: 51yM with super morbid obesity, obesity hypoventilation syndrome, COPD, CHF, unknown type(EF on echo 06/02 is 35-40%), who has worsening acute hypoxic and hypercarbic respiratory failure requiring intubation and mechanical ventilation. He has associated end-organ dysfunction and shock with poor oxygen delivery and lactic acidosis Rising Cr and anuria is concerning. Remains critically ill and worse today than yesterday. Predicted mortality >50% ASSESSMENT: Acute hypoxic and hypercarbic Respiratory failure Congestive heart failure, systolic Septic shock Severe Asthma/COPD exacerbation Probable CHF Possible Community Acquired Pneumonia Hypothermia ARDS Acute kidney failure/anuria Transaminitis Obesity Hypoventilation syndrome Chronic stasis ulcerations of bilateral lower extremities Super morbid obesity PLAN: NEURO: - Currently on Versed and fentanyl for sedation and ventilator synchrony, - Nimbex gtt started 06/03/17. DC 06/05/17 - No sedation vacation until hypoxia hypercarbia improved RESP: - PC/AC RR 16/ Pinsp24/PEEP 12 - No spontaneous breathing trials due to severe hypoxemia and hypercarbia, neuromuscular paralysis - DuoNeb every 4 hours scheduled and when necessary, ventilator bundle - IV Solu Medrol to 80 every 8 hours - Continue broad-spectrum antibiotics vancomycin cefepime Flagyl and DC azithromycin 06/05 - Follow-up on sputum culture. Negative Legionella and pneumococcal antigen - Patient is close to 500 lbs and cannot be proned - Started Flolan due to severe hypoxemia/probable ARDS 06/03 CV: - Continue amiodarone infusion and IV heparin - Continue Levophed to keep map above 65, currently on Levophed at 2 mcg/m - Discontinued milrinone 06/03 due to worsening hypotension - 2-D echo with 35-40% ejection fraction, mild MR and moderate TR - IV Bumex 1 mg per hour gtt started 06/03/17, with IV albumin with 12.5 L UO in 24 hours. Reduce Bumex to 0.5 mg/h 06/05 - Shock, septic and cardiogenic - Continue bumex at 0.25/hr. GI: - Continue trickle feeds, IV famotidine - Elevated liver enzymes most likely from hypotension/shock : - Monitor renal function closely. Brito catheter. - Nephrology consulted for acute kidney failure, anuria - IV Bumex and IV albumin as above. Creatinine remained stable ID: - IV vancomycin, cefepime, Flagyl and DC azithromycin 06/05/17 - Follow-up on blood urine and sputum culture - Urine for pneumococcal and Legionella antigen sent - history of Pseudomonas, Klebsiella, staph infection of LE per prev notes - Wound care consulted, ID consulted -Dr. Rollins HEME: - Monitor CBC, CMP, coags - Continue IV heparin ENDO: - Careful electrolyte replacement PROPH: - IV heparin, IV Pepcid LINES: - Right IJ central line and right radial arterial Overall impression: Patient is severely hypoxemic and requiring high vent rate settings. Multiple ventilator adjustments made, neuromuscularly paralyzed. Aggressive diuresis will hopefully improve gas exchange. So far 28 liters have been removed. Tera Son MD Jun 05, 2017 07:05
[2017-06-05] MEDS: BUMETANIDE INJ 100 ML IV SCH (07:08)
[2017-06-05] MEDS: SODIUM CHLORIDE 0.9% FLUSH 10 ML FLUSH IV FLUSH SCH ×2 (07:08→19:35)
[2017-06-05] MEDS: SODIUM HYPOCHLORITE 0.25% 500 ML BTL EXTERNAL SCH (07:08)
[2017-06-05] MEDS: GENTAMICIN SULFATE 0.1% CREAM 15 GM TOPICAL SCH ×2 (07:09→19:35)
[2017-06-05] MEDS ORDERED: POTASSIUM CHLOR 40 MEQ PREMIX 100 ML IV ONE (07:15)
[2017-06-05] MEDS ORDERED: POTASSIUM CHLORIDE 20 MEQ CONTROLLED RELEASE TAB PO ONE (07:15)
[2017-06-05] MEDS: HEPARIN-D5W 25,000 U/250 ML 250 ML IV PRN ×2 (07:17→22:42)
[2017-06-05] MEDS: POTASSIUM CHLORIDE 25 MEQ EFFERVESCENT TAB PO SCH ×2 (07:40→19:35)
[2017-06-05] MEDS: CEFEPIME INJ 2,000 MG in SODIUM CHLORIDE 0.9% INJ 100 ML IV SCH ×2 (07:40→19:34)
[2017-06-05] MEDS: FAMOTIDINE 20 MG/2 ML VIAL IV PUSH SCH ×2 (07:40→19:35)
[2017-06-05] MEDS: DOCUSATE SODIUM 50 MG/SENNA 8.6 MG TAB PO SCH ×2 (07:42→19:35)
[2017-06-05] MEDS ORDERED: POTASSIUM CHLORIDE 20 MEQ PWD PACKET PO ONE (07:45)
[2017-06-05 08:22] LABS: BANDS 3 % (0-6); CORRECTED NUCLEATED RBC 2 /100 WBC (0-0); MYELOCYTES 1 % (0-0); NEUTROPHIL # MANUAL DIFF 10.3 TH/MM3 (1.8-7.7); POLYS (SEG NEUTROPHILS) 92 % (16-70); WBC DIFF SAMPLE 100
[2017-06-05 08:24] LABS: OVALOCYTES 1+ (NORMAL); PLATELET ESTIMATE SMEAR NORMAL (NORMAL); PLATELET MORPHOLOGY NORMAL (NORMAL); SCAN/DIFF FINAL DIFF MANUAL
[2017-06-05 09:06] LABS: ALKALINE PHOSPHATASE 95 U/L (45-117); ALT (GPT) 54 U/L (12-78); AST (GOT) 19 U/L (15-37); MAGNESIUM 1.8 MG/DL (1.5-2.5); TOTAL BILIRUBIN ADULT 1.3 MG/DL (0.2-1.0)
--- NOTE | 2017-06-05 09:10 | HHI.IDPN ---
Subjective Subjective Remarks off prerros since last night On vent high vent settings FiO2 in 60% NOt much secretions afebrile good UOP Antibiotics vanco - on hold azithro - completed 5 days cefepime Past Medical History Morbid obesity Allergies: Uncoded Allergies: Unna boots (Adverse Reaction, Unknown, 03/19/17) Objective . Vital Signs Date Time Temp Pulse Resp B/P (MAP) Pulse Ox O2 Delivery O2 Flow Rate FiO2 06/05/17 08:00 60 06/05/17 08:00 67 06/05/17 06:00 66 06/05/17 05:02 91 60 06/05/17 04:00 62 06/05/17 04:00 60 06/05/17 04:00 97.7 62 18 118/61 (80) 94 06/05/17 02:00 68 06/05/17 01:23 71 118/62 06/05/17 00:32 90 60 06/05/17 00:00 97.9 82 18 124/65 (84) 88 06/05/17 00:00 82 06/05/17 00:00 60 06/04/17 22:00 78 06/04/17 20:20 97 60 06/04/17 20:00 73 06/04/17 20:00 60 06/04/17 20:00 97.7 73 18 121/65 (83) 96 06/04/17 18:00 70 06/04/17 17:16 60 06/04/17 16:00 73 06/04/17 16:00 97.7 70 16 108/60 (76) 98 06/04/17 16:00 65 06/04/17 15:42 95 65 06/04/17 14:00 73 06/04/17 13:19 82 115/71 06/04/17 12:31 85 121/61 06/04/17 12:00 90 06/04/17 12:00 97.3 80 16 144/80 (101) 98 06/04/17 12:00 75 06/04/17 11:45 99 90 06/04/17 11:30 79 148/72 06/04/17 11:30 90 06/04/17 11:04 99 100 06/04/17 10:15 88 132/72 06/04/17 10:00 91 10/6/17 10:00 92 140/71 06/04/17 09:45 92 152/63 06/05/17 06/05/17 06/06/17 15:00 23:00 07:00 Intake Total 219 ml Balance 219 ml IV Total 219 ml . Laboratory Tests Test 06/04/17 03:50 06/05/17 04:00 White Blood Count 11.2 TH/MM3 10.7 TH/MM3 Red Blood Count 3.71 MIL/MM3 3.88 MIL/MM3 Hemoglobin 8.1 GM/DL 8.5 GM/DL Hematocrit 27.3 % 28.2 % Mean Corpuscular Volume 73.6 FL 72.7 FL Mean Corpuscular Hemoglobin 21.8 PG 21.8 PG Mean Corpuscular Hemoglobin Concent 29.7 % 29.9 % Red Cell Distribution Width 20.5 % 20.6 % Platelet Count 216 TH/MM3 206 TH/MM3 Mean Platelet Volume 8.6 FL 8.1 FL Neutrophils (%) (Auto) 91.9 % Lymphocytes (%) (Auto) 3.3 % Monocytes (%) (Auto) 4.7 % Eosinophils (%) (Auto) 0.0 % Basophils (%) (Auto) 0.1 % Neutrophils # (Auto) 9.9 TH/MM3 Lymphocytes # (Auto) 0.4 TH/MM3 Monocytes # (Auto) 0.5 TH/MM3 Eosinophils # (Auto) 0.0 TH/MM3 Basophils # (Auto) 0.0 TH/MM3 CBC Comment AUTO DIFF Differential Total Cells Counted 100 Neutrophils % (Manual) 92 % Band Neutrophils % 3 % Monocytes % 4 % Neutrophils # (Manual) 10.3 TH/MM3 Myelocytes 1 % Nucleated Red Blood Cells 2 /100 WBC Differential Comment FINAL DIFF MANUAL Platelet Estimate NORMAL Platelet Morphology Comment NORMAL Ovalocytes 1+ Laboratory Tests Test 06/03/17 18:00 06/04/17 03:50 06/04/17 17:06 06/05/17 04:00 Blood Urea Nitrogen 44 MG/DL 49 MG/DL 52 MG/DL 57 MG/DL Creatinine 2.57 MG/DL 2.51 MG/DL 2.32 MG/DL 2.13 MG/DL Random Glucose 216 MG/DL 183 MG/DL 205 MG/DL 195 MG/DL Total Protein 7.0 GM/DL 6.9 GM/DL Albumin 3.3 GM/DL 3.4 GM/DL Calcium Level 8.0 MG/DL 7.8 MG/DL 7.8 MG/DL 7.6 MG/DL Magnesium Level 1.9 MG/DL Alkaline Phosphatase 106 U/L 99 U/L Aspartate Amino Transf (AST/SGOT) 47 U/L 23 U/L Alanine Aminotransferase (ALT/SGPT) 82 U/L 62 U/L Total Bilirubin 1.4 MG/DL 1.3 MG/DL Sodium Level 136 MEQ/L 138 MEQ/L 139 MEQ/L 139 MEQ/L Potassium Level 3.6 MEQ/L 3.4 MEQ/L 2.9 MEQ/L 2.8 MEQ/L Chloride Level 99 MEQ/L 100 MEQ/L 98 MEQ/L 96 MEQ/L Carbon Dioxide Level 27.3 MEQ/L 28.6 MEQ/L 33.0 MEQ/L 35.6 MEQ/L Anion Gap 10 MEQ/L 9 MEQ/L 8 MEQ/L 7 MEQ/L Estimat Glomerular Filtration Rate 27 ML/MIN 27 ML/MIN 30 ML/MIN 33 ML/MIN Microbiology Date/Time Source Procedure Growth Status 06/03/17 21:54 Urine Catheterized Urine Urine Culture - Preliminary NO GROWTH IN 24 HOURS. Resulted Imaging Last Impressions Chest X-Ray 06/05/17 0600 Signed Impressions: Service Date/Time: Monday, June 05, 2017 02:27 - CONCLUSION: Unchanged bilateral pleural effusions and bilateral pulmonary infiltrates. Bret Rodriguez Jr., MD Renal Ultrasound 06/03/17 0000 Signed Impressions: Service Date/Time: May 22:35 - CONCLUSION: 1. The patient's body habitus prevents visualization of the kidneys. Bret Rodriguez Jr., MD Physical Exam CONSTITUTIONAL/GENERAL: This is a morbidly obese patient, in no apparent distress. TUBES/LINES/DRAINS: SKIN: No jaundice, rashes, or lesions. EYES: Pupils equal and round and reactive. Extraocular motions intact. No scleral icterus. No injection or drainage. Fundi not examined. ENT: .Orally intubated N CARDIOVASCULAR: iregular tachycardia, RVR Afib on monitor no murmurs, gallops, or rubs. No JVD. Peripheral pulses symmetric. RESPIRATORY/CHEST: Symmetric, unlabored respirations. Breath sounds equally diminished bilaterally. Few scattered wheezes, GASTROINTESTINAL: Abdomen soft, non-tender, quite distended. No hepato- splenomegaly, or palpable masses. No guarding. Bowel sounds present. GENITOURINARY: Without palpable bladder distension. Brito catheter in place with clear light yellow urine MUSCULOSKELETAL: Extremities without clubbing, cyanosis, + chronic appearing edema BLE with areas of hyperpigmeination Prominent edema NEUROLOGICAL: Sedated and paralysed. Umnresponsive PSYCHIATRIC: unable to assess Assessment & Plan Remarks Sepsis (hypothermia, hypotension, lactic acidemia) - clx remain negative - UA unremaekable b/l PNA Acute VDRF, failurte jakub wean Morbid obesity Obesity hypoventilation syndrom CHF Low grade coag ne saph bacteremia - doubt clin significance ARF Leukocytos - improving - cont cefepime for now - repeat sputum clx dc vancomycin tSarla Guillermo RN, MD Jun 05, 2017 09:10
[2017-06-05] MEDS: SODIUM CHLOR 0.9% 1000 ML INJ 1,000 ML IV SCH (13:00)
--- NOTE | 2017-06-05 13:13 | HHI.NPPN ---
Subjective History of Present Illness 51-year-old male with past medical history of diabetes mellitus, morbid obesity, chronic obstructive pulmonary disease, bronchial asthma, gastroesophageal reflux disease, atrial fibrillation, history of stasis ulcer of the leg with chronic edema. He was admitted to the hospital with progressive worsening shortness of breath. I was called to see the patient because of elevated BUN and creatinine. The patient has creatinine of 1.2 on admission which has been gradually getting worse. Additional Remarks Patient is intubated and sedated, remain on the vent. and on pressors, clinically same. Objective Data Data 06/05/17 06/06/17 19:00 07:00 Intake Total 390 ml Balance 390 ml IV Total 390 ml Vital Signs Date Time Temp Pulse Resp B/P (MAP) Pulse Ox O2 Delivery O2 Flow Rate FiO2 06/05/17 12:15 92 60 06/05/17 12:00 69 06/05/17 12:00 60 06/05/17 10:00 71 06/05/17 09:38 96 80 06/05/17 08:00 97.7 70 16 118/60 (79) 92 06/05/17 08:00 60 06/05/17 08:00 67 06/05/17 06:00 66 06/05/17 05:02 91 60 06/05/17 04:00 62 06/05/17 04:00 60 06/05/17 04:00 97.7 62 18 118/61 (80) 94 06/05/17 02:00 68 06/05/17 01:23 71 118/62 06/05/17 00:32 90 60 06/05/17 00:00 97.9 82 18 124/65 (84) 88 06/05/17 00:00 82 06/05/17 00:00 60 06/04/17 22:00 78 06/04/17 20:20 97 60 06/04/17 20:00 73 06/04/17 20:00 60 06/04/17 20:00 97.7 73 18 121/65 (83) 96 06/04/17 18:00 70 06/04/17 17:16 60 06/04/17 16:00 73 06/04/17 16:00 97.7 70 16 108/60 (76) 98 06/04/17 16:00 65 06/04/17 15:42 95 65 06/04/17 14:00 73 06/04/17 13:19 82 115/71 -: 06/05/17 0400 06/05/17399 Physical Exam General Appearance Remarks Intubated and sedated. Eyes Eye Exam: Pupils Equal Throat Throat Exam: Oral Mucosa [place] & Moist Neck Neck Exam: Neck Supple Pulmonary Resp Exam: Rhonchi, Decreased Bases, Diminished Breath Sounds, Poor Inspiratory Effort Cardiology CV Exam: Regular, Normal Sinus Rhythm Gastrointestinal/Abdomen GI Exam: Soft, Non-Tender, Bowel Sounds Present, Distended Extremeties Extremities Exam: Moderate Edema, Pitting Edema, Dependent Edema Neurologic Neuro Exam: Unresponsive, Sedated Assessment/Plan Assessment Summary: JASBIR/Acute Renal Failure, Fluid/Volume Overload Problem List: (1) Congestive heart failure (CHF) ICD Codes: I50.9 - Heart failure, unspecified (2) Acute renal injury ICD Codes: N17.9 - Acute kidney failure, unspecified (3) Acute respiratory acidosis ICD Codes: E87.2 - Acidosis Status: Acute (4) Cellulitis ICD Codes: L03.90 - Cellulitis, unspecified Status: Acute (5) COPD (chronic obstructive pulmonary disease) ICD Codes: J44.9 - Chronic obstructive pulmonary disease, unspecified Status: Acute (6) Anemia ICD Codes: D64.9 - Anemia Status: Acute (7) Obesity ICD Codes: E66.9 - Obesity, unspecified Status: Chronic (8) Afib ICD Codes: I48.91 - Unspecified atrial fibrillation Status: Chronic Plan Patient has low BP, on pressors. Develop JASBIR. Urine Na. was high and Eosinophils negative. Most likely has ATN causing JASBIR. Has been on 100 % Fio2. BP is now better. Urine out put has been very good. Bumex decreased now to 0.25 mg per hr. BUN is almost same and the Creatinine is slightly better. The edema is decreasing. Follow BMP. Problem Qualifiers (1) COPD (chronic obstructive pulmonary disease): Qualified Codes: J44.1 - Chronic obstructive pulmonary disease with (acute) exacerbation Goldie Hernandez MD Jun 05, 2017 13:13
[2017-06-05] MEDS ORDERED: POTASSIUM CHLORIDE 20 MEQ PWD PACKET NG ONE (18:45)
[2017-06-05] MEDS: POTASSIUM CHLOR 40 MEQ PREMIX 100 ML IV SCH (18:55)
[2017-06-06] VITALS (19 sets, daily range): BP systolic 122–142; BP diastolic 60–77; PULSE 60–75; RESP 16–18; TEMP 97.7–98.1; O2SAT 91–98
[2017-06-06] MEDS: RESP: ALBUTEROL 2.5 MG/IPRATROPIUM 0.5 MG NEB (SCH) INH ×7 (00:59→23:34)
[2017-06-06] MEDS: MIDAZOLAM 100 MG/100 ML INJ 100 ML IV PRN ×3 (01:15→21:54)
[2017-06-06] MEDS: AMIODARONE INJ 450 MG in DEXTROSE 5% IN WATE(EXCEL) INJ 241 ML IV SCH ×4 (02:31→08:42)
[2017-06-06] MEDS: CISATRACURIUM INJ 100 MG in SODIUM CHLOR 0.9% 250 ML INJ 250 ML IV PRN ×5 (02:45→19:09)
[2017-06-06] MEDS: fentaNYL DRIP 250 ML IV PRN ×3 (03:16→23:37)
[2017-06-06] MEDS: CHLORHEXIDINE GLUCONATE 2 % 1 PACK (2 CLOTHS) TOP SCH (03:57)
[2017-06-06] MEDS: EPOPROSTENOL NEB SOLUTION 50 NG/KG/MIN 100 ML NEB SCH ×6 (05:01→16:29)
[2017-06-06] MEDS: ALBUMIN HUMAN 25% 25 GM/100 ML BAGP IV SCH (05:01)
[2017-06-06 05:26] LABS: APTT (PATIENT) 51.5 SEC (24.3-30.1)
[2017-06-06 05:29] LABS: HEMATOCRIT 30.3 % (39.0-51.0); MEAN CELL VOLUME 72.6 FL (80.0-100.0); MEAN CORPUSCULAR HEMOGLOBIN 21.8 PG (27.0-34.0); MEAN CORPUSCULAR HGB CONC 30.1 % (32.0-36.0); PLATELET COUNT 208 TH/MM3 (150-450); RED BLOOD COUNT 4.17 MIL/MM3 (4.50-5.90); RED CELL DISTRIBUTION WIDTH 20.6 % (11.6-17.2); REVIEW FLAG FINAL; WHITE BLOOD COUNT 10.8 TH/MM3 (4.0-11.0)
[2017-06-06 05:52] LABS: BICARBONATE 37.4 MEQ/L (21.0-32.0)
[2017-06-06 06:14] LABS: POTASSIUM 2.8 MEQ/L (3.5-5.1)
[2017-06-06] MEDS ORDERED: POTASSIUM CHLOR 40 MEQ PREMIX 100 ML IV ONE (07:15)
[2017-06-06] MEDS ORDERED: POTASSIUM CHLORIDE 20 MEQ CONTROLLED RELEASE TAB PO ONE (07:15)
[2017-06-06] MEDS: GENTAMICIN SULFATE 0.1% CREAM 15 GM TOPICAL SCH ×2 (07:32→21:48)
[2017-06-06] MEDS: SODIUM CHLORIDE 0.9% FLUSH 10 ML FLUSH IV FLUSH SCH ×2 (07:32→21:00)
[2017-06-06] MEDS: SODIUM HYPOCHLORITE 0.25% 500 ML BTL EXTERNAL SCH (07:32)
[2017-06-06] MEDS: metroNIDAZOLE 500 MG INJ 100 ML IV SCH ×3 (07:42→23:37)
[2017-06-06] MEDS: BUMETANIDE INJ 100 ML IV SCH (07:43)
[2017-06-06] MEDS: CEFEPIME INJ 2,000 MG in SODIUM CHLORIDE 0.9% INJ 100 ML IV SCH ×2 (07:44→21:48)
[2017-06-06] MEDS: POTASSIUM CHLORIDE 25 MEQ EFFERVESCENT TAB PO SCH ×2 (07:44→21:48)
[2017-06-06] MEDS ORDERED: POTASSIUM CHLORIDE 20 MEQ PWD PACKET PO ONE ×2 (07:45→16:30)
[2017-06-06] MEDS: DOCUSATE SODIUM 50 MG/SENNA 8.6 MG TAB PO SCH ×2 (07:45→21:00)
[2017-06-06] MEDS: FAMOTIDINE 20 MG/2 ML VIAL IV PUSH SCH ×2 (07:45→21:48)
[2017-06-06] MEDS: methylPREDNISolone SOD SUCC 125 MG/2 ML VIAL IV PUSH SCH ×3 (07:45→23:38)
--- NOTE | 2017-06-06 11:30 | HHI.CCPN ---
Subjective Remarks/Hospital Course Hospital Course: 51-year-old male presents with progressive worsening shortness of breath over the past few days. Patient has history of asthma and COPD as well as history of atrial fibrillation patient states he is followed for chronic venous stasis ulcers and has been going to wound care but has not been able to see wound care doctor for the past 7-10 days. Patient's had no fever and chills. Patient's had increasing cough and wheezing. Patient presents by EMS reportedly O2 saturations were in the 80s and heart rate was 160s. He states that since he has not been going to wound care that he's had increasing swelling and drainage from his legs and thinks that that may have precipitated his shortness of breath. Subjective: 06/01: decompensated overnight and intubated for persistent hypercarbia and respiratory distress. Cr uptrending. BNP elevated, but poor diuresis with high dose iv lasix. unclear to what degree CHF is contributing to his hypoxemia and shock. Lactate also rising, up to 2.8. 06/02: Remains intubated sedated critically ill. Hypotensive, asynchronous with the ventilator. Hypoxemic FiO2 up to 95%. ABG shows pH of 7.14 PCO2 of 79 PO2 89 on 95% FiO2. I have given him rocuronium 50 mg IV 1 for ventilator synchrony, increased inspiratory pressure to 32 and reduced respiratory rate to 20. Start Levophed, hold Cardizem, start amiodarone gtt 06/03: Remains severely ill very critical and uric creatinine 2.5. Anuric now. Currently on Levophed at 17 mcg/m, milrinone at 0.3 g per KG per min. Did not tolerate APRV ABG, pH 7.07, pCO2 92. UO 350 ml in 24 hours but anuric for last 10 hours.2D Echo EF 35-40%. Continue vancomycin, cefepime and azithromycin. Flagyl added for anaerobic coverage 06/04: Remains critically ill but stable to slightly improved. Levophed now weaned down to 2 mcg/m from 17. UO on Bumex gtt 12.5L in 24 hours. Fio2 at 70% with PEEP 14 to maintain oxygen saturation above 90%. Remains on Nimbex infusion 06/05: Continued good response to diuretics. Renal function remains acceptable. 06/06: Continued diuresis at lower dose bumex gtt. Replace lytes. Diamox X 3 days for contraction alkalosis. Stop if creatinine rises. Objective Vital Signs Date Time Temp Pulse Resp B/P (MAP) Pulse Ox O2 Delivery O2 Flow Rate FiO2 06/06/17 10:00 64 06/06/17 08:48 97 60 06/06/17 08:42 133/71 06/06/17 08:00 97.7 16 06/02/17 19:00 Mechanical Ventilator Intake and Output 06/06/17 06/06/17 06/07/17 08:00 16:00 00:00 Intake Total 2005 ml 649 ml Output Total 5800.0 ml Balance -3795.0 ml 649 ml Result Diagram: 06/06/17 04506/06/170 Other Results Microbiology Date/Time Source Procedure Growth Status 06/03/17 21:54 Urine Catheterized Urine Urine Culture - Final NO GROWTH IN 48 HOURS. Complete Objective Remarks GENERAL: Super morbidly obese male, lying in bed, intubated, sedated, critically ill, HEENT: Normocephalic. Atraumatic. Pupils equal, round, reactive. NECK: Trachea is midline. Orally intubated. CHEST: Distant breath sounds, able to see chest rise. FiO2 60%. Equal chest rise. PC/AC RR 16/ Pinsp24/PEEP 12 CARDIOVASCULAR: Tachycardic rate, irregularly irregular rhythm. A. fib by telemetry. ABDOMEN: Morbidly obese, Soft, nontender, nondistended. No guarding. BS active. MUSCULOSKELETAL: Pulses 2+. Chronic venous stasis changes of the lower extremities with bilateral weeping and oozing. NEUROLOGICAL: Heavily sedated, paralyzed for ventilator synchrony. 09/02 twitch. A/P Assessment and Plan Assessment: 51yM with super morbid obesity, obesity hypoventilation syndrome, COPD, CHF, unknown type(EF on echo 06/02 is 35-40%), who has worsening acute hypoxic and hypercarbic respiratory failure requiring intubation and mechanical ventilation. He has associated end-organ dysfunction and shock with poor oxygen delivery and lactic acidosis Rising Cr and anuria is concerning. Remains critically ill and worse today than yesterday. Predicted mortality >50% ASSESSMENT: Acute hypoxic and hypercarbic Respiratory failure Congestive heart failure, systolic Septic shock Severe Asthma/COPD exacerbation Probable CHF Possible Community Acquired Pneumonia Hypothermia ARDS Acute kidney failure/anuria Transaminitis Obesity Hypoventilation syndrome Chronic stasis ulcerations of bilateral lower extremities Super morbid obesity PLAN: NEURO: - Currently on Versed and fentanyl for sedation and ventilator synchrony, - Nimbex gtt started 06/03/17. DC 06/05/17 - No sedation vacation until hypoxia hypercarbia improved RESP: - PC/AC RR 16/ Pinsp24/PEEP 12 - No spontaneous breathing trials due to severe hypoxemia and hypercarbia, neuromuscular paralysis - DuoNeb every 4 hours scheduled and when necessary, ventilator bundle - IV Solu Medrol to 80 every 8 hours - Continue broad-spectrum antibiotics vancomycin cefepime Flagyl and DC azithromycin 06/05 - Follow-up on sputum culture. Negative Legionella and pneumococcal antigen - Patient is close to 500 lbs and cannot be proned - Started Flolan due to severe hypoxemia/probable ARDS 06/03 CV: - Continue amiodarone infusion and IV heparin - Continue Levophed to keep map above 65, currently on Levophed at 2 mcg/m - Discontinued milrinone 06/03 due to worsening hypotension - 2-D echo with 35-40% ejection fraction, mild MR and moderate TR - IV Bumex 1 mg per hour gtt started 06/03/17, with IV albumin with 12.5 L UO in 24 hours. Reduce Bumex to 0.5 mg/h 06/05 - Shock, septic and cardiogenic - Continue bumex at 0.25/hr. GI: - Continue trickle feeds, IV famotidine - Elevated liver enzymes most likely from hypotension/shock : - Monitor renal function closely. Brito catheter. - Nephrology consulted for acute kidney failure, anuria - IV Bumex and IV albumin as above. Creatinine remained stable ID: - IV vancomycin, cefepime, Flagyl and DC azithromycin 06/05/17 - Follow-up on blood urine and sputum culture - Urine for pneumococcal and Legionella antigen sent - history of Pseudomonas, Klebsiella, staph infection of LE per prev notes - Wound care consulted, ID consulted -Dr. Rollins HEME: - Monitor CBC, CMP, coags - Continue IV heparin ENDO: - Careful electrolyte replacement PROPH: - IV heparin, IV Pepcid LINES: - Right IJ central line and right radial arterial Overall impression: Patient is severely hypoxemic and requiring high vent rate settings. Multiple ventilator adjustments made, neuromuscularly paralyzed. Aggressive diuresis will hopefully improve gas exchange. So far 30+ liters of fluid have been removed. Tera Son MD Jun 06, 2017 11:30
--- NOTE | 2017-06-06 11:58 | HHI.NPPN ---
Subjective History of Present Illness 51-year-old male with past medical history of diabetes mellitus, morbid obesity, chronic obstructive pulmonary disease, bronchial asthma, gastroesophageal reflux disease, atrial fibrillation, history of stasis ulcer of the leg with chronic edema. He was admitted to the hospital with progressive worsening shortness of breath. I was called to see the patient because of elevated BUN and creatinine. The patient has creatinine of 1.2 on admission which has been gradually getting worse. Additional Remarks Patient is intubated and sedated, remain on the vent. and now the BP is better, off pressors. Objective Data Data 06/06/17 06/07/17 19:00 07:00 Intake Total 773 ml Output Total 0 ml Balance 773 ml IV Total 773 ml Tube Feeding Residual Discard 0 ml Vital Signs Date Time Temp Pulse Resp B/P (MAP) Pulse Ox O2 Delivery O2 Flow Rate FiO2 06/06/17 11:49 91 60 06/06/17 10:00 64 06/06/17 08:48 97 60 06/06/17 08:42 66 133/71 06/06/17 08:00 60 06/06/17 08:00 75 06/06/17 08:00 97.7 75 16 127/68 (87) 97 06/06/17 06:00 64 06/06/17 04:00 68 06/06/17 04:00 97.7 68 16 142/71 (94) 94 06/06/17 04:00 60 06/06/17 03:47 93 60 06/06/17 02:00 72 06/06/17 01:00 95 80 06/06/17 00:00 60 06/06/17 00:00 97.7 65 16 138/69 (92) 93 06/06/17 00:00 65 06/06/17 00:00 60 06/05/17 22:00 69 06/05/17 20:13 93 60 06/05/17 20:00 60 06/05/17 20:00 97.5 57 16 134/67 (89) 93 06/05/17 20:00 60 06/05/17 18:00 61 06/05/17 16:43 93 60 06/05/17 16:00 97.5 64 16 120/64 (82) 89 06/05/17 16:00 60 06/05/17 16:00 75 06/05/17 15:48 64 121/69 06/05/17 14:00 68 06/05/17 12:15 92 60 06/05/17 12:00 69 06/05/17 12:00 97.7 75 16 118/63 (81) 90 06/05/17 12:00 60 -: 06/06/17 0450 06/06/17 0450 Microbiology 06/05/17 Gram Stain - Final, Resulted 06/05/17 Sputum Culture, Resulted Pending Physical Exam General Appearance Remarks Intubated and sedated. Eyes Eye Exam: Pupils Equal Throat Throat Exam: Oral Mucosa [place] & Moist Neck Neck Exam: Neck Supple Pulmonary Resp Exam: Rhonchi, Decreased Bases, Diminished Breath Sounds, Poor Inspiratory Effort Cardiology CV Exam: Regular, Normal Sinus Rhythm Gastrointestinal/Abdomen GI Exam: Soft, Non-Tender, Bowel Sounds Present, Distended Extremeties Extremities Exam: Moderate Edema, Pitting Edema, Dependent Edema Neurologic Neuro Exam: Unresponsive, Sedated Assessment/Plan Assessment Summary: JASBIR/Acute Renal Failure, Fluid/Volume Overload Problem List: (1) Congestive heart failure (CHF) ICD Codes: I50.9 - Heart failure, unspecified (2) Acute renal injury ICD Codes: N17.9 - Acute kidney failure, unspecified (3) Acute respiratory acidosis ICD Codes: E87.2 - Acidosis Status: Acute (4) Cellulitis ICD Codes: L03.90 - Cellulitis, unspecified Status: Acute (5) COPD (chronic obstructive pulmonary disease) ICD Codes: J44.9 - Chronic obstructive pulmonary disease, unspecified Status: Acute (6) Anemia ICD Codes: D64.9 - Anemia Status: Acute (7) Obesity ICD Codes: E66.9 - Obesity, unspecified Status: Chronic (8) Afib ICD Codes: I48.91 - Unspecified atrial fibrillation Status: Chronic Plan Patient has low BP, on pressors. Develop JASBIR. Urine Na. was high and Eosinophils negative. Most likely has ATN causing JASBIR. Has been on 100 % Fio2. BP is now better. Urine out put has been very good. Bumex decreased now to 0.25 mg per hr. The edema is decreasing. Creatinine is improving , now 1.88 and the K is low, on replacement. Continue antibiotics and Bumex. Problem Qualifiers (1) COPD (chronic obstructive pulmonary disease): Qualified Codes: J44.1 - Chronic obstructive pulmonary disease with (acute) exacerbation Goldie Hernandez MD Jun 06, 2017 11:58
[2017-06-06] MEDS: HEPARIN-D5W 25,000 U/250 ML 250 ML IV PRN (12:00)
[2017-06-06] MEDS: SODIUM CHLOR 0.9% 1000 ML INJ 1,000 ML IV SCH (12:01)
[2017-06-06 12:41] LABS: BLOOD GAS BASE EXCESS 14.3 mmol/L (-2-2); BLOOD GAS CARBOXYHEMOGLOBIN 1.6 % (0-4); BLOOD GAS HCO3 39 mmol/L (22-26); BLOOD GAS METHEMOGLOBIN 0.9 % (0-2); BLOOD GAS O2 HGB SATURATION 93 % (90-100); BLOOD GAS OXYGEN CONTENT 11.5 Vol % (12.0-20.0); BLOOD GAS PCO2 49 mmHg (38-42); BLOOD GAS PO2 77 mmHg (61-120); BLOOD GAS TOTAL HGB 8.7 G/DL (12.0-16.0); TEMP CORR TO 98.6
[2017-06-06 12:42] LABS: CRITICAL VALUE YES; OXYGEN DEVICE VENTILATOR
[2017-06-06 12:43] LABS: DRAW SITE LT RADIAL; FIO2 60 %; NUMBER OF ARTERIAL PUNCTURES 1; STAT NO; ULNAR PULSE PRESENT; VENT SETTINGS SEE COMMENTS
[2017-06-06 16:18] LABS: BICARBONATE 37.9 MEQ/L (21.0-32.0); MAGNESIUM 1.7 MG/DL (1.5-2.5)
[2017-06-06 16:21] LABS: POTASSIUM 2.9 MEQ/L (3.5-5.1)
[2017-06-06] MEDS ORDERED: VANCOMYCIN INJ 2,000 MG in SODIUM CHLORID 0.9% 500 ML INJ 500 ML IV ONE (17:00)
[2017-06-06] MEDS: POTASSIUM CHLOR 20 MEQ PREMIX 100 ML IV SCH (17:42)
[2017-06-06] MEDS: AMIODARONE 200 MG TAB PO SCH (21:47)
[2017-06-07] VITALS (17 sets, daily range): BP systolic 128–135; BP diastolic 68–98; PULSE 60–85; RESP 15–16; TEMP 98.1–98.6; O2SAT 93–100
[2017-06-07] MEDS: EPOPROSTENOL NEB SOLUTION 50 NG/KG/MIN 100 ML NEB SCH ×2 (03:06)
[2017-06-07] MEDS: CISATRACURIUM INJ 100 MG in SODIUM CHLOR 0.9% 250 ML INJ 250 ML IV PRN ×5 (03:09→20:08)
[2017-06-07] MEDS: RESP: ALBUTEROL 2.5 MG/IPRATROPIUM 0.5 MG NEB (SCH) INH ×6 (03:22→23:10)
[2017-06-07] MEDS: HEPARIN-D5W 25,000 U/250 ML 250 ML IV PRN ×2 (03:55→20:43)
[2017-06-07] MEDS: CHLORHEXIDINE GLUCONATE 2 % 1 PACK (2 CLOTHS) TOP SCH (04:00)
[2017-06-07 05:18] LABS: BLOOD GAS BASE EXCESS 11.6 mmol/L (-2-2); BLOOD GAS CARBOXYHEMOGLOBIN 1.6 % (0-4); BLOOD GAS HCO3 35 mmol/L (22-26); BLOOD GAS O2 HGB SATURATION 91 % (90-100); BLOOD GAS OXYGEN CONTENT 11.4 Vol % (12.0-20.0); BLOOD GAS PCO2 38 mmHg (38-42); BLOOD GAS PO2 67 mmHg (61-120); BLOOD GAS TOTAL HGB 8.8 G/DL (12.0-16.0); TEMP CORR TO 98.6
[2017-06-07 05:20] LABS: CRITICAL VALUE YES; OXYGEN DEVICE VENTILATOR; VENT SETTINGS PC/AC/
[2017-06-07 05:21] LABS: DRAW SITE ART LINE; FIO2 60 %; STAT NO
[2017-06-07 07:02] LABS: HEMATOCRIT 31.6 % (39.0-51.0); MEAN CELL VOLUME 73.1 FL (80.0-100.0); MEAN CORPUSCULAR HEMOGLOBIN 21.4 PG (27.0-34.0); PLATELET COUNT 212 TH/MM3 (150-450); RED BLOOD COUNT 4.33 MIL/MM3 (4.50-5.90); RED CELL DISTRIBUTION WIDTH 20.7 % (11.6-17.2); REVIEW FLAG FINAL; WHITE BLOOD COUNT 10.6 TH/MM3 (4.0-11.0)
[2017-06-07 07:05] LABS: MEAN CORPUSCULAR HGB CONC 29.3 % (32.0-36.0)
[2017-06-07] MEDS: MIDAZOLAM 100 MG/100 ML INJ 100 ML IV PRN ×2 (07:35→18:26)
[2017-06-07 07:36] LABS: BICARBONATE 35.1 MEQ/L (21.0-32.0)
[2017-06-07] MEDS: GENTAMICIN SULFATE 0.1% CREAM 15 GM TOPICAL SCH ×2 (09:00→20:07)
[2017-06-07] MEDS: POTASSIUM CHLORIDE 25 MEQ EFFERVESCENT TAB PO SCH ×2 (09:00→20:07)
[2017-06-07 09:43] LABS: BLOOD GAS BASE EXCESS 11.6 mmol/L (-2-2); BLOOD GAS CARBOXYHEMOGLOBIN 1.5 % (0-4); BLOOD GAS HCO3 36 mmol/L (22-26); BLOOD GAS METHEMOGLOBIN 1.1 % (0-2); BLOOD GAS O2 HGB SATURATION 97 % (90-100); BLOOD GAS OXYGEN CONTENT 12.5 Vol % (12.0-20.0); BLOOD GAS PCO2 52 mmHg (38-42); BLOOD GAS PO2 153 mmHg (61-120); CRITICAL VALUE YES; TEMP CORR TO 98.6
[2017-06-07] MEDS: methylPREDNISolone SOD SUCC 125 MG/2 ML VIAL IV PUSH SCH ×2 (09:43→15:48)
[2017-06-07 09:44] LABS: OXYGEN DEVICE VENTILATOR
[2017-06-07] MEDS: AMIODARONE 200 MG TAB PO SCH ×2 (09:44→20:07)
[2017-06-07] MEDS: DOCUSATE SODIUM 50 MG/SENNA 8.6 MG TAB PO SCH ×2 (09:44→20:07)
[2017-06-07] MEDS: FAMOTIDINE 20 MG/2 ML VIAL IV PUSH SCH ×2 (09:44→20:07)
[2017-06-07 09:45] LABS: DRAW SITE ART LINE; FIO2 60 %; STAT NO
[2017-06-07] MEDS: SODIUM HYPOCHLORITE 0.25% 500 ML BTL EXTERNAL SCH (09:47)
[2017-06-07] MEDS: metroNIDAZOLE 500 MG INJ 100 ML IV SCH ×2 (09:47→15:48)
[2017-06-07] MEDS: SODIUM CHLORIDE 0.9% FLUSH 10 ML FLUSH IV FLUSH SCH ×2 (09:47→20:07)
[2017-06-07] MEDS: CEFEPIME INJ 2,000 MG in SODIUM CHLORIDE 0.9% INJ 100 ML IV SCH (09:47)
[2017-06-07] MEDS: fentaNYL DRIP 250 ML IV PRN ×2 (09:48→18:27)
--- NOTE | 2017-06-07 10:51 | HHI.NPPN ---
Subjective History of Present Illness 51-year-old male with past medical history of diabetes mellitus, morbid obesity, chronic obstructive pulmonary disease, bronchial asthma, gastroesophageal reflux disease, atrial fibrillation, history of stasis ulcer of the leg with chronic edema. He was admitted to the hospital with progressive worsening shortness of breath. I was called to see the patient because of elevated BUN and creatinine. The patient has creatinine of 1.2 on admission which has been gradually getting worse. Additional Remarks Patient is intubated and sedated and paralyzed, remain on the vent. Objective Data Data 06/07/17 06/08/17 18:59 06:59 Intake Total 450 ml Output Total 0 ml Balance 450 ml IV Total 450 ml Tube Feeding Residual Discard 0 ml Vital Signs Date Time Temp Pulse Resp B/P (MAP) Pulse Ox O2 Delivery O2 Flow Rate FiO2 06/07/17 10:00 85 06/07/17 09:17 99 60 06/07/17 08:00 60 06/07/17 08:00 73 06/07/17 06:00 76 06/07/17 04:00 68 06/07/17 04:00 98.2 68 16 132/72 (92) 93 06/07/17 04:00 60 06/07/17 03:38 94 60 06/07/17 02:00 64 06/07/17 00:00 60 06/07/17 00:00 60 06/07/17 00:00 98.1 60 16 132/76 (94) 93 06/06/17 23:38 95 60 06/06/17 22:00 60 06/06/17 21:41 98 60 06/06/17 20:00 98.1 65 18 135/77 (96) 97 06/06/17 20:00 65 06/06/17 20:00 60 06/06/17 18:00 72 06/06/17 16:37 95 60 06/06/17 16:00 60 06/06/17 16:00 70 06/06/17 16:00 98.1 66 16 137/73 (94) 95 06/06/17 14:00 68 06/06/17 12:00 97.9 62 16 122/60 (80) 96 06/06/17 12:00 72 06/06/17 12:00 60 06/06/17 11:49 91 60 -: 06/07/17 0525 06/07/17 0525 Physical Exam General Appearance Remarks Intubated and sedated. Eyes Eye Exam: Pupils Equal Throat Throat Exam: Oral Mucosa [place] & Moist Neck Neck Exam: Neck Supple Pulmonary Resp Exam: Rhonchi, Decreased Bases, Diminished Breath Sounds, Poor Inspiratory Effort Cardiology CV Exam: Regular, Normal Sinus Rhythm Gastrointestinal/Abdomen GI Exam: Soft, Non-Tender, Bowel Sounds Present, Distended Extremeties Extremities Exam: Moderate Edema, Pitting Edema, Dependent Edema Neurologic Neuro Exam: Unresponsive, Sedated Assessment/Plan Assessment Summary: JASBIR/Acute Renal Failure, Fluid/Volume Overload Problem List: (1) Congestive heart failure (CHF) ICD Codes: I50.9 - Heart failure, unspecified (2) Acute renal injury ICD Codes: N17.9 - Acute kidney failure, unspecified (3) Acute respiratory acidosis ICD Codes: E87.2 - Acidosis Status: Acute (4) Cellulitis ICD Codes: L03.90 - Cellulitis, unspecified Status: Acute (5) COPD (chronic obstructive pulmonary disease) ICD Codes: J44.9 - Chronic obstructive pulmonary disease, unspecified Status: Acute (6) Anemia ICD Codes: D64.9 - Anemia Status: Acute (7) Obesity ICD Codes: E66.9 - Obesity, unspecified Status: Chronic (8) Afib ICD Codes: I48.91 - Unspecified atrial fibrillation Status: Chronic Plan Patient has low BP, on pressors. Develop JASBIR. Urine Na. was high and Eosinophils negative. Most likely has ATN causing JASBIR. Has been on 100 % Fio2. BP is now better. Urine out put has been very good. Bumex decreased now to 0.25 mg per hr. The edema is decreasing. Creatinine is improving , now 1.6, K is 3.0, will replace. Continue Bumex, follow the urine out put and BMP. Problem Qualifiers (1) COPD (chronic obstructive pulmonary disease): Qualified Codes: J44.1 - Chronic obstructive pulmonary disease with (acute) exacerbation Goldie Hernandez MD Jun 07, 2017 10:51
[2017-06-07] MEDS ORDERED: POTASSIUM CHLOR 20 MEQ PREMIX 100 ML IV ONE (11:00)
[2017-06-07] MEDS ORDERED: POTASSIUM CHLORIDE 20 MEQ PWD PACKET PO ONE (11:00)
--- NOTE | 2017-06-07 13:18 | HHI.IDPN ---
Subjective Subjective Remarks off pressors On 60% FiO2 PEEP 14 not much but thick secretions no fever remains sedated, paralyzed not tolerating tube feeds Antibiotics vanco cefepime Past Medical History Morbid obesity Allergies: Uncoded Allergies: Unna boots (Adverse Reaction, Unknown, 03/19/17) Objective . Vital Signs Date Time Temp Pulse Resp B/P (MAP) Pulse Ox O2 Delivery O2 Flow Rate FiO2 06/07/17 12:00 98.6 78 15 128/98 (108) 99 06/07/17 12:00 60 06/07/17 12:00 78 06/07/17 10:00 85 06/07/17 09:17 99 60 06/07/17 08:00 98.6 78 15 134/75 (94) 99 06/07/17 08:00 60 06/07/17 08:00 73 06/07/17 06:00 76 06/07/17 04:00 68 06/07/17 04:00 98.2 68 16 132/72 (92) 93 06/07/17 04:00 60 06/07/17 03:38 94 60 06/07/17 02:00 64 06/07/17 00:00 60 06/07/17 00:00 60 06/07/17 00:00 98.1 60 16 132/76 (94) 93 06/06/17 23:38 95 60 06/06/17 22:00 60 06/06/17 21:41 98 60 06/06/17 20:00 98.1 65 18 135/77 (96) 97 06/06/17 20:00 65 06/06/17 20:00 60 06/06/17 18:00 72 06/06/17 16:37 95 60 06/06/17 16:00 60 06/06/17 16:00 70 06/06/17 16:00 98.1 66 16 137/73 (94) 95 06/06/17 14:00 68 06/07/17 06/07/17 06/08/17 15:00 23:00 07:00 Intake Total 710 ml Output Total 40.0 ml Balance 670.0 ml IV Total 710 ml Tube Feeding Residual Discard 40.0 ml . Laboratory Tests Test 06/06/17 04:50 06/07/17 05:25 White Blood Count 10.8 TH/MM3 10.6 TH/MM3 Red Blood Count 4.17 MIL/MM3 4.33 MIL/MM3 Hemoglobin 9.1 GM/DL 9.3 GM/DL Hematocrit 30.3 % 31.6 % Mean Corpuscular Volume 72.6 FL 73.1 FL Mean Corpuscular Hemoglobin 21.8 PG 21.4 PG Mean Corpuscular Hemoglobin Concent 30.1 % 29.3 % Red Cell Distribution Width 20.6 % 20.7 % Platelet Count 208 TH/MM3 212 TH/MM3 Mean Platelet Volume 8.1 FL 8.6 FL Laboratory Tests Test 06/05/17 17:00 06/06/17 04:50 06/06/17 15:00 06/07/17 05:25 Potassium Level 2.8 MEQ/L 2.8 MEQ/L 2.9 MEQ/L 3.0 MEQ/L Blood Urea Nitrogen 62 MG/DL 63 MG/DL 59 MG/DL Creatinine 1.88 MG/DL 1.75 MG/DL 1.63 MG/DL Random Glucose 216 MG/DL 232 MG/DL 256 MG/DL Calcium Level 7.7 MG/DL 7.6 MG/DL 7.6 MG/DL Sodium Level 141 MEQ/L 143 MEQ/L 143 MEQ/L Chloride Level 96 MEQ/L 97 MEQ/L 98 MEQ/L Carbon Dioxide Level 37.4 MEQ/L 37.9 MEQ/L 35.1 MEQ/L Anion Gap 8 MEQ/L 8 MEQ/L 10 MEQ/L Estimat Glomerular Filtration Rate 38 ML/MIN 41 ML/MIN 45 ML/MIN Phosphorus Level 2.3 MG/DL Magnesium Level 1.7 MG/DL Microbiology Date/Time Source Procedure Growth Status 06/05/17 20:00 Sputum Endotracheal Gram Stain - Final Complete 06/05/17 20:00 Sputum Endotracheal Sputum Culture - Final MODERATE GROWTH NORMAL RESPIRATORY COLTON Complete Imaging Last Impressions Chest X-Ray 06/05/17 0600 Signed Impressions: Service Date/Time: Monday, June 05, 2017 02:27 - CONCLUSION: Unchanged bilateral pleural effusions and bilateral pulmonary infiltrates. Bret Rodriguez Jr., MD Renal Ultrasound 06/03/17 0000 Signed Impressions: Service Date/Time: May 22:35 - CONCLUSION: 1. The patient's body habitus prevents visualization of the kidneys. Bret Rodriguez Jr., MD Physical Exam CONSTITUTIONAL/GENERAL: This is a morbidly obese patient, in no apparent distress. TUBES/LINES/DRAINS: SKIN: No jaundice, rashes, or lesions. EYES: Pupils equal and round and reactive. Extraocular motions intact. No scleral icterus. No injection or drainage. Fundi not examined. ENT: .Orally intubated N CARDIOVASCULAR: iregular tachycardia, RVR Afib on monitor no murmurs, gallops, or rubs. No JVD. Peripheral pulses symmetric. RESPIRATORY/CHEST: Symmetric, unlabored respirations. Breath sounds equally diminished bilaterally. Few scattered wheezes, GASTROINTESTINAL: Abdomen soft, non-tender, quite distended. No hepato- splenomegaly, or palpable masses. No guarding. Bowel sounds present. GENITOURINARY: Without palpable bladder distension. Brito catheter in place with clear light yellow urine MUSCULOSKELETAL: Extremities without clubbing, cyanosis, + chronic appearing edema BLE with areas of hyperpigmeination Prominent edema NEUROLOGICAL: Sedated and paralysed. Unresponsive PSYCHIATRIC: unable to assess Assessment & Plan Remarks Sepsis (hypothermia, hypotension, lactic acidemia) - clx remain negative - UA unremaekable b/l PNA Acute VDRF, failurte jakub wean Morbid obesity Obesity hypoventilation syndrom CHF Low grade coag ne saph bacteremia - doubt clin significance ARF - improving Leukocytos - resolved - change cefepime to CFTX - dc vancomycin dw Starla Sloan MD Jun 07, 2017 13:18
[2017-06-07] MEDS: SODIUM CHLOR 0.9% 1000 ML INJ 1,000 ML IV SCH (13:51)
[2017-06-07] MEDS: EPOPROSTENOL NEB SOLUTION 20 NG/KG/MIN 100 ML NEB SCH ×2 (14:08)
[2017-06-07] MEDS: cefTRIAXone INJ 2,000 MG in SODIUM CHLORIDE 0.9% INJ 100 ML IV SCH (18:26)
[2017-06-07] MEDS ORDERED: METHYLNALTREXONE BROMIDE 12 MG/0.6 ML VIAL SQ ONE (21:30)
[2017-06-07] MEDS ORDERED: GLYCERIN ADULT 2 GM SUPP RECTAL PRN (21:30)
[2017-06-07] MEDS ORDERED: RESP: ALBUTEROL 2.5 MG/3 ML NEB (PRN) NEB (21:30)
[2017-06-07] MEDS ORDERED: MINERAL OIL EMULSION 55% PO ONE (21:30)
[2017-06-07] MEDS ORDERED: MINERAL OIL LIQUID 30 ML CUP PO ONE (21:45)
--- NOTE | 2017-06-07 22:05 | HHI.CCPN ---
Subjective Remarks/Hospital Course 51-year-old male presents with progressive worsening shortness of breath over the past few days. Patient has history of asthma and COPD as well as history of atrial fibrillation patient states he is followed for chronic venous stasis ulcers and has been going to wound care but has not been able to see wound care doctor for the past 7-10 days. Patient's had no fever and chills. Patient's had increasing cough and wheezing. Patient presents by EMS reportedly O2 saturations were in the 80s and heart rate was 160s. He states that since he has not been going to wound care that he's had increasing swelling and drainage from his legs and thinks that that may have precipitated his shortness of breath. 06/01: decompensated overnight and intubated for persistent hypercarbia and respiratory distress. Cr uptrending. BNP elevated, but poor diuresis with high dose iv lasix. unclear to what degree CHF is contributing to his hypoxemia and shock. Lactate also rising, up to 2.8. 06/02: Remains intubated sedated critically ill. Hypotensive, asynchronous with the ventilator. Hypoxemic FiO2 up to 95%. ABG shows pH of 7.14 PCO2 of 79 PO2 89 on 95% FiO2. I have given him rocuronium 50 mg IV 1 for ventilator synchrony, increased inspiratory pressure to 32 and reduced respiratory rate to 20. Start Levophed, hold Cardizem, start amiodarone gtt 06/03: Remains severely ill very critical and uric creatinine 2.5. Anuric now. Currently on Levophed at 17 mcg/m, milrinone at 0.3 g per KG per min. Did not tolerate APRV ABG, pH 7.07, pCO2 92. UO 350 ml in 24 hours but anuric for last 10 hours.2D Echo EF 35-40%. Continue vancomycin, cefepime and azithromycin. Flagyl added for anaerobic coverage 06/04: Remains critically ill but stable to slightly improved. Levophed now weaned down to 2 mcg/m from 17. UO on Bumex gtt 12.5L in 24 hours. Fio2 at 70% with PEEP 14 to maintain oxygen saturation above 90%. Remains on Nimbex infusion 06/05: Continued good response to diuretics. Renal function remains acceptable. 06/06: Continued diuresis at lower dose bumex gtt. Replace lytes. Diamox X 3 days for contraction alkalosis. Stop if creatinine rises. Subjective 06/07: Afebrile. Remains on paralytics. Adequate diuresis with bumetanide drip. No bowel movement. Not tolerating tube feeding. Objective Vital Signs Date Time Temp Pulse Resp B/P (MAP) Pulse Ox O2 Delivery O2 Flow Rate FiO2 06/07/17 19:22 99 55 06/07/17 18:00 78 06/07/17 16:00 98.5 15 135/71 (92) Intake and Output 06/07/17 06/07/17 06/08/17 08:00 16:00 00:00 Intake Total 743 ml 1270 ml 925 ml Output Total 4750.0 ml 60.0 ml 3450 ml Balance -4007.0 ml 1210.0 ml -2525 ml Result Diagram: 06/07/17 0525 06/07/17 0525 Other Results Microbiology Date/Time Source Procedure Growth Status 05/31/17 02:26 Blood Peripheral Aerobic Blood Culture - Final Staphylococcus Epidermidis Complete 05/31/17 02:26 Blood Peripheral Anaerobic Blood Culture - Final NO GROWTH IN 5 DAYS Complete 06/05/17 20:00 Sputum Endotracheal Gram Stain - Final Complete 06/05/17 20:00 Sputum Endotracheal Sputum Culture - Final MODERATE GROWTH NORMAL RESPIRATORY COLTON Complete 06/03/17 21:54 Urine Catheterized Urine Urine Culture - Final NO GROWTH IN 48 HOURS. Complete Imaging Last Impressions Chest X-Ray 06/05/17 0600 Signed Impressions: Service Date/Time: Monday, June 05, 2017 02:27 - CONCLUSION: Unchanged bilateral pleural effusions and bilateral pulmonary infiltrates. Bret Rodriguez Jr., MD Renal Ultrasound 06/03/17 0000 Signed Impressions: Service Date/Time: May 22:35 - CONCLUSION: 1. The patient's body habitus prevents visualization of the kidneys. Bret Rodriguez Jr., MD Objective Remarks GENERAL: Morbidly obese male, lying in bed, intubated, sedated, critically ill, HEENT: Normocephalic. Atraumatic. Pupils equal, round, reactive. NECK: Trachea is midline. Orally intubated. CHEST distant breath sounds. Symmetrical excursion. CARDIOVASCULAR: IRR. S1, S2. No S4 without murmur ABDOMEN: Morbidly obese, Soft, nontender, beats. Hypoactive bowel sounds are appreciated. MUSCULOSKELETAL: Pulses 2+. Chronic venous stasis changes of the lower extremities with bilateral weeping and oozing. NEUROLOGICAL: Heavily sedated, incompletely paralyzed for ventilator synchrony. / twitch. Vascular Central Line Catheter: Yes Assessment to: Continue Line: Central Venous Catheter Side: Right Location: Internal, Jugular A/P Assessment and Plan PLAN: NEURO/PSYCH: - Currently on midazolam drip at 10 mg an hour and fentanyl drip at at 250 g an hour for sedation and ventilator synchrony, -Currently on cisatracurium drip at 2 mcg/kg per minute - Goal [id number] 2 out of 4 RESP: Acute hypoxemic respiratory failure multifactorial ARDS Obesity hypoventilation syndrome Asthma/COPD - PC/AC RR 16/ Pinsp24/PEEP 14 FiO2 55% -Currently on albuterol/ipratropium aerosols every 4 hours with albuterol aerosols every 2 hours. Dyspnea - IV Solu Medrol to 80 every 8 hours - Continue broad-spectrum antibiotics ceftriaxone and metronidazole per infectious disease - Follow-up on sputum culture. Negative Legionella and pneumococcal antigen - Patient is close to 500 lbs and cannot be proned - Started epoprostenol currently being weaned at 10,000 ng/kg per minute at 8 ml an hour due to severe hypoxemia/probable ARDS 06/03 CV: Chronic systolic heart failure Atrial fibrillation Moderate tricuspid regurgitation - Continue amiodarone at 200 mg an hour - 2-D echo with 35-40% ejection fraction, mild MR and moderate TR - IV Bumex 1 mg per hour gtt started 06/03/17, with IV albumin with 12.5 L UO in 24 hours. Reduce Bumex to 0.5 mg/h 06/05 - Shock, septic and cardiogenic - Continue bumetanide at 0.25/hr. GI: Morbid obesity Protein calorie malnutrition - Continue trickle feeds, but switched to vital 1 high protein goal 60 cc an hour. - IV famotidine - Elevated liver enzymes most likely from hypotension/shock. Recheck in a.m. - Docusate sodium 100 mg twice a day, senna 8.600 g twice a day, polyethylene glycol 17 g daily and lactulose 30 cc twice a day. : Acute kidney injury - Monitor renal function closely. Brito catheter. - Nephrology consulted for acute kidney failure, anuria - IV Bumex and IV albumin as above. Creatinine remained stable ID: Pneumonia? - IV ceftriaxone and metronidazole per infectious disease - Follow-up on blood urine and sputum culture no growth today. We'll add blood culture likely contaminant - Urine for pneumococcal and Legionella antigen sent - history of Pseudomonas, Klebsiella, staph infection of LE per prev notes - Wound care consulted, ID consulted -Dr. Rollins HEME: Microcytic anemia - Monitor CBC, CMP, coags - Continue IV heparin drip for atrial fibrillation ENDO: - Careful electrolyte replacement MSK Chronic venous stasis Dakin's solution 0.25 twice a day to affected areas. Gentamicin antibiotic to affected areas PROPH: - IV heparin, IV famotidine LINES: - Right IJ central line and right radial arterial Overall impression: Patient is severely hypoxemic and requiring high vent rate settings. Multiple ventilator adjustments made, neuromuscularly paralyzed. Aggressive diuresis will hopefully improve gas exchange. So far 30+ liters of fluid have been removed. Critical care time 30 minutes Estevan Loving MD Jun 07, 2017 22:05
[2017-06-07] MEDS: ARTIFICIAL TEARS OPTH SOLN 15 ML BTL EACH EYE SCH (22:40)
[2017-06-08] VITALS (18 sets, daily range): BP systolic 134–154; BP diastolic 67–81; PULSE 60–95; RESP 14–15; TEMP 97.9–98.4; O2SAT 93–99
[2017-06-08] MEDS: CISATRACURIUM INJ 100 MG in SODIUM CHLOR 0.9% 250 ML INJ 250 ML IV PRN ×5 (00:09→20:42)
[2017-06-08] MEDS: metroNIDAZOLE 500 MG INJ 100 ML IV SCH ×2 (00:48→08:42)
[2017-06-08] MEDS: methylPREDNISolone SOD SUCC 125 MG/2 ML VIAL IV PUSH SCH ×3 (00:49→17:46)
[2017-06-08] MEDS: EPOPROSTENOL NEB SOLUTION 20 NG/KG/MIN 100 ML NEB SCH ×6 (00:51→14:10)
[2017-06-08] MEDS: RESP: ALBUTEROL 2.5 MG/IPRATROPIUM 0.5 MG NEB (SCH) INH ×6 (02:47→23:21)
[2017-06-08] MEDS: CHLORHEXIDINE GLUCONATE 2 % 1 PACK (2 CLOTHS) TOP SCH (04:00)
[2017-06-08] MEDS: fentaNYL DRIP 250 ML IV PRN ×2 (04:58→14:10)
[2017-06-08] MEDS: MIDAZOLAM 100 MG/100 ML INJ 100 ML IV PRN ×2 (04:59→14:10)
[2017-06-08 05:18] LABS: HEMATOCRIT 33.1 % (39.0-51.0); MEAN CELL VOLUME 75.5 FL (80.0-100.0); MEAN CORPUSCULAR HEMOGLOBIN 21.5 PG (27.0-34.0); MEAN CORPUSCULAR HGB CONC 28.5 % (32.0-36.0); PLATELET COUNT 194 TH/MM3 (150-450); RED BLOOD COUNT 4.39 MIL/MM3 (4.50-5.90); RED CELL DISTRIBUTION WIDTH 20.3 % (11.6-17.2); REVIEW FLAG FINAL; WHITE BLOOD COUNT 9.5 TH/MM3 (4.0-11.0)
[2017-06-08 05:44] LABS: BICARBONATE 37.9 MEQ/L (21.0-32.0); MAGNESIUM 1.7 MG/DL (1.5-2.5)
--- NOTE | 2017-06-08 05:52 | RADRPT ---
EXAM DATE/TIME: 06/08/2017 04:49 [facility] COMPARISON: CHEST SINGLE AP, June 05, 2017, 2:27. INDICATIONS : Respiratory distress. MEDICAL HISTORY : Hypertension. A-fib. Hemophilia. Asthma. SURGICAL HISTORY : Appendectomy. ENCOUNTER: Subsequent ACUITY: 1 week PAIN SCORE: Non-responsive. LOCATION: Bilateral chest FINDINGS: Endotracheal tube is present in satisfactory position with tip 3 cm above the sukhdev. Nasogastric tub e assess the stomach. Right central line is in good position. Hazy bibasilar pleural-parenchymal opac ities are grossly unchanged. Accounting for rotation, cardiac contours are stable. CONCLUSION: Persistent basilar infiltrates and effusions Ganesh Ribeiro MD on June 08, 2017 at 5:50 Board Certified Radiologist. This report was verified electronically.
[2017-06-08 06:00] LABS: POTASSIUM 2.6 MEQ/L (3.5-5.1)
[2017-06-08] MEDS: ARTIFICIAL TEARS OPTH SOLN 15 ML BTL EACH EYE SCH ×3 (06:00→21:36)
[2017-06-08 06:20] LABS: CALCIUM-PROTEIN CORRECTED 7.3 MG/DL (8.5-10.1)
[2017-06-08 06:44] LABS: BLOOD GAS BASE EXCESS 12.9 mmol/L (-2-2); BLOOD GAS CARBOXYHEMOGLOBIN 1.6 % (0-4); BLOOD GAS HCO3 38 mmol/L (22-26); BLOOD GAS METHEMOGLOBIN 0.9 % (0-2); BLOOD GAS O2 HGB SATURATION 93 % (90-100); BLOOD GAS OXYGEN CONTENT 12.2 Vol % (12.0-20.0); BLOOD GAS PCO2 52 mmHg (38-42); BLOOD GAS PO2 80 mmHg (61-120); BLOOD GAS TOTAL HGB 9.2 G/DL (12.0-16.0); TEMP CORR TO 98.6
[2017-06-08 06:45] LABS: CRITICAL VALUE YES; OXYGEN DEVICE VENTILATOR
[2017-06-08] MEDS ORDERED: CALCIUM GLUCONATE INJ 1 GM in SODIUM CHLORIDE 0.9% INJ 100 ML IV ONE (06:45)
[2017-06-08 06:46] LABS: DRAW SITE ART LINE; FIO2 55 %; STAT YES; VENT SETTINGS PC/AC
[2017-06-08] MEDS ORDERED: DEXTROSE 50% IN WATER 50 ML VIAL(D50) IV PUSH PRN (07:15)
[2017-06-08] MEDS ORDERED: GLUCAGON 1 MG/ML VIAL OTHER PRN (07:15)
--- NOTE | 2017-06-08 07:18 | HHI.CCPN ---
Subjective Remarks/Hospital Course 51-year-old male presents with progressive worsening shortness of breath over the past few days. Patient has history of asthma and COPD as well as history of atrial fibrillation patient states he is followed for chronic venous stasis ulcers and has been going to wound care but has not been able to see wound care doctor for the past 7-10 days. Patient's had no fever and chills. Patient's had increasing cough and wheezing. Patient presents by EMS reportedly O2 saturations were in the 80s and heart rate was 160s. He states that since he has not been going to wound care that he's had increasing swelling and drainage from his legs and thinks that that may have precipitated his shortness of breath. 06/01: decompensated overnight and intubated for persistent hypercarbia and respiratory distress. Cr uptrending. BNP elevated, but poor diuresis with high dose iv lasix. unclear to what degree CHF is contributing to his hypoxemia and shock. Lactate also rising, up to 2.8. 06/02: Remains intubated sedated critically ill. Hypotensive, asynchronous with the ventilator. Hypoxemic FiO2 up to 95%. ABG shows pH of 7.14 PCO2 of 79 PO2 89 on 95% FiO2. I have given him rocuronium 50 mg IV 1 for ventilator synchrony, increased inspiratory pressure to 32 and reduced respiratory rate to 20. Start Levophed, hold Cardizem, start amiodarone gtt 06/03: Remains severely ill very critical and uric creatinine 2.5. Anuric now. Currently on Levophed at 17 mcg/m, milrinone at 0.3 g per KG per min. Did not tolerate APRV ABG, pH 7.07, pCO2 92. UO 350 ml in 24 hours but anuric for last 10 hours.2D Echo EF 35-40%. Continue vancomycin, cefepime and azithromycin. Flagyl added for anaerobic coverage 06/04: Remains critically ill but stable to slightly improved. Levophed now weaned down to 2 mcg/m from 17. UO on Bumex gtt 12.5L in 24 hours. Fio2 at 70% with PEEP 14 to maintain oxygen saturation above 90%. Remains on Nimbex infusion 06/05: Continued good response to diuretics. Renal function remains acceptable. 06/06: Continued diuresis at lower dose bumex gtt. Replace lytes. Diamox X 3 days for contraction alkalosis. Stop if creatinine rises. 06/07: Afebrile. Remains on paralytics. Adequate diuresis with bumetanide drip. No bowel movement. Not tolerating tube feeding. Subjective 06/08: Afebrile. No bowel movement. Discontinuing the bumetadine drip. Remains paralyzed. Tolerating tube feeds since switched to Vital 1.5 Objective Vital Signs Date Time Temp Pulse Resp B/P (MAP) Pulse Ox O2 Delivery O2 Flow Rate FiO2 06/08/17 06:00 71 06/08/17 04:01 93 55 06/08/17 04:00 98.2 15 154/81 (105) Intake and Output 06/08/17 06/08/17 06/09/17 08:00 16:00 00:00 Intake Total 1980 ml Output Total 4000 ml Balance -2020 ml Result Diagram: 06/08/17 0450 06/08/17 0450 Other Results Microbiology Date/Time Source Procedure Growth Status 05/31/17 02:26 Blood Peripheral Aerobic Blood Culture - Final Staphylococcus Epidermidis Complete 05/31/17 02:26 Blood Peripheral Anaerobic Blood Culture - Final NO GROWTH IN 5 DAYS Complete 06/05/17 20:00 Sputum Endotracheal Gram Stain - Final Complete 06/05/17 20:00 Sputum Endotracheal Sputum Culture - Final MODERATE GROWTH NORMAL RESPIRATORY COLTON Complete 06/03/17 21:54 Urine Catheterized Urine Urine Culture - Final NO GROWTH IN 48 HOURS. Complete Imaging Last Impressions Chest X-Ray 06/05/17 0600 Signed Impressions: Service Date/Time: Monday, June 05, 2017 02:27 - CONCLUSION: Unchanged bilateral pleural effusions and bilateral pulmonary infiltrates. Bret Rodriguez Jr., MD Renal Ultrasound 06/03/17 0000 Signed Impressions: Service Date/Time: May 22:35 - CONCLUSION: 1. The patient's body habitus prevents visualization of the kidneys. Bret Rodriguez Jr., MD Objective Remarks GENERAL: Morbidly obese male, lying in bed, intubated, sedated, critically ill, HEENT: Normocephalic. Atraumatic. Pupils equal, round, reactive. NECK: Trachea is midline. Orally intubated. CHEST distant breath sounds. Symmetrical excursion. CARDIOVASCULAR: IRR. S1, S2. No S4 without murmur ABDOMEN: Morbidly obese, Soft, nontender, beats. Hypoactive bowel sounds are appreciated. MUSCULOSKELETAL: Pulses 2+. Chronic venous stasis changes of the lower extremities with bilateral weeping and oozing. NEUROLOGICAL: Heavily sedated, incompletely paralyzed for ventilator synchrony. / twitch. Vascular Central Line Catheter: Yes Assessment to: Continue Line: Central Venous Catheter Side: Right Location: Internal, Jugular A/P Assessment and Plan NEURO/PSYCH: - Currently on midazolam drip at 10 mg an hour and fentanyl drip at at 250 g an hour for sedation and ventilator synchrony, -Currently on cisatracurium drip at 2 mcg/kg per minute - Goal [id number] 2 out of 4 RESP: Acute hypoxemic respiratory failure multifactorial ARDS Obesity hypoventilation syndrome Asthma/COPD - PC/AC RR 14/ Pinsp18/PEEP 14 FiO2 55% -Currently on albuterol/ipratropium aerosols every 4 hours with albuterol aerosols every 2 hours. Dyspnea - IV Solu Medrol to 80 every 8 hours - Continue broad-spectrum antibiotics ceftriaxone and metronidazole per infectious disease - Follow-up on sputum culture. Negative Legionella and pneumococcal antigen - Patient is close to 500 lbs and cannot be proned - Started epoprostenol currently being weaned at 10,000 ng/kg per minute at 8 ml an hour due to severe hypoxemia/probable ARDS 06/03 CV: Chronic systolic heart failure Atrial fibrillation Moderate tricuspid regurgitation - Continue amiodarone at 200 mg twice a day - 2-D echo with 35-40% ejection fraction, mild MR and moderate TR - IV Bumex 1 mg per hour gtt started 06/03/17, with IV albumin with 12.5 L UO in 24 hours. Reduce Bumex to 0.5 mg/h 06/05 - Shock, septic and cardiogenic -Discontinue bumetanide drip at 0.25/hr. switch to 1 mg IV every 8 hours GI: Morbid obesity Protein calorie malnutrition - Continue tube feeding with vital 1 high protein goal 60 cc an hour. - IV famotidine for GI prophylaxis - Elevated liver enzymes most likely from hypotension/shock. - Docusate sodium 100 mg twice a day, senna 8.6 mg twice a day, polyethylene glycol 17 g daily and lactulose 30 cc twice a day. Mineral oil 10 mg 3 times a day today. As needed glycerin suppositories : Acute kidney injury - Monitor renal function closely. Brito catheter. - Nephrology consulted for acute kidney failure, anuria -Creatinine currently 1.48 ID: Pneumonia? - IV ceftriaxone and metronidazole per infectious disease - Follow-up on blood urine and sputum culture no growth today. We'll add blood culture likely contaminant - Urine for pneumococcal and Legionella antigen sent - history of Pseudomonas, Klebsiella, staph infection of LE per prev notes - Wound care consulted, ID consulted -Dr. Rollins HEME: Microcytic anemia - Monitor CBC, CMP, coags - Continue IV heparin drip at 1600 units an hour for atrial fibrillation ENDO/FEN: Hypo-kalemia Hypo-magnesium Hypocalcemia Hyperglycemia critical illness - Careful electrolyte replacement 80 mEq KCl, 2 g mag sulfate and 1 g calcium gluconate 1 now. Recheck potassium this evening. Sliding-scale insulin with Accu-Cheks to maintain euglycemia/moderate protocol. MSK Chronic venous stasis Dakin's solution 0.25 twice a day to affected areas. Gentamicin antibiotic to affected areas PROPH: - IV heparin drip, IV famotidine LINES: - Right IJ central line and right radial arterial Overall impression: Patient is severely hypoxemic and requiring high vent rate settings. Multiple ventilator adjustments made, neuromuscularly paralyzed. Aggressive diuresis will hopefully improve gas exchange. So far 30+ liters of fluid have been removed. Critical care time 30 minutes Estevan Loving MD Jun 08, 2017 07:18
[2017-06-08] MEDS: POTASSIUM CHLOR 40 MEQ PREMIX 100 ML IV SCH ×2 (07:27→11:45)
[2017-06-08] MEDS: MAGNESIUM SULFATE 1 GM PREMIX 100 ML IV SCH ×2 (07:28→08:39)
[2017-06-08] MEDS ORDERED: MAGNESIUM SULFATE INJ 2 GM in SODIUM CHLORIDE 0.9% INJ 96 ML IV PRN (07:30)
[2017-06-08] MEDS ORDERED: MAGNESIUM OXIDE 400 MG TAB PO PRN (07:30)
[2017-06-08] MEDS ORDERED: POTASSIUM PHOSPHATE MONOBASIC 500 MG TAB PO/TUBE PRN (07:30)
[2017-06-08] MEDS ORDERED: POTASSIUM CHLOR 20 MEQ PREMIX 100 ML IV PRN ×2 (07:30)
[2017-06-08] MEDS ORDERED: POTASSIUM PHOSPHATE INJ 30 MMOL in SODIUM CHLOR 0.9% 250 ML INJ 250 ML IV PRN (07:30)
[2017-06-08] MEDS ORDERED: SODIUM PHOSPHATE INJ 30 MMOL in SODIUM CHLOR 0.9% 250 ML INJ 240 ML IV PRN (07:30)
[2017-06-08] MEDS ORDERED: POTASSIUM PHOSPHATE MONOBASIC 500 MG TAB PO PRN (07:30)
[2017-06-08] MEDS ORDERED: POTASSIUM CHLOR 40 MEQ PREMIX 100 ML IV PRN (07:30)
[2017-06-08] MEDS ORDERED: POTASSIUM CHLORIDE 25 MEQ EFFERVESCENT TAB PO PRN (07:30)
[2017-06-08] MEDS ORDERED: MAGNESIUM SULFATE INJ 4 GM in SODIUM CHLORIDE 0.9% INJ 92 ML IV PRN (07:30)
[2017-06-08] MEDS: INSULIN NovoLIN REGULAR SUPPLEMENTAL SCALE SQ SCH ×4 (08:00→20:42)
[2017-06-08] MEDS: POLYETHYLENE GLYCOL 17 GM PKG G-TUBE SCH ×2 (08:43→20:15)
[2017-06-08] MEDS: SENNOSIDES SYRUP 8.8 MG/5 ML CUP PO SCH ×2 (08:43→20:16)
[2017-06-08] MEDS: SODIUM HYPOCHLORITE 0.25% 500 ML BTL EXTERNAL SCH (08:44)
[2017-06-08] MEDS: DOCUSATE SODIUM 100 MG/10 ML UDC PO SCH ×2 (08:44→20:16)
[2017-06-08] MEDS: LACTULOSE SYRUP 20 GM/30 ML CUP PO SCH ×4 (08:44→20:16)
[2017-06-08] MEDS: MINERAL OIL LIQUID 30 ML CUP PO SCH ×3 (08:44→18:00)
[2017-06-08] MEDS: AMIODARONE 200 MG TAB PO SCH ×2 (08:44→20:16)
[2017-06-08] MEDS: FAMOTIDINE 20 MG/2 ML VIAL IV PUSH SCH ×2 (08:45→20:15)
[2017-06-08] MEDS: SODIUM CHLORIDE 0.9% FLUSH 10 ML FLUSH IV FLUSH SCH ×2 (08:46→20:15)
[2017-06-08] MEDS: POTASSIUM CHLORIDE 25 MEQ EFFERVESCENT TAB PO SCH ×2 (08:47→20:16)
[2017-06-08] MEDS: GENTAMICIN SULFATE 0.1% CREAM 15 GM TOPICAL SCH ×2 (08:48→20:16)
[2017-06-08] MEDS: SODIUM CHLOR 0.9% 1000 ML INJ 1,000 ML IV SCH (12:14)
--- NOTE | 2017-06-08 13:12 | HHI.IDPN ---
Subjective Subjective Remarks off pressors not much but thick secretions no fever remains sedated, paralyzed remains on vent, 55% FiO2, PEEP 14 Antibiotics CFTX flagyl Past Medical History Morbid obesity Allergies: Uncoded Allergies: Unna boots (Adverse Reaction, Unknown, 03/19/17) Objective . Vital Signs Date Time Temp Pulse Resp B/P (MAP) Pulse Ox O2 Delivery O2 Flow Rate FiO2 06/08/17 11:21 98 55 06/08/17 10:00 75 06/08/17 08:00 55 06/08/17 08:00 73 06/08/17 08:00 98.4 73 15 137/72 (93) 96 06/08/17 07:34 97 55 06/08/17 06:00 71 06/08/17 04:01 93 55 06/08/17 04:00 55 06/08/17 04:00 98.2 76 15 154/81 (105) 93 06/08/17 04:00 76 06/08/17 02:00 82 06/08/17 01:10 99 55 06/08/17 00:00 55 06/08/17 00:00 94 06/08/17 00:00 98.2 94 15 135/73 (93) 98 06/07/17 22:00 76 06/07/17 20:00 98.4 76 15 132/68 (89) 97 06/07/17 20:00 76 06/07/17 20:00 55 06/07/17 19:22 99 55 06/07/17 18:00 78 06/07/17 17:51 97 60 06/07/17 16:00 60 06/07/17 16:00 98.5 76 15 135/71 (92) 98 06/07/17 16:00 76 06/07/17 14:00 84 06/08/17 06/08/17 06/09/17 15:00 23:00 07:00 Intake Total 845 ml Balance 845 ml IV Total 845 ml . Laboratory Tests Test 06/07/17 05:25 06/08/17 04:50 White Blood Count 10.6 TH/MM3 9.5 TH/MM3 Red Blood Count 4.33 MIL/MM3 4.39 MIL/MM3 Hemoglobin 9.3 GM/DL 9.5 GM/DL Hematocrit 31.6 % 33.1 % Mean Corpuscular Volume 73.1 FL 75.5 FL Mean Corpuscular Hemoglobin 21.4 PG 21.5 PG Mean Corpuscular Hemoglobin Concent 29.3 % 28.5 % Red Cell Distribution Width 20.7 % 20.3 % Platelet Count 212 TH/MM3 194 TH/MM3 Mean Platelet Volume 8.6 FL 8.7 FL Laboratory Tests Test 06/06/17 15:00 06/07/17 05:25 06/08/17 04:50 Blood Urea Nitrogen 63 MG/DL 59 MG/DL 67 MG/DL Creatinine 1.75 MG/DL 1.63 MG/DL 1.48 MG/DL Random Glucose 232 MG/DL 256 MG/DL 279 MG/DL Calcium Level 7.6 MG/DL 7.6 MG/DL 7.0 MG/DL Phosphorus Level 2.3 MG/DL 2.9 MG/DL Magnesium Level 1.7 MG/DL 1.7 MG/DL Sodium Level 143 MEQ/L 143 MEQ/L 145 MEQ/L Potassium Level 2.9 MEQ/L 3.0 MEQ/L 2.6 MEQ/L Chloride Level 97 MEQ/L 98 MEQ/L 99 MEQ/L Carbon Dioxide Level 37.9 MEQ/L 35.1 MEQ/L 37.9 MEQ/L Anion Gap 8 MEQ/L 10 MEQ/L 8 MEQ/L Estimat Glomerular Filtration Rate 41 ML/MIN 45 ML/MIN 50 ML/MIN Total Protein 6.6 GM/DL Protein Corrected Calcium 7.3 MG/DL Microbiology Date/Time Source Procedure Growth Status 06/05/17 20:00 Sputum Endotracheal Gram Stain - Final Complete 06/05/17 20:00 Sputum Endotracheal Sputum Culture - Final MODERATE GROWTH NORMAL RESPIRATORY COLTON Complete Imaging Las Last Impressions Chest X-Ray 06/08/17 0600 Signed Impressions: Service Date/Time: Thursday, June 08, 2017 04:49 - CONCLUSION: Persistent basilar infiltrates and effusions Ganesh Ribeiro MD Renal Ultrasound 06/03/17 0000 Signed Impressions: Service Date/Time: May 22:35 - CONCLUSION: 1. The patient's body habitus prevents visualization of the kidneys. Bret Rodriguez Jr., MD Physical Exam CONSTITUTIONAL/GENERAL: This is a morbidly obese patient, in no apparent distress. TUBES/LINES/DRAINS: SKIN: No jaundice, rashes, or lesions. EYES: Pupils equal and round and reactive. Extraocular motions intact. No scleral icterus. No injection or drainage. Fundi not examined. ENT: .Orally intubated N CARDIOVASCULAR: iregular tachycardia, RVR Afib on monitor no murmurs, gallops, or rubs. No JVD. Peripheral pulses symmetric. RESPIRATORY/CHEST: Symmetric, unlabored respirations. Breath sounds equally diminished bilaterally. Few scattered wheezes, GASTROINTESTINAL: Abdomen soft, non-tender, quite distended. No hepato- splenomegaly, or palpable masses. No guarding. Bowel sounds present. GENITOURINARY: Without palpable bladder distension. Brito catheter in place with clear light yellow urine MUSCULOSKELETAL: Extremities without clubbing, cyanosis, + chronic appearing edema BLE with areas of hyperpigmeination Improved edema NEUROLOGICAL: Sedated and paralysed. Unresponsive PSYCHIATRIC: unable to assess Assessment & Plan Remarks Sepsis (hypothermia, hypotension, lactic acidemia) - clx remain negative - UA unremaekable b/l PNA Acute VDRF, failurte jakub wean Morbid obesity Obesity hypoventilation syndrom CHF Low grade Staph epi bacteremia - doubt clin significance ARF - improving Leukocytos - resolved - change cefepime to CFTX - dc Starla Rosa RN, MD Jun 08, 2017 13:12
[2017-06-08] MEDS: HEPARIN-D5W 25,000 U/250 ML 250 ML IV PRN (13:32)
[2017-06-08] MEDS: BUMETANIDE INJ 1 MG/4 ML VIAL IV PUSH SCH ×2 (14:11→21:35)
--- NOTE | 2017-06-08 15:57 | HHI.NPPN ---
Subjective History of Present Illness 51-year-old male with past medical history of diabetes mellitus, morbid obesity, chronic obstructive pulmonary disease, bronchial asthma, gastroesophageal reflux disease, atrial fibrillation, history of stasis ulcer of the leg with chronic edema. He was admitted to the hospital with progressive worsening shortness of breath. I was called to see the patient because of elevated BUN and creatinine. The patient has creatinine of 1.2 on admission which has been gradually getting worse. Additional Remarks Patient is intubated and sedated and paralyzed, remain on the vent. clinically same. Objective Data Data 06/08/17 06/09/17 19:00 07:00 Intake Total 1409 ml Balance 1409 ml IV Total 1409 ml Vital Signs Date Time Temp Pulse Resp B/P (MAP) Pulse Ox O2 Delivery O2 Flow Rate FiO2 06/08/17 12:00 98.2 69 15 136/72 (93) 98 06/08/17 12:00 55 06/08/17 12:00 69 06/08/17 11:21 98 55 06/08/17 10:00 75 06/08/17 08:00 55 06/08/17 08:00 73 06/08/17 08:00 98.4 73 15 137/72 (93) 96 06/08/17 07:34 97 55 06/08/17 06:00 71 06/08/17 04:01 93 55 06/08/17 04:00 55 06/08/17 04:00 98.2 76 15 154/81 (105) 93 06/08/17 04:00 76 06/08/17 02:00 82 06/08/17 01:10 99 55 06/08/17 00:00 55 06/08/17 00:00 94 06/08/17 00:00 98.2 94 15 135/73 (93) 98 06/07/17 22:00 76 06/07/17 20:00 98.4 76 15 132/68 (89) 97 06/07/17 20:00 76 06/07/17 20:00 55 06/07/17 19:22 99 55 06/07/17 18:00 78 06/07/17 17:51 97 60 06/07/17 16:00 60 06/07/17 16:00 98.5 76 15 135/71 (92) 98 10/9/17 16:00 76 -: 06/08/17 0450 06/08/17449 Physical Exam General Appearance Remarks Intubated and sedated. Eyes Eye Exam: Pupils Equal Throat Throat Exam: Oral Mucosa [place] & Moist Neck Neck Exam: Neck Supple Pulmonary Resp Exam: Rhonchi, Decreased Bases, Diminished Breath Sounds, Poor Inspiratory Effort Cardiology CV Exam: Regular, Normal Sinus Rhythm Gastrointestinal/Abdomen GI Exam: Soft, Non-Tender, Bowel Sounds Present, Distended Extremeties Extremities Exam: Moderate Edema, Pitting Edema, Dependent Edema Neurologic Neuro Exam: Unresponsive, Sedated Assessment/Plan Assessment Summary: JASBIR/Acute Renal Failure, Fluid/Volume Overload Problem List: (1) Congestive heart failure (CHF) ICD Codes: I50.9 - Heart failure, unspecified (2) Acute renal injury ICD Codes: N17.9 - Acute kidney failure, unspecified (3) Acute respiratory acidosis ICD Codes: E87.2 - Acidosis Status: Acute (4) Cellulitis ICD Codes: L03.90 - Cellulitis, unspecified Status: Acute (5) COPD (chronic obstructive pulmonary disease) ICD Codes: J44.9 - Chronic obstructive pulmonary disease, unspecified Status: Acute (6) Anemia ICD Codes: D64.9 - Anemia Status: Acute (7) Obesity ICD Codes: E66.9 - Obesity, unspecified Status: Chronic (8) Afib ICD Codes: I48.91 - Unspecified atrial fibrillation Status: Chronic Plan Patient has low BP, on pressors. Develop JASBIR. Urine Na. was high and Eosinophils negative. Most likely has ATN causing JASBIR. Has been on 100 % Fio2. BP is now better. Urine out put has been very good. Bumex decreased now to 0.25 mg per hr. The edema is decreasing. Creatinine is improving , now 1.4, K is 2.6, on replacement. Continue Bumex, follow the urine out put and BMP. Changed to Bumex to TID. Problem Qualifiers (1) COPD (chronic obstructive pulmonary disease): Qualified Codes: J44.1 - Chronic obstructive pulmonary disease with (acute) exacerbation Goldie Hernandez MD Jun 08, 2017 15:57
[2017-06-08] MEDS: cefTRIAXone INJ 2,000 MG in SODIUM CHLORIDE 0.9% INJ 100 ML IV SCH (17:43)
[2017-06-08] MEDS: POTASSIUM CHLOR 40 MEQ PREMIX 100 ML IV PRN ×2 (23:14→23:15)
[2017-06-09] VITALS (18 sets, daily range): BP systolic 138–156; BP diastolic 75–86; PULSE 68–97; RESP 14; TEMP 98.1–99; O2SAT 93–100
[2017-06-09] MEDS: methylPREDNISolone SOD SUCC 125 MG/2 ML VIAL IV PUSH SCH ×3 (00:42→16:00)
[2017-06-09] MEDS: fentaNYL DRIP 250 ML IV PRN ×3 (00:42→17:43)
[2017-06-09] MEDS: MIDAZOLAM 100 MG/100 ML INJ 100 ML IV PRN ×3 (00:42→17:43)
[2017-06-09] MEDS: CISATRACURIUM INJ 100 MG in SODIUM CHLOR 0.9% 250 ML INJ 250 ML IV PRN ×5 (00:42→23:14)
[2017-06-09] MEDS: EPOPROSTENOL NEB SOLUTION 20 NG/KG/MIN 100 ML NEB SCH ×10 (02:18→23:32)
[2017-06-09] MEDS: RESP: ALBUTEROL 2.5 MG/IPRATROPIUM 0.5 MG NEB (SCH) INH ×5 (03:06→19:57)
[2017-06-09] MEDS: CHLORHEXIDINE GLUCONATE 2 % 1 PACK (2 CLOTHS) TOP SCH (03:22)
[2017-06-09] MEDS: INSULIN NovoLIN REGULAR SUPPLEMENTAL SCALE SQ SCH ×6 (04:00→20:46)
[2017-06-09 05:20] LABS: BLOOD GAS BASE EXCESS 11.4 mmol/L (-2-2); BLOOD GAS CARBOXYHEMOGLOBIN 1.6 % (0-4); BLOOD GAS HCO3 36 mmol/L (22-26); BLOOD GAS METHEMOGLOBIN 0.8 % (0-2); BLOOD GAS O2 HGB SATURATION 93 % (90-100); BLOOD GAS OXYGEN CONTENT 12.4 Vol % (12.0-20.0); BLOOD GAS PCO2 55 mmHg (38-42); BLOOD GAS PO2 81 mmHg (61-120); BLOOD GAS TOTAL HGB 9.4 G/DL (12.0-16.0); TEMP CORR TO 98.6
[2017-06-09 05:21] LABS: CRITICAL VALUE YES; OXYGEN DEVICE VENTILATOR
[2017-06-09 05:22] LABS: DRAW SITE ART LINE; FIO2 55 %; STAT NO; VENT SETTINGS PC/AC
[2017-06-09] MEDS: ARTIFICIAL TEARS OPTH SOLN 15 ML BTL EACH EYE SCH ×3 (05:43→20:46)
[2017-06-09] MEDS: HEPARIN-D5W 25,000 U/250 ML 250 ML IV PRN ×2 (05:43→21:35)
[2017-06-09] MEDS: BUMETANIDE INJ 1 MG/4 ML VIAL IV PUSH SCH (05:48)
[2017-06-09 06:04] LABS: AUTOMATED NEUTROPHIL # 8.4 TH/MM3 (1.8-7.7); HEMO FLAGS DIFF FINAL; LYMPH % 3.8 % (9.0-44.0); LYMPHOCYTE # 0.3 TH/MM3 (1.0-4.8); MEAN CELL VOLUME 76.3 FL (80.0-100.0); MEAN CORPUSCULAR HEMOGLOBIN 21.5 PG (27.0-34.0); MONO % 4.3 % (0.0-8.0); NEUT % 91.9 % (16.0-70.0); PLATELET COUNT 181 TH/MM3 (150-450); RED BLOOD COUNT 4.45 MIL/MM3 (4.50-5.90); RED CELL DISTRIBUTION WIDTH 20.7 % (11.6-17.2); WHITE BLOOD COUNT 9.1 TH/MM3 (4.0-11.0)
[2017-06-09 06:07] LABS: MEAN CORPUSCULAR HGB CONC 28.1 % (32.0-36.0)
[2017-06-09 06:44] LABS: BICARBONATE 37.3 MEQ/L (21.0-32.0); CALCIUM-PROTEIN CORRECTED 7.7 MG/DL (8.5-10.1); TOTAL BILIRUBIN ADULT 0.8 MG/DL (0.2-1.0)
[2017-06-09 06:59] LABS: APTT (PATIENT) 56.7 SEC (24.3-30.1)
[2017-06-09] MEDS: FAMOTIDINE 20 MG/2 ML VIAL IV PUSH SCH ×2 (07:53→19:55)
[2017-06-09] MEDS: POTASSIUM CHLOR 40 MEQ PREMIX 100 ML IV PRN ×2 (07:54→11:01)
[2017-06-09] MEDS: AMIODARONE 200 MG TAB PO SCH ×2 (07:54→19:54)
[2017-06-09] MEDS: LACTULOSE SYRUP 20 GM/30 ML CUP PO SCH ×2 (07:55→12:50)
[2017-06-09] MEDS: POLYETHYLENE GLYCOL 17 GM PKG G-TUBE SCH (07:55)
[2017-06-09] MEDS: SODIUM CHLORIDE 0.9% FLUSH 10 ML FLUSH IV FLUSH SCH ×2 (07:55→19:56)
[2017-06-09] MEDS: SODIUM HYPOCHLORITE 0.25% 500 ML BTL EXTERNAL SCH (07:55)
[2017-06-09] MEDS: DOCUSATE SODIUM 100 MG/10 ML UDC PO SCH ×2 (07:55→19:56)
[2017-06-09] MEDS: POTASSIUM CHLORIDE 25 MEQ EFFERVESCENT TAB PO SCH (07:55)
[2017-06-09] MEDS: SENNOSIDES SYRUP 8.8 MG/5 ML CUP PO SCH ×2 (07:56→19:56)
[2017-06-09] MEDS: GENTAMICIN SULFATE 0.1% CREAM 15 GM TOPICAL SCH ×2 (07:56→19:56)
[2017-06-09] MEDS: MINERAL OIL LIQUID 30 ML CUP PO SCH ×3 (07:56→17:41)
--- NOTE | 2017-06-09 11:08 | HHI.NPPN ---
Subjective History of Present Illness 51-year-old male with past medical history of diabetes mellitus, morbid obesity, chronic obstructive pulmonary disease, bronchial asthma, gastroesophageal reflux disease, atrial fibrillation, history of stasis ulcer of the leg with chronic edema. He was admitted to the hospital with progressive worsening shortness of breath. I was called to see the patient because of elevated BUN and creatinine. The patient has creatinine of 1.2 on admission which has been gradually getting worse. Additional Remarks Patient is intubated and sedated and paralyzed, remain on the vent. off pressors and BP is stable. Objective Data Data 06/09/17 06/10/17 19:00 07:00 Intake Total 710 ml Output Total 0 ml Balance 710 ml IV Total 710 ml Tube Feeding Residual Discard 0 ml Vital Signs Date Time Temp Pulse Resp B/P (MAP) Pulse Ox O2 Delivery O2 Flow Rate FiO2 06/09/17 10:00 69 06/09/17 08:00 55 06/09/17 08:00 90 06/09/17 08:00 98.2 90 14 156/85 (108) 100 06/09/17 07:51 95 55 06/09/17 06:00 72 06/09/17 04:35 96 55 06/09/17 04:00 55 06/09/17 04:00 99.0 71 14 138/75 (96) 96 06/09/17 04:00 71 06/09/17 03:00 55 06/09/17 02:00 81 06/09/17 02:00 55 06/09/17 00:00 55 06/09/17 00:00 79 06/09/17 00:00 98.4 79 14 141/75 (97) 94 06/08/17 22:00 75 06/08/17 20:00 97.9 75 14 137/71 (93) 97 06/08/17 20:00 75 06/08/17 20:00 55 06/08/17 18:00 85 06/08/17 17:00 80 06/08/17 16:45 90 06/08/17 16:40 100 06/08/17 16:30 98 80 06/08/17 16:00 55 06/08/17 16:00 98.2 95 14 134/67 (89) 97 06/08/17 16:00 95 06/08/17 14:00 60 06/08/17 12:00 98.2 69 15 136/72 (93) 98 06/08/17 12:00 55 06/08/17 12:00 69 06/08/17 11:21 98 55 -: 06/09/17 0520 06/09/17 0520 Physical Exam General Appearance Remarks Intubated and sedated. Eyes Eye Exam: Pupils Equal Throat Throat Exam: Oral Mucosa [place] & Moist Neck Neck Exam: Neck Supple Pulmonary Resp Exam: Rhonchi, Decreased Bases, Diminished Breath Sounds, Poor Inspiratory Effort Cardiology CV Exam: Regular, Normal Sinus Rhythm Gastrointestinal/Abdomen GI Exam: Soft, Non-Tender, Bowel Sounds Present, Distended Extremeties Extremities Exam: Moderate Edema, Pitting Edema, Dependent Edema Neurologic Neuro Exam: Unresponsive, Sedated Assessment/Plan Assessment Summary: JASBIR/Acute Renal Failure, Fluid/Volume Overload Problem List: (1) Congestive heart failure (CHF) ICD Codes: I50.9 - Heart failure, unspecified (2) Acute renal injury ICD Codes: N17.9 - Acute kidney failure, unspecified (3) Acute respiratory acidosis ICD Codes: E87.2 - Acidosis Status: Acute (4) Cellulitis ICD Codes: L03.90 - Cellulitis, unspecified Status: Acute (5) COPD (chronic obstructive pulmonary disease) ICD Codes: J44.9 - Chronic obstructive pulmonary disease, unspecified Status: Acute (6) Anemia ICD Codes: D64.9 - Anemia Status: Acute (7) Obesity ICD Codes: E66.9 - Obesity, unspecified Status: Chronic (8) Afib ICD Codes: I48.91 - Unspecified atrial fibrillation Status: Chronic Plan Patient has low BP, on pressors. Develop JASBIR. Urine Na. was high and Eosinophils negative. Most likely has ATN causing JASBIR. Has been on 100 % Fio2. BP is now better. Urine out put has been very good. Bumex decreased now to 0.25 mg per hr. The edema is decreasing. Creatinine is improving , now 1.3, K is low, on replacement. Continue Bumex, follow the urine out put and BMP. On Bumex to TID, BP is stable, off pressors. Problem Qualifiers (1) COPD (chronic obstructive pulmonary disease): Qualified Codes: J44.1 - Chronic obstructive pulmonary disease with (acute) exacerbation Goldie Hernandez MD Jun 09, 2017 11:08
[2017-06-09] MEDS: SODIUM CHLOR 0.9% 1000 ML INJ 1,000 ML IV SCH (12:50)
--- NOTE | 2017-06-09 13:05 | HHI.CCPN ---
Subjective Remarks/Hospital Course 51-year-old male presents with progressive worsening shortness of breath over the past few days. Patient has history of asthma and COPD as well as history of atrial fibrillation patient states he is followed for chronic venous stasis ulcers and has been going to wound care but has not been able to see wound care doctor for the past 7-10 days. Patient's had no fever and chills. Patient's had increasing cough and wheezing. Patient presents by EMS reportedly O2 saturations were in the 80s and heart rate was 160s. He states that since he has not been going to wound care that he's had increasing swelling and drainage from his legs and thinks that that may have precipitated his shortness of breath. 06/01: decompensated overnight and intubated for persistent hypercarbia and respiratory distress. Cr uptrending. BNP elevated, but poor diuresis with high dose iv lasix. unclear to what degree CHF is contributing to his hypoxemia and shock. Lactate also rising, up to 2.8. 06/02: Remains intubated sedated critically ill. Hypotensive, asynchronous with the ventilator. Hypoxemic FiO2 up to 95%. ABG shows pH of 7.14 PCO2 of 79 PO2 89 on 95% FiO2. I have given him rocuronium 50 mg IV 1 for ventilator synchrony, increased inspiratory pressure to 32 and reduced respiratory rate to 20. Start Levophed, hold Cardizem, start amiodarone gtt 06/03: Remains severely ill very critical and uric creatinine 2.5. Anuric now. Currently on Levophed at 17 mcg/m, milrinone at 0.3 g per KG per min. Did not tolerate APRV ABG, pH 7.07, pCO2 92. UO 350 ml in 24 hours but anuric for last 10 hours.2D Echo EF 35-40%. Continue vancomycin, cefepime and azithromycin. Flagyl added for anaerobic coverage 06/04: Remains critically ill but stable to slightly improved. Levophed now weaned down to 2 mcg/m from 17. UO on Bumex gtt 12.5L in 24 hours. Fio2 at 70% with PEEP 14 to maintain oxygen saturation above 90%. Remains on Nimbex infusion 06/05: Continued good response to diuretics. Renal function remains acceptable. 06/06: Continued diuresis at lower dose bumex gtt. Replace lytes. Diamox X 3 days for contraction alkalosis. Stop if creatinine rises. 06/07: Afebrile. Remains on paralytics. Adequate diuresis with bumetanide drip. No bowel movement. Not tolerating tube feeding. 06/08: Afebrile. No bowel movement. Discontinuing the bumetadine drip. Remains paralyzed. Tolerating tube feeds since switched to Vital 1.5 Subjective 06/09: Afebrile. One bowel movement overnight. Tolerating tube feeds at goal. Weaning FiO2 to 50%. PEEP to 12. Discussed with friend at bedside Objective Vital Signs Date Time Temp Pulse Resp B/P (MAP) Pulse Ox O2 Delivery O2 Flow Rate FiO2 06/09/17 12:35 50 06/09/17 12:00 68 06/09/17 12:00 98.1 14 154/79 (104) 100 Intake and Output 06/09/17 06/09/17 06/10/17 08:00 16:00 00:00 Intake Total 2749 ml 710 ml Output Total 3250.0 ml 0 ml Balance -501.0 ml 710 ml Result Diagram: 06/09/17 0520 06/09/17 0520 Other Results Microbiology Date/Time Source Procedure Growth Status 05/31/17 02:26 Blood Peripheral Aerobic Blood Culture - Final Staphylococcus Epidermidis Complete 05/31/17 02:26 Blood Peripheral Anaerobic Blood Culture - Final NO GROWTH IN 5 DAYS Complete 06/05/17 20:00 Sputum Endotracheal Gram Stain - Final Complete 06/05/17 20:00 Sputum Endotracheal Sputum Culture - Final MODERATE GROWTH NORMAL RESPIRATORY COLTON Complete 06/03/17 21:54 Urine Catheterized Urine Urine Culture - Final NO GROWTH IN 48 HOURS. Complete Imaging Last Impressions Chest X-Ray 06/08/17 0600 Signed Impressions: Service Date/Time: Thursday, June 08, 2017 04:49 - CONCLUSION: Persistent basilar infiltrates and effusions Ganesh Ribeiro MD Renal Ultrasound 06/03/17 0000 Signed Impressions: Service Date/Time: May 22:35 - CONCLUSION: 1. The patient's body habitus prevents visualization of the kidneys. Bret Rodriguez Jr., MD Objective Remarks GENERAL: Morbidly obese male, lying in bed, intubated, sedated, critically ill, HEENT: Normocephalic. Atraumatic. Pupils equal, round, reactive. NECK: Trachea is midline. Orally intubated. CHEST distant breath sounds. Symmetrical excursion. CARDIOVASCULAR: IRR. S1, S2. No S4 without murmur ABDOMEN: Morbidly obese, Soft, nontender, beats. Hypoactive bowel sounds are appreciated. MUSCULOSKELETAL: Pulses 2+. Chronic venous stasis changes of the lower extremities with bilateral weeping and oozing. NEUROLOGICAL: Heavily sedated, incompletely paralyzed for ventilator synchrony. 4/4 twitch. Line: Central Venous Catheter Side: Right Location: Internal, Jugular A/P Assessment and Plan NEURO/PSYCH: - Currently on midazolam drip at 10 mg an hour and fentanyl drip at at 250 g an hour for sedation and ventilator synchrony, -Currently on cisatracurium drip at 2 mcg/kg per minute - Goal [id number] 2 out of 4 RESP: Acute hypoxemic respiratory failure multifactorial ARDS Obesity hypoventilation syndrome Asthma/COPD - PC/AC RR 14/ Pinsp18/PEEP 12 FiO2 50% -Currently on albuterol/ipratropium aerosols every 4 hours with albuterol aerosols every 2 hours. Dyspnea - IV Solu Medrol to 80 every 8 hours - Continue broad-spectrum antibiotics ceftriaxone and metronidazole per infectious disease - Follow-up on sputum culture. Negative Legionella and pneumococcal antigen - Patient is close to 500 lbs and cannot be proned - Started epoprostenol currently being weaned at 10,000 ng/kg per minute at 8 ml an hour due to severe hypoxemia/probable ARDS 06/03 CV: Chronic systolic heart failure Atrial fibrillation Moderate tricuspid regurgitation - Continue amiodarone at 200 mg twice a day - 2-D echo with 35-40% ejection fraction, mild MR and moderate TR - IV Bumex 1 mg per hour gtt started 06/03/17, with IV albumin with 12.5 L UO in 24 hours. Reduce Bumex to 0.5 mg/h 06/05 - Shock, septic and cardiogenic -Discontinue bumetanide drip at 0.25/hr. switch to 1 mg IV every 8 hours GI: Morbid obesity Protein calorie malnutrition - Continue tube feeding with vital 1 high protein goal 60 cc an hour. - IV famotidine for GI prophylaxis - Elevated liver enzymes most likely from hypotension/shock. - Docusate sodium 100 mg twice a day, senna 8.6 mg twice a day, polyethylene glycol 17 g daily and lactulose 30 cc twice a day. Mineral oil 10 mg 3 times a day today. As needed glycerin suppositories : Acute kidney injury - Monitor renal function closely. Brito catheter. - Nephrology consulted for acute kidney failure, anuria -Creatinine currently normalizing ID: Pneumonia? - IV ceftriaxone and metronidazole per infectious disease - Follow-up on blood urine and sputum culture no growth today. We'll add blood culture likely contaminant - Urine for pneumococcal and Legionella antigen sent - history of Pseudomonas, Klebsiella, staph infection of LE per prev notes - Wound care consulted, ID consulted -Dr. Rollins HEME: Microcytic anemia - Monitor CBC, CMP, coags - Continue IV heparin drip at 1600 units an hour for atrial fibrillation ENDO/FEN: Hypo-kalemia Hypernatremia Hyperglycemia critical illness - Careful electrolyte replacement 80 mEq KCl, On scheduled KCl 20 mEq twice a day One quarter normal saline 1 L Free water 200 every 6 hr Sliding-scale insulin with Accu-Cheks to maintain euglycemia/moderate protocol. MSK Chronic venous stasis Dakin's solution 0.25 twice a day to affected areas. Gentamicin antibiotic to affected areas PROPH: - IV heparin drip, IV famotidine LINES: - Right IJ central line and right radial arterial Overall impression: Patient is severely hypoxemic and requiring high vent rate settings. Multiple ventilator adjustments made, neuromuscularly paralyzed. Aggressive diuresis will hopefully improve gas exchange. So far 30+ liters of fluid have been removed. Critical care time 30 minutes Estevan Loving MD Jun 09, 2017 13:05
[2017-06-09] MEDS: POTASSIUM CHLOR 40 MEQ PREMIX 100 ML IV SCH ×2 (13:18→17:41)
[2017-06-09] MEDS ORDERED: POTASSIUM CHLORIDE INJ 20 MEQ, SODIUM CHLORIDE 23.4% INJ 38.5 MEQ in WATER STERILE FOR ... IV SCH (14:00)
[2017-06-09] MEDS: cefTRIAXone INJ 2,000 MG in SODIUM CHLORIDE 0.9% INJ 100 ML IV SCH (17:41)
[2017-06-09] MEDS: FREE WATER G-TUBE SCH (17:42)
[2017-06-09] MEDS: POTASSIUM CHLORIDE 20 MEQ PWD PACKET NG SCH (19:56)
--- NOTE | 2017-06-09 20:02 | HHI.IDPN ---
Subjective Subjective Remarks off pressors no fever remains sedated, paralyzed remains on vent, 55% FiO2, PEEP 14 Antibiotics CFTX flagyl Past Medical History Morbid obesity Allergies: Uncoded Allergies: Unna boots (Adverse Reaction, Unknown, 03/19/17) Objective . Vital Signs Date Time Temp Pulse Resp B/P (MAP) Pulse Ox O2 Delivery O2 Flow Rate FiO2 06/09/17 18:00 72 06/09/17 16:00 72 06/09/17 16:00 50 06/09/17 16:00 98.1 72 14 143/77 (99) 100 06/09/17 14:56 100 50 06/09/17 14:00 69 06/09/17 12:35 50 06/09/17 12:00 55 06/09/17 12:00 68 06/09/17 12:00 98.1 68 14 154/79 (104) 100 06/09/17 11:31 100 55 06/09/17 10:00 69 06/09/17 08:00 55 06/09/17 08:00 90 06/09/17 08:00 98.2 90 14 156/85 (108) 100 06/09/17 07:51 95 55 06/09/17 06:00 72 06/09/17 04:35 96 55 06/09/17 04:00 55 06/09/17 04:00 99.0 71 14 138/75 (96) 96 06/09/17 04:00 71 06/09/17 03:00 55 06/09/17 02:00 81 06/09/17 02:00 55 06/09/17 00:00 55 06/09/17 00:00 79 06/09/17 00:00 98.4 79 14 141/75 (97) 94 06/08/17 22:00 75 06/08/17 20:00 97.9 75 14 137/71 (93) 97 06/08/17 20:00 75 06/08/17 20:00 55 06/09/17 06/09/17 06/10/17 14:59 22:59 06:59 Intake Total 910 ml 2396 ml Output Total 0 ml 1675 ml Balance 910 ml 721 ml IV Total 910 ml 1526 ml Tube Feeding 570 ml Other 300 ml Output Urine Total 1675 ml Tube Feeding Residual Discard 0 ml 0 ml # Bowel Movements 2 . Laboratory Tests Test 06/08/17 04:50 06/09/17 05:20 White Blood Count 9.5 TH/MM3 9.1 TH/MM3 Red Blood Count 4.39 MIL/MM3 4.45 MIL/MM3 Hemoglobin 9.5 GM/DL 9.6 GM/DL Hematocrit 33.1 % 34.0 % Mean Corpuscular Volume 75.5 FL 76.3 FL Mean Corpuscular Hemoglobin 21.5 PG 21.5 PG Mean Corpuscular Hemoglobin Concent 28.5 % 28.1 % Red Cell Distribution Width 20.3 % 20.7 % Platelet Count 194 TH/MM3 181 TH/MM3 Mean Platelet Volume 8.7 FL 8.9 FL Neutrophils (%) (Auto) 91.9 % Lymphocytes (%) (Auto) 3.8 % Monocytes (%) (Auto) 4.3 % Eosinophils (%) (Auto) 0.0 % Basophils (%) (Auto) 0.0 % Neutrophils # (Auto) 8.4 TH/MM3 Lymphocytes # (Auto) 0.3 TH/MM3 Monocytes # (Auto) 0.4 TH/MM3 Eosinophils # (Auto) 0.0 TH/MM3 Basophils # (Auto) 0.0 TH/MM3 CBC Comment DIFF FINAL Differential Comment Laboratory Tests Test 06/08/17 04:50 06/08/17 21:40 06/09/17 05:20 06/09/17 16:15 Blood Urea Nitrogen 67 MG/DL 62 MG/DL Creatinine 1.48 MG/DL 1.32 MG/DL Random Glucose 279 MG/DL 272 MG/DL Total Protein 6.6 GM/DL 6.4 GM/DL Calcium Level 7.0 MG/DL 7.3 MG/DL Phosphorus Level 2.9 MG/DL 2.7 MG/DL Magnesium Level 1.7 MG/DL 2.0 MG/DL Sodium Level 145 MEQ/L 150 MEQ/L Potassium Level 2.6 MEQ/L 2.8 MEQ/L 3.0 MEQ/L 3.6 MEQ/L Chloride Level 99 MEQ/L 106 MEQ/L Carbon Dioxide Level 37.9 MEQ/L 37.3 MEQ/L Anion Gap 8 MEQ/L 7 MEQ/L Estimat Glomerular Filtration Rate 50 ML/MIN 57 ML/MIN Protein Corrected Calcium 7.3 MG/DL 7.7 MG/DL Albumin 3.1 GM/DL Alkaline Phosphatase 86 U/L Aspartate Amino Transf (AST/SGOT) 16 U/L Alanine Aminotransferase (ALT/SGPT) 44 U/L Total Bilirubin 0.8 MG/DL Imaging Last Impressions Chest X-Ray 06/08/17 0600 Signed Impressions: Service Date/Time: Thursday, June 08, 2017 04:49 - CONCLUSION: Persistent basilar infiltrates and effusions Ganesh Ribeiro MD Renal Ultrasound 06/03/17 0000 Signed Impressions: Service Date/Time: May 22:35 - CONCLUSION: 1. The patient's body habitus prevents visualization of the kidneys. Bret Rodriguez Jr., MD Physical Exam CONSTITUTIONAL/GENERAL: This is a morbidly obese patient, in no apparent distress. TUBES/LINES/DRAINS: SKIN: No jaundice, rashes, or lesions. ENT: .Orally intubated CARDIOVASCULAR: iregular tachycardia no murmurs, gallops, or rubs. No JVD. Peripheral pulses symmetric. RESPIRATORY/CHEST: Symmetric, unlabored respirations. Breath sounds equally diminished bilaterally. Few scattered wheezes, GASTROINTESTINAL: Abdomen soft, non-tender, quite distended. Bowel sounds present. GENITOURINARY: Without palpable bladder distension. Brito catheter in place with clear light yellow urine MUSCULOSKELETAL: Extremities without clubbing, cyanosis, + chronic appearing edema BLE with areas of hyperpigmeination Improved edema NEUROLOGICAL: Sedated and paralysed. Unresponsive PSYCHIATRIC: unable to assess Assessment & Plan Remarks Sepsis (hypothermia, hypotension, lactic acidemia) - clx remain negative - UA unremaekable b/l PNA Acute VDRF, failurte to wean - obesity hypoventilation sd Morbid obesity Obesity hypoventilation syndrom CHF Low grade Staph epi bacteremia - doubt clin significance ARF - improving Leukocytos - resolved - cont CFTX - dc flagyl - will likely dc abx after 7 days completed dw Starla Sloan MD Jun 09, 2017 20:02
[2017-06-10] VITALS (21 sets, daily range): BP systolic 128–148; BP diastolic 64–84; PULSE 77–121; RESP 14; TEMP 97.7–99; O2SAT 96–100
[2017-06-10] MEDS: RESP: ALBUTEROL 2.5 MG/IPRATROPIUM 0.5 MG NEB (SCH) INH ×6 (00:04→19:33)
[2017-06-10] MEDS: FREE WATER G-TUBE SCH ×6 (00:27→20:20)
[2017-06-10] MEDS: methylPREDNISolone SOD SUCC 125 MG/2 ML VIAL IV PUSH SCH ×3 (00:27→16:18)
[2017-06-10] MEDS ORDERED: CISATRACURIUM INJ 100 MG in SODIUM CHLOR 0.9% 250 ML INJ 250 ML IV PRN (00:30)
[2017-06-10] MEDS: INSULIN NovoLIN REGULAR SUPPLEMENTAL SCALE SQ SCH ×5 (01:08→20:42)
[2017-06-10] MEDS: CHLORHEXIDINE GLUCONATE 2 % 1 PACK (2 CLOTHS) TOP SCH (03:39)
[2017-06-10 04:15] LABS: HEMATOCRIT 35.3 % (39.0-51.0); MEAN CELL VOLUME 78.7 FL (80.0-100.0); MEAN CORPUSCULAR HEMOGLOBIN 21.8 PG (27.0-34.0); PLATELET COUNT 167 TH/MM3 (150-450); RED BLOOD COUNT 4.48 MIL/MM3 (4.50-5.90); RED CELL DISTRIBUTION WIDTH 20.8 % (11.6-17.2); REVIEW FLAG FINAL; WHITE BLOOD COUNT 9.7 TH/MM3 (4.0-11.0)
[2017-06-10 04:26] LABS: BICARBONATE 36.9 MEQ/L (21.0-32.0); MAGNESIUM 2.1 MG/DL (1.5-2.5); POTASSIUM 4.2 MEQ/L (3.5-5.1)
[2017-06-10] MEDS: fentaNYL DRIP 250 ML IV PRN ×2 (04:29→13:37)
[2017-06-10] MEDS: MIDAZOLAM 100 MG/100 ML INJ 100 ML IV PRN ×2 (04:29→13:38)
[2017-06-10 04:36] LABS: MEAN CORPUSCULAR HGB CONC 27.7 % (32.0-36.0)
[2017-06-10] MEDS: EPOPROSTENOL NEB SOLUTION 20 NG/KG/MIN 100 ML NEB SCH ×8 (06:00→20:41)
[2017-06-10] MEDS: ARTIFICIAL TEARS OPTH SOLN 15 ML BTL EACH EYE SCH ×3 (06:24→20:18)
[2017-06-10] MEDS: SODIUM CHLORIDE 0.9% FLUSH 10 ML FLUSH IV FLUSH SCH ×2 (09:00→20:19)
[2017-06-10] MEDS: GENTAMICIN SULFATE 0.1% CREAM 15 GM TOPICAL SCH ×2 (09:00→20:18)
[2017-06-10] MEDS: SENNOSIDES SYRUP 8.8 MG/5 ML CUP PO SCH ×2 (09:00→20:18)
[2017-06-10] MEDS: POTASSIUM CHLORIDE 20 MEQ PWD PACKET NG SCH ×2 (09:00→21:00)
[2017-06-10] MEDS: SODIUM HYPOCHLORITE 0.25% 500 ML BTL EXTERNAL SCH (09:00)
[2017-06-10] MEDS: CISATRACURIUM INJ 100 MG in SODIUM CHLOR 0.9% 250 ML INJ 250 ML IV PRN ×3 (09:06→21:53)
[2017-06-10] MEDS: FAMOTIDINE 20 MG/2 ML VIAL IV PUSH SCH ×2 (09:07→20:18)
[2017-06-10] MEDS: BUMETANIDE INJ 1 MG/4 ML VIAL IV PUSH SCH (09:07)
[2017-06-10] MEDS: DOCUSATE SODIUM 100 MG/10 ML UDC PO SCH ×2 (09:11→20:18)
[2017-06-10] MEDS: AMIODARONE 200 MG TAB PO SCH (09:11)
[2017-06-10] MEDS ORDERED: DEXTROSE 50% IN WATER 50 ML VIAL(D50) IV PUSH PRN (10:15)
[2017-06-10] MEDS ORDERED: GLUCAGON 1 MG/ML VIAL OTHER PRN (10:15)
--- NOTE | 2017-06-10 10:19 | HHI.CCPN ---
Subjective Remarks/Hospital Course 51-year-old male presents with progressive worsening shortness of breath over the past few days. Patient has history of asthma and COPD as well as history of atrial fibrillation patient states he is followed for chronic venous stasis ulcers and has been going to wound care but has not been able to see wound care doctor for the past 7-10 days. Patient's had no fever and chills. Patient's had increasing cough and wheezing. Patient presents by EMS reportedly O2 saturations were in the 80s and heart rate was 160s. He states that since he has not been going to wound care that he's had increasing swelling and drainage from his legs and thinks that that may have precipitated his shortness of breath. 06/01: decompensated overnight and intubated for persistent hypercarbia and respiratory distress. Cr uptrending. BNP elevated, but poor diuresis with high dose iv lasix. unclear to what degree CHF is contributing to his hypoxemia and shock. Lactate also rising, up to 2.8. 06/02: Remains intubated sedated critically ill. Hypotensive, asynchronous with the ventilator. Hypoxemic FiO2 up to 95%. ABG shows pH of 7.14 PCO2 of 79 PO2 89 on 95% FiO2. I have given him rocuronium 50 mg IV 1 for ventilator synchrony, increased inspiratory pressure to 32 and reduced respiratory rate to 20. Start Levophed, hold Cardizem, start amiodarone gtt 06/03: Remains severely ill very critical and uric creatinine 2.5. Anuric now. Currently on Levophed at 17 mcg/m, milrinone at 0.3 g per KG per min. Did not tolerate APRV ABG, pH 7.07, pCO2 92. UO 350 ml in 24 hours but anuric for last 10 hours.2D Echo EF 35-40%. Continue vancomycin, cefepime and azithromycin. Flagyl added for anaerobic coverage 06/04: Remains critically ill but stable to slightly improved. Levophed now weaned down to 2 mcg/m from 17. UO on Bumex gtt 12.5L in 24 hours. Fio2 at 70% with PEEP 14 to maintain oxygen saturation above 90%. Remains on Nimbex infusion 06/05: Continued good response to diuretics. Renal function remains acceptable. 06/06: Continued diuresis at lower dose bumex gtt. Replace lytes. Diamox X 3 days for contraction alkalosis. Stop if creatinine rises. 06/07: Afebrile. Remains on paralytics. Adequate diuresis with bumetanide drip. No bowel movement. Not tolerating tube feeding. 06/08: Afebrile. No bowel movement. Discontinuing the bumetadine drip. Remains paralyzed. Tolerating tube feeds since switched to Vital 1.5 06/09: Afebrile. One bowel movement overnight. Tolerating tube feeds at goal. Weaning FiO2 to 50%. PEEP to 12. Discussed with friend at bedside Subjective 06/10: Afebrile. Tube feeds at goal. FiO2 down to 45%. PEEP to 11. Discussed with mother at bedside. Will wean off epoprostenol today. Paralytic discontinued as well. Objective Vital Signs Date Time Temp Pulse Resp B/P (MAP) Pulse Ox O2 Delivery O2 Flow Rate FiO2 06/10/17 09:42 100 50 06/10/17 07:49 Ventilator 06/10/17 06:00 94 06/10/17 04:00 98.4 14 148/76 (100) Intake and Output 06/10/17 06/10/17 06/10/17 07:59 15:59 23:59 Intake Total 1887 ml 250 ml Output Total 1100 ml Balance 787 ml 250 ml Result Diagram: 06/10/17 03406/10/17 034 Other Results Microbiology Date/Time Source Procedure Growth Status 05/31/17 02:26 Blood Peripheral Aerobic Blood Culture - Final Staphylococcus Epidermidis Complete 05/31/17 02:26 Blood Peripheral Anaerobic Blood Culture - Final NO GROWTH IN 5 DAYS Complete 06/05/17 20:00 Sputum Endotracheal Gram Stain - Final Complete 06/05/17 20:00 Sputum Endotracheal Sputum Culture - Final MODERATE GROWTH NORMAL RESPIRATORY COLTON Complete 06/03/17 21:54 Urine Catheterized Urine Urine Culture - Final NO GROWTH IN 48 HOURS. Complete Imaging Last Impressions Chest X-Ray 06/08/17 0600 Signed Impressions: Service Date/Time: Thursday, June 08, 2017 04:49 - CONCLUSION: Persistent basilar infiltrates and effusions Ganesh Ribeiro MD Renal Ultrasound 06/03/17 0000 Signed Impressions: Service Date/Time: May 22:35 - CONCLUSION: 1. The patient's body habitus prevents visualization of the kidneys. Bret Rodriguez Jr., MD Objective Remarks GENERAL: Morbidly obese male, lying in bed, intubated, sedated, critically ill, HEENT: Normocephalic. Atraumatic. Pupils equal, round, reactive. NECK: Trachea is midline. Orally intubated. CHEST distant breath sounds. Symmetrical excursion. CARDIOVASCULAR: IRR. S1, S2. No S4 without murmur ABDOMEN: Morbidly obese, Soft, nontender, beats. Hypoactive bowel sounds are appreciated. MUSCULOSKELETAL: Pulses 2+. Chronic venous stasis changes of the lower extremities with bilateral weeping and oozing. NEUROLOGICAL: Heavily sedated, incompletely paralyzed for ventilator synchrony. / twitch. Line: Central Venous Catheter Side: Right Location: Internal, Jugular A/P Assessment and Plan NEURO/PSYCH: - Currently on midazolam drip at 10 mg an hour and fentanyl drip at at 250 g an hour for sedation and ventilator synchrony, -Currently on cisatracurium drip at 2 mcg/kg per minute. We'll discontinue today - Goal [id number] 2 out of 4 RESP: Acute hypoxemic respiratory failure multifactorial ARDS Obesity hypoventilation syndrome Asthma/COPD - PC/AC RR 14/ Pinsp18/PEEP 11 FiO2 45% -Currently on albuterol/ipratropium aerosols every 4 hours with albuterol aerosols every 2 hours. Dyspnea - IV Solu Medrol to 80 every 8 hours - Continue broad-spectrum antibiotics ceftriaxone and metronidazole per infectious disease - Follow-up on sputum culture. Negative Legionella and pneumococcal antigen - Patient is close to 500 lbs and cannot be proned - Started epoprostenol currently being weaned at 10,000 ng/kg per minute at 8 ml an hour due to severe hypoxemia/probable ARDS 06/03. We'll discontinue today CV: Chronic systolic heart failure Atrial fibrillation Moderate tricuspid regurgitation - Continue amiodarone at 200 mg twice a day - 2-D echo with 35-40% ejection fraction, mild MR and moderate TR - IV Bumex 1 mg per hour gtt started 06/03/17, with IV albumin with 12.5 L UO in 24 hours. Reduce Bumex to 0.5 mg/h 06/05 - Shock, septic and cardiogenic -Discontinue bumetanide drip at 0.25/hr on 06/09.. switch to 1 mg IV every 12 hours GI: Morbid obesity Protein calorie malnutrition - Continue tube feeding with vital 1 high protein goal 60 cc an hour. - IV famotidine for GI prophylaxis - Elevated liver enzymes most likely from hypotension/shock. - Docusate sodium 100 mg twice a day, senna 8.6 mg twice a day. As needed glycerin suppositories : Acute kidney injury - Monitor renal function closely. Brito catheter. - Nephrology consulted for acute kidney failure, anuria -Creatinine currently normalizing ID: Pneumonia? - IV ceftriaxone and metronidazole per infectious disease - Follow-up on blood urine and sputum culture no growth today. We'll add blood culture likely contaminant - Urine for pneumococcal and Legionella antigen sent - history of Pseudomonas, Klebsiella, staph infection of LE per prev notes - Wound care consulted, ID consulted -Dr. Rollins HEME: Microcytic anemia - Monitor CBC, CMP, coags - Continue IV heparin drip at 1600 units an hour for atrial fibrillation ENDO/FEN: Hypernatremia Hyperglycemia critical illness - Careful electrolyte replacement On scheduled KCl 20 mEq twice a day Started on detemir 10 units twice a day and increasing scheduled to high every 4 hours with Novulin R Free water 200 every 4 hr Sliding-scale insulin with Accu-Cheks to maintain euglycemia/moderate protocol. MSK Chronic venous stasis Dakin's solution 0.25 twice a day to affected areas. Gentamicin antibiotic to affected areas PROPH: - IV heparin drip, IV famotidine LINES: - Right IJ central line and right radial arterial Critical care time 30 minutes Estevan Loving MD Jun 10, 2017 10:19
[2017-06-10] MEDS: INSULIN DETEMIR 100 UNITS/ML VIAL SQ SCH ×2 (12:00→20:18)
[2017-06-10] MEDS: SODIUM CHLOR 0.9% 1000 ML INJ 1,000 ML IV SCH ×2 (13:00→19:00)
--- NOTE | 2017-06-10 13:08 | RADRPT ---
EXAM DATE/TIME: 06/10/2017 12:18 [facility] COMPARISON: CHEST SINGLE AP, June 08, 2017, 4:49. INDICATIONS : Short of breath, respiratory failure MEDICAL HISTORY : Hypertension. Chronic obstructive pulmonary disease. hemophilia, A-fib, asthma SURGICAL HISTORY : Appendectomy. ENCOUNTER: Subsequent ACUITY: 1 week PAIN SCORE: Non-responsive. LOCATION: Bilateral chest FINDINGS: The heart is enlarged. ET tube and central line are in satisfactory position. There is no pneumothora x. There are large bilateral effusions and diffuse interstitial prominence most consistent with congesti ve failure. The osseous structures are grossly intact. CONCLUSION: 1. Congestive failure. Stable compared to previous exam. Zhang De Jesus MD on June 10, 2017 at 13:06 Board Certified Radiologist. This report was verified electronically.
[2017-06-10] MEDS: HEPARIN-D5W 25,000 U/250 ML 250 ML IV PRN (13:40)
[2017-06-10] MEDS ORDERED: EPOPROSTENOL NEB SOLUTION 10 NG/KG/MIN 100 ML NEB SCH ×2 (14:00)
[2017-06-10] MEDS ORDERED: PROPOFOL 1000 MG/100 ML INJ 100 ML IV PRN (14:15)
[2017-06-10] MEDS ORDERED: NOREPINEPHRINE-DEXTROSE DRIP 250 ML IV ONE (14:45)
[2017-06-10] MEDS ORDERED: AMIODARONE INJ 150 MG in DEXTROSE 5% IN WATER 100ML INJ 100 ML IV ONE ×2 (14:48)
[2017-06-10] MEDS ORDERED: AMIODARONE INJ 900 MG in DEXTROSE 5% IN WATE 500 ML INJ 482 ML IV PRN ×2 (14:58)
--- NOTE | 2017-06-10 15:29 | HHI.NPPN ---
Subjective History of Present Illness 51-year-old male with past medical history of diabetes mellitus, morbid obesity, chronic obstructive pulmonary disease, bronchial asthma, gastroesophageal reflux disease, atrial fibrillation, history of stasis ulcer of the leg with chronic edema. He was admitted to the hospital with progressive worsening shortness of breath. I was called to see the patient because of elevated BUN and creatinine. The patient has creatinine of 1.2 on admission which has been gradually getting worse. Additional Remarks Patient is intubated and sedated and paralyzed, remain on the vent. and clinically same. Objective Data Data 06/10/17 06/11/17 19:00 07:00 Intake Total 250 ml Balance 250 ml IV Total 250 ml Vital Signs Date Time Temp Pulse Resp B/P (MAP) Pulse Ox O2 Delivery O2 Flow Rate FiO2 06/10/17 14:00 121 06/10/17 12:45 98 45 06/10/17 12:00 50 06/10/17 12:00 97 06/10/17 10:00 84 06/10/17 09:42 100 50 06/10/17 08:00 92 06/10/17 08:00 50 06/10/17 07:49 100 Ventilator 50 06/10/17 06:00 94 06/10/17 04:10 96 50 06/10/17 04:00 50 06/10/17 04:00 116 06/10/17 04:00 98.4 116 14 148/76 (100) 97 06/10/17 02:00 94 06/10/17 01:38 99 50 06/10/17 00:00 113 06/10/17 00:00 97.7 113 14 143/84 (103) 99 06/10/17 00:00 50 06/09/17 22:00 86 06/09/17 20:00 97 06/09/17 20:00 98.1 92 14 152/86 (108) 98 06/09/17 20:00 50 06/09/17 19:59 93 50 06/09/17 18:00 72 06/09/17 16:00 72 06/09/17 16:00 50 06/09/17 16:00 98.1 72 14 143/77 (99) 100 -: 06/10/17 0340 06/10/17 0340 Physical Exam General Appearance Remarks Intubated and sedated. Eyes Eye Exam: Pupils Equal Throat Throat Exam: Oral Mucosa [place] & Moist Neck Neck Exam: Neck Supple Pulmonary Resp Exam: Rhonchi, Decreased Bases, Diminished Breath Sounds, Poor Inspiratory Effort Cardiology CV Exam: Regular, Normal Sinus Rhythm Gastrointestinal/Abdomen GI Exam: Soft, Non-Tender, Bowel Sounds Present, Distended Extremeties Extremities Exam: Moderate Edema, Pitting Edema, Dependent Edema Neurologic Neuro Exam: Unresponsive, Sedated Assessment/Plan Assessment Summary: JASBIR/Acute Renal Failure, Fluid/Volume Overload Problem List: (1) Congestive heart failure (CHF) ICD Codes: I50.9 - Heart failure, unspecified (2) Acute renal injury ICD Codes: N17.9 - Acute kidney failure, unspecified (3) Acute respiratory acidosis ICD Codes: E87.2 - Acidosis Status: Acute (4) Cellulitis ICD Codes: L03.90 - Cellulitis, unspecified Status: Acute (5) COPD (chronic obstructive pulmonary disease) ICD Codes: J44.9 - Chronic obstructive pulmonary disease, unspecified Status: Acute (6) Anemia ICD Codes: D64.9 - Anemia Status: Acute (7) Obesity ICD Codes: E66.9 - Obesity, unspecified Status: Chronic (8) Afib ICD Codes: I48.91 - Unspecified atrial fibrillation Status: Chronic Plan Patient has low BP, on pressors. Develop JASBIR. Urine Na. was high and Eosinophils negative. Most likely has ATN causing JASBIR. Has been on 100 % Fio2. BP is now better. Urine out put has been very good. Bumex decreased now to 0.25 mg per hr. The edema is decreasing. Creatinine is improving , now 1.1, K is better, Na. is improving. Continue Bumex, follow the urine out put and BMP. Weaning from paralysis and Vent. as per CCM. Problem Qualifiers (1) COPD (chronic obstructive pulmonary disease): Qualified Codes: J44.1 - Chronic obstructive pulmonary disease with (acute) exacerbation Goldie Hernanedz MD Jun 10, 2017 15:29
[2017-06-10] MEDS: AMIODARONE INJ 450 MG in D5W (EXCEL BAG) INJ 241 ML IV SCH ×2 (15:56→23:32)
[2017-06-10] MEDS: cefTRIAXone INJ 2,000 MG in SODIUM CHLORIDE 0.9% INJ 100 ML IV SCH (16:18)
[2017-06-11] VITALS (17 sets, daily range): BP systolic 123–145; BP diastolic 64–83; PULSE 5–99; RESP 14; TEMP 97.9–99; O2SAT 83–100
[2017-06-11] MEDS: methylPREDNISolone SOD SUCC 125 MG/2 ML VIAL IV PUSH SCH ×3 (00:21→16:56)
[2017-06-11] MEDS: fentaNYL DRIP 250 ML IV PRN ×3 (00:21→19:53)
[2017-06-11] MEDS: INSULIN NovoLIN REGULAR SUPPLEMENTAL SCALE SQ SCH ×6 (00:23→20:32)
[2017-06-11] MEDS: RESP: ALBUTEROL 2.5 MG/IPRATROPIUM 0.5 MG NEB (SCH) INH ×6 (00:51→19:49)
[2017-06-11] MEDS: MIDAZOLAM 100 MG/100 ML INJ 100 ML IV PRN ×3 (01:14→20:38)
[2017-06-11] MEDS: EPOPROSTENOL NEB SOLUTION 20 NG/KG/MIN 100 ML NEB SCH ×6 (02:00→18:58)
[2017-06-11] MEDS: CISATRACURIUM INJ 100 MG in SODIUM CHLOR 0.9% 250 ML INJ 250 ML IV PRN ×4 (02:10→19:05)
[2017-06-11] MEDS: CHLORHEXIDINE GLUCONATE 2 % 1 PACK (2 CLOTHS) TOP SCH (03:24)
[2017-06-11] MEDS: ARTIFICIAL TEARS OPTH SOLN 15 ML BTL EACH EYE SCH ×3 (04:45→20:33)
[2017-06-11 05:06] LABS: BLOOD GAS BASE EXCESS 9.7 mmol/L (-2-2); BLOOD GAS CARBOXYHEMOGLOBIN 1.6 % (0-4); BLOOD GAS HCO3 35 mmol/L (22-26); BLOOD GAS O2 HGB SATURATION 95 % (90-100); BLOOD GAS OXYGEN CONTENT 12.3 Vol % (12.0-20.0); BLOOD GAS PCO2 56 mmHg (38-42); BLOOD GAS PO2 97 mmHg (61-120); BLOOD GAS TOTAL HGB 9.1 G/DL (12.0-16.0); TEMP CORR TO 98.6
[2017-06-11 05:09] LABS: CRITICAL VALUE YES; OXYGEN DEVICE VENTILATOR
[2017-06-11 05:10] LABS: FIO2 60 %; VENT SETTINGS PC/AC
[2017-06-11 05:11] LABS: DRAW SITE ART LINE; STAT NO
[2017-06-11 05:16] LABS: AUTOMATED NEUTROPHIL # 8.2 TH/MM3 (1.8-7.7); BASOPHIL % 0.5 % (0.0-2.0); HEMATOCRIT 33.5 % (39.0-51.0); LYMPH % 3.3 % (9.0-44.0); LYMPHOCYTE # 0.3 TH/MM3 (1.0-4.8); MEAN CELL VOLUME 77.8 FL (80.0-100.0); MEAN CORPUSCULAR HEMOGLOBIN 21.9 PG (27.0-34.0); NEUT % 93.2 % (16.0-70.0); PLATELET COUNT 164 TH/MM3 (150-450); RED BLOOD COUNT 4.31 MIL/MM3 (4.50-5.90); RED CELL DISTRIBUTION WIDTH 20.5 % (11.6-17.2); WHITE BLOOD COUNT 8.8 TH/MM3 (4.0-11.0)
[2017-06-11 05:17] LABS: HEMO FLAGS AUTO DIFF; MEAN CORPUSCULAR HGB CONC 28.1 % (32.0-36.0)
[2017-06-11 05:23] LABS: APTT (PATIENT) 68.9 SEC (24.3-30.1)
[2017-06-11] MEDS: HEPARIN-D5W 25,000 U/250 ML 250 ML IV PRN ×2 (05:48→20:50)
[2017-06-11] MEDS: AMIODARONE INJ 450 MG in D5W (EXCEL BAG) INJ 241 ML IV SCH ×3 (06:07→20:33)
[2017-06-11] MEDS: FREE WATER G-TUBE SCH ×5 (08:00→19:56)
[2017-06-11 08:09] LABS: BLOOD UREA NITROGEN 62 MG/DL (7-18); GLOMERULAR FILTRATION RATE 72 ML/MIN (>89)
[2017-06-11 08:10] LABS: ALKALINE PHOSPHATASE 74 U/L (45-117); MAGNESIUM 2.1 MG/DL (1.5-2.5)
[2017-06-11 08:11] LABS: ALT (GPT) 35 U/L (12-78); ANION GAP 7 MEQ/L (5-15); AST (GOT) 13 U/L (15-37); BICARBONATE 33.3 MEQ/L (21.0-32.0); CHLORIDE 109 MEQ/L (98-107); POTASSIUM 4.1 MEQ/L (3.5-5.1); SODIUM (NA) 149 MEQ/L (136-145); TOTAL BILIRUBIN ADULT 0.7 MG/DL (0.2-1.0)
[2017-06-11 08:25] LABS: ACANTHOCYTES OCC (NORMAL); OVALOCYTES 2+ (NORMAL)
[2017-06-11 08:26] LABS: SCAN/DIFF AUTO DIFF CONFIRMED
[2017-06-11] MEDS: POTASSIUM CHLORIDE 20 MEQ PWD PACKET NG SCH ×2 (09:00→20:32)
[2017-06-11] MEDS: SODIUM HYPOCHLORITE 0.25% 500 ML BTL EXTERNAL SCH (09:00)
[2017-06-11] MEDS: SODIUM CHLORIDE 0.9% FLUSH 10 ML FLUSH IV FLUSH SCH ×2 (09:00→19:56)
[2017-06-11] MEDS: GENTAMICIN SULFATE 0.1% CREAM 15 GM TOPICAL SCH ×2 (09:00→19:57)
[2017-06-11] MEDS: BUMETANIDE INJ 1 MG/4 ML VIAL IV PUSH SCH ×2 (09:38→19:56)
[2017-06-11] MEDS: SENNOSIDES SYRUP 8.8 MG/5 ML CUP PO SCH ×2 (09:38→19:56)
[2017-06-11] MEDS: FAMOTIDINE 20 MG/2 ML VIAL IV PUSH SCH ×2 (09:38→19:56)
[2017-06-11] MEDS: DOCUSATE SODIUM 100 MG/10 ML UDC PO SCH ×2 (09:38→19:57)
[2017-06-11] MEDS: INSULIN DETEMIR 100 UNITS/ML VIAL SQ SCH ×2 (09:44→20:33)
--- NOTE | 2017-06-11 10:40 | HHI.NPPN ---
Subjective History of Present Illness 51-year-old male with past medical history of diabetes mellitus, morbid obesity, chronic obstructive pulmonary disease, bronchial asthma, gastroesophageal reflux disease, atrial fibrillation, history of stasis ulcer of the leg with chronic edema. He was admitted to the hospital with progressive worsening shortness of breath. I was called to see the patient because of elevated BUN and creatinine. The patient has creatinine of 1.2 on admission which has been gradually getting worse. Additional Remarks Patient is intubated and sedated and paralyzed, remain on the vent. and clinically same. Objective Data Data 06/11/17 06/12/17 19:00 07:00 Intake Total 100 ml Output Total 0 ml Balance 100 ml IV Total 100 ml Tube Feeding Residual Discard 0 ml Vital Signs Date Time Temp Pulse Resp B/P (MAP) Pulse Ox O2 Delivery O2 Flow Rate FiO2 06/11/17 10:00 92 06/11/17 09:10 83 60 06/11/17 08:00 98.3 97 14 126/75 (92) 100 06/11/17 08:00 97 06/11/17 08:00 60 06/11/17 07:49 100 50 06/11/17 06:00 85 06/11/17 04:00 50 06/11/17 04:00 70 06/11/17 04:00 98.2 70 14 145/76 (99) 100 06/11/17 03:35 100 60 06/11/17 02:00 76 06/11/17 00:00 50 06/11/17 00:00 78 06/11/17 00:00 98.4 78 14 123/64 (83) 100 06/10/17 23:32 72 129/70 06/10/17 22:15 100 60 06/10/17 22:00 88 06/10/17 20:20 100 60 06/10/17 20:00 77 06/10/17 20:00 50 06/10/17 20:00 99.0 77 14 128/64 (85) 96 06/10/17 19:38 98 60 06/10/17 18:00 84 06/10/17 16:00 86 06/10/17 16:00 70 06/10/17 15:57 94 128/72 06/10/17 15:56 107 135/71 06/10/17 15:37 100 70 06/10/17 14:00 121 06/10/17 12:45 98 45 06/10/17 12:00 50 06/10/17 12:00 97 -: 06/11/17 0450 06/11/17 0450 Physical Exam General Appearance Remarks Intubated and sedated. Eyes Eye Exam: Pupils Equal Throat Throat Exam: Oral Mucosa [place] & Moist Neck Neck Exam: Neck Supple Pulmonary Resp Exam: Rhonchi, Decreased Bases, Diminished Breath Sounds, Poor Inspiratory Effort Cardiology CV Exam: Regular, Normal Sinus Rhythm Gastrointestinal/Abdomen GI Exam: Soft, Non-Tender, Bowel Sounds Present, Distended Extremeties Extremities Exam: Moderate Edema, Pitting Edema, Dependent Edema Neurologic Neuro Exam: Unresponsive, Sedated Assessment/Plan Assessment Summary: JASBIR/Acute Renal Failure, Fluid/Volume Overload Problem List: (1) Congestive heart failure (CHF) ICD Codes: I50.9 - Heart failure, unspecified (2) Acute renal injury ICD Codes: N17.9 - Acute kidney failure, unspecified (3) Acute respiratory acidosis ICD Codes: E87.2 - Acidosis Status: Acute (4) Cellulitis ICD Codes: L03.90 - Cellulitis, unspecified Status: Acute (5) COPD (chronic obstructive pulmonary disease) ICD Codes: J44.9 - Chronic obstructive pulmonary disease, unspecified Status: Acute (6) Anemia ICD Codes: D64.9 - Anemia Status: Acute (7) Obesity ICD Codes: E66.9 - Obesity, unspecified Status: Chronic (8) Afib ICD Codes: I48.91 - Unspecified atrial fibrillation Status: Chronic Plan Patient has low BP, on pressors. Develop JASBIR. Urine Na. was high and Eosinophils negative. Most likely has ATN causing JASBIR. Has been on 100 % Fio2. BP is now better. Urine out put has been very good. Bumex decreased now to 0.25 mg per hr. The edema is decreasing. Creatinine is improving , now 1.1, K is better, Na. is improving. Continue Bumex, follow the urine out put and BMP. Weaning from paralysis and Vent. as per CCM. Problem Qualifiers (1) COPD (chronic obstructive pulmonary disease): Qualified Codes: J44.1 - Chronic obstructive pulmonary disease with (acute) exacerbation Goldie Hernandez MD Jun 11, 2017 10:40
[2017-06-11] MEDS: SODIUM CHLOR 0.9% 1000 ML INJ 1,000 ML IV SCH (13:00)
--- NOTE | 2017-06-11 14:12 | HHI.CCPN ---
Subjective Remarks/Hospital Course 51-year-old male presents with progressive worsening shortness of breath over the past few days. Patient has history of asthma and COPD as well as history of atrial fibrillation patient states he is followed for chronic venous stasis ulcers and has been going to wound care but has not been able to see wound care doctor for the past 7-10 days. Patient's had no fever and chills. Patient's had increasing cough and wheezing. Patient presents by EMS reportedly O2 saturations were in the 80s and heart rate was 160s. He states that since he has not been going to wound care that he's had increasing swelling and drainage from his legs and thinks that that may have precipitated his shortness of breath. 06/01: decompensated overnight and intubated for persistent hypercarbia and respiratory distress. Cr uptrending. BNP elevated, but poor diuresis with high dose iv lasix. unclear to what degree CHF is contributing to his hypoxemia and shock. Lactate also rising, up to 2.8. 06/02: Remains intubated sedated critically ill. Hypotensive, asynchronous with the ventilator. Hypoxemic FiO2 up to 95%. ABG shows pH of 7.14 PCO2 of 79 PO2 89 on 95% FiO2. I have given him rocuronium 50 mg IV 1 for ventilator synchrony, increased inspiratory pressure to 32 and reduced respiratory rate to 20. Start Levophed, hold Cardizem, start amiodarone gtt 06/03: Remains severely ill very critical and uric creatinine 2.5. Anuric now. Currently on Levophed at 17 mcg/m, milrinone at 0.3 g per KG per min. Did not tolerate APRV ABG, pH 7.07, pCO2 92. UO 350 ml in 24 hours but anuric for last 10 hours.2D Echo EF 35-40%. Continue vancomycin, cefepime and azithromycin. Flagyl added for anaerobic coverage 06/04: Remains critically ill but stable to slightly improved. Levophed now weaned down to 2 mcg/m from 17. UO on Bumex gtt 12.5L in 24 hours. Fio2 at 70% with PEEP 14 to maintain oxygen saturation above 90%. Remains on Nimbex infusion 06/05: Continued good response to diuretics. Renal function remains acceptable. 06/06: Continued diuresis at lower dose bumex gtt. Replace lytes. Diamox X 3 days for contraction alkalosis. Stop if creatinine rises. 06/07: Afebrile. Remains on paralytics. Adequate diuresis with bumetanide drip. No bowel movement. Not tolerating tube feeding. 06/08: Afebrile. No bowel movement. Discontinuing the bumetadine drip. Remains paralyzed. Tolerating tube feeds since switched to Vital 1.5 06/09: Afebrile. One bowel movement overnight. Tolerating tube feeds at goal. Weaning FiO2 to 50%. PEEP to 12. Discussed with friend at bedside 06/10: Afebrile. Tube feeds at goal. FiO2 down to 45%. PEEP to 11. Discussed with mother at bedside. Will wean off epoprostenol today. Paralytic discontinued as well. Subjective: 06/11: Attempted to wean off paralytic yesterday. Patient became bradycardic and tachycardic with significantly decreased tidal volumes. Repeat paralyzed and saturations and tidal volumes with return to normal. No bowel movement yesterday. Tolerating tube feeding. Objective Vital Signs Date Time Temp Pulse Resp B/P (MAP) Pulse Ox O2 Delivery O2 Flow Rate FiO2 06/11/17 13:25 75 133/71 06/11/17 09:10 83 60 06/11/17 08:00 98.3 14 06/10/17 07:49 Ventilator Intake and Output 06/11/17 06/11/17 06/12/17 08:00 16:00 00:00 Intake Total 2080 ml 365 ml Output Total 1500.0 ml Balance 580.0 ml 365 ml Result Diagram: 06/11/17 0450 06/11/17 0450 Other Results Laboratory Tests Test 06/11/17 04:44 Blood Gas Puncture Site ART LINE Blood Gas Patient Temperature 98.6 Blood Gas HCO3 35 mmol/L (22-26) Blood Gas Base Excess 9.7 mmol/L (-2-2) Blood Gas Oxygen Saturation 95 % (90-100) Arterial Blood pH 7.41 (7.380-7.420) Arterial Blood Partial Pressure CO2 56 mmHg (38-42) Arterial Blood Partial Pressure O2 97 mmHg (61-120) Arterial Blood Oxygen Content 12.3 Vol % (12.0-20.0) Arterial Blood Carboxyhemoglobin 1.6 % (0-4) Arterial Blood Methemoglobin 1.0 % (0-2) Blood Gas Hemoglobin 9.1 G/DL (12.0-16.0) Oxygen Delivery Device VENTILATOR Blood Gas Ventilator Setting PC/AC Blood Gas Inspired Oxygen 60 % Imaging Last Impressions Chest X-Ray 06/10/17 0000 Signed Impressions: Service Date/Time: May 12:18 - CONCLUSION: 1. Congestive failure. Stable compared to previous exam. Zhang De Jesus MD Renal Ultrasound 06/03/17 0000 Signed Impressions: Service Date/Time: May 22:35 - CONCLUSION: 1. The patient's body habitus prevents visualization of the kidneys. Bret Rodriguez Jr., MD Objective Remarks GENERAL: Morbidly obese male, lying in bed, intubated, sedated, critically ill, HEENT: Normocephalic. Atraumatic. Pupils equal, round, reactive. NECK: Trachea is midline. Orally intubated. CHEST distant breath sounds. Symmetrical excursion. CARDIOVASCULAR: Distant. IR. Tachycardia. S1, S2. No S4 without murmur ABDOMEN: Morbidly obese, Soft, nontender, beats. Hypoactive bowel sounds are appreciated. MUSCULOSKELETAL: Pulses 2+. Chronic venous stasis changes of the lower extremities with bilateral weeping and oozing. NEUROLOGICAL: Heavily sedated, incompletely paralyzed for ventilator synchrony. 4/4 twitch. Line: Central Venous Catheter Side: Right Location: Internal, Jugular A/P Assessment and Plan NEURO/PSYCH: - Currently on midazolam drip at 10 mg an hour and fentanyl drip at at 250 g an hour for sedation and ventilator synchrony, -Currently on cisatracurium drip at 1 mcg/kg per minute. We'll discontinue today - Goal [id number]-pbee 2 out of 4 RESP: Acute hypoxemic respiratory failure multifactorial ARDS Obesity hypoventilation syndrome Asthma/COPD - PC/AC RR 14/ Pinsp24/PEEP 14 FiO2 60% -Currently on albuterol/ipratropium aerosols every 4 hours with albuterol aerosols every 2 hours. Dyspnea - IV Solu Medrol to 60 every 8 hours - Continue broad-spectrum antibiotics ceftriaxone and metronidazole per infectious disease - Follow-up on sputum culture. Negative Legionella and pneumococcal antigen - Patient is close to 500 lbs and cannot be proned - Started epoprostenol currently being weaned at 10,000 ng/kg per minute at 8 ml an hour due to severe hypoxemia/probable ARDS 06/03. We'll discontinue today CV: Chronic systolic heart failure Atrial fibrillation Moderate tricuspid regurgitation - Continue amiodarone drip at 0.5 g/mL - 2-D echo with 35-40% ejection fraction, mild MR and moderate TR - Shock, septic and cardiogenic -Discontinue bumetanide drip at 0.25/hr on 06/09.. switch to 1 mg IV every 12 hours GI: Morbid obesity Protein calorie malnutrition - Continue tube feeding with vital 1 high protein goal 60 cc an hour. - IV famotidine for GI prophylaxis - Elevated liver enzymes most likely from hypotension/shock. - Docusate sodium 100 mg twice a day, senna 8.6 mg twice a day. Polyethylene glycol 17 g twice a day. As needed glycerin suppositories : Acute kidney injury - Monitor renal function closely. Brito catheter. - Nephrology consulted for acute kidney failure, anuria -Creatinine currently normalizing ID: Pneumonia? - IV ceftriaxone and metronidazole per infectious disease - Follow-up on blood urine and sputum culture no growth today. We'll add blood culture likely contaminant - Urine for pneumococcal and Legionella antigen sent - history of Pseudomonas, Klebsiella, staph infection of LE per prev notes - Wound care consulted, ID consulted -Dr. Rollins HEME: Microcytic anemia - Monitor CBC, CMP, coags - Continue IV heparin drip at 1600 units an hour for atrial fibrillation ENDO/FEN: Hypernatremia Hyperglycemia critical illness - Careful electrolyte replacement On scheduled KCl 20 mEq twice a day Started on detemir 10 units twice a day and increasing scheduled to high every 4 hours with Novulin R Free water 200 every 4 hr Sliding-scale insulin with Accu-Cheks to maintain euglycemia/moderate protocol. MSK Chronic venous stasis Dakin's solution 0.25 twice a day to affected areas. Gentamicin antibiotic to affected areas PROPH: - IV heparin drip, IV famotidine LINES: - Right IJ central line and right radial arterial Critical care time 30 minutes Estevan Loving MD Jun 11, 2017 14:12
[2017-06-11] MEDS ORDERED: SODIUM CHLORIDE 23.4% INJ 38.5 MEQ in WATER STERILE FOR INJ 1,000 ML IV SCH (16:00)
[2017-06-11] MEDS: cefTRIAXone INJ 2,000 MG in SODIUM CHLORIDE 0.9% INJ 100 ML IV SCH (16:55)
--- NOTE | 2017-06-11 17:08 | HHI.IDPN ---
Subjective Subjective Remarks off pressors no fever remains sedated, paralyzed remains on vent, 55% FiO2, PEEP 14 Antibiotics CFTX Past Medical History Morbid obesity Allergies: Coded Allergies: propofol (Verified Adverse Reaction, Severe, hypotension, 06/10/17) Uncoded Allergies: Unna boots (Adverse Reaction, Unknown, 03/19/17) Objective . Vital Signs Date Time Temp Pulse Resp B/P (MAP) Pulse Ox O2 Delivery O2 Flow Rate FiO2 06/11/17 13:25 75 133/71 06/11/17 10:00 92 06/11/17 09:10 83 60 06/11/17 08:00 98.3 97 14 126/75 (92) 100 06/11/17 08:00 97 06/11/17 08:00 60 06/11/17 07:49 100 50 06/11/17 06:00 85 06/11/17 04:00 50 06/11/17 04:00 70 06/11/17 04:00 98.2 70 14 145/76 (99) 100 06/11/17 03:35 100 60 06/11/17 02:00 76 06/11/17 00:00 50 06/11/17 00:00 78 06/11/17 00:00 98.4 78 14 123/64 (83) 100 06/10/17 23:32 72 129/70 06/10/17 22:15 100 60 06/10/17 22:00 88 06/10/17 20:20 100 60 06/10/17 20:00 77 06/10/17 20:00 50 06/10/17 20:00 99.0 77 14 128/64 (85) 96 06/10/17 19:38 98 60 06/10/17 18:00 84 06/11/17 06/11/17 06/12/17 15:00 23:00 07:00 Intake Total 365 ml Output Total 0 ml Balance 365 ml IV Total 365 ml Tube Feeding Residual Discard 0 ml . Laboratory Tests Test 06/10/17 03:40 06/11/17 04:50 White Blood Count 9.7 TH/MM3 8.8 TH/MM3 Red Blood Count 4.48 MIL/MM3 4.31 MIL/MM3 Hemoglobin 9.8 GM/DL 9.4 GM/DL Hematocrit 35.3 % 33.5 % Mean Corpuscular Volume 78.7 FL 77.8 FL Mean Corpuscular Hemoglobin 21.8 PG 21.9 PG Mean Corpuscular Hemoglobin Concent 27.7 % 28.1 % Red Cell Distribution Width 20.8 % 20.5 % Platelet Count 167 TH/MM3 164 TH/MM3 Mean Platelet Volume 9.0 FL 9.1 FL Neutrophils (%) (Auto) 93.2 % Lymphocytes (%) (Auto) 3.3 % Monocytes (%) (Auto) 3.0 % Eosinophils (%) (Auto) 0.0 % Basophils (%) (Auto) 0.5 % Neutrophils # (Auto) 8.2 TH/MM3 Lymphocytes # (Auto) 0.3 TH/MM3 Monocytes # (Auto) 0.3 TH/MM3 Eosinophils # (Auto) 0.0 TH/MM3 Basophils # (Auto) 0.0 TH/MM3 CBC Comment AUTO DIFF Differential Comment AUTO DIFF CONFIRMED Ovalocytes 2+ Acanthocytes OCC Laboratory Tests Test 06/10/17 03:40 06/11/17 04:50 Blood Urea Nitrogen 63 MG/DL 62 MG/DL Creatinine 1.13 MG/DL 1.08 MG/DL Random Glucose 279 MG/DL 308 MG/DL Calcium Level 7.6 MG/DL 8.2 MG/DL Phosphorus Level 3.7 MG/DL 2.5 MG/DL Magnesium Level 2.1 MG/DL 2.1 MG/DL Sodium Level 149 MEQ/L 149 MEQ/L Potassium Level 4.2 MEQ/L 4.1 MEQ/L Chloride Level 108 MEQ/L 109 MEQ/L Carbon Dioxide Level 36.9 MEQ/L 33.3 MEQ/L Anion Gap 4 MEQ/L 7 MEQ/L Estimat Glomerular Filtration Rate 69 ML/MIN 72 ML/MIN Total Protein 5.9 GM/DL Albumin 2.9 GM/DL Alkaline Phosphatase 74 U/L Aspartate Amino Transf (AST/SGOT) 13 U/L Alanine Aminotransferase (ALT/SGPT) 35 U/L Total Bilirubin 0.7 MG/DL Imaging Last Impressions Chest X-Ray 06/10/17 0000 Signed Impressions: Service Date/Time: May 12:18 - CONCLUSION: 1. Congestive failure. Stable compared to previous exam. Zhang De Jesus MD Renal Ultrasound 06/03/17 0000 Signed Impressions: Service Date/Time: May 22:35 - CONCLUSION: 1. The patient's body habitus prevents visualization of the kidneys. Bret Rodriguez Jr., MD Physical Exam CONSTITUTIONAL/GENERAL: This is a morbidly obese patient, in no apparent distress. TUBES/LINES/DRAINS: SKIN: No jaundice, rashes, or lesions. ENT: .Orally intubated CARDIOVASCULAR: iregular tachycardia no murmurs, gallops, or rubs. No JVD. Peripheral pulses symmetric. RESPIRATORY/CHEST: Symmetric, unlabored respirations. Breath sounds equally diminished bilaterally. Few scattered wheezes, GASTROINTESTINAL: Abdomen soft, non-tender, quite distended. Bowel sounds present. GENITOURINARY: Without palpable bladder distension. Brito catheter in place with clear light yellow urine MUSCULOSKELETAL: Extremities without clubbing, cyanosis, + chronic appearing edema BLE with areas of hyperpigmeination Improved edema NEUROLOGICAL: Sedated and paralysed. Unresponsive PSYCHIATRIC: unable to assess Assessment & Plan Remarks Sepsis (hypothermia, hypotension, lactic acidemia) - clx remain negative - UA unremaekable b/l PNA Acute VDRF, failurte to wean - obesity hypoventilation sd Morbid obesity Obesity hypoventilation syndrom CHF Low grade Staph epi bacteremia - doubt clin significance ARF - improving Leukocytos - resolved - dc CFTX - dc flagyl - will likely dc abx after 7 days completed dw Starla Matson MD Jun 11, 2017 17:08
[2017-06-11] MEDS: POLYETHYLENE GLYCOL 17 GM PKG PO SCH (19:57)
[2017-06-12] VITALS (19 sets, daily range): BP systolic 124–164; BP diastolic 70–86; PULSE 70–116; RESP 14; TEMP 98–99.3; O2SAT 93–100
[2017-06-12] MEDS: RESP: ALBUTEROL 2.5 MG/IPRATROPIUM 0.5 MG NEB (SCH) INH ×7 (00:06→23:40)
[2017-06-12] MEDS: methylPREDNISolone SOD SUCC 125 MG/2 ML VIAL IV PUSH SCH ×4 (00:59→23:39)
[2017-06-12] MEDS: INSULIN NovoLIN REGULAR SUPPLEMENTAL SCALE SQ SCH ×7 (01:00→23:40)
[2017-06-12] MEDS: EPOPROSTENOL NEB SOLUTION 20 NG/KG/MIN 100 ML NEB SCH ×6 (01:14→12:34)
[2017-06-12] MEDS: CISATRACURIUM INJ 100 MG in SODIUM CHLOR 0.9% 250 ML INJ 250 ML IV PRN ×5 (02:08→23:50)
[2017-06-12] MEDS: CHLORHEXIDINE GLUCONATE 2 % 1 PACK (2 CLOTHS) TOP SCH (03:49)
[2017-06-12] MEDS: AMIODARONE INJ 450 MG in D5W (EXCEL BAG) INJ 241 ML IV SCH ×2 (04:00→14:46)
[2017-06-12 04:37] LABS: AUTOMATED NEUTROPHIL # 9.8 TH/MM3 (1.8-7.7); BASOPHIL % 0.1 % (0.0-2.0); HEMATOCRIT 32.3 % (39.0-51.0); HEMO FLAGS DIFF FINAL; LYMPH % 2.4 % (9.0-44.0); LYMPHOCYTE # 0.3 TH/MM3 (1.0-4.8); MEAN CELL VOLUME 78.2 FL (80.0-100.0); MEAN CORPUSCULAR HEMOGLOBIN 22.2 PG (27.0-34.0); MONO % 3.5 % (0.0-8.0); PLATELET COUNT 142 TH/MM3 (150-450); RED BLOOD COUNT 4.13 MIL/MM3 (4.50-5.90); RED CELL DISTRIBUTION WIDTH 19.8 % (11.6-17.2); WHITE BLOOD COUNT 10.4 TH/MM3 (4.0-11.0)
[2017-06-12 04:39] LABS: MEAN CORPUSCULAR HGB CONC 28.4 % (32.0-36.0)
[2017-06-12 04:43] LABS: ANION GAP 4 MEQ/L (5-15); AST (GOT) 11 U/L (15-37); BLOOD UREA NITROGEN 65 MG/DL (7-18); CHLORIDE 110 MEQ/L (98-107); GLOMERULAR FILTRATION RATE 73 ML/MIN (>89); MAGNESIUM 2.2 MG/DL (1.5-2.5); POTASSIUM 4.3 MEQ/L (3.5-5.1); SODIUM (NA) 150 MEQ/L (136-145)
[2017-06-12 04:48] LABS: ALKALINE PHOSPHATASE 75 U/L (45-117); ALT (GPT) 40 U/L (12-78); TOTAL BILIRUBIN ADULT 0.8 MG/DL (0.2-1.0)
[2017-06-12] MEDS: ARTIFICIAL TEARS OPTH SOLN 15 ML BTL EACH EYE SCH ×3 (05:09→21:02)
[2017-06-12] MEDS: fentaNYL DRIP 250 ML IV PRN ×2 (05:40→16:37)
[2017-06-12] MEDS: MIDAZOLAM 100 MG/100 ML INJ 100 ML IV PRN ×2 (06:26→15:53)
[2017-06-12] MEDS: FREE WATER G-TUBE SCH ×6 (08:00→23:38)
[2017-06-12] MEDS: SODIUM HYPOCHLORITE 0.25% 500 ML BTL EXTERNAL SCH (09:00)
[2017-06-12] MEDS: POTASSIUM CHLORIDE 20 MEQ PWD PACKET NG SCH ×2 (09:00→21:01)
[2017-06-12] MEDS: SODIUM CHLORIDE 0.9% FLUSH 10 ML FLUSH IV FLUSH SCH ×2 (09:00→21:00)
[2017-06-12] MEDS: GENTAMICIN SULFATE 0.1% CREAM 15 GM TOPICAL SCH ×2 (09:00→21:02)
[2017-06-12] MEDS: HEPARIN-D5W 25,000 U/250 ML 250 ML IV PRN ×2 (09:23→23:50)
[2017-06-12] MEDS: POLYETHYLENE GLYCOL 17 GM PKG PO SCH ×2 (09:23→21:01)
[2017-06-12] MEDS: SENNOSIDES SYRUP 8.8 MG/5 ML CUP PO SCH ×2 (09:23→21:01)
[2017-06-12] MEDS: DOCUSATE SODIUM 100 MG/10 ML UDC PO SCH ×2 (09:24→21:01)
[2017-06-12] MEDS: FAMOTIDINE 20 MG/2 ML VIAL IV PUSH SCH (09:24)
[2017-06-12] MEDS: BUMETANIDE INJ 1 MG/4 ML VIAL IV PUSH SCH ×2 (09:24→21:00)
[2017-06-12] MEDS: INSULIN DETEMIR 100 UNITS/ML VIAL SQ SCH ×2 (09:25→21:02)
[2017-06-12] MEDS: SODIUM CHLOR 0.9% 1000 ML INJ 1,000 ML IV SCH (13:00)
[2017-06-12] MEDS ORDERED: NITROGLYCERIN 2% OINT 1 GM PACKET TOPICAL PRN (14:45)
[2017-06-12] MEDS ORDERED: LABETALOL HCL 100 MG/20 ML VIAL IV PUSH PRN (14:45)
[2017-06-12] MEDS ORDERED: hydrALAZINE HCL 20 MG/ML VIAL IV PUSH PRN (14:45)
--- NOTE | 2017-06-12 14:47 | HHI.CCPN ---
Subjective Remarks/Hospital Course 51-year-old male presents with progressive worsening shortness of breath over the past few days. Patient has history of asthma and COPD as well as history of atrial fibrillation patient states he is followed for chronic venous stasis ulcers and has been going to wound care but has not been able to see wound care doctor for the past 7-10 days. Patient's had no fever and chills. Patient's had increasing cough and wheezing. Patient presents by EMS reportedly O2 saturations were in the 80s and heart rate was 160s. He states that since he has not been going to wound care that he's had increasing swelling and drainage from his legs and thinks that that may have precipitated his shortness of breath. 06/01: decompensated overnight and intubated for persistent hypercarbia and respiratory distress. Cr uptrending. BNP elevated, but poor diuresis with high dose iv lasix. unclear to what degree CHF is contributing to his hypoxemia and shock. Lactate also rising, up to 2.8. 06/02: Remains intubated sedated critically ill. Hypotensive, asynchronous with the ventilator. Hypoxemic FiO2 up to 95%. ABG shows pH of 7.14 PCO2 of 79 PO2 89 on 95% FiO2. I have given him rocuronium 50 mg IV 1 for ventilator synchrony, increased inspiratory pressure to 32 and reduced respiratory rate to 20. Start Levophed, hold Cardizem, start amiodarone gtt 06/03: Remains severely ill very critical and uric creatinine 2.5. Anuric now. Currently on Levophed at 17 mcg/m, milrinone at 0.3 g per KG per min. Did not tolerate APRV ABG, pH 7.07, pCO2 92. UO 350 ml in 24 hours but anuric for last 10 hours.2D Echo EF 35-40%. Continue vancomycin, cefepime and azithromycin. Flagyl added for anaerobic coverage 06/04: Remains critically ill but stable to slightly improved. Levophed now weaned down to 2 mcg/m from 17. UO on Bumex gtt 12.5L in 24 hours. Fio2 at 70% with PEEP 14 to maintain oxygen saturation above 90%. Remains on Nimbex infusion 06/05: Continued good response to diuretics. Renal function remains acceptable. 06/06: Continued diuresis at lower dose bumex gtt. Replace lytes. Diamox X 3 days for contraction alkalosis. Stop if creatinine rises. 06/07: Afebrile. Remains on paralytics. Adequate diuresis with bumetanide drip. No bowel movement. Not tolerating tube feeding. 06/08: Afebrile. No bowel movement. Discontinuing the bumetadine drip. Remains paralyzed. Tolerating tube feeds since switched to Vital 1.5 06/09: Afebrile. One bowel movement overnight. Tolerating tube feeds at goal. Weaning FiO2 to 50%. PEEP to 12. Discussed with friend at bedside 06/10: Afebrile. Tube feeds at goal. FiO2 down to 45%. PEEP to 11. Discussed with mother at bedside. Will wean off epoprostenol today. Paralytic discontinued as well. 06/11: Attempted to wean off paralytic yesterday. Patient became bradycardic and tachycardic with significantly decreased tidal volumes. Repeat paralyzed and saturations and tidal volumes with return to normal. No bowel movement yesterday. Tolerating tube feeding. Subjective: 06/12: PEEP down at 12. FiO2 down to 45%. Weaning epoprostenol. Remains paralyzed on the ventilator. Objective Vital Signs Date Time Temp Pulse Resp B/P (MAP) Pulse Ox O2 Delivery O2 Flow Rate FiO2 06/12/17 12:11 96 50 06/12/17 12:00 91 06/12/17 12:00 98.7 14 164/86 (112) 06/10/17 07:49 Ventilator Intake and Output 06/12/17 06/12/17 06/13/17 08:00 16:00 00:00 Intake Total 2933 ml 545 ml Output Total 1850.0 ml 0 ml Balance 1083.0 ml 545 ml Result Diagram: 06/12/17 0355 06/12/17 0355 Other Results Microbiology Date/Time Source Procedure Growth Status 05/31/17 02:26 Blood Peripheral Aerobic Blood Culture - Final Staphylococcus Epidermidis Complete 05/31/17 02:26 Blood Peripheral Anaerobic Blood Culture - Final NO GROWTH IN 5 DAYS Complete 06/05/17 20:00 Sputum Endotracheal Gram Stain - Final Complete 06/05/17 20:00 Sputum Endotracheal Sputum Culture - Final MODERATE GROWTH NORMAL RESPIRATORY COLTON Complete 06/03/17 21:54 Urine Catheterized Urine Urine Culture - Final NO GROWTH IN 48 HOURS. Complete Imaging Last Impressions Chest X-Ray 06/10/17 0000 Signed Impressions: Service Date/Time: May 12:18 - CONCLUSION: 1. Congestive failure. Stable compared to previous exam. Zhang De Jesus MD Renal Ultrasound 06/03/17 0000 Signed Impressions: Service Date/Time: May 22:35 - CONCLUSION: 1. The patient's body habitus prevents visualization of the kidneys. Bret Rodriguez Jr., MD Objective Remarks GENERAL: Morbidly obese male, lying in bed, intubated, sedated, critically ill, HEENT: Normocephalic. Atraumatic. Pupils equal, round, reactive. NECK: Trachea is midline. Orally intubated. CHEST distant breath sounds. Symmetrical excursion. CARDIOVASCULAR: Distant. IR. Tachycardia. S1, S2. No S4 without murmur ABDOMEN: Morbidly obese, Soft, nontender, beats. Hypoactive bowel sounds are appreciated. MUSCULOSKELETAL: Pulses 2+. Chronic venous stasis changes of the lower extremities with bilateral weeping and oozing. NEUROLOGICAL: Heavily sedated, incompletely paralyzed for ventilator synchrony. 4/4 twitch. Line: Central Venous Catheter Side: Right Location: Internal, Jugular A/P Assessment and Plan NEURO/PSYCH: - Currently on midazolam drip at 10 mg an hour and fentanyl drip at at 250 g an hour for sedation and ventilator synchrony, -Currently on cisatracurium drip at 1 mcg/kg per minute. - Goal [id number] 2 out of 4 RESP: Acute hypoxemic respiratory failure multifactorial ARDS Obesity hypoventilation syndrome Asthma/COPD - PC/AC RR 14/ Pinsp24/PEEP 112 FiO2 50% -Currently on albuterol/ipratropium aerosols every 4 hours with albuterol aerosols every 2 hours. Dyspnea - IV methylprednisolone to 60 every 8 hours - Continue broad-spectrum antibiotics ceftriaxone and metronidazole per infectious disease - Follow-up on sputum culture. Negative Legionella and pneumococcal antigen - Patient is close to 500 lbs and cannot be proned - Started epoprostenol currently being weaned at 10,000 ng/kg per minute at 8 ml an hour due to severe hypoxemia/probable ARDS 06/03. CV: Chronic systolic heart failure Atrial fibrillation Moderate tricuspid regurgitation - Continue amiodarone drip at 0.5 g/mL 2. Centrum milligrams twice a day - 2-D echo with 35-40% ejection fraction, mild MR and moderate TR - Shock, septic and cardiogenic - Continue bumetanide 1 mg IV every 12 hours GI: Morbid obesity Protein calorie malnutrition - Continue tube feeding with vital 1 high protein goal 60 cc an hour. - lq famotidine 20 mg twice a day for GI prophylaxis - Elevated liver enzymes most likely from hypotension/shock. - Docusate sodium 100 mg twice a day, senna 8.6 mg twice a day. Polyethylene glycol 17 g twice a day. Add lactulose daily. Metoprolol 1 today. As needed glycerin suppositories : Acute kidney injury - Monitor renal function closely. Brito catheter. - Nephrology consulted for acute kidney failure, anuria -Creatinine currently normalizing ID: Pneumonia? - IV ceftriaxone and metronidazole per infectious disease - Follow-up on blood urine and sputum culture no growth today. We'll add blood culture likely contaminant - Urine for pneumococcal and Legionella antigen sent - history of Pseudomonas, Klebsiella, staph infection of LE per prev notes - Wound care consulted, ID consulted -Dr. Rollins HEME: Microcytic anemia - Monitor CBC, CMP, coags - Continue IV heparin drip at 1600 units an hour for atrial fibrillation ENDO/FEN: Hypernatremia Hyperglycemia critical illness - Careful electrolyte replacement On scheduled KCl 20 mEq twice a day Started on detemir 16 units twice a day and increasing scheduled to high every 4 hours with Novulin R Free water 200 every 4 hr Sliding-scale insulin with Accu-Cheks to maintain euglycemia/moderate protocol. MSK Chronic venous stasis Dakin's solution 0.25 twice a day to affected areas. Gentamicin antibiotic to affected areas PROPH: - IV heparin drip, IV famotidine LINES: - Right IJ central line Critical care time 30 minutes Estevan Loving MD Jun 12, 2017 14:46
[2017-06-12] MEDS ORDERED: LACTULOSE SYRUP 20 GM/30 ML CUP PO ONE (15:00)
[2017-06-12] MEDS ORDERED: MINERAL OIL EMULSION 55% PO ONE (15:00)
[2017-06-12] MEDS: SODIUM CHLORIDE 23.4% INJ 38.5 MEQ in WATER STERILE FOR INJ 1,000 ML IV SCH ×2 (15:48→22:47)
[2017-06-12] MEDS: EPOPROSTENOL NEB SOLUTION 10 NG/KG/MIN 100 ML NEB SCH ×4 (15:48→22:46)
[2017-06-12] MEDS ORDERED: MINERAL OIL LIQUID 30 ML CUP PO ONE (16:00)
[2017-06-12] MEDS: FAMOTIDINE 20 MG TAB NG SCH (21:01)
[2017-06-13] VITALS (19 sets, daily range): BP systolic 105–120; BP diastolic 60–75; PULSE 83–124; RESP 11–14; TEMP 98.2–99; O2SAT 88–100
[2017-06-13] MEDS: fentaNYL DRIP 250 ML IV PRN ×2 (01:28→10:24)
[2017-06-13] MEDS: MIDAZOLAM 100 MG/100 ML INJ 100 ML IV PRN ×2 (01:40→10:24)
[2017-06-13] MEDS: CHLORHEXIDINE GLUCONATE 2 % 1 PACK (2 CLOTHS) TOP SCH ×2 (02:26→23:38)
[2017-06-13] MEDS: RESP: ALBUTEROL 2.5 MG/IPRATROPIUM 0.5 MG NEB (SCH) INH ×6 (03:15→23:35)
[2017-06-13] MEDS: AMIODARONE INJ 450 MG in D5W (EXCEL BAG) INJ 241 ML IV SCH (04:17)
[2017-06-13] MEDS: INSULIN NovoLIN REGULAR SUPPLEMENTAL SCALE SQ SCH ×5 (04:18→20:13)
[2017-06-13] MEDS: FREE WATER G-TUBE SCH ×2 (04:18→08:00)
[2017-06-13 05:52] LABS: AUTOMATED NEUTROPHIL # 10.5 TH/MM3 (1.8-7.7); BASOPHIL % 0.1 % (0.0-2.0); HEMATOCRIT 32.8 % (39.0-51.0); HEMO FLAGS DIFF FINAL; LYMPH % 2.2 % (9.0-44.0); LYMPHOCYTE # 0.2 TH/MM3 (1.0-4.8); MEAN CELL VOLUME 79.4 FL (80.0-100.0); MEAN CORPUSCULAR HEMOGLOBIN 21.8 PG (27.0-34.0); MONO % 2.3 % (0.0-8.0); NEUT % 95.4 % (16.0-70.0); PLATELET COUNT 133 TH/MM3 (150-450); RED BLOOD COUNT 4.13 MIL/MM3 (4.50-5.90); RED CELL DISTRIBUTION WIDTH 20.5 % (11.6-17.2); WHITE BLOOD COUNT 11.1 TH/MM3 (4.0-11.0)
[2017-06-13 05:59] LABS: APTT (PATIENT) 61.3 SEC (24.3-30.1)
[2017-06-13 06:02] LABS: MEAN CORPUSCULAR HGB CONC 27.4 % (32.0-36.0)
[2017-06-13 06:04] LABS: ANION GAP 4 MEQ/L (5-15); AST (GOT) 18 U/L (15-37); BICARBONATE 35.7 MEQ/L (21.0-32.0); BLOOD UREA NITROGEN 68 MG/DL (7-18); CHLORIDE 105 MEQ/L (98-107); GLOMERULAR FILTRATION RATE 63 ML/MIN (>89); MAGNESIUM 2.1 MG/DL (1.5-2.5); POTASSIUM 4.6 MEQ/L (3.5-5.1); SODIUM (NA) 145 MEQ/L (136-145)
--- NOTE | 2017-06-13 06:04 | RADRPT ---
EXAM DATE/TIME: 06/13/2017 04:47 [facility] COMPARISON: CHEST SINGLE AP, June 10, 2017, 12:18. INDICATIONS : Respiratory failure MEDICAL HISTORY : Hypertension. Chronic obstructive pulmonary disease. Hemophilia, A-Fib SURGICAL HISTORY : Appendectomy. ENCOUNTER: Subsequent ACUITY: 2 weeks PAIN SCORE: Non-responsive. LOCATION: Bilateral chest FINDINGS: The study is limited at least partially secondary to rotation. ET tube is 5 cm from the sukhdev. The t ip in the NG tube is not clearly seen. There is a right internal jugular central line in place. The h eart size is enlarged. There is hazy density seen throughout both lungs. CONCLUSION: Hazy density throughout the lungs likely related to diffuse processes such as edema, diffuse infectio n, or ARDS. Bilateral effusions may be present. Ganesh Jorge MD on June 13, 2017 at 6:02 Board Certified Radiologist. This report was verified electronically.
[2017-06-13 06:05] LABS: ALT (GPT) 51 U/L (12-78)
[2017-06-13 06:07] LABS: ALKALINE PHOSPHATASE 76 U/L (45-117); TOTAL BILIRUBIN ADULT 0.9 MG/DL (0.2-1.0)
[2017-06-13] MEDS: ARTIFICIAL TEARS OPTH SOLN 15 ML BTL EACH EYE SCH ×3 (06:11→21:58)
[2017-06-13] MEDS: CISATRACURIUM INJ 100 MG in SODIUM CHLOR 0.9% 250 ML INJ 250 ML IV PRN (07:55)
[2017-06-13] MEDS: SODIUM CHLOR 0.9% 1000 ML INJ 1,000 ML IV SCH (07:59)
[2017-06-13] MEDS: LACTULOSE SYRUP 20 GM/30 ML CUP PO SCH (08:57)
[2017-06-13] MEDS: DOCUSATE SODIUM 100 MG/10 ML UDC PO SCH ×2 (08:57→20:14)
[2017-06-13] MEDS: FAMOTIDINE 20 MG TAB NG SCH ×2 (08:57→20:14)
[2017-06-13] MEDS: SENNOSIDES SYRUP 8.8 MG/5 ML CUP PO SCH ×2 (08:57→20:14)
[2017-06-13] MEDS: POLYETHYLENE GLYCOL 17 GM PKG PO SCH ×2 (08:57→20:14)
[2017-06-13] MEDS: methylPREDNISolone SOD SUCC 125 MG/2 ML VIAL IV PUSH SCH ×2 (08:57→16:04)
[2017-06-13] MEDS: SODIUM CHLORIDE 0.9% FLUSH 10 ML FLUSH IV FLUSH SCH ×2 (08:58→20:13)
[2017-06-13] MEDS: SODIUM HYPOCHLORITE 0.25% 500 ML BTL EXTERNAL SCH (08:58)
[2017-06-13] MEDS: BUMETANIDE INJ 1 MG/4 ML VIAL IV PUSH SCH (08:58)
[2017-06-13] MEDS: POTASSIUM CHLORIDE 20 MEQ PWD PACKET NG SCH ×2 (08:58→20:13)
[2017-06-13] MEDS: GENTAMICIN SULFATE 0.1% CREAM 15 GM TOPICAL SCH ×2 (09:00→20:15)
[2017-06-13] MEDS: INSULIN DETEMIR 100 UNITS/ML VIAL SQ SCH ×2 (09:05→20:15)
[2017-06-13] MEDS: EPOPROSTENOL NEB SOLUTION 10 NG/KG/MIN 100 ML NEB SCH ×2 (10:24)
--- NOTE | 2017-06-13 10:28 | HHI.CCPN ---
Subjective Remarks/Hospital Course 51-year-old male presents with progressive worsening shortness of breath over the past few days. Patient has history of asthma and COPD as well as history of atrial fibrillation patient states he is followed for chronic venous stasis ulcers and has been going to wound care but has not been able to see wound care doctor for the past 7-10 days. Patient's had no fever and chills. Patient's had increasing cough and wheezing. Patient presents by EMS reportedly O2 saturations were in the 80s and heart rate was 160s. He states that since he has not been going to wound care that he's had increasing swelling and drainage from his legs and thinks that that may have precipitated his shortness of breath. 06/01: decompensated overnight and intubated for persistent hypercarbia and respiratory distress. Cr uptrending. BNP elevated, but poor diuresis with high dose iv lasix. unclear to what degree CHF is contributing to his hypoxemia and shock. Lactate also rising, up to 2.8. 06/02: Remains intubated sedated critically ill. Hypotensive, asynchronous with the ventilator. Hypoxemic FiO2 up to 95%. ABG shows pH of 7.14 PCO2 of 79 PO2 89 on 95% FiO2. I have given him rocuronium 50 mg IV 1 for ventilator synchrony, increased inspiratory pressure to 32 and reduced respiratory rate to 20. Start Levophed, hold Cardizem, start amiodarone gtt 06/03: Remains severely ill very critical and uric creatinine 2.5. Anuric now. Currently on Levophed at 17 mcg/m, milrinone at 0.3 g per KG per min. Did not tolerate APRV ABG, pH 7.07, pCO2 92. UO 350 ml in 24 hours but anuric for last 10 hours.2D Echo EF 35-40%. Continue vancomycin, cefepime and azithromycin. Flagyl added for anaerobic coverage 06/04: Remains critically ill but stable to slightly improved. Levophed now weaned down to 2 mcg/m from 17. UO on Bumex gtt 12.5L in 24 hours. Fio2 at 70% with PEEP 14 to maintain oxygen saturation above 90%. Remains on Nimbex infusion 06/05: Continued good response to diuretics. Renal function remains acceptable. 06/06: Continued diuresis at lower dose bumex gtt. Replace lytes. Diamox X 3 days for contraction alkalosis. Stop if creatinine rises. 06/07: Afebrile. Remains on paralytics. Adequate diuresis with bumetanide drip. No bowel movement. Not tolerating tube feeding. 06/08: Afebrile. No bowel movement. Discontinuing the bumetadine drip. Remains paralyzed. Tolerating tube feeds since switched to Vital 1.5 06/09: Afebrile. One bowel movement overnight. Tolerating tube feeds at goal. Weaning FiO2 to 50%. PEEP to 12. Discussed with friend at bedside 06/10: Afebrile. Tube feeds at goal. FiO2 down to 45%. PEEP to 11. Discussed with mother at bedside. Will wean off epoprostenol today. Paralytic discontinued as well. 06/11: Attempted to wean off paralytic yesterday. Patient became bradycardic and tachycardic with significantly decreased tidal volumes. Repeat paralyzed and saturations and tidal volumes with return to normal. No bowel movement yesterday. Tolerating tube feeding. Subjective: 06/12: PEEP down at 12. FiO2 down to 45%. Weaning epoprostenol. Remains paralyzed on the ventilator. 06/13: Continued PC/AC, sats acceptable. CXR with continued fluid overload. Objective Vital Signs Date Time Temp Pulse Resp B/P (MAP) Pulse Ox O2 Delivery O2 Flow Rate FiO2 06/13/17 08:00 50 06/13/17 08:00 83 06/13/17 07:49 92 06/13/17 04:17 120/63 06/13/17 04:00 98.4 14 06/10/17 07:49 Ventilator Intake and Output 06/13/17 06/13/17 06/14/17 08:00 16:00 00:00 Intake Total 1215 ml Output Total 0 ml Balance 1215 ml Result Diagram: 06/13/17 0500 06/13/17 0500 Imaging Last Impressions Chest X-Ray 06/10/17 0000 Signed Impressions: Service Date/Time: May 12:18 - CONCLUSION: 1. Congestive failure. Stable compared to previous exam. Zhang De Jesus MD Renal Ultrasound 06/03/17 0000 Signed Impressions: Service Date/Time: May 22:35 - CONCLUSION: 1. The patient's body habitus prevents visualization of the kidneys. Bret Rodriguez Jr., MD Objective Remarks GENERAL: Morbidly obese male, lying in bed, intubated, sedated, critically ill, HEENT: Normocephalic. Atraumatic. Pupils equal, round, reactive. NECK: Trachea is midline. Orally intubated. CHEST Distant breath sounds. Symmetrical excursion. Acceptable yoon air movement. CARDIOVASCULAR: Distant. IR. Tachycardia. S1, S2. No S4 without murmur ABDOMEN: Morbidly obese, Soft, nontender, beats. Hypoactive bowel sounds are appreciated. MUSCULOSKELETAL: Pulses 2+. Chronic venous stasis changes of the lower extremities with bilateral weeping and oozing. NEUROLOGICAL: Heavily sedated, incompletely paralyzed for ventilator synchrony. 4/4 twitch. Line: Central Venous Catheter Side: Right Location: Internal, Jugular A/P Assessment and Plan NEURO/PSYCH: - Currently on midazolam drip at 10 mg an hour and fentanyl drip at at 250 g an hour for sedation and ventilator synchrony, -Currently on cisatracurium drip at 1 mcg/kg per minute. - Goal [id number] 2 out of 4 RESP: Acute hypoxemic respiratory failure multifactorial ARDS Obesity hypoventilation syndrome Asthma/COPD - PC/AC RR 14/ Pinsp24/PEEP 112 FiO2 50% -Currently on albuterol/ipratropium aerosols every 4 hours with albuterol aerosols every 2 hours. Dyspnea - IV methylprednisolone to 60 every 8 hours - Continue broad-spectrum antibiotics ceftriaxone and metronidazole per infectious disease - Follow-up on sputum culture. Negative Legionella and pneumococcal antigen - Patient is close to 500 lbs and cannot be proned - Started epoprostenol currently being weaned at 10,000 ng/kg per minute at 8 ml an hour due to severe hypoxemia/probable ARDS 06/03. CV: Chronic systolic heart failure Atrial fibrillation Moderate tricuspid regurgitation - Continue amiodarone drip at 0.5 g/mL 2. Centrum milligrams twice a day - 2-D echo with 35-40% ejection fraction, mild MR and moderate TR - Shock, septic and cardiogenic - Continue bumetanide 1 mg IV every 12 hours GI: Morbid obesity Protein calorie malnutrition - Continue tube feeding with vital 1 high protein goal 60 cc an hour. - lq famotidine 20 mg twice a day for GI prophylaxis - Elevated liver enzymes most likely from hypotension/shock. - Docusate sodium 100 mg twice a day, senna 8.6 mg twice a day. Polyethylene glycol 17 g twice a day. Add lactulose daily. Metoprolol 1 today. As needed glycerin suppositories : Acute kidney injury - Monitor renal function closely. Brito catheter. - Nephrology consulted for acute kidney failure, anuria -Creatinine currently normalizing ID: Pneumonia? - IV ceftriaxone and metronidazole per infectious disease - Follow-up on blood urine and sputum culture no growth today. We'll add blood culture likely contaminant - Urine for pneumococcal and Legionella antigen sent - history of Pseudomonas, Klebsiella, staph infection of LE per prev notes - Wound care consulted, ID consulted -Dr. Rollins HEME: Microcytic anemia - Monitor CBC, CMP, coags - Continue IV heparin drip at 1600 units an hour for atrial fibrillation ENDO/FEN: Hypernatremia Hyperglycemia critical illness - Careful electrolyte replacement On scheduled KCl 20 mEq twice a day Started on detemir 16 units twice a day and increasing scheduled to high every 4 hours with Novulin R Free water 200 every 4 hr Sliding-scale insulin with Accu-Cheks to maintain euglycemia/moderate protocol. MSK Chronic venous stasis Dakin's solution 0.25 twice a day to affected areas. Gentamicin antibiotic to affected areas PROPH: - IV heparin drip, IV famotidine LINES: - Right IJ central line Overall impression: Critically ill and unstable. Gas exchange markedly impaired requiring elevated airway pressure due to morbid obesity and imposing restrictive component. Critical care 38 mins Tera Son MD Jun 13, 2017 10:28
[2017-06-13] MEDS: BUMETANIDE INJ 100 ML IV SCH (12:24)
[2017-06-13] MEDS: MILRINONE INJ 20 MG in SODIUM CHLORIDE 0.9% INJ 80 ML IV SCH ×2 (12:25→20:54)
[2017-06-13] MEDS ORDERED: NOREPINEPHRINE-DEXTROSE DRIP 250 ML IV PRN (13:30)
[2017-06-13] MEDS ORDERED: TERBUTALINE INJ 1 MG/ML AMP SQ PRN (13:30)
[2017-06-13] MEDS: PROPOFOL 1000 MG/100 ML INJ 100 ML IV PRN ×2 (13:56→21:46)
[2017-06-13] MEDS ORDERED: DIGOXIN 0.5 MG/2 ML VIAL IV PUSH ONE (15:15)
--- NOTE | 2017-06-13 15:48 | PD.PROCEDR ---
Procedure Note Procedure DX: Hypoxemic Respiratory Failure (J96.01) OP: Insertion Right Radial Artery Line (81620) Procedure: Time out. Jacobo test normal right hand. Right wrist supinated and prepped, draped. Using ultrasound guidance the right radial artery was cannulated and wire advanced. Seeing good return the short catheter was exchanged over the same wire for a 10 cm catheter, 20 gauge. Good waveform was observed and the circulation to the hand remained good after the procedure. Sterile dressing applied. Tera Son MD Jun 13, 2017 15:48
[2017-06-13 16:06] LABS: BLOOD GAS BASE EXCESS 10.3 mmol/L (-2-2); BLOOD GAS CARBOXYHEMOGLOBIN 1.6 % (0-4); BLOOD GAS HCO3 36 mmol/L (22-26); BLOOD GAS METHEMOGLOBIN 0.8 % (0-2); BLOOD GAS O2 HGB SATURATION 89 % (90-100); BLOOD GAS OXYGEN CONTENT 10.7 Vol % (12.0-20.0); BLOOD GAS PCO2 60 mmHg (38-42); BLOOD GAS PO2 68 mmHg (61-120); BLOOD GAS TOTAL HGB 8.4 G/DL (12.0-16.0); CRITICAL VALUE YES; OXYGEN DEVICE VENTILATOR; TEMP CORR TO 98.6
[2017-06-13 16:07] LABS: DRAW SITE ART LINE; FIO2 80 %; NUMBER OF ARTERIAL PUNCTURES 0; STAT NO; ULNAR PULSE PRESENT; VENT SETTINGS APRV
[2017-06-13] MEDS: HEPARIN-D5W 25,000 U/250 ML 250 ML IV PRN (16:18)
[2017-06-13 18:22] LABS: BICARBONATE 34.2 MEQ/L (21.0-32.0); POTASSIUM 4.3 MEQ/L (3.5-5.1)
[2017-06-14] VITALS (18 sets, daily range): BP systolic 101–148; BP diastolic 55–84; PULSE 84–120; RESP 10–11; TEMP 97.5–98.2; O2SAT 98–100
[2017-06-14] MEDS: methylPREDNISolone SOD SUCC 125 MG/2 ML VIAL IV PUSH SCH ×4 (00:13→22:49)
[2017-06-14] MEDS: INSULIN NovoLIN REGULAR SUPPLEMENTAL SCALE SQ SCH ×7 (00:14→23:37)
[2017-06-14] MEDS: PROPOFOL 1000 MG/100 ML INJ 100 ML IV PRN ×10 (00:40→22:51)
[2017-06-14] MEDS: RESP: ALBUTEROL 2.5 MG/IPRATROPIUM 0.5 MG NEB (SCH) INH ×5 (04:07→21:11)
[2017-06-14 04:56] LABS: BLOOD GAS CARBOXYHEMOGLOBIN 1.5 % (0-4); BLOOD GAS HCO3 34 mmol/L (22-26); BLOOD GAS METHEMOGLOBIN 0.9 % (0-2); BLOOD GAS O2 HGB SATURATION 96 % (90-100); BLOOD GAS OXYGEN CONTENT 11.3 Vol % (12.0-20.0); BLOOD GAS PCO2 47 mmHg (38-42); BLOOD GAS PO2 119 mmHg (61-120); BLOOD GAS TOTAL HGB 8.2 G/DL (12.0-16.0); CRITICAL VALUE NO; OXYGEN DEVICE VENTILATOR; TEMP CORR TO 98.6
[2017-06-14 04:57] LABS: DRAW SITE ART LINE; FIO2 40 %; STAT NO; VENT SETTINGS APRV
[2017-06-14 05:35] LABS: APTT (PATIENT) 48.6 SEC (24.3-30.1)
[2017-06-14] MEDS: ARTIFICIAL TEARS OPTH SOLN 15 ML BTL EACH EYE SCH ×3 (05:57→22:00)
[2017-06-14 06:04] LABS: BICARBONATE 35.1 MEQ/L (21.0-32.0); MAGNESIUM 2.2 MG/DL (1.5-2.5); POTASSIUM 4.2 MEQ/L (3.5-5.1)
[2017-06-14] MEDS: fentaNYL DRIP 250 ML IV PRN ×3 (06:15→20:41)
[2017-06-14] MEDS: HEPARIN-D5W 25,000 U/250 ML 250 ML IV PRN ×2 (06:16→20:43)
--- NOTE | 2017-06-14 07:27 | HHI.CCPN ---
Subjective Remarks/Hospital Course 51-year-old male presents with progressive worsening shortness of breath over the past few days. Patient has history of asthma and COPD as well as history of atrial fibrillation patient states he is followed for chronic venous stasis ulcers and has been going to wound care but has not been able to see wound care doctor for the past 7-10 days. Patient's had no fever and chills. Patient's had increasing cough and wheezing. Patient presents by EMS reportedly O2 saturations were in the 80s and heart rate was 160s. He states that since he has not been going to wound care that he's had increasing swelling and drainage from his legs and thinks that that may have precipitated his shortness of breath. 06/01: decompensated overnight and intubated for persistent hypercarbia and respiratory distress. Cr uptrending. BNP elevated, but poor diuresis with high dose iv lasix. unclear to what degree CHF is contributing to his hypoxemia and shock. Lactate also rising, up to 2.8. 06/02: Remains intubated sedated critically ill. Hypotensive, asynchronous with the ventilator. Hypoxemic FiO2 up to 95%. ABG shows pH of 7.14 PCO2 of 79 PO2 89 on 95% FiO2. I have given him rocuronium 50 mg IV 1 for ventilator synchrony, increased inspiratory pressure to 32 and reduced respiratory rate to 20. Start Levophed, hold Cardizem, start amiodarone gtt 06/03: Remains severely ill very critical and uric creatinine 2.5. Anuric now. Currently on Levophed at 17 mcg/m, milrinone at 0.3 g per KG per min. Did not tolerate APRV ABG, pH 7.07, pCO2 92. UO 350 ml in 24 hours but anuric for last 10 hours.2D Echo EF 35-40%. Continue vancomycin, cefepime and azithromycin. Flagyl added for anaerobic coverage 06/04: Remains critically ill but stable to slightly improved. Levophed now weaned down to 2 mcg/m from 17. UO on Bumex gtt 12.5L in 24 hours. Fio2 at 70% with PEEP 14 to maintain oxygen saturation above 90%. Remains on Nimbex infusion 06/05: Continued good response to diuretics. Renal function remains acceptable. 06/06: Continued diuresis at lower dose bumex gtt. Replace lytes. Diamox X 3 days for contraction alkalosis. Stop if creatinine rises. 06/07: Afebrile. Remains on paralytics. Adequate diuresis with bumetanide drip. No bowel movement. Not tolerating tube feeding. 06/08: Afebrile. No bowel movement. Discontinuing the bumetadine drip. Remains paralyzed. Tolerating tube feeds since switched to Vital 1.5 06/09: Afebrile. One bowel movement overnight. Tolerating tube feeds at goal. Weaning FiO2 to 50%. PEEP to 12. Discussed with friend at bedside 06/10: Afebrile. Tube feeds at goal. FiO2 down to 45%. PEEP to 11. Discussed with mother at bedside. Will wean off epoprostenol today. Paralytic discontinued as well. 06/11: Attempted to wean off paralytic yesterday. Patient became bradycardic and tachycardic with significantly decreased tidal volumes. Repeat paralyzed and saturations and tidal volumes with return to normal. No bowel movement yesterday. Tolerating tube feeding. Subjective: 06/12: PEEP down at 12. FiO2 down to 45%. Weaning epoprostenol. Remains paralyzed on the ventilator. 06/13: Continued PC/AC, sats acceptable. CXR with continued fluid overload. 06/14: BNP acceptable after diuresis and inotropic support. APRV vent mode. Objective Vital Signs Date Time Temp Pulse Resp B/P (MAP) Pulse Ox O2 Delivery O2 Flow Rate FiO2 06/14/17 06:00 115 06/14/17 05:00 112/60 06/14/17 04:45 99 40 06/14/17 04:00 98.2 10 06/10/17 07:49 Ventilator Intake and Output 06/14/17 06/14/17 06/15/17 08:00 16:00 00:00 Intake Total 900 ml Output Total 2000 ml Balance -1100 ml Result Diagram: 06/13/17 0500 06/14/17 0500 Other Results Laboratory Tests Test 06/13/17 15:50 06/14/17 04:40 Blood Gas Puncture Site ART LINE ART LINE Blood Gas Patient Temperature 98.6 98.6 Blood Gas HCO3 36 mmol/L (22-26) 34 mmol/L (22-26) Blood Gas Base Excess 10.3 mmol/L (-2-2) 10.0 mmol/L (-2-2) Blood Gas Oxygen Saturation 89 % (90-100) 96 % (90-100) Arterial Blood pH 7.39 (7.380-7.420) 7.48 (7.380-7.420) Arterial Blood Partial Pressure CO2 60 mmHg (38-42) 47 mmHg (38-42) Arterial Blood Partial Pressure O2 68 mmHg (61-120) 119 mmHg (61-120) Arterial Blood Oxygen Content 10.7 Vol % (12.0-20.0) 11.3 Vol % (12.0-20.0) Arterial Blood Carboxyhemoglobin 1.6 % (0-4) 1.5 % (0-4) Arterial Blood Methemoglobin 0.8 % (0-2) 0.9 % (0-2) Blood Gas Hemoglobin 8.4 G/DL (12.0-16.0) 8.2 G/DL (12.0-16.0) Oxygen Delivery Device VENTILATOR VENTILATOR Blood Gas Ventilator Setting APRV APRV Blood Gas Inspired Oxygen 80 % 40 % Imaging Last Impressions Chest X-Ray 06/10/17 0000 Signed Impressions: Service Date/Time: May 12:18 - CONCLUSION: 1. Congestive failure. Stable compared to previous exam. Zhang De Jesus MD Renal Ultrasound 06/03/17 0000 Signed Impressions: Service Date/Time: May 22:35 - CONCLUSION: 1. The patient's body habitus prevents visualization of the kidneys. Bret Rodriguez Jr., MD Objective Remarks GENERAL: Morbidly obese male, lying in bed, intubated, sedated, critically ill, HEENT: Normocephalic. Atraumatic. Pupils equal, round, reactive. NECK: Trachea is midline. Orally intubated. CHEST Distant breath sounds. Symmetrical excursion. Acceptable yoon air movement. CARDIOVASCULAR: Distant. IR. Tachycardia. S1, S2. No S4 without murmur. Marked JVD. ABDOMEN: Morbidly obese, Soft, nontender, beats. Hypoactive bowel sounds are appreciated. MUSCULOSKELETAL: Pulses 2+. Chronic venous stasis changes of the lower extremities with bilateral weeping and oozing. NEUROLOGICAL: Moderately sedated for vent synchrony. Opens eyes. Line: Central Venous Catheter Side: Right Location: Internal, Jugular A/P Assessment and Plan NEURO/PSYCH: - D/C midazolam drip at 10 mg an hour and fentanyl drip at at 250 g an hour for sedation and ventilator synchrony, - d/c Currently on cisatracurium drip at 1 mcg/kg per minute. RESP: Acute hypoxemic respiratory failure multifactorial ARDS Obesity hypoventilation syndrome Asthma/COPD - PC/AC RR 14/ Pinsp24/PEEP 112 FiO2 50% -Currently on albuterol/ipratropium aerosols every 4 hours with albuterol aerosols every 2 hours. Dyspnea - IV methylprednisolone to 60 every 8 hours - Continue broad-spectrum antibiotics ceftriaxone and metronidazole per infectious disease - Follow-up on sputum culture. Negative Legionella and pneumococcal antigen - Patient is close to 500 lbs and cannot be proned - Started epoprostenol currently being weaned at 10,000 ng/kg per minute at 8 ml an hour due to severe hypoxemia/probable ARDS 06/03. - APRV mode CV: Chronic systolic heart failure Atrial fibrillation Moderate tricuspid regurgitation - Continue amiodarone drip at 0.5 g/mL 2. Centrum milligrams twice a day - 2-D echo with 35-40% ejection fraction, mild MR and moderate TR - Shock, septic and cardiogenic - Continue bumetanide 0.25 mg/ht gtt - Digoxin for rate control, 0.125 daily GI: Morbid obesity Protein calorie malnutrition - Continue tube feeding with vital 1 high protein goal 60 cc an hour. - lq famotidine 20 mg twice a day for GI prophylaxis - Elevated liver enzymes most likely from hypotension/shock. - Docusate sodium 100 mg twice a day, senna 8.6 mg twice a day. Polyethylene glycol 17 g twice a day. Add lactulose daily. Metoprolol 1 today. As needed glycerin suppositories : Acute kidney injury - Monitor renal function closely. Brito catheter. - Nephrology consulted for acute kidney failure, anuria -Creatinine currently normalizing ID: Pneumonia? - IV ceftriaxone and metronidazole per infectious disease - Follow-up on blood urine and sputum culture no growth today. We'll add blood culture likely contaminant - Urine for pneumococcal and Legionella antigen sent - history of Pseudomonas, Klebsiella, staph infection of LE per prev notes - Wound care consulted, ID consulted -Dr. Rollins HEME: Microcytic anemia - Monitor CBC, CMP, coags - Continue IV heparin drip at 1600 units an hour for atrial fibrillation ENDO/FEN: Hypernatremia Hyperglycemia critical illness - Careful electrolyte replacement On scheduled KCl 20 mEq twice a day Started on detemir 16 units twice a day and increasing scheduled to high every 4 hours with Novulin R Free water 200 every 4 hr Sliding-scale insulin with Accu-Cheks to maintain euglycemia/moderate protocol. MSK Chronic venous stasis Dakin's solution 0.25 twice a day to affected areas. Gentamicin antibiotic to affected areas PROPH: - IV heparin drip, IV famotidine LINES: - Right IJ central line, will change today Overall impression: Critically ill and unstable. Gas exchange markedly impaired requiring elevated airway pressure (due to morbid obesity and imposing restrictive component). Continue milrinone and diuretic gtt. Critical care 44 mins aside from procedures Tera Son MD Jun 14, 2017 07:27
[2017-06-14] MEDS ORDERED: DIGOXIN 0.5 MG/2 ML VIAL IV PUSH ONE (07:30)
[2017-06-14] MEDS: BUMETANIDE INJ 100 ML IV SCH ×2 (08:00→16:10)
[2017-06-14] MEDS: ALBUMIN 25% INJ 100 ML IV SCH ×3 (08:44→22:49)
[2017-06-14] MEDS: INSULIN DETEMIR 100 UNITS/ML VIAL SQ SCH ×2 (08:44→20:22)
[2017-06-14] MEDS: MILRINONE INJ 20 MG in SODIUM CHLORIDE 0.9% INJ 80 ML IV SCH ×2 (08:46→16:10)
[2017-06-14] MEDS: FAMOTIDINE 20 MG TAB NG SCH ×2 (08:46→20:30)
[2017-06-14] MEDS: POTASSIUM CHLORIDE 20 MEQ PWD PACKET NG SCH ×2 (08:47→21:58)
[2017-06-14] MEDS: POLYETHYLENE GLYCOL 17 GM PKG PO SCH ×2 (08:48→21:00)
[2017-06-14] MEDS: DOCUSATE SODIUM 100 MG/10 ML UDC PO SCH ×2 (08:48→20:30)
[2017-06-14] MEDS: LACTULOSE SYRUP 20 GM/30 ML CUP PO SCH (08:48)
[2017-06-14] MEDS: SODIUM CHLORIDE 0.9% FLUSH 10 ML FLUSH IV FLUSH SCH ×2 (08:48→21:00)
[2017-06-14] MEDS: SODIUM HYPOCHLORITE 0.25% 500 ML BTL EXTERNAL SCH (08:48)
[2017-06-14] MEDS: GENTAMICIN SULFATE 0.1% CREAM 15 GM TOPICAL SCH ×2 (08:49→22:07)
[2017-06-14] MEDS: SENNOSIDES SYRUP 8.8 MG/5 ML CUP PO SCH ×2 (08:49→21:00)
[2017-06-14] MEDS ORDERED: DIGOXIN 0.5 MG/2 ML VIAL IV PUSH SCH (09:00)
--- NOTE | 2017-06-14 14:57 | PD.PROCEDR ---
Procedure Note Procedure DX: Morbid obesity, JASBIR, Respiratory Failure (J96.01) OP: Insertion Left Subclavian Vein Central Line ([id number]) Procedure: Time out. Left chest prepped and draped. Left subclavian vein cannulated with 20 gauge spinal needle and wire easily advanced. Catheter passed over wire to 19 cm. Lumens aspirated and flushed. Dressing applied. CXR ordered, will review. Tera Son MD Jun 14, 2017 14:57
--- NOTE | 2017-06-14 15:33 | RADRPT ---
EXAM DATE/TIME: 06/14/2017 15:50 [facility] COMPARISON: CHEST SINGLE AP, June 13, 2017, 4:47. INDICATIONS : Evaluate CVL position left side MEDICAL HISTORY : Hypertension. Chronic obstructive pulmonary disease. Hemophilia, A-Fib SURGICAL HISTORY : Appendectomy. ENCOUNTER: Subsequent ACUITY: 2 weeks PAIN SCORE: Non-responsive. LOCATION: Left chest FINDINGS: The ET tube is in good position. There is a right jugular central line and a left subclavian line all of which appear in satisfactory position. There is a nasogastric tube present. The heart is enlarged. There are small bilateral effusions. There is diffuse interstitial prominence. The overall appearance of the parenchyma has improved compared to previous. CONCLUSION: 1. New left subclavian central venous catheter in satisfactory position. Zhang De Jesus MD on June 14, 2017 at 15:30 Board Certified Radiologist. This report was verified electronically.
[2017-06-14 16:37] LABS: BLOOD GAS BASE EXCESS 11.4 mmol/L (-2-2); BLOOD GAS CARBOXYHEMOGLOBIN 1.4 % (0-4); BLOOD GAS HCO3 36 mmol/L (22-26); BLOOD GAS O2 HGB SATURATION 97 % (90-100); BLOOD GAS OXYGEN CONTENT 11.6 Vol % (12.0-20.0); BLOOD GAS PCO2 52 mmHg (38-42); BLOOD GAS PO2 136 mmHg (61-120); BLOOD GAS TOTAL HGB 8.3 G/DL (12.0-16.0); CRITICAL VALUE YES; DRAW SITE ART LINE; FIO2 35 %; OXYGEN DEVICE VENTILATOR; TEMP CORR TO 98.6; VENT SETTINGS APRV
[2017-06-14 16:38] LABS: STAT NO
[2017-06-14 18:24] LABS: BICARBONATE 34.5 MEQ/L (21.0-32.0); MAGNESIUM 2.3 MG/DL (1.5-2.5); POTASSIUM 4.1 MEQ/L (3.5-5.1)
[2017-06-15] VITALS: BP 140/79; PULSE 103; PULSE 113; RESP 11; TEMP 97.9; O2SAT 100
[2017-06-15 00:20] VITALS: O2SAT 99
[2017-06-15] MEDS: RESP: ALBUTEROL 2.5 MG/IPRATROPIUM 0.5 MG NEB (SCH) INH ×3 (00:31→07:06)
[2017-06-15 02:00] VITALS: PULSE 111
[2017-06-15] MEDS: PROPOFOL 1000 MG/100 ML INJ 100 ML IV PRN ×2 (02:40→04:13)
[2017-06-15 03:15] VITALS: O2SAT 100
[2017-06-15 04:00] VITALS: BP 145/80; PULSE 120; RESP 11; TEMP 97.9
[2017-06-15] MEDS: CHLORHEXIDINE GLUCONATE 2 % 1 PACK (2 CLOTHS) TOP SCH (04:00)
[2017-06-15] MEDS: INSULIN NovoLIN REGULAR SUPPLEMENTAL SCALE SQ SCH (04:11)
[2017-06-15] MEDS ORDERED: ATROPINE SULFATE 1 MG/10 ML SYRINGE IV ONE (05:00)
[2017-06-15] MEDS ORDERED: SODIUM BICARBONATE 8.4% INJ 50 MEQ/50 ML SYR IV ONE (05:00)
[2017-06-15] MEDS ORDERED: EPINEPHrine HCL (1:10,000) 1 MG/10 ML SYRINGE IV ONE (05:00)
[2017-06-15 05:43] LABS: BLOOD GAS BASE EXCESS 8.5 mmol/L (-2-2); BLOOD GAS CARBOXYHEMOGLOBIN 1.2 % (0-4); BLOOD GAS HCO3 35 mmol/L (22-26); BLOOD GAS O2 HGB SATURATION 92 % (90-100); BLOOD GAS OXYGEN CONTENT 11.3 Vol % (12.0-20.0); BLOOD GAS PCO2 73 mmHg (38-42); BLOOD GAS PO2 88 mmHg (61-120); BLOOD GAS TOTAL HGB 8.6 G/DL (12.0-16.0); TEMP CORR TO 98.6
[2017-06-15 05:46] LABS: CRITICAL VALUE YES; OXYGEN DEVICE VENTILATOR
[2017-06-15 05:47] LABS: DRAW SITE ART LINE; FIO2 35 %; STAT NO; VENT SETTINGS APRV
[2017-06-15 06:00] VITALS: PULSE 110; O2SAT 100
[2017-06-15] MEDS: ARTIFICIAL TEARS OPTH SOLN 15 ML BTL EACH EYE SCH (06:00)
[2017-06-15 06:14] LABS: APTT (PATIENT) 40.6 SEC (24.3-30.1)
[2017-06-15 06:24] LABS: MAGNESIUM 2.4 MG/DL (1.5-2.5)
[2017-06-15] MEDS ORDERED: EPINEPHrine HCL (1:1000) 1 MG/ML VIAL ONE (06:55)
--- NOTE | 2017-06-15 07:48 | HHI.CCPN ---
Subjective Remarks/Hospital Course 51-year-old male presents with progressive worsening shortness of breath over the past few days. Patient has history of asthma and COPD as well as history of atrial fibrillation patient states he is followed for chronic venous stasis ulcers and has been going to wound care but has not been able to see wound care doctor for the past 7-10 days. Patient's had no fever and chills. Patient's had increasing cough and wheezing. Patient presents by EMS reportedly O2 saturations were in the 80s and heart rate was 160s. He states that since he has not been going to wound care that he's had increasing swelling and drainage from his legs and thinks that that may have precipitated his shortness of breath. 06/01: decompensated overnight and intubated for persistent hypercarbia and respiratory distress. Cr uptrending. BNP elevated, but poor diuresis with high dose iv lasix. unclear to what degree CHF is contributing to his hypoxemia and shock. Lactate also rising, up to 2.8. 06/02: Remains intubated sedated critically ill. Hypotensive, asynchronous with the ventilator. Hypoxemic FiO2 up to 95%. ABG shows pH of 7.14 PCO2 of 79 PO2 89 on 95% FiO2. I have given him rocuronium 50 mg IV 1 for ventilator synchrony, increased inspiratory pressure to 32 and reduced respiratory rate to 20. Start Levophed, hold Cardizem, start amiodarone gtt 06/03: Remains severely ill very critical and uric creatinine 2.5. Anuric now. Currently on Levophed at 17 mcg/m, milrinone at 0.3 g per KG per min. Did not tolerate APRV ABG, pH 7.07, pCO2 92. UO 350 ml in 24 hours but anuric for last 10 hours.2D Echo EF 35-40%. Continue vancomycin, cefepime and azithromycin. Flagyl added for anaerobic coverage 06/04: Remains critically ill but stable to slightly improved. Levophed now weaned down to 2 mcg/m from 17. UO on Bumex gtt 12.5L in 24 hours. Fio2 at 70% with PEEP 14 to maintain oxygen saturation above 90%. Remains on Nimbex infusion 06/05: Continued good response to diuretics. Renal function remains acceptable. 06/06: Continued diuresis at lower dose bumex gtt. Replace lytes. Diamox X 3 days for contraction alkalosis. Stop if creatinine rises. 06/07: Afebrile. Remains on paralytics. Adequate diuresis with bumetanide drip. No bowel movement. Not tolerating tube feeding. 06/08: Afebrile. No bowel movement. Discontinuing the bumetadine drip. Remains paralyzed. Tolerating tube feeds since switched to Vital 1.5 06/09: Afebrile. One bowel movement overnight. Tolerating tube feeds at goal. Weaning FiO2 to 50%. PEEP to 12. Discussed with friend at bedside 06/10: Afebrile. Tube feeds at goal. FiO2 down to 45%. PEEP to 11. Discussed with mother at bedside. Will wean off epoprostenol today. Paralytic discontinued as well. 06/11: Attempted to wean off paralytic yesterday. Patient became bradycardic and tachycardic with significantly decreased tidal volumes. Repeat paralyzed and saturations and tidal volumes with return to normal. No bowel movement yesterday. Tolerating tube feeding. Subjective: 06/12: PEEP down at 12. FiO2 down to 45%. Weaning epoprostenol. Remains paralyzed on the ventilator. 06/13: Continued PC/AC, sats acceptable. CXR with continued fluid overload. 06/14: BNP acceptable after diuresis and inotropic support. APRV vent mode. 06/15: Patient sustained a PEA cardiac arrest at 0635 today. ACLS protocol immediately begun and a perfusing rhythm restored after 4 rounds of epi and CPR. He sustained cardiac arrest several more times over the next 45 mins requiring intermittent CPR and medical infusions. At one point he perfused for about 7 minutes on levophed and epinephrine gtts following bicarb correction of respiratory acidosis, but could not sustain.His mother was called at the beginning of CPR and told his heart had stopped and we were doing CPR. He was pronounced at 0737 hours after 62 minutes of ACLS protocol. Review of recent a.m. labes show no new metabolic abnormalities. She code sheet. Objective Vital Signs Date Time Temp Pulse Resp B/P (MAP) Pulse Ox O2 Delivery O2 Flow Rate FiO2 06/15/17 06:00 110 06/15/17 06:00 100 35 06/15/17 04:00 97.9 11 145/80 (101) Intake and Output 10/06/15/17 06/16/17 08:00 16:00 00:00 Intake Total 827 ml Output Total 3500 ml Balance -2673 ml Result Diagram: 06/13/17 0500 06/15/17 0550 Other Results Laboratory Tests Test 06/14/17 16:30 06/15/17 05:23 Blood Gas Puncture Site ART LINE ART LINE Blood Gas Patient Temperature 98.6 98.6 Blood Gas HCO3 36 mmol/L (22-26) 35 mmol/L (22-26) Blood Gas Base Excess 11.4 mmol/L (-2-2) 8.5 mmol/L (-2-2) Blood Gas Oxygen Saturation 97 % (90-100) 92 % (90-100) Arterial Blood pH 7.45 (7.380-7.420) 7.30 (7.380-7.420) Arterial Blood Partial Pressure CO2 52 mmHg (38-42) 73 mmHg (38-42) Arterial Blood Partial Pressure O2 136 mmHg (61-120) 88 mmHg (61-120) Arterial Blood Oxygen Content 11.6 Vol % (12.0-20.0) 11.3 Vol % (12.0-20.0) Arterial Blood Carboxyhemoglobin 1.4 % (0-4) 1.2 % (0-4) Arterial Blood Methemoglobin 1.0 % (0-2) 1.0 % (0-2) Blood Gas Hemoglobin 8.3 G/DL (12.0-16.0) 8.6 G/DL (12.0-16.0) Oxygen Delivery Device VENTILATOR VENTILATOR Blood Gas Ventilator Setting APRV APRV Blood Gas Inspired Oxygen 35 % 35 % Imaging Last Impressions Chest X-Ray 06/10/17 0000 Signed Impressions: Service Date/Time: May 12:18 - CONCLUSION: 1. Congestive failure. Stable compared to previous exam. Zhang De Jesus MD Renal Ultrasound 06/03/17 0000 Signed Impressions: Service Date/Time: May 22:35 - CONCLUSION: 1. The patient's body habitus prevents visualization of the kidneys. Bret Rodriguez Jr., MD Objective Remarks GENERAL: Morbidly obese male, lying in bed, intubated, sedated, critically ill, HEENT: Normocephalic. Atraumatic. Pupils equal, round, reactive. NECK: Trachea is midline. Orally intubated. CHEST Distant breath sounds. Symmetrical excursion. Acceptable yoon air movement. CARDIOVASCULAR: Distant. IR. Tachycardia. S1, S2. No S4 without murmur. Marked JVD. ABDOMEN: Morbidly obese, Soft, nontender, beats. Hypoactive bowel sounds are appreciated. MUSCULOSKELETAL: Pulses 2+. Chronic venous stasis changes of the lower extremities with bilateral weeping and oozing. NEUROLOGICAL: Moderately sedated for vent synchrony. Opens eyes. Line: Central Venous Catheter Side: Right Location: Internal, Jugular A/P Assessment and Plan NEURO/PSYCH: - D/C midazolam drip at 10 mg an hour and fentanyl drip at at 250 g an hour for sedation and ventilator synchrony, - d/c Currently on cisatracurium drip at 1 mcg/kg per minute. RESP: Acute hypoxemic respiratory failure multifactorial ARDS Obesity hypoventilation syndrome Asthma/COPD - PC/AC RR 14/ Pinsp24/PEEP 112 FiO2 50% -Currently on albuterol/ipratropium aerosols every 4 hours with albuterol aerosols every 2 hours. Dyspnea - IV methylprednisolone to 60 every 8 hours - Continue broad-spectrum antibiotics ceftriaxone and metronidazole per infectious disease - Follow-up on sputum culture. Negative Legionella and pneumococcal antigen - Patient is close to 500 lbs and cannot be proned - Started epoprostenol currently being weaned at 10,000 ng/kg per minute at 8 ml an hour due to severe hypoxemia/probable ARDS 06/03. - APRV mode CV: Chronic systolic heart failure Atrial fibrillation Moderate tricuspid regurgitation - Continue amiodarone drip at 0.5 g/mL 2. Centrum milligrams twice a day - 2-D echo with 35-40% ejection fraction, mild MR and moderate TR - Shock, septic and cardiogenic - Continue bumetanide 0.25 mg/ht gtt - Digoxin for rate control, 0.125 daily GI: Morbid obesity Protein calorie malnutrition - Continue tube feeding with vital 1 high protein goal 60 cc an hour. - lq famotidine 20 mg twice a day for GI prophylaxis - Elevated liver enzymes most likely from hypotension/shock. - Docusate sodium 100 mg twice a day, senna 8.6 mg twice a day. Polyethylene glycol 17 g twice a day. Add lactulose daily. Metoprolol 1 today. As needed glycerin suppositories : Acute kidney injury - Monitor renal function closely. Brito catheter. - Nephrology consulted for acute kidney failure, anuria -Creatinine currently normalizing ID: Pneumonia? - IV ceftriaxone and metronidazole per infectious disease - Follow-up on blood urine and sputum culture no growth today. We'll add blood culture likely contaminant - Urine for pneumococcal and Legionella antigen sent - history of Pseudomonas, Klebsiella, staph infection of LE per prev notes - Wound care consulted, ID consulted -Dr. Rollins HEME: Microcytic anemia - Monitor CBC, CMP, coags - Continue IV heparin drip at 1600 units an hour for atrial fibrillation ENDO/FEN: Hypernatremia Hyperglycemia critical illness - Careful electrolyte replacement On scheduled KCl 20 mEq twice a day Started on detemir 16 units twice a day and increasing scheduled to high every 4 hours with Novulin R Free water 200 every 4 hr Sliding-scale insulin with Accu-Cheks to maintain euglycemia/moderate protocol. MSK Chronic venous stasis Dakin's solution 0.25 twice a day to affected areas. Gentamicin antibiotic to affected areas PROPH: - IV heparin drip, IV famotidine LINES: - Right IJ central line, will change today Overall impression: Critically ill and unstable. Gas exchange markedly impaired requiring elevated airway pressure (due to morbid obesity and imposing restrictive component). Continue milrinone and diuretic gtt. PEA arrest at 0635 today. Unable to resuscitate after 62 minutes of ACLS. Critical care 75 mins aside from procedures Tera Son MD Jun 15, 2017 07:47
--- NOTE | 2017-06-15 07:49 | DEATH SUM ---
Summary Demographics Date Pronounced : Jun 15, 2017 Time Of : 07:37 Preliminary Cause of : Cardiac arrest (Hypoxemic respiratory failure, morbid obesity, systolic heart failure) Tera Son MD Jun 15, 2017 07:49
--- NOTE | 2017-06-15 07:56 | HHI.DS ---
Discharge Summary Admission Date May 31, 2017 at 05:21 Discharge Date: Jun 15, 2017 Admitting Diagnosis Hypoxemic respiratory failure (1) Acute on chronic respiratory failure with hypoxemia ICD Code: J96.21 - Acute and chronic respiratory failure with hypoxia Diagnosis: Principal (2) Systolic heart failure, chronic ICD Code: I50.22 - Chronic systolic (congestive) heart failure Diagnosis: Principal (3) COPD with acute exacerbation ICD Code: J44.1 - Chronic obstructive pulmonary disease with (acute) exacerbation Diagnosis: Secondary (4) JASBIR (acute kidney injury) ICD Code: N17.9 - Acute kidney failure, unspecified Diagnosis: Principal (5) Morbid obesity with BMI of 50.0-59.9, adult ICD Code: E66.01 - Morbid (severe) obesity due to excess calories; Z68.43 - Body mass index (BMI) 50-59.9 , adult Diagnosis: Secondary (6) Atrial fibrillation ICD Code: I48.91 - Unspecified atrial fibrillation Diagnosis: Secondary (7) Pneumonia ICD Code: J18.9 - Pneumonia, unspecified organism Diagnosis: Secondary Procedures Intubation and mechanical ventilation. Insertion central venous line X 2. Brief History 51-year-old male presents with progressive worsening shortness of breath over the past few days. Patient has history of asthma and COPD as well as history of atrial fibrillation patient states he is followed for chronic venous stasis ulcers and has been going to wound care but has not been able to see wound care doctor for the past 7-10 days. Patient's had no fever and chills. Patient's had increasing cough and wheezing. Patient presents by EMS reportedly O2 saturations were in the 80s and heart rate was 160s. He states that since he has not been going to wound care that he's had increasing swelling and drainage from his legs and thinks that that may have precipitated his shortness of breath. CBC/BMP: 06/13/17 0500 06/15/17 0550 Significant Findings Laboratory Tests Test 06/13/17 05:00 06/13/17 15:50 06/13/17 16:55 06/14/17 04:40 White Blood Count 11.1 TH/MM3 (4.0-11.0) Red Blood Count 4.13 MIL/MM3 (4.50-5.90) Hemoglobin 9.0 GM/DL (13.0-17.0) Hematocrit 32.8 % (39.0-51.0) Mean Corpuscular Volume 79.4 FL (80.0-100.0) Mean Corpuscular Hemoglobin 21.8 PG (27.0-34.0) Mean Corpuscular Hemoglobin Concent 27.4 % (32.0-36.0) Red Cell Distribution Width 20.5 % (11.6-17.2) Platelet Count 133 TH/MM3 (150-450) Neutrophils (%) (Auto) 95.4 % (16.0-70.0) Lymphocytes (%) (Auto) 2.2 % (9.0-44.0) Neutrophils # (Auto) 10.5 TH/MM3 (1.8-7.7) Lymphocytes # (Auto) 0.2 TH/MM3 (1.0-4.8) Activated Partial Thromboplast Time 61.3 SEC (24.3-30.1) Blood Urea Nitrogen 68 MG/DL (7-18) 66 MG/DL (7-18) Random Glucose 295 MG/DL (74-106) 225 MG/DL (74-106) Total Protein 6.2 GM/DL (6.4-8.2) Albumin 3.1 GM/DL (3.4-5.0) Calcium Level 8.4 MG/DL (8.5-10.1) 8.3 MG/DL (8.5-10.1) Carbon Dioxide Level 35.7 MEQ/L (21.0-32.0) 34.2 MEQ/L (21.0-32.0) Anion Gap 4 MEQ/L (5-15) Estimat Glomerular Filtration Rate 63 ML/MIN (>89) 66 ML/MIN (>89) Blood Gas HCO3 36 mmol/L (22-26) 34 mmol/L (22-26) Blood Gas Base Excess 10.3 mmol/L (-2-2) 10.0 mmol/L (-2-2) Blood Gas Oxygen Saturation 89 % (90-100) Arterial Blood Partial Pressure CO2 60 mmHg (38-42) 47 mmHg (38-42) Arterial Blood Oxygen Content 10.7 Vol % (12.0-20.0) 11.3 Vol % (12.0-20.0) Blood Gas Hemoglobin 8.4 G/DL (12.0-16.0) 8.2 G/DL (12.0-16.0) Sodium Level 147 MEQ/L (136-145) Arterial Blood pH 7.48 (7.380-7.420) Test 06/14/17 05:00 06/14/17 16:30 06/14/17 17:20 06/15/17 05:23 Activated Partial Thromboplast Time 48.6 SEC (24.3-30.1) Blood Urea Nitrogen 80 MG/DL (7-18) 82 MG/DL (7-18) Creatinine 1.38 MG/DL (0.60-1.30) 1.39 MG/DL (0.60-1.30) Random Glucose 271 MG/DL (74-106) 283 MG/DL (74-106) Carbon Dioxide Level 35.1 MEQ/L (21.0-32.0) 34.5 MEQ/L (21.0-32.0) Estimat Glomerular Filtration Rate 55 ML/MIN (>89) 54 ML/MIN (>89) Blood Gas HCO3 36 mmol/L (22-26) 35 mmol/L (22-26) Blood Gas Base Excess 11.4 mmol/L (-2-2) 8.5 mmol/L (-2-2) Arterial Blood pH 7.45 (7.380-7.420) 7.30 (7.380-7.420) Arterial Blood Partial Pressure CO2 52 mmHg (38-42) 73 mmHg (38-42) Arterial Blood Partial Pressure O2 136 mmHg (61-120) Arterial Blood Oxygen Content 11.6 Vol % (12.0-20.0) 11.3 Vol % (12.0-20.0) Blood Gas Hemoglobin 8.3 G/DL (12.0-16.0) 8.6 G/DL (12.0-16.0) Sodium Level 146 MEQ/L (136-145) Test 06/15/17 05:50 Activated Partial Thromboplast Time 40.6 SEC (24.3-30.1) Blood Urea Nitrogen 85 MG/DL (7-18) Creatinine 1.39 MG/DL (0.60-1.30) Random Glucose 216 MG/DL (74-106) Sodium Level 147 MEQ/L (136-145) Carbon Dioxide Level 34.0 MEQ/L (21.0-32.0) Estimat Glomerular Filtration Rate 54 ML/MIN (>89) Imaging CXR: Pulmonary venous congestion. Pneumonia. PE at Discharge Transfer Summary Prolonged hospitalization for hypoxemic respiratory failure and chronic systolic heart failure. Sustained sudden PEA cardiac arrest on 06/15 at 0635 hours. Full ACLS protocol initiated but unable to obtain a sustained perfusing rhythm. Pronounced at 0737 hours of cardiac standstill. Hospital Course 51-year-old male presents with progressive worsening shortness of breath over the past few days. Patient has history of asthma and COPD as well as history of atrial fibrillation patient states he is followed for chronic venous stasis ulcers and has been going to wound care but has not been able to see wound care doctor for the past 7-10 days. Patient's had no fever and chills. Patient's had increasing cough and wheezing. Patient presents by EMS reportedly O2 saturations were in the 80s and heart rate was 160s. He states that since he has not been going to wound care that he's had increasing swelling and drainage from his legs and thinks that that may have precipitated his shortness of breath. 06/01: decompensated overnight and intubated for persistent hypercarbia and respiratory distress. Cr uptrending. BNP elevated, but poor diuresis with high dose iv lasix. unclear to what degree CHF is contributing to his hypoxemia and shock. Lactate also rising, up to 2.8. 06/02: Remains intubated sedated critically ill. Hypotensive, asynchronous with the ventilator. Hypoxemic FiO2 up to 95%. ABG shows pH of 7.14 PCO2 of 79 PO2 89 on 95% FiO2. I have given him rocuronium 50 mg IV 1 for ventilator synchrony, increased inspiratory pressure to 32 and reduced respiratory rate to 20. Start Levophed, hold Cardizem, start amiodarone gtt 06/03: Remains severely ill very critical and uric creatinine 2.5. Anuric now. Currently on Levophed at 17 mcg/m, milrinone at 0.3 g per KG per min. Did not tolerate APRV ABG, pH 7.07, pCO2 92. UO 350 ml in 24 hours but anuric for last 10 hours.2D Echo EF 35-40%. Continue vancomycin, cefepime and azithromycin. Flagyl added for anaerobic coverage 06/04: Remains critically ill but stable to slightly improved. Levophed now weaned down to 2 mcg/m from 17. UO on Bumex gtt 12.5L in 24 hours. Fio2 at 70% with PEEP 14 to maintain oxygen saturation above 90%. Remains on Nimbex infusion 06/05: Continued good response to diuretics. Renal function remains acceptable. 06/06: Continued diuresis at lower dose bumex gtt. Replace lytes. Diamox X 3 days for contraction alkalosis. Stop if creatinine rises. 06/07: Afebrile. Remains on paralytics. Adequate diuresis with bumetanide drip. No bowel movement. Not tolerating tube feeding. 06/08: Afebrile. No bowel movement. Discontinuing the bumetadine drip. Remains paralyzed. Tolerating tube feeds since switched to Vital 1.5 06/09: Afebrile. One bowel movement overnight. Tolerating tube feeds at goal. Weaning FiO2 to 50%. PEEP to 12. Discussed with friend at bedside 06/10: Afebrile. Tube feeds at goal. FiO2 down to 45%. PEEP to 11. Discussed with mother at bedside. Will wean off epoprostenol today. Paralytic discontinued as well. 06/11: Attempted to wean off paralytic yesterday. Patient became bradycardic and tachycardic with significantly decreased tidal volumes. Repeat paralyzed and saturations and tidal volumes with return to normal. No bowel movement yesterday. Tolerating tube feeding. Subjective: 06/12: PEEP down at 12. FiO2 down to 45%. Weaning epoprostenol. Remains paralyzed on the ventilator. 06/13: Continued PC/AC, sats acceptable. CXR with continued fluid overload. 06/14: BNP acceptable after diuresis and inotropic support. APRV vent mode. 06/15: Patient sustained a PEA cardiac arrest at 0635 today. ACLS protocol immediately begun and a perfusing rhythm restored after 4 rounds of epi and CPR. He sustained cardiac arrest several more times over the next 45 mins requiring intermittent CPR and medical infusions. At one point he perfused for about 7 minutes on levophed and epinephrine gtts following bicarb correction of respiratory acidosis, but could not sustain.His mother was called at the beginning of CPR and told his heart had stopped and we were doing CPR. He was pronounced at 0737 hours after 62 minutes of ACLS protocol. Review of recent a.m. labes show no new metabolic abnormalities. She code sheet. Pt Condition on Discharge: Deteriorating Tera Son MD Jun 15, 2017 07:56
== END 2017-06-15 12:55 | disposition expired | DRG 870 ==
LOC: NEPC 02:05 → NEDA 05:21 → NEDH 09:17 → N03B 15:17
PROVIDERS: ADMIT Internal Medicine Critical Care Medicine; ATTEND Internal Medicine Critical Care Medicine
PROC: 0BH18EZ Insertion of Endotracheal Airway into Trachea, Via Natural or Artificial Opening Endoscopic (ICD-10-PCS; principal; 2017-06-01)
PROC: 5A1955Z Respiratory Ventilation, Greater than 96 Consecutive Hours (ICD-10-PCS; 2017-06-01)
PROC: 03HY32Z Insertion of Monitoring Device into Upper Artery, Percutaneous Approach (ICD-10-PCS; 2017-06-01)
PROC: 02HV33Z Insertion of Infusion Device into Superior Vena Cava, Percutaneous Approach (ICD-10-PCS; 2017-06-02)
PROC: 03HY32Z Insertion of Monitoring Device into Upper Artery, Percutaneous Approach (ICD-10-PCS; 2017-06-13)
DX: A41.9 Sepsis, unspecified organism (principal); N17.0 Acute kidney failure with tubular necrosis; J18.9 Pneumonia, unspecified organism; J44.0 Chronic obstructive pulmonary disease with (acute) lower respiratory infection; J96.01 Acute respiratory failure with hypoxia; R65.21 Severe sepsis with septic shock; R57.0 Cardiogenic shock; J96.02 Acute respiratory failure with hypercapnia; J80 Acute respiratory distress syndrome; E87.2 Acidosis; I50.22 Chronic systolic (congestive) heart failure; J45.901 Unspecified asthma with (acute) exacerbation; E87.0 Hyperosmolality and hypernatremia; J44.1 Chronic obstructive pulmonary disease with (acute) exacerbation; E66.2 Morbid (severe) obesity with alveolar hypoventilation; L97.919 Non-pressure chronic ulcer of unspecified part of right lower leg with unspecified severity; L97.929 Non-pressure chronic ulcer of unspecified part of left lower leg with unspecified severity; Z68.43 Body mass index [BMI] 50.0-59.9, adult; E46 Unspecified protein-calorie malnutrition; I87.2 Venous insufficiency (chronic) (peripheral); I48.2 Chronic atrial fibrillation; K21.9 Gastro-esophageal reflux disease without esophagitis; E83.42 Hypomagnesemia; E83.51 Hypocalcemia; D50.9 Iron deficiency anemia, unspecified; R68.0 Hypothermia, not associated with low environmental temperature; E11.65 Type 2 diabetes mellitus with hyperglycemia; I07.1 Rheumatic tricuspid insufficiency; Z71.3 Dietary counseling and surveillance; Z23 Encounter for immunization
CPT/HCPCS: 36556; 36600; 71010; 76775; 76937; 80048; 80053; 80202; 81001; 82550; 82805; 82948; 83605; 83735; 83880; 83935; 84100; 84132; 84145; 84155; 84300; 84484; 85007; 85025; 85027; 85610; 85730; 87040; 87070; 87077; 87086; 87186; 87205; 87449; 87641; 90686; 90732; 93005; 93306; 94002; 94003; 94640; 94664; 94799; 96365; 96368; 96375; 96376; J0171; J0282; J0330; J0456; J0461; J0610; J0692; J0696; J1120; J1160; J1325; J1644; J1650; J1940; J2212; J2250; J2260; J2270; J2405; J2920; J2930; J3010; J3370; J3475; J3480; J7030; J7040; J7050; J7060; P9045; P9047; Q2038